=== PATIENT | female | born 1945 | race Caucasian/White ===

== ENCOUNTER → 2017-01-12 | Outpatient (CLI) | payer OTHER ==
[2017-01-12 09:36] LABS: INR 2.7 (0.9-1.1); PROTHROMBIN TIME (PATIENT) 30.2 SECONDS (9.0-12.0)
== END | disposition home or self-care (01) ==
LOC: C.LABVPSUA 09:17
PROVIDERS: ATTEND Family Medicine
DX: I63.531 Cerebral infarction due to unspecified occlusion or stenosis of right posterior cerebral artery (principal); Z79.01 Long term (current) use of anticoagulants; Z51.81 Encounter for therapeutic drug level monitoring; I48.91 Unspecified atrial fibrillation

== ENCOUNTER → 2017-01-26 | Outpatient (CLI) | payer OTHER ==
[2017-01-26 11:15] LABS: INR 2.9 (0.9-1.1)
== END | disposition home or self-care (01) ==
LOC: C.LABSPEC 10:36
PROVIDERS: ATTEND Family Medicine
DX: I48.91 Unspecified atrial fibrillation (principal); I63.531 Cerebral infarction due to unspecified occlusion or stenosis of right posterior cerebral artery; Z79.01 Long term (current) use of anticoagulants

== ENCOUNTER → 2017-06-15 | Day surgery (SDC) | payer OTHER, MEDICARE ==
[2017-05-24 11:54] VITALS: Ht 147.3 cm; Wt 47.3 kg
[~2017-06-15] VITALS: Ht 147.3 cm; Wt 47.3 kg
[~2017-06-15] MED LIST: 500ML BSS 0.3ML EPI 1:1000PF IRRIG ONE; ACETAMINOPHEN 325 MG TAB PO PRN; AMVISC PLUS 0.8ML SYRINGE INT OCU ONE; ATROPINE SULFATE 0.1 MG/ML 5ML SYR IV PRN; AcetaZOLAMIDE 250 MG TAB PO SCH; BETAXOLOL HCL 0.25% OP SUSP PER DROP CHARGE OPL SCH; BRIMONIDINE TART 0.2% OP SOLN PER DROP CHARGE ONE; BSS FLUSH ONE; CARV6.252 PO; ENDOCOAT 0.85ML SYRINGE INT OCU ONE; EpHEDrine SULFATE INJ 50 MG/ML AMP IV PRN; EpINEphrine INJ 1MG/ML AMP 1 MG/ML AMP ONE; LACTATED RINGER'S 1000ML 500 ML IV SCH; LIDOCAINE 4% OP SOLN DROP CHARGE ONE; LIDOCAINE 4% OP SOLN DROP CHARGE OPL SCH; LIDOCAINE HCL 1% MPF 2 ML VIAL ONE; LOSA50TA6 PO; MAGNTAB17 PO; MELATAB2 PO; MIDAZOLAM HCL 1 MG/ML 2ML VIAL ONE; MISC4CAP PO; MIX: 4ML BSS 1ML EPI 1:1000 PF INSTIL ONE; MOXIFLOXACIN OPH SOLN PER DROP CHARGE ONE; MULT-506 PO; OCUCOAT 1 ML SOLN IO ONE; ONDANSETRON INJ 2 MG/ML 2 ML VIAL IV PRN; PHENYLEPHRINE HCL 10% OP SOLN PER DROP CHARGE OPL SCH; POVIDONE-IODINE OP SOLN 30 ML BTL ONE; PROPARACAINE 0.5% OP SOLN PER DROP CHARGE OPL SCH; TOBRAMYCIN/DEXAMETHASONE OPH OINT PER APPLN CHARGE ONE; WARF1TAB PO
--- NOTE | 2017-06-15 07:27 | History & Physical Bridge - SC ---
H&P Re-Evaluation Bridge Note: I have examined the patient, reviewed the History & Physical and in the interval since the performance of the History & Physical I have noted the following changes of clinical significance: No changes noted
[2017-06-15] MEDS: TROPICAMIDE 1% OP SOLN PER DROP CHARGE OPL SCH ×2 (07:33→07:38)
[2017-06-15] MEDS: PHENYLEPHRINE HCL 2.5% OP SOLN PER DROP CHARGE OPL SCH ×2 (07:33→07:37)
[2017-06-15] MEDS: CYCLOPENTOLATE HCL 1% OP SOLN PER DROP CHARGE OPL SCH ×2 (07:34→07:39)
[2017-06-15] MEDS: MOXIFLOXACIN OPH SOLN PER DROP CHARGE OPL SCH ×2 (07:35→07:47)
--- NOTE | 2017-06-15 08:11 | [facility] Operative Report ---
Operative Report Date of Service Jun 15, 2017. Operative Report 1. PREOPERATIVE DIAGNOSIS: Senile nuclear cataract, left eye. 2. POSTOPERATIVE DIAGNOSIS: Senile nuclear cataract, left eye. 3. PROCEDURE: Phacoemulsification of left cataract with posterior chamber lens implant, type [employer], model MX60, power +22.0 diopters. ANESTHESIA: Local standby. SURGEON: Dr. Baig. COMPLICATIONS: None. OPERATING TIME: 20 minutes. 4. OPERATION AND FINDINGS: DESCRIPTION OF PROCEDURE: The left pupil was dilated. The anesthetic was administered using a topical technique. The left eye was prepped and draped. A speculum was placed. A clear corneal incision was formed. The chamber was filled with Amvisc Plus and Endocoat. Epinephrine solution was used. A paracentesis was placed. A capsulorrhexis was performed. The nucleus was hydrodissected. The lens was removed with phacoemulsification. Time was 2.37 seconds. The aspiration unit was used to remove the cortex. The capsule was filled with Amvisc Plus. The lens implant was folded and placed into the capsule. The incision was hydrated. The Amvisc was aspirated. The wound was secure. The chamber was deep. The pupil was round. Brimonidine, TobraDex ointment and Vigamox solution were placed. The speculum was removed. The patient was returned to the Recovery Room in stable condition. I attest to the content of the Intraoperative Record and any orders documented therein. Any exceptions are noted below. The scribe's documentation has been prepared in my presence, under my direction and personally reviewed by me in its entirety. I confirm that the note above accurately reflects all work, treatment, procedures, and medical decision making performed by me. I personally scribed for Roman Baig M.D. ([email or web address]) on 06/15/17 at 08:11. Electronically submitted by Susan Ortiz ([email or web address]).
--- NOTE | 2017-06-15 08:13 | Discharge Instructions-SurgCtr ---
Discharge Instructions Date of Service Jun 15, 2017. Visit Reason for Visit: Cataract Left Eye Discharge Discharge Diagnosis / Problem: lens implant left eye Discharge Goals Goal(s): Improve function Activity Recommendations Activity Limitations: resume your previous activity Lifting Limitations: no more than 10 pounds Exercise/Sports Limitations: gradually increase as tolerated May Resume Sexual Activity: when tolerated Shower/Bathe: tomorrow Driving or Machine Use: resume 1 day after discharge Anesthesia . Post Anesthesia Instructions: If you have had General Anesthesia or IV Sedation: * Do not drive today. * Resume driving when surgeon permits. * Do not make important decisions or sign legal documents today. * Call surgeon for: 1. Temperature elevations greater than 101 degrees F. 2. Uncontrollable pain. 3. Excessive bleeding. 4. Persistent nausea and vomiting. 5. Medication intolerance (nausea, vomiting or rash). * For nausea and vomiting use only clear liquids such as: tea, soda, bouillon until nausea subsides, then gradually increase diet as tolerated. * If you have any concerns or questions, call your surgeon's office. If physician is unavailable and it is an emergency, call 911 or go to the nearest emergency room. . Instructions / Follow-Up Instructions / Follow-Up ACTIVITY RECOMMENDATIONS: * Light activities. * Mild irritation and blurred vision are common for the first few days. * You may walk outside, read, watch television. * Redness around the white part of the eye is common. MEDICATIONS: Resume previous medications unless instructed otherwise by your surgeon. * Take white Diamox (Acetazolamide) tablet at 1 pm today. Start all eye drops at 1 pm today: * Eye drops (today and tomorrow): Prednisone - one drop in operative eye every 3 hours while awake Ofloxacin - one drop in operative eye every 3 hours while awake SPECIAL CARE INSTRUCTIONS: * Tape plastic shield over eye to sleep at night. Call your doctor at with any concerns or problems. FOLLOW UP VISIT: Follow-up with Dr Baig at [facility] as scheduled. Diet Recommendations Home Diet: no limitations Procedures Procedures Performed: Left Cataract Phacoemulsification With Intraocular Lens Implant Pending Studies Studies pending at discharge: no Medical Emergencies . Who to Call and When: Medical Emergencies: If at any time you feel your situation is an emergency, please call 911 immediately. . Non-Emergent Contact Non-Emergency issues call your: [employer] Call Non-Emergent contact if: your pain is not controlled [phone] . . "Provider Documentation" section prepared by Roman Baig. .
[2017-06-15 08:15] VITALS: TEMP 36.3
--- NOTE | 2017-06-15 08:34 | Anesthesia Progress Nt - [facility] ---
Anesthesia Post Op Note Date & Time Jun 15, 2017 at 08:34 Vital Signs Pain Intensity: 0 Vital Signs Past 12 Hours Date Time Temp Pulse Resp B/P (MAP) Pulse Ox O2 Delivery O2 Flow Rate FiO2 06/15/17 08:15 36.3 58 16 130/79 (96) 98 Room Air 06/15/17 07:21 36.3 67 16 147/90 (109) 96 Room Air Notes Mental Status: alert / awake / arousable, participated in evaluation Pt Amnestic to Procedure: Yes Nausea / Vomiting: adequately controlled Pain: adequately controlled Airway Patency, RR, SpO2: stable & adequate BP & HR: stable & adequate Hydration State: stable & adequate Anesthetic Complications: no major complications apparent
[2017-06-15 08:57] VITALS: BP 134/81; PULSE 65; O2SAT 98
== END | disposition home or self-care (01) ==
LOC: X.SURG 07:01
PROVIDERS: ATTEND Specialist
DX: H25.12 Age-related nuclear cataract, left eye (principal); I48.91 Unspecified atrial fibrillation; I10 Essential (primary) hypertension; Z88.0 Allergy status to penicillin; Z88.6 Allergy status to analgesic agent; Z93.3 Colostomy status; Z96.649 Presence of unspecified artificial hip joint; Z86.73 Personal history of transient ischemic attack (TIA), and cerebral infarction without residual deficits; Z79.899 Other long term (current) drug therapy; Z79.01 Long term (current) use of anticoagulants

== ENCOUNTER 2017-07-26 14:04 | Inpatient (IN) | payer OTHER, MEDICARE ==
[~2017-07-26] VITALS: Ht 147.3 cm; Wt 55.1 kg
[~2017-07-26 14:04] MED LIST changes: -500ML BSS 0.3ML EPI 1:1000PF IRRIG ONE; -ACETAMINOPHEN 325 MG TAB PO PRN; -AMVISC PLUS 0.8ML SYRINGE INT OCU ONE; -ATROPINE SULFATE 0.1 MG/ML 5ML SYR IV PRN; -AcetaZOLAMIDE 250 MG TAB PO SCH; -BETAXOLOL HCL 0.25% OP SUSP PER DROP CHARGE OPL SCH; -BRIMONIDINE TART 0.2% OP SOLN PER DROP CHARGE ONE; -BSS FLUSH ONE; -ENDOCOAT 0.85ML SYRINGE INT OCU ONE; -EpHEDrine SULFATE INJ 50 MG/ML AMP IV PRN; -EpINEphrine INJ 1MG/ML AMP 1 MG/ML AMP ONE; -LACTATED RINGER'S 1000ML 500 ML IV SCH; -LIDOCAINE 4% OP SOLN DROP CHARGE ONE; -LIDOCAINE 4% OP SOLN DROP CHARGE OPL SCH; -LIDOCAINE HCL 1% MPF 2 ML VIAL ONE; -MIDAZOLAM HCL 1 MG/ML 2ML VIAL ONE; -MIX: 4ML BSS 1ML EPI 1:1000 PF INSTIL ONE; -MOXIFLOXACIN OPH SOLN PER DROP CHARGE ONE; -OCUCOAT 1 ML SOLN IO ONE; -ONDANSETRON INJ 2 MG/ML 2 ML VIAL IV PRN; -PHENYLEPHRINE HCL 10% OP SOLN PER DROP CHARGE OPL SCH; -POVIDONE-IODINE OP SOLN 30 ML BTL ONE; -PROPARACAINE 0.5% OP SOLN PER DROP CHARGE OPL SCH; -TOBRAMYCIN/DEXAMETHASONE OPH OINT PER APPLN CHARGE ONE
[2017-07-26] MEDS ORDERED: SODIUM CHLORIDE 0.9% 1000ML 1,000 ML IV STA (14:48)
[2017-07-26] MEDS ORDERED: LEVAQUIN 750MG / 150ML D5W IV STA (15:06)
[2017-07-26 15:15] LABS: BASO % 0.1 %; BASO ABS # 0.01 K/uL (0-0.2); HEMATOCRIT 39.3 % (37-47); HEMOGLOBIN 13.2 g/dL (12.0-16.0); IG# 0.08 K/uL (0.00-0.02); LYMPH % 3.6 %; LYMPH ABS # 0.55 K/uL (1.2-3.4); MEAN CELL VOLUME 86.6 fL (80-100); MEAN CORPUSCULAR HEMOGLOBIN 29.1 pg (25-34); MEAN CORPUSCULAR HGB CONC 33.6 g/dl (32-36); MEAN PLATELET VOLUME 9.5 fL (7.4-10.4); MONO % 10.8 %; MONO ABS # 1.67 K/uL (0.11-0.59); NEUT ABS # 13.13 K/uL (1.4-6.5); PLATELET COUNT 262 K/uL (130-400); RED CELL DISTRIBUTION WIDTH CV 15.4 % (11.5-14.5); RED CELL DISTRIBUTION WIDTH SD 49.4 fL (36.4-46.3); WHITE BLOOD COUNT 15.44 K/uL (4.8-10.8)
--- NOTE | 2017-07-26 15:19 | DIAGNOSTIC IMAGING REPORT ---
CHEST ONE VIEW PORTABLE CLINICAL HISTORY: Sepsis dyspnea COMPARISON STUDY: No previous studies for comparison. FINDINGS: The bones soft tissues and hemidiaphragms are normal. The cardiomediastinal silhouette is normal. The lungs are clear. The pulmonary vasculature is normal. IMPRESSION: Negative chest. The above report was generated using voice recognition software. It may contain grammatical, syntax or spelling errors. Electronically signed by: Wilver Morgan M.D. 07/26/2017 3:18 PM Dictated Date/Time: 07/26/2017 3:17 PM
[2017-07-26 15:34] LABS: ALBUMIN 2.6 gm/dl (3.4-5.0); CALCIUM 9.1 mg/dl (8.5-10.1); CREATININE 1.13 mg/dl (0.60-1.20); POTASSIUM 4.1 mmol/L (3.5-5.1)
[2017-07-26 15:35] LABS: INR 2.4 (0.9-1.1)
[2017-07-26 15:37] LABS: TOTAL PROTEIN 7.3 gm/dl (6.4-8.2)
[2017-07-26] MEDS ORDERED: AZTREONAM 2000 MG in DEXTROSE 5% 100 ML IV ONE (16:00)
[2017-07-26 16:24] LABS: PTT PATIENT 47.2 SECONDS (21.0-31.0)
[2017-07-26] MEDS ORDERED: ZOLPIDEM TARTRATE 5 MG TAB PO PRN (16:30)
[2017-07-26] MEDS ORDERED: ALUMINUM/MAGNESIUM/SIMETH (MAALOX MAX) 30 ML UDC PO PRN (16:30)
[2017-07-26] MEDS: SODIUM CHLORIDE 0.9% 1000ML 1,000 ML IV SCH (16:30)
[2017-07-26] MEDS ORDERED: MAGNESIUM HYDROXIDE SUSP 30 ML UDC PO PRN (16:30)
[2017-07-26] MEDS ORDERED: POLYETHYLENE (MIRALAX) 17 GM PACK PO PRN (16:30)
[2017-07-26] MEDS ORDERED: ONDANSETRON INJ 2 MG/ML 2 ML VIAL IV PRN (16:30)
--- NOTE | 2017-07-26 16:55 | History and Physical ---
History & Physical Date of Service July 26, 2017. History & Physical Sepsis secondary to UTI, [id number]
--- NOTE | 2017-07-26 18:06 | HISTORY & PHYSICAL EXAMINATION ---
DATE OF ADMISSION: 07/26/2017 This is level 3 inpatient admission, 35 minutes. CHIEF COMPLAINT: Severe generalized weakness for 3 days associated with fever, required increased assistance in daily activity. HISTORY OF PRESENT ILLNESS: Patient is a 71-year-old female with a significant past medical history of colon resection, colostomy and reversal, left total hip arthroplasty, hypertension, history of CHF and AFib on Coumadin, coming to the hospital Emergency Department because of the above chief complaint. History was per patient, and son at the bedside and ED physicians. She has been having generalized weakness for 3 days. Associated with increased requirement for assistance. Poor oral intake and fluid intake. Feeling difficult to swallowing as well. From yesterday, there was some low-grade fever and some incontinence. Reported she may have some cough, but she denies to have any cough. Family reports urine has some strong smells and pinkish in the urine. Never has had urinary tract infection before. Denied any vomiting. No black stools. Denied any pain. In the Emergency Room, she was found to have mild fever, borderline low blood pressure, some tachycardia. Urinalysis shows urinary tract infection and elevated lactase. Therefore, she has possible sepsis. ED physician gave IV antibiotics and sent a culture and started IV fluid. When I interviewed with her, she was tired and mild lethargic; however, awake, alert and orientated, conversational, follows all commands. Confirmed me the above information. Currently, denied fever and chills; denied cough, sputum, shortness of breath; denied nausea, vomiting, abdominal pain, diarrhea, or constipation. Denied chest pain, palpitation, or lower extremity swelling. Denied skin rashes. Denied lower back pain. Denied facial droop, slurry speeches or local weakness. Review of systems otherwise unremarkable. PAST MEDICAL HISTORY: Like I mentioned in the above include AFib on Coumadin and history of CHF. Hypertension. PAST SURGICAL HISTORY: Like I mentioned in the above include colon resection and colostomy and reversal. Cholecystectomy and left total hip arthroplasty. SOCIAL HISTORY: Never smoked. Denied alcohol abuse disorder, denied illicit drug abuse, denied tobacco abuse disorder. FAMILY HISTORY: Noncontributory. CURRENT MEDICINES: Include Coreg 6.25 mg p.o. b.i.d., Cozaar 50 mg p.o. q.a.m., Slow-Mag 1 tab p.o. b.i.d., melatonin 1 tab p.o. at bedtime, multiple vitamin 1 tab p.o. q.a.m., probiotic 1 tab p.o. q.a.m., Coumadin 1 mg, use as directed. ALLERGIES: ALLERGIC TO AMPICILLIN, MORPHINE, PENICILLIN, SULINDAC, TOLMETIN. PHYSICAL EXAMINATION: VITAL SIGNS: Temperature 37.9, pulse 119. When arriving to the Emergency Room, pulse improved to 90, blood pressure was 96/61 improved to 124/51, pulse ox was 93% in room air. GENERAL: Patient is an female, lethargic, somehow cachectic, denied any complaint. HEAD: Normocephalic. EYES: Pupils equal, round, responds to light. EARS: Ear was normal. NOSE: Normal. NECK: Supple. Thyroid no enlargement. THROAT AND MOUTH: Dry lips. HEART: Regular rhythm. S1, S2. LUNGS: Decreased breathing sounds. There were no wheezing, rhonchi and crackles. ABDOMEN: Soft, nontender. Bilateral CVA was nontender. EXTREMITIES: Lower extremities, no edema. Homans sign was negative. Calf was nontender. SKIN: Has no rashes. NEUROLOGICAL EVALUATION: Cranial nerve II through XII was intact. There were no local deficits. Moves upper and lower extremities. LABORATORY STUDIES: WBC 15, hemoglobin 13, platelet 262. PT 24, INR 2.4. Sodium 136, potassium 4.1, chloride 101. BUN 38, creatinine 1.1. Lactic acid in point of care is 2.84. AST 58, ALT 35, alkaline phosphatase 124. UA shows UTI. Blood culture is pending. Urine culture is pending. IMAGING STUDIES: Chest x-ray has no acute disease. ASSESSMENT AND PLAN: A 71-year-old who has the problems below: 1. Urinary tract infection, sepsis, likely urosepsis. 2. History of atrial fibrillation on Coumadin and is therapeutic. 3. History of congestive heart failure currently compensated, and hypertension. 4. Possible malnutrition. PLAN: Patient obviously has urosepsis associated with fever, leukocytosis and dry lips, mild mental status changes. Patient has multiple antibiotic allergy, ED physician talked to pharmacist, has started Levaquin and Azactam. I agreed to start broad-spectrum antibiotic for now. Follow up sensitivities and nail down as soon as possible. We will check lactic acid. Continue IV fluid. Because the patient is only 49 kilos, we will continue 80 mL per hour. Tomorrow morning lab is ordered. GI and DVT prophylaxis is ordered. For patient's history of hypertension, AFib we will continue warfarin, check a PT/INR. We will continue probiotic because she is on antibiotics and we will hold blood pressure medicines such as losartan and Coreg. We will watch for fluid overload because History of congestive heart failure . Discussed with the patient, and son at bedside. I answered all their questions. They request full code. MTDD
[2017-07-26 18:35] VITALS: BP 98/64; PULSE 85; TEMP 37.1; O2SAT 92; BMI 22.7
[2017-07-26 19:39] LABS: CALCIUM 8.1 mg/dl (8.5-10.1); CREATININE 0.78 mg/dl (0.60-1.20); POTASSIUM 3.9 mmol/L (3.5-5.1)
[2017-07-26 19:54] VITALS: BP 102/59; PULSE 81; TEMP 36.6; O2SAT 94
[2017-07-26] MEDS ORDERED: AZTREONAM CONSULT ACTIVE PRN (20:06)
[2017-07-26] MEDS ORDERED: LEVOFLOXACIN CONSULT ACTIVE PRN (20:15)
--- NOTE | 2017-07-26 20:50 | EMERGENCY ROOM VISIT NOTE ---
History Report prepared by Melvin: Sarah Gentile Under the Supervision of: Dr. Edvin Fiore M.D. First contact with patient: 14:33 Chief Complaint: WEAKNESS Stated Complaint: WEAKNESS, LOW BLOOD PRESSURE History of Present Illness The patient is a 71 year old female who presents to the Emergency Room with complaints of worsening generalized weakness starting 3 days ago. The patient's reports that she has required increased assistance with her daily activities. She is not eating or drinking as much. She is having difficulty swallowing. She had a low grade fever yesterday. Her incontinence has worsened. Her cough has sounded more wet than usual. Her urine has had a strong smell and appeared pinkish. She has not had any recent falls. She has not had any vomiting , black or blood stools. She denies having any pain. She previously had a stroke which left her with left sided weakness and some cognitive difficulties. She has some confusion at baseline. She has had non Hodgkin's lymphoma and multiple myeloma. She has been in remission from both. She has a history of Sj gren's. She has had pneumonia in the past. She is on warfarin for atrial fibrillation. She has a history of CHF. Source of History: patient, spouse/significant other Onset: 3 days ago Position: other (generalized) Quality: other (weakness) Timing: worsening Associated Symptoms: + fevers, + cough, + urinary symptoms, No vomiting, No melena, No hematochezia Note: Pt had decreased appetite, difficulty swallowing. Review of Systems See HPI for pertinent positives & negatives. A total of 10 systems reviewed and were otherwise negative. Past Medical & Surgical Medical Problems: (1) CHF (congestive heart failure) (2) CVA (cerebral vascular accident) (3) Non-Hodgkin lymphoma (4) Sepsis secondary to UTI (5) Sjoegren syndrome (6) uti sepsis Old medical records were reviewed. Nurse's notes were reviewed and I agree with. Family History No pertinent family history stated. Social History Smoking Status: Never Smoker Alcohol Use: none Drug Use: none Marital Status: Housing Status: lives with significant other Occupation Status: retired Current/Historical Medications Scheduled Carvedilol (Coreg), 6.25 MG PO BID Losartan Potassium (Cozaar), 50 MG PO QAM Magnesium Chloride-Calcium Car (Slow-Mag), 1 TAB PO BID Melatonin (Melatonin Maximum Strengt), 1 TAB PO HS Multivitamin (Multivitamin), 1 TAB PO QAM Probiotic Product (Align), 1 CAP PO QAM Warfarin Sodium (Coumadin), 1 MG PO DIRECTED Allergies Coded Allergies: Ampicillin (Verified Allergy, Unknown, rash, 07/26/17) Morphine (Verified Allergy, Unknown, RASH, 07/26/17) Penicillins (Verified Allergy, Unknown, RASH, 07/26/17) Sulindac (Verified Allergy, Unknown, rash, 07/26/17) Tolmetin (Verified Allergy, Unknown, RASH, 07/26/17) Physical Exam Vital Signs Date Time Temp Pulse Resp B/P (MAP) Pulse Ox O2 Delivery O2 Flow Rate FiO2 07/26/17 16:34 89 19 07/26/17 16:04 89 17 07/26/17 16:01 118/70 07/26/17 15:57 90 20 124/51 94 Room Air 07/26/17 15:56 124/51 07/26/17 15:34 94 28 93 07/26/17 15:04 93 Room Air 07/26/17 15:04 109 18 07/26/17 14:38 99 07/26/17 14:15 37.9 119 18 96/61 93 Room Air Physical Exam General: Somewhat cachectic older female, denies any complaints. HEENT: Normal cephalic atraumatic. Pupils are equal round and reactive to light. Extraocular movements are intact. Oropharynx is pink with dry mucous membranes. No swelling of the mouth lips or tongue. Neck: Supple with a midline trachea. No meningeal signs or stiffness, no JVD or bruits. No Stridor. Chest: Clear to auscultation bilaterally. No wheezes or rhonchi. No increased work of breathing. Heart: regular rate and rhythm. Abdomen: Soft nontender, nondistended without rebound guarding or rigidity. Extremities: No cyanosis clubbing or edema. No calf tenderness or assymetry Spine/Back. Non tender to palpation. No CVA tenderness Skin: Good turgor without rashes. Neurologic exam: Cranial nerves two through 12 are intact. Motor and sensation are intact and symmetrical throughout. Medical Decision & Procedures ER Provider Diagnostic Interpretation: X-ray results as stated below per interpretation by me and the radiologist: CHEST ONE VIEW PORTABLE CLINICAL HISTORY: Sepsis dyspnea COMPARISON STUDY: No previous studies for comparison. FINDINGS: The bones soft tissues and hemidiaphragms are normal. The cardiomediastinal silhouette is normal. The lungs are clear. The pulmonary vasculature is normal. IMPRESSION: Negative chest. The above report was generated using voice recognition software. It may contain grammatical, syntax or spelling errors. Electronically signed by: Wilver Morgan M.D. 07/26/2017 3:18 PM Dictated Date/Time: 07/26/2017 3:17 PM Laboratory Results 07/26/17 14:50 Red Blood Count 4.54, Mean Corpuscular Volume 86.6, Mean Corpuscular Hemoglobin 29.1, Mean Corpuscular Hemoglobin Concent 33.6, Mean Platelet Volume 9.5, Neutrophils (%) (Auto) 85.0, Lymphocytes (%) (Auto) 3.6, Monocytes (%) (Auto) 10.8, Eosinophils (%) (Auto) 0.0, Basophils (%) (Auto) 0.1, Neutrophils # (Auto ) 13.13, Lymphocytes # (Auto) 0.55, Monocytes # (Auto) 1.67, Eosinophils # (Auto ) 0.00, Basophils # (Auto) 0.01 Test 07/26/17 14:45 07/26/17 14:50 07/26/17 15:35 Urine Color DK YELLOW Urine Appearance TURBID (CLEAR) Urine pH 8.5 (4.5-7.5) Urine Specific [place] 1.018 (1.000-1.030) Urine Protein 2+ (NEG) Urine Glucose (UA) NEG (NEG) Urine Ketones NEG (NEG) Urine Occult Blood 3+ (NEG) Urine Nitrite NEG (NEG) Urine Bilirubin NEG (NEG) Urine Urobilinogen NEG (NEG) Urine Leukocyte Esterase LARGE (NEG) Urine WBC (Auto) >30 /hpf (0-5) Urine RBC (Auto) 5-10 /hpf (0-4) Urine Hyaline Casts (Auto) 10-30 /lpf (0-5) Urine Epithelial Cells (Auto) 5-10 /lpf (0-5) Urine Bacteria (Auto) 4+ (NEG) Urine Yeast (Auto) PRESENT (NONE PRSENT) White Blood Count 15.44 K/uL (4.8-10.8) Red Blood Count 4.54 M/uL (4.2-5.4) Hemoglobin 13.2 g/dL (12.0-16.0) Hematocrit 39.3 % (37-47) Mean Corpuscular Volume 86.6 fL (80-100) Mean Corpuscular Hemoglobin 29.1 pg (25-34) Mean Corpuscular Hemoglobin Concent 33.6 g/dl (32-36) Platelet Count 262 K/uL (130-400) Mean Platelet Volume 9.5 fL (7.4-10.4) Neutrophils (%) (Auto) 85.0 % Lymphocytes (%) (Auto) 3.6 % Monocytes (%) (Auto) 10.8 % Eosinophils (%) (Auto) 0.0 % Basophils (%) (Auto) 0.1 % Neutrophils # (Auto) 13.13 K/uL (1.4-6.5) Lymphocytes # (Auto) 0.55 K/uL (1.2-3.4) Monocytes # (Auto) 1.67 K/uL (0.11-0.59) Eosinophils # (Auto) 0.00 K/uL (0-0.5) Basophils # (Auto) 0.01 K/uL (0-0.2) RDW Standard Deviation 49.4 fL (36.4-46.3) RDW Coefficient of Variation 15.4 % (11.5-14.5) Immature Granulocyte % (Auto) 0.5 % Immature Granulocyte # (Auto) 0.08 K/uL (0.00-0.02) Prothrombin Time 24.5 SECONDS (9.0-12.0) Prothromb Time International Ratio 2.4 (0.9-1.1) Activated Partial Thromboplast Time 47.2 SECONDS (21.0-31.0) Partial Thromboplastin Ratio 1.8 Total Bilirubin 1.0 mg/dl (0.2-1) Aspartate Amino Transf (AST/SGOT) 58 U/L (15-37) Alanine Aminotransferase (ALT/SGPT) 35 U/L (12-78) Alkaline Phosphatase 124 U/L (45-117) Total Protein 7.3 gm/dl (6.4-8.2) Albumin 2.6 gm/dl (3.4-5.0) Globulin 4.7 gm/dl (2.5-4.0) Albumin/Globulin Ratio 0.6 (0.9-2) Prealbumin 7.8 mg/dl (20-40) Thyroid Stimulating Hormone (TSH) 1.160 uIu/ml (0.300-4.500) Bedside Lactic Acid Venous 2.84 mmol/L (0.90-1.70) Laboratory studies as stated above per my review. Medications Administered Medications (Trade) Dose Ordered Sig/Sid Route Start Time Stop Time Status Last Admin Dose Admin Sodium Chloride 1,000 ml @ 999 mls/hr Q1H1M STAT IV 07/26/17 14:48 07/26/17 15:48 DC 07/26/17 14:48 999 MLS/HR Levofloxacin (Levaquin / D5W) 750 mg NOW STAT IV 07/26/17 15:06 07/26/17 15:07 DC 07/26/17 15:54 750 MG Aztreonam 2000 mg/ Dextrose 110 ml @ 110 mls/hr NOW ONCE IV 07/26/17 16:00 07/26/17 16:59 DC 07/26/17 17:29 110 MLS/HR ECG Per My Interpretation Indication: weakness Rate (beats per minute): 89 Rhythm: atrial fibrillation Findings: no acute ischemic change, other (poor R wave progression) Comparison ECG Date: no prior available ED Course 1437: Past medical records reviewed. The patient was evaluated in room B7, and a complete history and physical examination were performed. 1448: Sodium Chloride 1000 ml @ 999 mls/hr IV. 1505: I reevaluated the patient. Blood work and urine has been obtained. Chest X -ray is being taken. IV is being established. 1506: Levofloxacin 750 mg IV. 1546: I reevaluated the patient. IV has been established and fluids are running. I discussed the results and treatment plan with the patient's family. They verbalized agreement of the treatment plan. The patient will be evaluated for further management. 1555: I discussed the patient's case with Dr. Nielsen, [facility] hospitalist. The patient will be evaluated for further management. 1600: Aztreonam 2000 mg/Dextrose 110 ml @ 110 mls/hr IV. 1624: I reevaluated the patient. She is being evaluated by the [facility] team. Medical Decision Differentials include, but are not limited to; sepsis, UTI, pneumonia, cardiac disease, electrolyte or metabolic abnormality, central neurologic process. This patient comes in as described above. She has been weak and has had a fever at home. She sent over by her regular doctor and apparently she also been having some foul-smelling urine. She was noted to have a low-grade temperature as well as being tachycardic and mildly hypotensive in triage. She is only 49 kg however. I was very concerned about sepsis after talking to the patient's family, she has been extremely weak compared to baseline lately. IV access established and she was given 1 L IV normal saline bolus. Her lungs were clear on exam and also on the chest x-ray. EKG shows baseline A. fib but nothing to suggest acute ischemia. Her white count is elevated. Lactic acid is also mildly elevated in the mid 2 range. She has no significant electrolyte or metabolic abnormalities with exception of BUN being elevated. Clinically, I do think she is also dry and she has had a decreased p.o. intake. She was treated with broad-spectrum IV antibiotics. she was given Levaquin IV initially as I was concerned for sepsis.she was also given aztreonam IV as per sepsis protocol. I did discuss the antibiotic choices with her ED pharmacist, Ari. With the fluids her heart rate came down and her blood pressure went up. I do think she needs to be admitted for further treatment and evaluation of her sepsis. At this point the source appears to be her urine and her cath UA is very suggestive for infection. I did discuss the case with Dr. Nielsen who promptly saw in the ER will admit her for these measures. Medication Reconcilliation Current Medication List: was personally reviewed by me Blood Pressure Screening Referred to hospitalist. Consults Time Called: [phone] Consulting Physician: Dr. Nielsen, [facility] hospitalist Returned Call: [phone] Discussed the patient's case. The patient will be evaluated for further management. Impression Primary Impression: Sepsis Additional Impression: UTI (urinary tract infection) Critical Care Due to the patient's sepsis and abnormal vital signs and need for IV fluids and multiple IV medications and reassessment frequently as well as consultations, I have personally spent greater than 30 minutes of critical care time in the direct management of this patient. This includes bedside care, interpretation of diagnostic studies, and testing, discussion with consultants, patient, and family members, and other required patient management activities. This 30 minutes is in excess of all separately billable procedures. Scribe Attestation The scribe's documentation has been prepared under my direction and personally reviewed by me in its entirety. I confirm that the note above accurately reflects all work, treatment, procedures, and medical decision making performed by me. Departure Information Dispostion Being Evaluated By Hospitalist Referrals Giorgio Walton M.D. (PCP) Patient Instructions My [facility] Problem Qualifiers
[2017-07-26] MEDS ORDERED: HEPARIN SOD 5000 UNIT/0.5 ML CARP SQ SCH (21:00)
[2017-07-26] MEDS ORDERED: WARFARIN SOD 2 MG TAB PO STA (22:36)
[2017-07-27] VITALS (9 sets, daily range): BP systolic 83–113; BP diastolic 50–73; PULSE 72–86; TEMP 36.6–38.2; O2SAT 92–96; Ht 147.3 cm; Wt 55.1 kg
[2017-07-27] MEDS: AZTREONAM IV 1,000 MG in DEXTROSE 5% 100ML 100 ML IV SCH ×3 (02:05→17:39)
[2017-07-27] MEDS: ACETAMINOPHEN 325 MG TAB PO PRN ×2 (02:15→20:02)
[2017-07-27] MEDS ORDERED: ACETAMINOPHEN IV 650 MG in EMPTY BAG 0 ML IV PRN (02:45)
[2017-07-27 05:43] LABS: HEMATOCRIT 33.1 % (37-47); HEMOGLOBIN 11.1 g/dL (12.0-16.0); MEAN CELL VOLUME 85.8 fL (80-100); MEAN CORPUSCULAR HEMOGLOBIN 28.8 pg (25-34); MEAN CORPUSCULAR HGB CONC 33.5 g/dl (32-36); MEAN PLATELET VOLUME 9.3 fL (7.4-10.4); PLATELET COUNT 210 K/uL (130-400); RED CELL DISTRIBUTION WIDTH CV 15.3 % (11.5-14.5); RED CELL DISTRIBUTION WIDTH SD 47.9 fL (36.4-46.3); WHITE BLOOD COUNT 12.41 K/uL (4.8-10.8)
[2017-07-27 06:16] LABS: ALBUMIN 1.9 gm/dl (3.4-5.0); CALCIUM 7.7 mg/dl (8.5-10.1); CREATININE 0.75 mg/dl (0.60-1.20); POTASSIUM 3.7 mmol/L (3.5-5.1)
[2017-07-27 06:30] LABS: TOTAL PROTEIN 5.6 gm/dl (6.4-8.2)
[2017-07-27] MEDS: SODIUM CHLORIDE 0.9% 1000ML 1,000 ML IV SCH ×2 (07:22→17:30)
[2017-07-27] MEDS: LACTOBACILLUS ACIDOPHILUS (FLORANEX) TAB PO SCH (08:02)
--- NOTE | 2017-07-27 08:07 | Clinical Documentation Query ---
QUERY 1 OF [address] GARCIA, In your clinical opinion is this patient being managed for: ( x) possible mild Metabolic encephalopathy ( ) Not Agree ( ) Other explanation of clinical findings (Please Explain. If no explanation given, this would be considered a no response.) ( ) Unable to determine ( ) Need to Discuss (Please call CDS via extension or qliq. If no interaction occurs this is considered a no response.) The medical record reflects the following clinical findings, treatment, and risk factors. Clinical Indicators: 71 yo female presenting with sepsis from UTI. H/P describes pt as mild mental status changes. RN progress note indicates that at baseline, the pt is oriented and ambulatory with 1 assist and walker. Pt presented to nursing unit, alert and oriented x 1. Treatment:1L NSS bolus then continuous, IV levaquin, IV aztreonam, prn IV acetaminophen Risk Factors: age, sepsis, UTI QUERY 2 AND 3 In your clinical opinion is this patient being managed for: ( x ) possible Severe protein-calorie malnutrition ( ) Not Agree ( ) Other explanation of clinical findings (Please Explain. If no explanation given, this would be considered a no response.) ( ) Unable to determine ( ) Need to Discuss (Please call CDS via extension or qliq. If no interaction occurs this is considered a no response.) The medical record reflects the following clinical findings, treatment, and risk factors. Clinical Indicators:ER describes pt as cachectic in appearance and with decreased appetite and oral intake x 3 days. H/P indicates possible malnutrition. Review of historical weight shows a wt loss of 4.47 kg (9%) over a 6 week period. Treatment: IV fluids, IV levaquin, IV aztreonam, regular diet Risk Factors: stroke, non-hodgkin lymphoma, CHF QUERY 3 OF 3 In your clinical opinion is this patient being managed for: ( x ) likely Chronic diastolic CHF ( ) Not Agree ( ) Other explanation of clinical findings (Please Explain. If no explanation given, this would be considered a no response.) ( ) Unable to determine ( ) Need to Discuss (Please call CDS via extension or qliq. If no interaction occurs this is considered a no response.) The medical record reflects the following clinical findings, treatment, and risk factors. Clinical Indicators: Diagnosis of CHF listed in pt's PMH. Unable to locate ECHO in [facility] Treatment:chronic management with coreg and cozaar Risk Factors: HTN, A fib, CVA Please clarify and document your clinical opinion in the progress notes and discharge summary. Terms such as "probable", "suspected", "likely", "questionable", "possible", or "still to be ruled out" are acceptable. IF IN AGREEMENT, YOU MUST DOCUMENT ABOVE DIAGNOSTIC STATEMENT IN DAILY PROGRESS NOTES AND DISCHARGE SUMMARY. This document is not part of the patient's record. Thank You, Lucretia Holcomb RN [phone]
[2017-07-27] MEDS ORDERED: PNEUMOCOCCAL ADMINISTRATION CHARGE ONE (14:15)
[2017-07-27] MEDS ORDERED: PNEUMOCOCCAL POLYSACCHARIDES 25 MCG/0.5 ML VIAL/SYR IM. ONE (14:15)
--- NOTE | 2017-07-27 14:37 | Hospitalist Progress Note ---
Hospitalist Progress Note Date of Service July 27, 2017. (Ekaterina Quezada .MEETA) Subjective Pt evaluation today including: conversation w/ patient, conversation w/ family , physical exam, chart review, lab review, review of inpatient medication list Ms. Appiah denies complaints. I did answer questions along with Dr. Gutierrez in the room with . Patient denies pain or discomfort. ROS Constitutional: no chills, aches, sweats or fever Respiratory: no sob,cough, sputum, or wheezing Cardiac: no chest pain, palpitations, edema, orthopnea or lightheadedness GI: no abdominal pain, nausea, vomiting, diarrhea or constipation : no dysuria or hesitancy Extremities: no joint pain or weakness Skin: no rash All other systems reviewed and negative (Ekaterina Quezada CRNP) Medications Medications Administered Medications (Trade) Dose Ordered Sig/Sid Route Start Time Stop Time Status Last Admin Dose Admin Sodium Chloride 1,000 ml @ 999 mls/hr Q1H1M STAT IV 07/26/17 14:48 07/26/17 15:48 DC 07/26/17 14:48 999 MLS/HR Levofloxacin (Levaquin / D5W) 750 mg NOW STAT IV 07/26/17 15:06 07/26/17 15:07 DC 07/26/17 15:54 750 MG Aztreonam 2000 mg/ Dextrose 110 ml @ 110 mls/hr NOW ONCE IV 07/26/17 16:00 07/26/17 16:59 DC 07/26/17 17:29 110 MLS/HR Sodium Chloride 1,000 ml @ 80 mls/hr [id number] IV 07/26/17 16:30 08/25/17 16:29 07/27/17 07:22 80 MLS/HR Aztreonam 1000 mg/ Dextrose 110 ml @ 100 mls/hr Q8H IV 07/27/17 02:00 08/05/17 17:59 07/27/17 10:02 100 MLS/HR Lactobacillus Acidophilus (Floranex Tab) 1 tab QAM PO 07/27/17 09:00 08/26/17 08:59 07/27/17 08:02 1 TAB Warfarin Sodium (Coumadin Tab) 2 mg NOW STAT PO 07/26/17 22:36 07/26/17 22:37 DC 07/26/17 23:33 2 MG Acetaminophen 650 mg/Empty Bag 65 ml @ 260 mls/hr Q6H PRN IV 07/27/17 02:45 08/26/17 02:44 07/27/17 03:38 260 MLS/HR (Ekaterina Quezada CRNP) Objective Vital Signs Date Time Temp Pulse Resp B/P (MAP) Pulse Ox O2 Delivery O2 Flow Rate FiO2 07/27/17 12:00 36.6 78 20 106/70 (82) 95 Room Air 07/27/17 12:00 Room Air 07/27/17 08:20 93 Room Air 07/27/17 07:44 36.6 82 16 97/63 (74) 93 07/27/17 04:24 37.2 80 16 95/63 (74) 96 Room Air 07/27/17 04:00 Room Air 07/27/17 02:12 38.1 07/27/17 00:00 Room Air 07/27/17 00:00 37.4 84 16 113/73 (86) 92 Room Air 07/26/17 19:54 36.6 81 20 102/59 (73) 94 07/26/17 18:35 92 Room Air 07/26/17 18:35 37.1 85 18 98/64 (75) 92 Room Air 07/26/17 17:34 87 17 94 07/26/17 17:04 78 20 93 07/26/17 17:01 110/68 07/26/17 16:34 89 19 07/26/17 16:04 89 17 07/26/17 16:01 118/70 07/26/17 15:57 90 20 124/51 94 Room Air 07/26/17 15:56 124/51 07/26/17 15:34 94 28 93 07/26/17 15:04 93 Room Air 07/26/17 15:04 109 18 07/26/17 14:38 99 07/26/17 14:15 37.9 119 18 96/61 93 Room Air (Ekaterina Quezada, MEETA) Physical Exam Notes: General: no distress Eyes: normal inspection, PERLL Respiratory: chest non tender, clear to auscultation, normal breath sounds, no respiratory distress, no accessory muscle use Cardiac: regular rate and rhythm, no rub or gallop, no murmur, no edema, no jvd GI/: active bowel sounds, no abd pain or tenderness, soft, non distended Extremities: normal range of motion, normal strength, non tender Neuro/Psych: alert and oriented x 3, unable to state President correctly, flat mood and affect Skin: normal color, dry (Ekaterina Quezada, MEETA) Laboratory Results Last 24 Hours Test 07/26/17 14:45 07/26/17 14:50 07/26/17 15:35 07/26/17 19:08 Urine Color DK YELLOW Urine Appearance TURBID Urine pH 8.5 Urine Specific [place] 1.018 Urine Protein 2+ Urine Glucose (UA) NEG Urine Ketones NEG Urine Occult Blood 3+ Urine Nitrite NEG Urine Bilirubin NEG Urine Urobilinogen NEG Urine Leukocyte Esterase LARGE Urine WBC (Auto) >30 /hpf Urine RBC (Auto) 5-10 /hpf Urine Hyaline Casts (Auto) 10-30 /lpf Urine Epithelial Cells (Auto) 5-10 /lpf Urine Bacteria (Auto) 4+ Urine Yeast (Auto) PRESENT White Blood Count 15.44 K/uL Red Blood Count 4.54 M/uL Hemoglobin 13.2 g/dL Hematocrit 39.3 % Mean Corpuscular Volume 86.6 fL Mean Corpuscular Hemoglobin 29.1 pg Mean Corpuscular Hemoglobin Concent 33.6 g/dl Platelet Count 262 K/uL Mean Platelet Volume 9.5 fL Neutrophils (%) (Auto) 85.0 % Lymphocytes (%) (Auto) 3.6 % Monocytes (%) (Auto) 10.8 % Eosinophils (%) (Auto) 0.0 % Basophils (%) (Auto) 0.1 % Neutrophils # (Auto) 13.13 K/uL Lymphocytes # (Auto) 0.55 K/uL Monocytes # (Auto) 1.67 K/uL Eosinophils # (Auto) 0.00 K/uL Basophils # (Auto) 0.01 K/uL RDW Standard Deviation 49.4 fL RDW Coefficient of Variation 15.4 % Immature Granulocyte % (Auto) 0.5 % Immature Granulocyte # (Auto) 0.08 K/uL Prothrombin Time 24.5 SECONDS Prothromb Time International Ratio 2.4 Activated Partial Thromboplast Time 47.2 SECONDS Partial Thromboplastin Ratio 1.8 Sodium Level 136 mmol/L 137 mmol/L Potassium Level 4.1 mmol/L 3.9 mmol/L Chloride Level 101 mmol/L 107 mmol/L Carbon Dioxide Level 31 mmol/L 28 mmol/L Anion Gap 4.0 mmol/L 2.0 mmol/L Blood Urea Nitrogen 38 mg/dl 33 mg/dl Creatinine 1.13 mg/dl 0.78 mg/dl Est Creatinine Clear Calc Drug Dose 32.8 ml/min 47.5 ml/min Estimated GFR () 57.4 89.9 Estimated GFR (Non- 49.6 77.6 BUN/Creatinine Ratio 34.0 41.8 Random Glucose 95 mg/dl 108 mg/dl Calcium Level 9.1 mg/dl 8.1 mg/dl Total Bilirubin 1.0 mg/dl Aspartate Amino Transf (AST/SGOT) 58 U/L Alanine Aminotransferase (ALT/SGPT) 35 U/L Alkaline Phosphatase 124 U/L Total Protein 7.3 gm/dl Albumin 2.6 gm/dl Globulin 4.7 gm/dl Albumin/Globulin Ratio 0.6 Prealbumin 7.8 mg/dl Thyroid Stimulating Hormone (TSH) 1.160 uIu/ml Bedside Lactic Acid Venous 2.84 mmol/L Lactic Acid Level 1.2 mmol/L Test 07/27/17 05:23 07/27/17 05:34 White Blood Count 12.41 K/uL Red Blood Count 3.86 M/uL Hemoglobin 11.1 g/dL Hematocrit 33.1 % Mean Corpuscular Volume 85.8 fL Mean Corpuscular Hemoglobin 28.8 pg Mean Corpuscular Hemoglobin Concent 33.5 g/dl RDW Standard Deviation 47.9 fL RDW Coefficient of Variation 15.3 % Platelet Count 210 K/uL Mean Platelet Volume 9.3 fL Prothrombin Time 30.9 SECONDS Prothromb Time International Ratio 3.0 Sodium Level 141 mmol/L Potassium Level 3.7 mmol/L Chloride Level 109 mmol/L Carbon Dioxide Level 27 mmol/L Anion Gap 6.0 mmol/L Blood Urea Nitrogen 24 mg/dl Creatinine 0.75 mg/dl Est Creatinine Clear Calc Drug Dose 49.5 ml/min Estimated GFR () 94.3 Estimated GFR (Non- 81.3 BUN/Creatinine Ratio 32.2 Random Glucose 91 mg/dl Calcium Level 7.7 mg/dl Magnesium Level 1.8 mg/dl Total Bilirubin 1.1 mg/dl Aspartate Amino Transf (AST/SGOT) 37 U/L Alanine Aminotransferase (ALT/SGPT) 28 U/L Alkaline Phosphatase 112 U/L Total Protein 5.6 gm/dl Albumin 1.9 gm/dl Globulin 3.7 gm/dl Albumin/Globulin Ratio 0.5 Thyroid Stimulating Hormone (TSH) 0.909 uIu/ml Lactic Acid Level 1.0 mmol/L (Ekaterina Quezada CRNP) Assessment and Plan Ms. Appiah is a 71 year old woman here for sepsis secondary to UTI UTI/sepsis - continue telemetry monitoring for now - lactic acid peaked at 2.84, patient febrile overnight - continue IV levaquin and aztreonam - cultures pending - continue gentle IV fluids - cbc, prp am A.fib on Coumadin, htn - rate controlled - continue Coumadin, cozaar, coreg - PT/INR am Dysphagia - speech eval showed severe aspiration risk - pureed diet History of CVA, weakness - PT/OT evals DVT proph - coumadin Full code Continued [facility] stay due to: multiple IV medications needed Discharge planning: uncertain (Ekaterina Quezada CRNP) [employer] Physician Supervision Note: I interviewed and examined the patient. Discussed with Ekaterina Quezada [employer] and agree with findings and plan as documented in the note. 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 Her is not sure he feels he may prefer to have rehabilitation and home but now that her nutritional intake is in question this may change his mind Vital signs are stable temp 36 6 pulse 80 respiration rate 16 BP is slightly low at 97/63 although clinically she appears in no distress her cardiac exam is irregularly irregular she has a history of A. fib and is currently on Coumadin with therapeutic INR her lungs are clear she has a deficits with right-sided hemiplegia and facial droop We will continue antibiotic therapy awaiting sensitivity results for urinary tract infection present on admission and possible sepsis which is now resolved we are continuing to amend her Coumadin for her anticoagulation as an art her INR was slightly elevated at 3 this may be due to the accidentally giving her higher dose of Coumadin prior to coming in that she is on the usual alternating dose at home PT OT evaluations are pending Documented By: Mario Gutierrez (Mario Gutierrez M.D.)
[2017-07-27] MEDS ORDERED: WARFARIN SOD 1 MG TAB PO SCH (16:00)
[2017-07-27] MEDS ORDERED: LEVOFLOXACIN / D5W 750 MG in PREMIXED IN D5W 150 ML IV SCH (16:00)
[2017-07-27] MEDS ORDERED: SODIUM CHLORIDE 0.9% 1000ML 1,000 ML IV SCH (22:30)
[2017-07-28] VITALS (61 sets, daily range): BP systolic 70–148; BP diastolic 41–99; PULSE 72–117; TEMP 36.4–36.9; O2SAT 81–99
[2017-07-28] MEDS ORDERED: SODIUM CHLORIDE 0.9% 1000ML 1,000 ML IV SCH
[2017-07-28 00:41] LABS: BASO % 0.1 %; BASO ABS # 0.02 K/uL (0-0.2); HEMATOCRIT 33.2 % (37-47); IG# 0.31 K/uL (0.00-0.02); LYMPH % 5.1 %; MEAN CELL VOLUME 86.2 fL (80-100); MEAN CORPUSCULAR HEMOGLOBIN 28.6 pg (25-34); MEAN PLATELET VOLUME 8.9 fL (7.4-10.4); MONO % 8.6 %; MONO ABS # 1.53 K/uL (0.11-0.59); NEUT % 84.4 %; NEUT ABS # 14.93 K/uL (1.4-6.5); PLATELET COUNT 189 K/uL (130-400); RED CELL DISTRIBUTION WIDTH CV 15.6 % (11.5-14.5); RED CELL DISTRIBUTION WIDTH SD 49.4 fL (36.4-46.3); WHITE BLOOD COUNT 17.69 K/uL (4.8-10.8)
[2017-07-28 00:44] LABS: MEAN CORPUSCULAR HGB CONC 33.1 g/dl (32-36)
[2017-07-28] MEDS ORDERED: ALBUMIN HUMAN 25% 12.5 GM/50 ML VIAL IV STA (01:16)
[2017-07-28] MEDS ORDERED: VANCOMYCIN IV 1,000 MG in SODIUM CHLORIDE 0.9% 250ML 250 ML IV STA (01:47)
[2017-07-28] MEDS ORDERED: FLUCONAZOLE / NSS 200 MG in PREMIXED NSS 100 ML IV SCH (02:00)
[2017-07-28] MEDS ORDERED: VANCOMYCIN CONSULT ACTIVE PRN ×2 (02:00→07:15)
--- NOTE | 2017-07-28 02:02 | Progress Note ---
Progress Note Date of Service July 28, 2017. Progress Note Received report that patient's BP was trending down systolic in the 80's.She is afebrile currently. Gave 2 bolus 1 L NS. Subsequent BP showed minimal improvement. White Ct reordered showed increasing leukocytosis from previous. Albumin 25 mg IV ordered x2 one hr apart. Gave 1 gm Vancomycin x 1 for expanded coverage to cover resistant pathogens and added fluconazole given UA showing yeast. pt aox2. Chest cta tonya, abdomen soft nt, nd, ext: no lo edema
[2017-07-28] MEDS: AZTREONAM IV 1,000 MG in DEXTROSE 5% 100ML 100 ML IV SCH (03:33)
[2017-07-28] MEDS ORDERED: SODIUM CHLORIDE 0.9% 1000ML 1,000 ML IV STA (03:34)
[2017-07-28 04:31] LABS: HEMATOCRIT 30.1 % (37-47); MEAN CORPUSCULAR HEMOGLOBIN 28.6 pg (25-34); MEAN CORPUSCULAR HGB CONC 33.2 g/dl (32-36); MEAN PLATELET VOLUME 8.9 fL (7.4-10.4); PLATELET COUNT 182 K/uL (130-400); RED CELL DISTRIBUTION WIDTH CV 15.8 % (11.5-14.5); RED CELL DISTRIBUTION WIDTH SD 49.8 fL (36.4-46.3); WHITE BLOOD COUNT 17.53 K/uL (4.8-10.8)
[2017-07-28 04:51] LABS: INR 7.5 (0.9-1.1)
[2017-07-28 05:02] LABS: ALBUMIN 2.1 gm/dl (3.4-5.0); CREATININE 0.78 mg/dl (0.60-1.20); POTASSIUM 3.3 mmol/L (3.5-5.1)
[2017-07-28] MEDS: SODIUM CHLORIDE 0.9% 1000ML 1,000 ML IV SCH (05:12)
[2017-07-28] MEDS ORDERED: POTASSIUM CHLORIDE 20 MEQ TABCR PO STA (05:15)
[2017-07-28] MEDS ORDERED: MAGNESIUM SULFATE 1GM / D5W 100 ML IV STA (05:22)
[2017-07-28 05:56] LABS: ALBUMIN 2.1 gm/dl (3.4-5.0); PHOSPHORUS 1.6 mg/dl (2.5-4.9); TOTAL PROTEIN 5.4 gm/dl (6.4-8.2)
[2017-07-28] MEDS ORDERED: ICU PROTOCOL FOR HYPERGLYCEMIA PRN (06:30)
[2017-07-28] MEDS ORDERED: IMIPENEM/CILASTATIN IV 500 MG in DEXTROSE 5% 100ML 100 ML IV SCH (06:45)
[2017-07-28] MEDS ORDERED: IMIPENEM/CILASTATIN CONSULT ACTIVE PRN (07:00)
--- NOTE | 2017-07-28 07:12 | Critical Care Consultation ---
Critical Care Consultation Date of Consultation: July 28, 2017. Attending Physician: Stefano Nielsen MD, PhD Reason for Consultation: 71-year-old female initially admitted for sepsis from urinary source with labile blood pressures despite aggressive intravenous fluid administration. Patient requiring close hemodynamic monitoring in the setting of sepsis. History of Present Illness Patient is a 71-year-old female with a significant past medical history of A. fib, CVA with LEFT-sided deficits, Sjogren's syndrome, multiple myeloma, non- Hodgkin's lymphoma, and nonischemic cardiomyopathy who was initially admitted to the hospital on 07/26 for sepsis from likely urinary source. Throughout her stay, she has had blood pressures in the 90s-100s. She is received IV fluids as well as intravenous aztreonam and Levaquin. Despite current treatment, the patient was found to have decreasing blood pressures with systolics in the 70s. She received 2, 2000 mL IV boluses of normal saline followed by 25 g of 25% albumin without improvement of blood pressure. Because of this, the patient received broader coverage of antibiotics with vancomycin as well as fungal coverage with fluconazole from yeast in her urine. On evaluation, the patient is awake and alert. She does appear confused, however this is reportedly her baseline. She offers her no real complaints at this point. She denies any headaches, dizziness, chest pain, palpitations, shortness of breath, nausea, vomiting, or blood in her stool or urine. Past Medical/Surgical History Medical Problems: (1) CHF (congestive heart failure) (2) CVA (cerebral vascular accident) (3) Non-Hodgkin lymphoma (4) Sepsis secondary to UTI (5) Sjoegren syndrome (6) uti sepsis Family History Noncontributory Social History Smoking Status: Never Smoker Smokeless Tobacco Use: No Alcohol Use: none Drug Use: none Marital Status: Housing Status: lives with significant other Occupation Status: retired Allergies Coded Allergies: Ampicillin (Verified Allergy, Unknown, rash, 07/26/17) Morphine (Verified Allergy, Unknown, RASH, 07/26/17) Penicillins (Verified Allergy, Unknown, RASH, 07/26/17) Sulindac (Verified Allergy, Unknown, rash, 07/26/17) Tolmetin (Verified Allergy, Unknown, RASH, 07/26/17) Home Medications Scheduled Carvedilol (Coreg), 6.25 MG PO BID Losartan Potassium (Cozaar), 50 MG PO QAM Magnesium Chloride-Calcium Car (Slow-Mag), 1 TAB PO BID Melatonin (Melatonin Maximum Strengt), 1 TAB PO HS Multivitamin (Multivitamin), 1 TAB PO QAM Probiotic Product (Align), 1 CAP PO QAM Warfarin Sodium (Coumadin), 1 MG PO DIRECTED Current Inpatient Medications Current Inpatient Medications Medications (Trade) Dose Ordered Sig/Sid Route Start Time Stop Time Status Last Admin Dose Admin Sodium Chloride 1,000 ml @ 80 mls/hr [id number] IV 07/26/17 16:30 08/25/17 16:29 07/28/17 05:12 80 MLS/HR Acetaminophen (Tylenol Tab) 650 mg Q4H PRN PO 07/26/17 16:30 08/25/17 16:29 07/27/17 20:02 650 MG Al Hydrox/Mg Hydrox/Simethicone (Maalox Max Susp) 15 ml Q4H PRN PO 07/26/17 16:30 08/25/17 16:29 Magnesium Hydroxide (Milk Of Magnesia Susp) 30 ml Q12H PRN PO 07/26/17 16:30 08/25/17 16:29 Zolpidem Tartrate (Ambien Tab) 5 mg HSZ PRN PO 07/26/17 16:30 08/25/17 16:29 Ondansetron HCl (Zofran Inj) 4 mg Q6H PRN IV 07/26/17 16:30 08/25/17 16:29 Polyethylene (Miralax Powder Packet) 17 gm DAILY PRN PO 07/26/17 16:30 08/25/17 16:29 Aztreonam (Consult) 1 ea UD PRN N/A 07/26/17 20:06 08/25/17 20:05 Aztreonam 1000 mg/ Dextrose 110 ml @ 100 mls/hr Q8H IV 07/27/17 02:00 08/05/17 17:59 07/28/17 03:33 100 MLS/HR Lactobacillus Acidophilus (Floranex Tab) 1 tab QAM PO 07/27/17 09:00 08/26/17 08:59 07/27/17 08:02 1 TAB Levofloxacin (Consult) 1 ea UD PRN N/A 07/26/17 20:15 08/25/17 20:14 Warfarin Sodium (Coumadin Tab) 1 mg SuMoWeFr@1600 PO 07/27/17 16:00 08/26/17 15:59 07/27/17 15:57 1 MG Warfarin Sodium (Coumadin Tab) 2 mg TuThSa@1600 PO 07/28/17 16:00 08/27/17 15:59 Acetaminophen 650 mg/Empty Bag 65 ml @ 260 mls/hr Q6H PRN IV 07/27/17 02:45 08/26/17 02:44 07/27/17 03:38 260 MLS/HR Levofloxacin 750 mg/Prmx 150 ml @ 100 mls/hr Q24H IV 07/27/17 16:00 08/05/17 15:59 07/27/17 15:57 100 MLS/HR Fluconazole/ Sodium Chloride 200 mg/Prmx 100 ml @ 100 mls/hr Q24H IV 07/28/17 02:00 08/07/17 01:59 07/28/17 02:29 100 MLS/HR Miscellaneous Information (Consult) 1 ea UD PRN N/A 07/28/17 02:00 08/27/17 01:59 Albumin Human (Albumin 25%) 12.5 gm TODAY@0205 IV 07/29/17 02:05 07/29/17 02:06 Magnesium Sulfate 100 ml @ 100 mls/hr NOW STAT IV 07/28/17 05:22 07/28/17 06:21 UNV Review of Systems A complete 10-point Review of Systems was discussed with the patient, with pertinent positives and negatives listed in the History of Present Illness. All remaining Review of Systems questions can be considered negative unless otherwise specified. Physical Exam Date Time Temp Pulse Resp B/P (MAP) Pulse Ox O2 Delivery O2 Flow Rate FiO2 07/28/17 04:00 97 Room Air 07/28/17 04:00 36.7 79 21 92/55 (67) 97 Room Air 07/28/17 03:54 36.8 78 18 94 07/28/17 03:27 36.8 78 16 70/47 (55) 94 Room Air 07/28/17 02:30 36.4 86 18 98/65 (76) 94 Room Air 07/28/17 01:49 36.9 86 18 84/52 (63) 96 Room Air 07/28/17 01:08 86 90/61 (71) 96 Room Air 07/28/17 00:00 Room Air 07/27/17 23:48 36.9 82 16 88/58 (68) 94 Room Air 07/27/17 21:58 37.5 86 18 90/58 (69) 92 Room Air 07/27/17 20:00 Room Air 07/27/17 19:40 38.2 72 16 103/70 (81) 93 Room Air 07/27/17 16:00 Room Air 07/27/17 12:00 36.6 78 20 106/70 (82) 95 Room Air 07/27/17 12:00 Room Air 07/27/17 08:20 93 Room Air 07/27/17 07:44 36.6 82 16 97/63 (74) 93 VITAL SIGNS - Vital signs and nursing notes were reviewed. GENERAL - 71-year-old female appearing her stated age who is in no acute distress. Communicates well with provider and answers questions appropriately. SKIN - Without rashes. HEAD - NC/AT. EYES - PERRL with EOMI bilaterally. EARS - No deformities of external structures noted on gross examination bilaterally. NOSE - Midline and without cyanosis. No epistaxis or purulent drainage noted. MOUTH/OROPHARYNX - Without perioral cyanosis. Buccal mucosa pink and moist and without leukoplakia. NECK - Neck with FROM. Supple to palpation. LUNGS - Chest wall symmetric without accessory muscle use, intercostals retractions, or central cyanosis. Normal vesicular breath sounds CTA B/L. No wheezes, rales, or rhonchi appreciated. CARDIAC - RRR with S1/S2. No murmur, rubs, or gallops appreciated. ABDOMEN - Abdominal contour flat without pulsations or visible masses. BS normoactive all four quadrants. Mild tenderness to palpation in the RIGHT lower quadrant. No palpable masses, hepatosplenomegaly, or ascites noted. EXTREMITIES - No clubbing or peripheral cyanosis. No pretibial edema present. +3 /5 radial and dorsalis pedis pulses palpated throughout. +5/5 strength noted in UE/LE bilaterally. NEUROLOGIC - Cranial nerves II through XII grossly intact. Sensory intact to light touch throughout. PSYCH - A&O and cooperates fully with examiner. Pt is very pleasant and interacts well with examiner. Laboratory Results Last 24 Hours Test 07/27/17 05:34 07/28/17 00:32 07/28/17 04:18 07/28/17 05:24 Lactic Acid Level 1.0 mmol/L White Blood Count 17.69 K/uL 17.53 K/uL Red Blood Count 3.85 M/uL 3.50 M/uL Hemoglobin 11.0 g/dL 10.0 g/dL Hematocrit 33.2 % 30.1 % Mean Corpuscular Volume 86.2 fL 86.0 fL Mean Corpuscular Hemoglobin 28.6 pg 28.6 pg Mean Corpuscular Hemoglobin Concent 33.1 g/dl 33.2 g/dl Platelet Count 189 K/uL 182 K/uL Mean Platelet Volume 8.9 fL 8.9 fL Neutrophils (%) (Auto) 84.4 % Lymphocytes (%) (Auto) 5.1 % Monocytes (%) (Auto) 8.6 % Eosinophils (%) (Auto) 0.0 % Basophils (%) (Auto) 0.1 % Neutrophils # (Auto) 14.93 K/uL Lymphocytes # (Auto) 0.90 K/uL Monocytes # (Auto) 1.53 K/uL Eosinophils # (Auto) 0.00 K/uL Basophils # (Auto) 0.02 K/uL RDW Standard Deviation 49.4 fL 49.8 fL RDW Coefficient of Variation 15.6 % 15.8 % Immature Granulocyte % (Auto) 1.8 % Immature Granulocyte # (Auto) 0.31 K/uL Prothrombin Time 76.0 SECONDS Prothromb Time International Ratio 7.5 Sodium Level 138 mmol/L Potassium Level 3.3 mmol/L Chloride Level 112 mmol/L Carbon Dioxide Level 20 mmol/L Anion Gap 6.0 mmol/L Blood Urea Nitrogen 17 mg/dl Creatinine 0.78 mg/dl Est Creatinine Clear Calc Drug Dose 43.9 ml/min Estimated GFR () 89.9 Estimated GFR (Non- 77.6 BUN/Creatinine Ratio 22.2 Random Glucose 83 mg/dl Calcium Level 7.0 mg/dl Magnesium Level 1.5 mg/dl Total Bilirubin 1.4 mg/dl Aspartate Amino Transf (AST/SGOT) 26 U/L Alanine Aminotransferase (ALT/SGPT) 23 U/L Alkaline Phosphatase 96 U/L Total Protein 5.0 gm/dl Albumin 2.1 gm/dl Globulin 2.9 gm/dl Albumin/Globulin Ratio 0.7 Diagnostic Results Radiological imaging and reports were reviewed by myself. Radiologist's Interpretation as follows: CHEST ONE VIEW PORTABLE CLINICAL HISTORY: Sepsis dyspnea COMPARISON STUDY: No previous studies for comparison. FINDINGS: The bones soft tissues and hemidiaphragms are normal. The cardiomediastinal silhouette is normal. The lungs are clear. The pulmonary vasculature is normal. IMPRESSION: Negative chest. Radiological imaging and reports were reviewed by myself. Radiologist's Interpretation per [facility] as follows: CT ABDOMEN & PELVIS Without Contrast: Moderate right hydronephrosis with layering stones in the right renal pelvis as well as ill-defined punctate hyperdensities in the region of the proximal right ureter, cannot exclude ureteral stones. There is extensive right perinephritic stranding and fluid, concerning for inflammatory/infectious process. Lobulated fluid collection at the inferior aspect of the right kidney measuring approximately 5.2 x 4.9 cm, cannot exclude abscess. Wall thickening of the ascending and proximal transverse colon, may be reactive with concurrent colitis/diverticulitis not excluded. Rectal wall thickening may be related to under distention, inflammatory/infectious or neoplastic process. Nonspecific fat stranding and scattered free fluid. No free air. Gastric wall thickening or under distention. Trace pleural effusions with bibasilar scarring/atelectasis. Cardiomegaly. Bilateral adrenal thickening. Age-indeterminate compression deformities in the spine. Left hip prosthesis with associated artifact. Additional incidental findings. Assessment & Plan Reason Critically Ill: 71-year-old female initially admitted for sepsis from urinary source with labile blood pressures despite aggressive intravenous fluid administration. Patient requiring close hemodynamic monitoring in the setting of sepsis. Neuro - * CAM ICU: NEGATIVE * h/o RIGHT Hemispheric CVA w/ LEFT sided deficits. Cardiac - * Hypotension: * Will monitor closely. * Pressors as needed. * Received 2L IVF and 25g of 25% Albumin * Awake and alert. Mentating well. * A. fib w/ controlled rate: * Continue home Rx as BP tolerates. * EKG: A. fib 89bpm without ST/T-wave changes. * ECHO (03/07/2017): * The LV ejection fraction is low normal (EF 50-55%). * The left atrium is borderline dilated. * The right atrium is mildly dilated. * Mild to moderate aortic regurgitation. * Ther is mild to moderate mitral regurgitation. Respiratory - * No h/o Pulmonary Disease. * Monitor closely for any changes. * Continue w/ Pureed diet and aspiration precautions per Speech recommendation. GI - * h/o Intraabdominal infections resulting in need for partial colectomy w/ subsequent anastomosis. * Diet - NPO until further evaluated from hypotensive standpoint. * Continue w/ speech recommendations for aspiration precautions. RENAL/LYTES - * Hypokalemia - 3.3 * Replaced w/ 40 mEq * IVF: NSS@80mL/hr - * UTI: * Worsening s/s. * Will CT Abd/Pelvis for ??retained stone. * See CT results - ??renal abscess. * Urology consult. ENDO - * No h/o DM: * BSGs w/ ISS/gtt per protocol. * No h/o Thyroid Dz. HEME - * Stable H&H. * Supratherapeutic INR - 7.5 * No active bleeding at this point. * Likely related to concomitant antibiotic therapy. * Will provide 5mg IV Vitamin K. ID - * Sepsis - Urinary Source: * Initially treated w/ IV Aztreonam/Levaquin. * Urine with Gram NEGATIVE Bacilli. * Waiting on blood cultures. * Received IV Vanc - will continue. * CT Abd/Pelvis - renal abscess, pyelo, ?rectal edema/infection. * Changed from Aztreonam to Imipenem for broader coverage given above. * Check ProCal/Lactic - trend as needed. LINES/IV ACCESS - * PIVs x2 DVT PROPHYLAXIS - * Coumadin w/ Supratherapeutic INR. I have personally spent 35 minutes of critical care time in the direct management of this patient. This is a life/limb threatening event. This includes time spent evaluating patient, direct bedside care, chart review, placing orders, interpretation of diagnostic studies, discussion with consultants, patient, and family members, as well as other required patient management activities. This time is exclusive of all separately billable procedures, and teaching time and separate from and in addition to any other critical care service time. Thank you for this consultation allow us to be part of this patient's care. Please refer to my attending physician's documentation for any further recommendations. I have personally evaluated and examined this patient. I agree with assessment and plan of Tracie Esquivel PA-C.
--- NOTE | 2017-07-28 07:20 | DIAGNOSTIC IMAGING REPORT ---
ABD/PELVIS WITHOUT FOR STONE HISTORY: 71 years-old Female RLQ abd pain/UTI/Eval ?stone acute right lower quadrant abdominal pain COMPARISON: Chest radiograph 07/26/2017 TECHNIQUE: Multiple axial CT images of the abdomen and pelvis were obtained without IV contrast. A dose lowering technique was used consistent with the principals of JC. FINDINGS: Trace bilateral pleural effusions with subsegmental bibasilar opacities favoring atelectasis. The study is motion degraded. No pneumatosis or pneumoperitoneum identified. Imaged inferior cardiac chambers are at least moderately enlarged with coronary arterial calcifications. Evaluation of the solid abdominal organs is limited without the use of IV contrast. Prior cholecystectomy. Liver appears unremarkable. Scattered calcifications throughout the spleen are noted. At least mild generalized pancreatic atrophy. Bilateral adrenal gland thickening, left greater than right. Mild nonspecific left-sided perinephric stranding. Indeterminate 3 mm hyperattenuating focus of the superior pole left kidney may reflect a complex cyst or renal calcification. No left-sided renal calculi or obstructive uropathy. There is marked perinephric stranding about the right kidney with right renal enlargement. Moderate to severe right-sided hydronephrosis with moderate hydroureter is noted. Layering calculi are seen within the right renal pelvis with additional ill-defined calcifications measuring up to approximately 3 mm seen within the region of the right ureteropelvic junction. Nonobstructing right-sided nephrolithiasis also noted. Right ureter appears dilated to level of the ureteropelvic junction. Pelvic structures are subvisualized secondary to streak artifact from left hip arthroplasty. There is a multiloculated fluid collection without well-defined margins within the inferior right perinephric space measuring 2.9 x 5.2 x 3.7 cm in AP, transverse and craniocaudal dimensions respectively nicely seen on image 242 series 3. Uterus and adnexa appear unremarkable. Tortuosity and calcification of the aorta without aneurysm. No bulky adenopathy identified. Periaortic lymph nodes are seen measuring up to 8 mm in short axis, likely reactive. Air-fluid levels noted within the stomach. Moderate stool volume throughout the colon. Postoperative changes of the left hemicolon suggesting partial resection. Hyperattenuating foci within the appendiceal lumen suggests appendicolith. Post surgical changes are noted within small bowel of the lower midline abdomen. Wall thickening of the hepatic flexure and ascending colon is likely reactive. Mild abdominal pelvic ascites. Mild diffuse body wall edema. The bones appear mildly demineralized. Severe multilevel facet arthrosis of the lower lumbar spine. Dextroscoliosis of the lumbar spine. Compression deformity of the T11 vertebral body is technically age-indeterminate however appears chronic. IMPRESSION: 1. Limited study secondary to patient motion. 2. Moderate to severe right-sided hydronephrosis and moderate hydroureter with marked right perinephric inflammatory stranding. These findings are likely secondary to obstructing calculus or calculi within the right ureteropelvic junction which are not well seen. The right ureter however appears to be at least mildly dilated distally without a distal obstructing calculus or lesion seen. Urologic consultation is advised. 3. Ill-defined multiloculated fluid of the inferior right perinephric space measuring up to 5.2 cm suggests phlegmon or developing abscess without well-defined aragon identified. Attention at follow-up recommended. 4. Mild abdominal pelvic ascites with wall thickening of the hepatic flexure and ascending colon may be reactive. 5. Trace bilateral pleural effusions. 6. Additional findings as above. The above report was generated using voice recognition software. It may contain grammatical, syntax or spelling errors. Electronically signed by: Brandon Panda M.D. 07/28/2017 7:18 AM Dictated Date/Time: 07/28/2017 7:05 AM
[2017-07-28] MEDS ORDERED: PHYTONADIONE INJ 5 MG in SODIUM CHLORIDE 0.9% 50ML 50 ML IV ONE (07:45)
--- NOTE | 2017-07-28 08:14 | Urology Consultation ---
History General Date of Service: July 28, 2017. Chief Complaint: Suspected urosepsis. Primary Care Physician: Giorgio Walton M.D. Pt seen a urologist before?: No History of Present Illness 71-year-old female who was admitted after 2 days of worsening weakness, low- grade fever and malaise as an outpatient. Patient has had a history of a stroke and her is also present in the room who participates in her H&P. On admission to the hospital she is noted to have a preliminarily positive urine culture and a clinical picture of urosepsis is suspected. CT scan of the abdomen and pelvis noncontrast has been obtained which I have personally reviewed. This demonstrates right-sided hydronephrosis with a questionable perirenal fluid collection in an inferior location. Significant perinephric inflammation is present as well as some ill-defined stone material within the collecting system and ureter. Urologic consultation is sought out to assist with the patient's care. denies previous history of kidney stone. Imaging Imaging: CT Laboratory Last 24 Hours Test 07/28/17 00:32 07/28/17 04:18 07/28/17 05:24 White Blood Count 17.69 K/uL 17.53 K/uL Red Blood Count 3.85 M/uL 3.50 M/uL Hemoglobin 11.0 g/dL 10.0 g/dL Hematocrit 33.2 % 30.1 % Mean Corpuscular Volume 86.2 fL 86.0 fL Mean Corpuscular Hemoglobin 28.6 pg 28.6 pg Mean Corpuscular Hemoglobin Concent 33.1 g/dl 33.2 g/dl Platelet Count 189 K/uL 182 K/uL Mean Platelet Volume 8.9 fL 8.9 fL Neutrophils (%) (Auto) 84.4 % Lymphocytes (%) (Auto) 5.1 % Monocytes (%) (Auto) 8.6 % Eosinophils (%) (Auto) 0.0 % Basophils (%) (Auto) 0.1 % Neutrophils # (Auto) 14.93 K/uL Lymphocytes # (Auto) 0.90 K/uL Monocytes # (Auto) 1.53 K/uL Eosinophils # (Auto) 0.00 K/uL Basophils # (Auto) 0.02 K/uL RDW Standard Deviation 49.4 fL 49.8 fL RDW Coefficient of Variation 15.6 % 15.8 % Immature Granulocyte % (Auto) 1.8 % Immature Granulocyte # (Auto) 0.31 K/uL Prothrombin Time 76.0 SECONDS Prothromb Time International Ratio 7.5 Sodium Level 138 mmol/L Potassium Level 3.3 mmol/L Chloride Level 112 mmol/L Carbon Dioxide Level 20 mmol/L Anion Gap 6.0 mmol/L Blood Urea Nitrogen 17 mg/dl Creatinine 0.78 mg/dl Est Creatinine Clear Calc Drug Dose 43.9 ml/min Estimated GFR () 89.9 Estimated GFR (Non- 77.6 BUN/Creatinine Ratio 22.2 Random Glucose 83 mg/dl Calcium Level 7.0 mg/dl Magnesium Level 1.5 mg/dl Total Bilirubin 1.4 mg/dl 1.5 mg/dl Aspartate Amino Transf (AST/SGOT) 26 U/L 29 U/L Alanine Aminotransferase (ALT/SGPT) 23 U/L 25 U/L Alkaline Phosphatase 96 U/L 104 U/L Total Protein 5.0 gm/dl 5.4 gm/dl Albumin 2.1 gm/dl 2.1 gm/dl Globulin 2.9 gm/dl Albumin/Globulin Ratio 0.7 Lactic Acid Level 1.4 mmol/L Phosphorus Level 1.6 mg/dl Direct Bilirubin 1.0 mg/dl Procalcitonin 0.64 ng/ml Random Cortisol 19.83 mcg/dl Problem List Medical Problems: (1) Sepsis Status: Acute (2) UTI (urinary tract infection) Status: Acute Past History A Fib, CVA/TIA/stroke, hypertension, osteoporosis, other (Sjogren's syndrome. Multiple myeloma.) Past Surgical History: cholecystectomy, colostomy (And reversal, small bowel resection), THR, other (Cataract surgery) Family History Noncontributory Social History Hx Tobacco Use In Past Year?: No Smoking: no current use Alcohol: no current use Marital status: Occupation status: retired, disabled Allergies Coded Allergies: Ampicillin (Verified Allergy, Unknown, rash, 07/26/17) Morphine (Verified Allergy, Unknown, RASH, 07/26/17) Penicillins (Verified Allergy, Unknown, RASH, 07/26/17) Sulindac (Verified Allergy, Unknown, rash, 07/26/17) Tolmetin (Verified Allergy, Unknown, RASH, 07/26/17) Medications Home Medications: Home Meds and Scripts Medications Dose Route/Sig Max Daily Dose Days Date Category Dose Instructions Melatonin Maximum Strengt (Melatonin) 5 Mg Tab 1 Tab PO HS 30 05/24/17 Reported Coumadin (Warfarin Sodium) 1 Mg Tab 1 Mg PO DIRECTED 05/24/17 Reported COUMADIN CLINIC, TAKE 2MG PO SAT,TUE,THUR TAKE 1MG PO SUN,MON,WED,FRI Multivitamin (Multivitamins) Tab 1 Tab PO QAM 05/24/17 Reported Cozaar (Losartan Potassium) 50 Mg Tab 50 Mg PO QAM 05/24/17 Reported Slow-Mag (Magnesium Chloride-Calcium Car) 1 Tab Tab 1 Tab PO BID 05/24/17 Reported Coreg (Carvedilol) 6.25 Mg Tab 6.25 Mg PO BID 05/24/17 Reported Align (Probiotic Product) 4 Mg Cap 1 Cap PO QAM 05/24/17 Reported Inpatient Medications: Current Inpatient Medications Medications (Trade) Dose Ordered Sig/Sid Route Start Time Stop Time Status Last Admin Dose Admin Sodium Chloride 1,000 ml @ 80 mls/hr [id number] IV 07/26/17 16:30 08/25/17 16:29 07/28/17 05:12 80 MLS/HR Acetaminophen (Tylenol Tab) 650 mg Q4H PRN PO 07/26/17 16:30 08/25/17 16:29 07/27/17 20:02 650 MG Al Hydrox/Mg Hydrox/Simethicone (Maalox Max Susp) 15 ml Q4H PRN PO 07/26/17 16:30 08/25/17 16:29 Magnesium Hydroxide (Milk Of Magnesia Susp) 30 ml Q12H PRN PO 07/26/17 16:30 08/25/17 16:29 Zolpidem Tartrate (Ambien Tab) 5 mg HSZ PRN PO 07/26/17 16:30 08/25/17 16:29 Ondansetron HCl (Zofran Inj) 4 mg Q6H PRN IV 07/26/17 16:30 08/25/17 16:29 Polyethylene (Miralax Powder Packet) 17 gm DAILY PRN PO 07/26/17 16:30 08/25/17 16:29 Lactobacillus Acidophilus (Floranex Tab) 1 tab QAM PO 07/27/17 09:00 08/26/17 08:59 07/27/17 08:02 1 TAB Levofloxacin (Consult) 1 ea UD PRN N/A 07/26/17 20:15 08/25/17 20:14 Warfarin Sodium (Coumadin Tab) 1 mg SuMoWeFr@1600 PO 07/27/17 16:00 08/26/17 15:59 07/27/17 15:57 1 MG Warfarin Sodium (Coumadin Tab) 2 mg TuThSa@1600 PO 07/28/17 16:00 08/27/17 15:59 Acetaminophen 650 mg/Empty Bag 65 ml @ 260 mls/hr Q6H PRN IV 07/27/17 02:45 08/26/17 02:44 07/27/17 03:38 260 MLS/HR Levofloxacin 750 mg/Prmx 150 ml @ 100 mls/hr Q24H IV 07/27/17 16:00 08/05/17 15:59 07/27/17 15:57 100 MLS/HR Fluconazole/ Sodium Chloride 200 mg/Prmx 100 ml @ 100 mls/hr Q24H IV 07/28/17 02:00 08/07/17 01:59 07/28/17 02:29 100 MLS/HR Miscellaneous Information (Consult) 1 [facility] PRN N/A 07/28/17 02:00 08/27/17 01:59 Albumin Human (Albumin 25%) 12.5 gm TODAY@0205 IV 07/29/17 02:05 07/29/17 02:06 Miscellaneous Information (Icu Protocol For Hyperglycemia) 1 ea PRN PRN N/A 07/28/17 06:30 07/30/17 06:29 Imipenem/ Cilastatin Sodium 300 mg/Dextrose 106 ml @ 106 mls/hr Q6H IV 07/28/17 08:00 08/07/17 07:59 Imipenem/ Cilastatin Sodium (Consult) 1 ea UD PRN N/A 07/28/17 07:00 08/27/17 06:59 Phytonadione 5 mg/ Sodium Chloride 50.5 ml @ 101 mls/hr ONE ONCE IV 07/28/17 07:45 07/28/17 08:14 Review of Systems Review of Systems Constitutional: + fever, + chills Eyes: + blurred vision Neurological: No passing out, No seizures Endocrine: + tired/sluggish Gastrointestinal: No nausea, No vomiting Cardiovascular: + irregular heartbeat Respiratory: No shortness of breath, No coughing up blood Skin: No boils, No dry skin Musculoskeletal: + back pain Ears / Nose / Throat: No hearing loss Psychologic / Mental: No nervous Female : + see HPI, + infections Physical Exam Vital Signs: Vital Signs Past 12 Hours Date Time Temp Pulse Resp B/P (MAP) Pulse Ox O2 Delivery O2 Flow Rate FiO2 07/28/17 06:00 79 30 109/55 (73) 89 Room Air 07/28/17 04:00 97 Room Air 07/28/17 04:00 36.7 79 21 92/55 (67) 97 Room Air 07/28/17 03:54 36.8 78 18 94 07/28/17 03:27 36.8 78 16 70/47 (55) 94 Room Air 07/28/17 02:30 36.4 86 18 98/65 (76) 94 Room Air 07/28/17 01:49 36.9 86 18 84/52 (63) 96 Room Air 07/28/17 01:08 86 90/61 (71) 96 Room Air 07/28/17 00:00 Room Air 07/27/17 23:48 36.9 82 16 88/58 (68) 94 Room Air 07/27/17 21:58 37.5 86 18 90/58 (69) 92 Room Air Physical Exam: General Appearance: no apparent distress ENT: hearing grossly normal Neck: supple, no adenopathy Respiratory/Chest: no respiratory distress, no accessory muscle use Cardiovascular: no JVD Neurologic/Psychiatric: alert, + facial droop, + pertinent finding (Right weakness) Skin: normal color Assessment & Plan Assessment & Plan A/P 71-year-old female with suspected urosepsis, right-sided hydronephrosis. In the context of her CT scan the risk of a right-sided infected and obstructed kidney is present. Seen her difficulties with persistent hypotension and after discussion with the patient, and consulting service I suspect that semi- urgent right-sided ureteral stent placement would be indicated to assist with her recovery and remove her right kidney as a source of ongoing urosepsis. Risks and benefits reviewed with the patient and her vocalize good understanding of the treatment plan. Will obtain a consent and make the patient n.p.o. Add on for today. Patient's supratherapeutic INR is noted. Risk of hematuria and bleeding is discussed with the . Hopefully, with an uncomplicated stent placement that should be acceptable.
[2017-07-28] MEDS: LACTOBACILLUS ACIDOPHILUS (FLORANEX) TAB PO SCH (08:36)
[2017-07-28] MEDS: IMIPENEM/CILASTATIN IV 300 MG in DEXTROSE 5% 100ML 100 ML IV SCH ×3 (08:40→20:47)
[2017-07-28] MEDS ORDERED: POTASSIUM PHOSPHATE INJ 18 MMOL in SODIUM CHLORIDE 0.9% 500ML 500 ML IV ONE (09:45)
[2017-07-28] MEDS ORDERED: HYDROCORTISONE SOD SUCCINATE 100 MG/2 ML VIAL IV PRN (10:30)
--- NOTE | 2017-07-28 11:27 | ECHOCARDIOGRAM REPORT ---
*NOTICE TO RECEIVING LIBERTARIAN AGENCY This information is strictly Confidential and protected under [place] law. [place] law prohibits you from making any further disclosure of this information unless further disclosure is expressly permitted by the written consent of the person to whom it pertains or is authorized by law. A general authorization for the release of medical or other information is not sufficient for this purpose. Hospital accepts no responsibility if the information is made available to any other person, INCLUDING THE PATIENT. Interpretation Summary * Name: GWEN BROUSSARD Study Date: 07/28/2017 08:31 AM BP: 110/66 mmHg * Patient Location: .MSICU\S\E108\S\1 HR: 75 * : 1945 (M/d/yyyy) Gender: Female Height: 58 in * Age: 71 yrs Ethnicity: CA Weight: 94 lb * Ordering Physician: Kirby Jones * Referring Physician: Giorgio Walton * Performed By: Markus Mendez RCS * * Reason For Study: Eval for CHF * BSA: 1.3 m2 * -- Conclusions -- * 1. Normal left ventricular size and systolic function. EF 55-60%. No regional wall motion abnormalities. Mild concentric left ventricular hypertrophy. * 2. Normal right ventricular size with mildly reduced systolic function. * 3. Moderate biatrial dilation. * 4. Mild aortic regurgitation. * 5. Mild to moderate (jet not well visualized) mitral regurgitation. * 6. Mildly elevated right ventricular systolic pressure; 47mmHg. * 7. No prior study available for comparison. Procedure Details * A complete two-dimensional transthoracic echocardiogram was performed (2D, M-mode, Doppler and color flow Doppler). Left Ventricle * Normal left ventricular size and systolic function. EF 55-60%. No regional wall motion abnormalities. Mild concentric left ventricular hypertrophy. Right Ventricle * Normal right ventricular size with mildly reduced systolic function. * The right ventricular systolic function is reduced as assessed by tricuspid annular plane systolic excursion (TAPSE) (TAPSE <1.6 cm). Atria * The left atrium is moderately dilated. * The right atrium is moderately dilated. * There is no evidence of atrial septal defect, but resolution does not allow assessment for a patent foramen ovale. Mitral Valve * There is mild mitral annular calcification. * There is no mitral valve stenosis. * There is mild to moderate mitral regurgitation. Tricuspid Valve * The tricuspid valve is not well visualized, but is grossly normal. * There is no tricuspid stenosis. * There is mild tricuspid regurgitation. Aortic Valve * The aortic valve is trileaflet. * No hemodynamically significant valvular aortic stenosis. * Mild aortic regurgitation. Pulmonic Valve * The pulmonary valve is inadequately visualized, but the Doppler data is adequate for interpretation. * There is no pulmonic valvular stenosis. * Mild pulmonic valvular regurgitation. Great Vessels * The aortic root is normal size. Pericardium/Pleural * There is no pericardial effusion. Great Vessels * Dilated IVC with reduced inspiratory collapse. MMode 2D Measurements and Calculations IVSd 1.1 cm IVSs 1.4 cm LVIDd 3.8 cm LVIDs 2.5 cm LVPWd 1.2 cm LVPWs 1.4 cm IVS/LVPW 0.94 FS 33.8 % EDV(Teich) 60.7 ml ESV(Teich) 22.2 ml EF(Teich) 63.4 % EDV(cubed) 53.5 ml ESV(cubed) 15.5 ml EF(cubed) 71.0 % % IVS thick 26.6 % % LVPW thick 18.3 % LV mass(C)d 145.2 grams LV mass(C)dI 109.9 grams/m\S\2 LV mass(C)s 115.2 grams LV mass(C)sI 87.2 grams/m\S\2 SV(Teich) 38.5 ml SI(Teich) 29.1 ml/m\S\2 SV(cubed) 37.9 ml SI(cubed) 28.7 ml/m\S\2 Ao root diam 3.0 cm Ao root area 6.9 cm\S\2 ACS 1.8 cm LA dimension 4.8 cm asc Aorta Diam 3.0 cm LA/Ao 1.6 LVAd ap4 19.3 cm\S\2 LVLd ap4 6.3 cm EDV(MOD-sp4) 51.2 ml EDV(sp4-el) 50.0 ml LVAs ap4 12.0 cm\S\2 LVLs ap4 5.5 cm ESV(MOD-sp4) 23.3 ml ESV(sp4-el) 22.3 ml EF(MOD-sp4) 54.5 % EF(sp4-el) 55.5 % SV(MOD-sp4) 27.9 ml SI(MOD-sp4) 21.2 ml/m\S\2 SV(sp4-el) 27.7 ml SI(sp4-el) 21.0 ml/m\S\2 Doppler Measurements and Calculations MV E max good 137.5 cm/sec MV P1/2t max good 131.4 cm/sec MV P1/2t 74.1 msec MVA(P1/2t) 3.0 cm\S\2 MV dec slope 519.4 cm/sec\S\2 MV dec time 0.18 sec Ao V2 max 125.6 cm/sec Ao max PG 6.3 mmHg Ao max PG (full) 3.7 mmHg AI max good 385.6 cm/sec AI max PG 59.5 mmHg AI dec slope 207.2 cm/sec\S\2 AI P1/2t 545.1 msec LV V1 max PG 2.7 mmHg LV V1 max 81.4 cm/sec TV E max good 82.5 cm/sec PA V2 max 83.1 cm/sec PA max PG 2.8 mmHg PI max good 214.6 cm/sec PI max PG 18.4 mmHg PI dec slope 255.3 cm/sec\S\2 PI P1/2t 246.2 msec TR max good 281.5 cm/sec RVSP(TR) 46.7 mmHg RAP systole 15.0 mmHg
[2017-07-28] MEDS ORDERED: MIDAZOLAM HCL 1 MG/ML 2ML VIAL ONE (11:42)
[2017-07-28] MEDS ORDERED: LIDOCAINE HCL 2% 2 ML VIAL (20MG/ML) ONE (11:42)
[2017-07-28] MEDS ORDERED: FENTANYL CITRATE INJ 50 MCG/1 ML 2 ML VIAL ONE (11:42)
[2017-07-28] MEDS ORDERED: PROPOFOL IV EMULSION 10 MG/ML 20 ML VIAL ONE (11:42)
[2017-07-28] MEDS: NORMOSOL R 1,000 ML IV SCH (11:51)
--- NOTE | 2017-07-28 12:17 | Critical Care Progress Note ---
Critical Care Progress Note Date of Service July 28, 2017. Critical Care Progress Note 71-year-old female admitted on 26 Jul 2017 for fever and weakness. PMH: A. fib, CHF, HTN PSH: Left total hip arthroplasty, colon resection with colostomy and reversal. 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 PMH of right CVA with mild left-sided deficits. Will hold her Ambien. Pulm: No known acute issues. CVS: Presently resolved hypotension. Stopped albumin. On Normosol at 100 mL/ hr. This morning's cardiac echo noted EF 55-60% (please see full report). A. fib presently rate controlled. ID: Initial concern for urosepsis. This morning's CT a/p is furthermore concerning for perinephric abscess. See "renal" below. 01May UCx positive for MDR E. coli. UA noted yeast. Tailored antibiotics to imipenem/cilastatin. 01May BCx x 2 NGTD. 03May blood fungal culture ordered and stopped fluconazole for now. Endo: Will provide stress-dose hydrocortisone 50 mg 1 on-call OR. Renal/Lytes: Cr 0.8. CT a/p suggestive of obstructing renal calculi. Urology consulted, see related note. They plan for semiurgent right-sided urethral stent placement today. - Providing replacement for hypokalemia, hypomagnesemia, and hypophosphatemia. GI: NPO for anticipated stent procedure. Started on Pepcid. Otherwise continue with speech recommendations for aspiration precautions. Heme: Stable hemoglobin. Noted supratherapeutic INR 7.5. Treated with 5 mg of vitamin K. Tracking INR. Spoke with urology, they recommended routine postoperative anticoagulation. DVT prophy: Will restart anticoagulation postop. Lines: PIV 2. Code status: Full code. PT/OT: Ordered. Disposition: ICU care. Resident Physician Supervision Note: Dr. Lenz was resident physician during care of patient. I separately evaluated patient and did history and exam. I discussed the case with the resident and generally agree with the findings and plan. Patient was discussed on multidisciplinary rounds. Patient septic from urinary source however no septic shock given negative lactic acidosis. Tailored antibiotics to Primaxin, this is supported by sensitivities, this is a multidrug -resistant E. coli, will obtain infectious disease consult. I have personally spent 45 minutes of critical care time in the direct management of this patient. This is a life/limb threatening event. This includes time spent evaluating patient, direct bedside care, chart review, placing orders, interpretation of diagnostic studies, discussion with consultants, patient, and/or family members regarding treatment decisions, as well as other required patient management activities. This time is exclusive of all separately billable procedures, and teaching time and separate from and in addition to any other critical care service time. Documented By: Edvin Buchanan DO Resident Tracking Resident Involvement: Resident Care Provided Care Provided: Adult Hospital Medicine (ICU)
[2017-07-28] MEDS ORDERED: Cysto-Conray II 17.2% 250ML BOTTLE ONE (13:07)
[2017-07-28 13:43] LABS: INR 2.4 (0.9-1.1)
[2017-07-28] MEDS ORDERED: ESMOLOL HCL 10 MG/ML 10 ML VIAL ONE (13:46)
--- NOTE | 2017-07-28 13:54 | [facility] Operative Report ---
Operative Report Operative Date July 28, 2017. Pre-Operative Diagnosis Suspected Urosepsis, Right Hydronephrosis Post-Operative Diagnosis same Procedure(s) Performed Cystoscopy, Right Retrograde Pyelogram, Right Ureteral Stent Insertion Surgeon Dr. Yohannes Jones Filler Shredder Machine Surgeon(s) none Estimated Blood Loss 0mL Findings Dilated right collecting system, good stent position on completion of case. Specimens none, Per Surgeon Drains Right-sided 6 Vietnamese multilength ureteral stent, cao to gravity Anesthesia Type MAC Complication(s) none Disposition no Surgical ICU Indications 71-year-old female with a history of right-sided hydronephrosis UTI and suspected urosepsis was here for semiurgent stent placement. She has been covered with broad-spectrum antibiotics while in the ICU. Please see urology consultation from earlier today for further details. Description of Procedure Patient was properly identified and brought into the operative suite after identification for proper consent in the chart. Monitored anesthesia care with sedation was initiated and patient was prepped and draped in standard fashion for this procedure. Full timeout procedure was followed. 22 Vietnamese rigid cystoscope was passed in the bladder under direct visualization and bladder was noted to be inflamed with ureteral orifice being difficult to find. A small early mouth diverticulum on the right-hand side is appreciated. However, after some probing the right ureteral orifices able to be found and cannulated using a sensor tip wire. Open-ended catheter was used to perform gentle retrograde pyelography. This demonstrated a relatively narrow distal ureter but proximal ureteral dilation and a somewhat mottled appearance consistent with debris within the collecting system. Sensor tip wire was readvanced and followed by a 6 Vietnamese multilength right-sided ureteral stent. Redundant coil is present in the renal pelvis and a double loop within the bladder. Hydronephrotic drip of purulent urine was appreciated. Patient tolerated procedure well. Anesthesia was reversed and patient was transferred back to the surgical ICU in stable condition. Cao left in place at the end of the case. Follow-up instructions: Care to be resumed per the primary service. I attest to the content of the Intraoperative Record and any orders documented therein. Any exceptions are noted below.
--- NOTE | 2017-07-28 14:10 | DIAGNOSTIC IMAGING REPORT ---
RETROGRADE INCLUDES KUB CLINICAL HISTORY: RT CYSTO/STENT stent placement TECHNIQUE: Image intensifier COMPARISON STUDY: CT 07/28/2017 FINDINGS: Retrograde opacification of components of the right ureter followed by successful stent placement. Right renal pelvis is distended. IMPRESSION: Successful right ureteral stent placement The above report was generated using voice recognition software. It may contain grammatical, syntax or spelling errors. Electronically signed by: Wilver Morgan M.D. 07/28/2017 2:08 PM Dictated Date/Time: 07/28/2017 2:07 PM
[2017-07-28] MEDS ORDERED: ONDANSETRON INJ 2 MG/ML 2 ML VIAL IV PRN (14:15)
[2017-07-28] MEDS ORDERED: FENTANYL CITRATE INJ 50 MCG/1 ML 2 ML VIAL IV PRN (14:15)
[2017-07-28] MEDS ORDERED: PHENYLEPHRINE 100MCG/ML 5ML SYR IV PRN (14:15)
[2017-07-28] MEDS ORDERED: EpHEDrine SULFATE INJ 50 MG/ML AMP IV PRN (14:15)
[2017-07-28] MEDS ORDERED: ATROPINE SULFATE 0.1 MG/ML 5ML SYR IV PRN (14:15)
[2017-07-28] MEDS ORDERED: LABETALOL HCL IV 5 MG/ML 20ML IV PRN (14:15)
[2017-07-28] MEDS ORDERED: PHENYLEPHRINE 100MCG/ML 5ML SYR ONE (14:37)
--- NOTE | 2017-07-28 15:05 | Progress Note ---
Subjective Date of Service: July 28, 2017. Subjective this pt was urgently transfered to ICU due to sepsis from a urinary source identified to have a hydronephrosis and perinephric fluid collection concerning for phlegmon. She is awake and alert and in her usual state she was quizzed regarding wether she had any pre existing flank pain and she said that she did not, she otherwise has no new issues and is scheduled to go to the OR 07/28 Problem List Medical Problems: (1) Sepsis Status: Acute (2) UTI (urinary tract infection) Status: Acute Review of Systems Constitutional: No fever, No chills, No weakness, No fatigue Respiratory: No cough, No shortness of breath, No dyspnea on exertion Cardiac: No chest pain, No edema, No claudication Abdomen: No pain, No nausea, No vomiting Psychiatric: No depression symptoms, No anhedonism Objective Vital Signs Date Time Temp Pulse Resp B/P (MAP) Pulse Ox O2 Delivery O2 Flow Rate FiO2 07/28/17 14:19 75 17 96 07/28/17 14:19 36.7 78 17 07/28/17 14:16 104/57 (70) 07/28/17 14:14 75 16 07/28/17 14:14 73 16 98 07/28/17 14:11 102/61 (82) 07/28/17 14:09 77 13 98 07/28/17 14:09 85 13 07/28/17 14:04 36.9 77 14 97 07/28/17 14:04 77 14 07/28/17 12:32 106 25 99/78 (85) 93 07/28/17 12:01 36.7 102 24 134/75 (94) 95 Room Air 07/28/17 12:00 104 24 93 07/28/17 12:00 94 Room Air 07/28/17 11:31 90 24 122/69 (86) 07/28/17 11:01 79 25 110/68 (82) 91 Room Air 07/28/17 11:00 84 24 91 07/28/17 10:32 78 24 115/61 (79) 96 07/28/17 10:01 79 26 90/68 (75) 94 07/28/17 10:00 76 19 93 07/28/17 09:01 75 23 110/66 (81) 95 Room Air 07/28/17 09:00 80 21 95 07/28/17 08:31 81 21 121/62 (81) 95 07/28/17 08:30 96 Room Air 07/28/17 08:30 80 22 95 07/28/17 08:01 36.5 81 26 112/65 (81) 96 Room Air 07/28/17 08:00 79 29 92 07/28/17 07:31 80 25 95/76 (82) 97 07/28/17 07:30 76 15 97 07/28/17 07:01 78 22 114/57 (76) 81 07/28/17 07:00 78 22 99 07/28/17 06:00 79 30 109/55 (73) 89 Room Air 07/28/17 04:00 97 Room Air 07/28/17 04:00 36.7 79 21 92/55 (67) 97 Room Air 07/28/17 03:54 36.8 78 18 94 07/28/17 03:27 36.8 78 16 70/47 (55) 94 Room Air 07/28/17 02:30 36.4 86 18 98/65 (76) 94 Room Air 07/28/17 01:49 36.9 86 18 84/52 (63) 96 Room Air 07/28/17 01:08 86 90/61 (71) 96 Room Air 07/28/17 00:00 Room Air 07/27/17 23:48 36.9 82 16 88/58 (68) 94 Room Air 07/27/17 21:58 37.5 86 18 90/58 (69) 92 Room Air 07/27/17 20:00 Room Air 07/27/17 19:40 38.2 72 16 103/70 (81) 93 Room Air 07/27/17 16:00 Room Air Physical Exam General Appearance: WD/WN, + mild distress, + moderate distress Eyes: PERRL, EOMI Respiratory/Chest: chest non-tender, lungs clear, normal breath sounds Cardiovascular: regular rate, rhythm, no murmur Abdomen: normal bowel sounds, soft, + guarding, + tenderness (mild) Neurologic/Psychiatric: alert, oriented x 3 Skin: normal color, warm/dry Laboratory Results Last 24 Hours Test 07/28/17 00:32 07/28/17 04:18 07/28/17 05:24 07/28/17 06:39 White Blood Count 17.69 K/uL 17.53 K/uL Red Blood Count 3.85 M/uL 3.50 M/uL Hemoglobin 11.0 g/dL 10.0 g/dL Hematocrit 33.2 % 30.1 % Mean Corpuscular Volume 86.2 fL 86.0 fL Mean Corpuscular Hemoglobin 28.6 pg 28.6 pg Mean Corpuscular Hemoglobin Concent 33.1 g/dl 33.2 g/dl Platelet Count 189 K/uL 182 K/uL Mean Platelet Volume 8.9 fL 8.9 fL Neutrophils (%) (Auto) 84.4 % Lymphocytes (%) (Auto) 5.1 % Monocytes (%) (Auto) 8.6 % Eosinophils (%) (Auto) 0.0 % Basophils (%) (Auto) 0.1 % Neutrophils # (Auto) 14.93 K/uL Lymphocytes # (Auto) 0.90 K/uL Monocytes # (Auto) 1.53 K/uL Eosinophils # (Auto) 0.00 K/uL Basophils # (Auto) 0.02 K/uL RDW Standard Deviation 49.4 fL 49.8 fL RDW Coefficient of Variation 15.6 % 15.8 % Immature Granulocyte % (Auto) 1.8 % Immature Granulocyte # (Auto) 0.31 K/uL Prothrombin Time 76.0 SECONDS Prothromb Time International Ratio 7.5 Sodium Level 138 mmol/L Potassium Level 3.3 mmol/L Chloride Level 112 mmol/L Carbon Dioxide Level 20 mmol/L Anion Gap 6.0 mmol/L Blood Urea Nitrogen 17 mg/dl Creatinine 0.78 mg/dl Est Creatinine Clear Calc Drug Dose 43.9 ml/min Estimated GFR () 89.9 Estimated GFR (Non- 77.6 BUN/Creatinine Ratio 22.2 Random Glucose 83 mg/dl Calcium Level 7.0 mg/dl Magnesium Level 1.5 mg/dl Total Bilirubin 1.4 mg/dl 1.5 mg/dl Aspartate Amino Transf (AST/SGOT) 26 U/L 29 U/L Alanine Aminotransferase (ALT/SGPT) 23 U/L 25 U/L Alkaline Phosphatase 96 U/L 104 U/L Total Protein 5.0 gm/dl 5.4 gm/dl Albumin 2.1 gm/dl 2.1 gm/dl Globulin 2.9 gm/dl Albumin/Globulin Ratio 0.7 Lactic Acid Level 1.4 mmol/L Phosphorus Level 1.6 mg/dl Direct Bilirubin 1.0 mg/dl Procalcitonin 0.64 ng/ml Random Cortisol 19.83 mcg/dl Bedside Glucose 95 mg/dl Test 07/28/17 09:25 07/28/17 13:20 Prothrombin Time 24.6 SECONDS Prothromb Time International Ratio 2.4 Assessment and Plan Ms. Appiah is a 71 year old woman here for sepsis secondary to UTI, found to have hydronephrosis and suspected abscess UTI/sepsis, pt changed to imipenem, did have a dose of vancomycin overnight and taken to the OR for surgical drainage of abscess and attention to hydronephrosis - cultures pending, cultures suggest Gram neg E coli with some resistances A.fib on Coumadin, htn. was given vitamin K preoperatively, will hold AC and follow with rate controll - wilfred coreg Dysphagia - speech eval showed severe aspiration risk - pureed diet not clear if this will be a long standing issue History of CVA, weakness - PT/OT evals given surgery will likely need some inpatient rehab DVT proph -scd Full code Documented By: Mario Gutierrez Continued [facility] stay due to: multiple IV medications needed Discharge planning: uncertain
--- NOTE | 2017-07-28 15:31 | Anesthesiology Progress Note ---
Anesthesia Post Op Note Date & Time July 28, 2017 at 15:31 Vital Signs Pain Intensity: 0 Vital Signs Past 12 Hours Date Time Temp Pulse Resp B/P (MAP) Pulse Ox O2 Delivery O2 Flow Rate FiO2 07/28/17 15:16 36.8 80 20 135/72 (93) 97 Room Air 07/28/17 15:10 72 21 146/61 (89) 97 07/28/17 15:05 76 25 113/77 (89) 97 07/28/17 15:01 77 18 120/67 (84) 97 07/28/17 15:00 78 23 96 07/28/17 14:57 82 16 117/68 (84) 96 07/28/17 14:50 82 20 116/72 (87) 94 07/28/17 14:46 85 21 123/59 (80) 94 07/28/17 14:36 76 21 107/74 (85) 97 07/28/17 14:30 79 26 116/62 (80) 97 07/28/17 14:25 72 15 102/64 (77) 98 07/28/17 14:21 78 12 102/64 (77) 98 07/28/17 14:19 75 17 96 07/28/17 14:19 36.7 78 17 07/28/17 14:16 104/57 (70) 07/28/17 14:16 78 17 104/57 (73) 99 07/28/17 14:14 75 16 07/28/17 14:14 73 16 98 07/28/17 14:11 75 17 102/61 (75) 98 Oxymask 2.0 07/28/17 14:11 102/61 (82) 07/28/17 14:09 77 13 98 07/28/17 14:09 85 13 07/28/17 14:04 36.9 77 14 97 07/28/17 14:04 77 14 07/28/17 14:00 140/85 (103) 07/28/17 13:02 98 23 125/99 (108) 94 07/28/17 13:00 101 24 95 07/28/17 12:32 106 25 99/78 (85) 93 07/28/17 12:01 36.7 102 24 134/75 (94) 95 Room Air 07/28/17 12:00 104 24 93 07/28/17 12:00 94 Room Air 07/28/17 11:31 90 24 122/69 (86) 07/28/17 11:01 79 25 110/68 (82) 91 Room Air 07/28/17 11:00 84 24 91 07/28/17 10:32 78 24 115/61 (79) 96 07/28/17 10:01 79 26 90/68 (75) 94 07/28/17 10:00 76 19 93 07/28/17 09:01 75 23 110/66 (81) 95 Room Air 07/28/17 09:00 80 21 95 07/28/17 08:31 81 21 121/62 (81) 95 07/28/17 08:30 96 Room Air 07/28/17 08:30 80 22 95 07/28/17 08:01 36.5 81 26 112/65 (81) 96 Room Air 07/28/17 08:00 79 29 92 07/28/17 07:31 80 25 95/76 (82) 97 07/28/17 07:30 76 15 97 07/28/17 07:01 78 22 114/57 (76) 81 07/28/17 07:00 78 22 99 07/28/17 06:00 79 30 109/55 (73) 89 Room Air 07/28/17 04:00 97 Room Air 07/28/17 04:00 36.7 79 21 92/55 (67) 97 Room Air 07/28/17 03:54 36.8 78 18 94 Notes Mental Status: alert / awake / arousable, participated in evaluation Pt Amnestic to Procedure: Yes Nausea / Vomiting: adequately controlled Pain: adequately controlled Airway Patency, RR, SpO2: stable & adequate BP & HR: stable & adequate Hydration State: stable & adequate Anesthetic Complications: no major complications apparent
[2017-07-28] MEDS ORDERED: LEVOFLOXACIN / D5W 750 MG in PREMIXED IN D5W 150 ML IV SCH (16:00)
[2017-07-28] MEDS ORDERED: WARFARIN SOD 2 MG TAB PO SCH (16:00)
[2017-07-28] MEDS: FAMOTIDINE 20 MG TAB PO SCH (20:46)
[2017-07-29] VITALS (17 sets, daily range): BP systolic 109–146; BP diastolic 65–89; PULSE 78–98; TEMP 36.7–37; O2SAT 92–97
[2017-07-29] MEDS: NORMOSOL R 1,000 ML IV SCH ×4 (00:44→23:31)
[2017-07-29] MEDS: IMIPENEM/CILASTATIN IV 300 MG in DEXTROSE 5% 100ML 100 ML IV SCH ×3 (01:51→12:59)
[2017-07-29] MEDS ORDERED: ALBUMIN HUMAN 25% 12.5 GM/50 ML VIAL IV SCH (02:05)
[2017-07-29 04:19] LABS: HEMATOCRIT 31.2 % (37-47); HEMOGLOBIN 10.7 g/dL (12.0-16.0); MEAN CELL VOLUME 85.2 fL (80-100); MEAN CORPUSCULAR HEMOGLOBIN 29.2 pg (25-34); MEAN CORPUSCULAR HGB CONC 34.3 g/dl (32-36); MEAN PLATELET VOLUME 9.5 fL (7.4-10.4); NUCLEATED RED BLOOD CELL ABS 0.08 K/uL (0-0); PLATELET COUNT 229 K/uL (130-400); RED CELL DISTRIBUTION WIDTH SD 49.8 fL (36.4-46.3); WHITE BLOOD COUNT 13.38 K/uL (4.8-10.8)
[2017-07-29 04:28] LABS: INR 1.3 (0.9-1.1)
[2017-07-29 04:49] LABS: ALBUMIN 1.9 gm/dl (3.4-5.0); CALCIUM 7.6 mg/dl (8.5-10.1); CREATININE 0.54 mg/dl (0.60-1.20); POTASSIUM 4.1 mmol/L (3.5-5.1); TOTAL PROTEIN 5.2 gm/dl (6.4-8.2)
[2017-07-29] MEDS: FAMOTIDINE 20 MG TAB PO SCH ×2 (07:47→21:11)
--- NOTE | 2017-07-29 07:52 | Anesthesiology Progress Note ---
Anesthesia Post Op Note Date & Time July 29, 2017 at 07:52 Vital Signs Pain Intensity: 0.0 Vital Signs Past 12 Hours Date Time Temp Pulse Resp B/P (MAP) Pulse Ox O2 Delivery O2 Flow Rate FiO2 07/29/17 06:00 97 5 127/77 (94) 92 07/29/17 04:00 36.8 91 4 126/76 (93) 92 Room Air 07/29/17 04:00 92 Room Air 07/29/17 02:00 86 16 127/78 (94) 93 07/29/17 00:00 36.9 81 16 109/65 (80) 94 Room Air 07/28/17 23:59 94 Room Air 07/28/17 22:00 85 23 126/79 (95) 95 Room Air 07/28/17 20:00 36.5 95 18 140/71 (94) 93 Room Air 07/28/17 20:00 Room Air Notes Mental Status: alert / awake / arousable, participated in evaluation Pt Amnestic to Procedure: Yes Nausea / Vomiting: adequately controlled Pain: adequately controlled Airway Patency, RR, SpO2: stable & adequate BP & HR: stable & adequate Hydration State: stable & adequate Anesthetic Complications: no major complications apparent
--- NOTE | 2017-07-29 08:36 | Progress Note ---
Subjective Date of Service: July 29, 2017. Subjective Pt evaluation today including: conversation w/ patient, physical exam, chart review, lab review, conversation w/ store sales consultant, review of inpatient medication list Pain: Denies PO Intake: Guerrero PO Voiding: cao catheter in place 71 yo female POD#1 s/p R ureteral stent placement. Per ICU staff BP improving, pending transfer out of unit. Past notes and imaging reviewed. WBC slightly improved, Cr down from prior. Afebrile, culture results noted - E. Coli resistant to Bactrim, Pip/ Tazo. No new events, cao draining. Problem List Medical Problems: (1) Sepsis Status: Acute (2) UTI (urinary tract infection) Status: Acute Review of Systems Constitutional: No fever, No chills Eyes: No worsening of vision ENT: No hearing loss Respiratory: No sputum, No shortness of breath Cardiac: No chest pain Abdomen: No nausea, No vomiting Female : + see HPI Neurologic: + weakness Psychiatric: No depression symptoms Endo: No excessive urination Objective Vital Signs Date Time Temp Pulse Resp B/P (MAP) Pulse Ox O2 Delivery O2 Flow Rate FiO2 07/29/17 06:00 97 5 127/77 (94) 92 07/29/17 04:00 36.8 91 4 126/76 (93) 92 Room Air 07/29/17 04:00 92 Room Air 07/29/17 02:00 86 16 127/78 (94) 93 07/29/17 00:00 36.9 81 16 109/65 (80) 94 Room Air 07/28/17 23:59 94 Room Air 07/28/17 22:00 85 23 126/79 (95) 95 Room Air 07/28/17 20:00 36.5 95 18 140/71 (94) 93 Room Air 07/28/17 20:00 Room Air 07/28/17 18:32 93 25 148/84 (105) 92 07/28/17 18:30 117 23 90 07/28/17 18:15 106 20 95 07/28/17 18:01 104 18 131/41 (71) 93 07/28/17 18:00 103 25 93 Room Air 07/28/17 17:46 78 20 126/69 (88) 96 07/28/17 17:31 87 25 130/88 (102) 95 07/28/17 17:30 89 22 97 07/28/17 17:15 80 11 126/75 (92) 93 07/28/17 17:00 75 16 120/66 (84) 95 07/28/17 16:45 78 15 117/67 (84) 93 07/28/17 16:30 94 Room Air 07/28/17 16:30 83 15 125/70 (88) 93 07/28/17 16:16 80 18 141/81 (101) 95 07/28/17 16:01 80 24 133/84 (100) 96 Room Air 07/28/17 16:00 79 22 97 07/28/17 15:16 36.8 80 20 135/72 (93) 97 Room Air 07/28/17 15:10 72 21 146/61 (89) 97 07/28/17 15:05 76 25 113/77 (89) 97 07/28/17 15:01 77 18 120/67 (84) 97 07/28/17 15:00 78 23 96 07/28/17 14:57 82 16 117/68 (84) 96 07/28/17 14:50 82 20 116/72 (87) 94 07/28/17 14:46 85 21 123/59 (80) 94 07/28/17 14:36 76 21 107/74 (85) 97 07/28/17 14:30 79 26 116/62 (80) 97 07/28/17 14:25 72 15 102/64 (77) 98 07/28/17 14:21 78 12 102/64 (77) 98 07/28/17 14:19 75 17 96 07/28/17 14:19 36.7 78 17 07/28/17 14:16 104/57 (70) 07/28/17 14:16 78 17 104/57 (73) 99 07/28/17 14:14 75 16 07/28/17 14:14 73 16 98 07/28/17 14:11 75 17 102/61 (75) 98 Oxymask 2.0 07/28/17 14:11 102/61 (82) 07/28/17 14:09 77 13 98 07/28/17 14:09 85 13 07/28/17 14:04 36.9 77 14 97 07/28/17 14:04 77 14 07/28/17 14:00 140/85 (103) 5/3/18 13:02 98 23 125/99 (108) 94 07/28/17 13:00 101 24 95 07/28/17 12:32 106 25 99/78 (85) 93 07/28/17 12:01 36.7 102 24 134/75 (94) 95 Room Air 07/28/17 12:00 104 24 93 07/28/17 12:00 94 Room Air 07/28/17 11:31 90 24 122/69 (86) 07/28/17 11:01 79 25 110/68 (82) 91 Room Air 07/28/17 11:00 84 24 91 07/28/17 10:32 78 24 115/61 (79) 96 07/28/17 10:01 79 26 90/68 (75) 94 07/28/17 10:00 76 19 93 07/28/17 09:01 75 23 110/66 (81) 95 Room Air 07/28/17 09:00 80 21 95 07/28/17 08:31 81 21 121/62 (81) 95 07/28/17 08:30 96 Room Air 07/28/17 08:30 80 22 95 Physical Exam General Appearance: no apparent distress ENT: hearing grossly normal Neck: supple, no adenopathy Respiratory/Chest: no accessory muscle use Cardiovascular: no JVD Abdomen: non tender, soft Extremities: non-tender Neurologic/Psychiatric: alert, + facial droop Skin: normal color Laboratory Results Last 24 Hours Test 07/28/17 09:25 07/28/17 11:07 07/28/17 13:20 07/29/17 01:17 Bedside Glucose 79 mg/dl 83 mg/dl Prothrombin Time 24.6 SECONDS Prothromb Time International Ratio 2.4 Test 07/29/17 03:55 White Blood Count 13.38 K/uL Red Blood Count 3.66 M/uL Hemoglobin 10.7 g/dL Hematocrit 31.2 % Mean Corpuscular Volume 85.2 fL Mean Corpuscular Hemoglobin 29.2 pg Mean Corpuscular Hemoglobin Concent 34.3 g/dl RDW Standard Deviation 49.8 fL RDW Coefficient of Variation 16.0 % Platelet Count 229 K/uL Mean Platelet Volume 9.5 fL Nucleated RBC Absolute Count (auto) 0.08 K/uL Nucleated Red Blood Cells % 0.6 % Prothrombin Time 13.3 SECONDS Prothromb Time International Ratio 1.3 Sodium Level 139 mmol/L Potassium Level 4.1 mmol/L Chloride Level 114 mmol/L Carbon Dioxide Level 20 mmol/L Anion Gap 5.0 mmol/L Blood Urea Nitrogen 14 mg/dl Creatinine 0.54 mg/dl Est Creatinine Clear Calc Drug Dose 63.5 ml/min Estimated GFR () 111.6 Estimated GFR (Non- 96.3 BUN/Creatinine Ratio 26.0 Random Glucose 85 mg/dl Calcium Level 7.6 mg/dl Magnesium Level 2.0 mg/dl Total Bilirubin 1.1 mg/dl Aspartate Amino Transf (AST/SGOT) 30 U/L Alanine Aminotransferase (ALT/SGPT) 25 U/L Alkaline Phosphatase 102 U/L Total Protein 5.2 gm/dl Albumin 1.9 gm/dl Globulin 3.3 gm/dl Albumin/Globulin Ratio 0.6 Procalcitonin 0.58 ng/ml Assessment and Plan A/P 71 yo female with UTI, R hydro, R infrarenal, medial collection POD#1 s/p R ureteral stent placement. Findings reviewed with primary service. R infrarenal fluid collection shows fluid density, no air/ fluid levels or thickened wall - unclear if this represents a mature abscess or not. CT scan with contrast was planned yesterday - I suggested it be performed in 2-3 days to also evaluate hydro and any change in appearance over time - would obtain Sun / Mon if clinically improving ( currently seems this is the case) to further define the nature of patient's R infrarenal collection. Would provide at least 2 weeks of antibiotics for complex UTI. Will arrange for outpatient follow-up with our service in ~ 3 weeks to discuss further evaluation of the source of her hydro. Thank you for allowing us to participate in this patient's care. Continued [facility] stay due to: multiple IV medications needed Discharge planning: uncertain
[2017-07-29] MEDS: LACTOBACILLUS ACIDOPHILUS (FLORANEX) TAB PO SCH (09:00)
[2017-07-29] MEDS ORDERED: CARVEDILOL 6.25 MG TAB PO ONE (09:08)
[2017-07-29] MEDS ORDERED: WARFARIN SOD 5 MG TAB PO ONE (09:15)
[2017-07-29 09:59] LABS: HEMATOCRIT 33.4 % (37-47); HEMOGLOBIN 11.1 g/dL (12.0-16.0); MEAN CELL VOLUME 85.9 fL (80-100); MEAN CORPUSCULAR HEMOGLOBIN 28.5 pg (25-34); MEAN PLATELET VOLUME 9.2 fL (7.4-10.4); PLATELET COUNT 247 K/uL (130-400); RED CELL DISTRIBUTION WIDTH SD 50.4 fL (36.4-46.3); WHITE BLOOD COUNT 13.58 K/uL (4.8-10.8)
[2017-07-29 10:01] LABS: MEAN CORPUSCULAR HGB CONC 33.2 g/dl (32-36)
[2017-07-29 10:09] LABS: INR 1.3 (0.9-1.1); PTT PATIENT 35.9 SECONDS (21.0-31.0)
[2017-07-29] MEDS: HEPARIN 25,000 UNIT/500ML D5W 500 ML IV SCH (10:47)
--- NOTE | 2017-07-29 11:34 | Critical Care Progress Note ---
Critical Care Progress Note Date of Service July 29, 2017. ICU Day ICU Day Number: [address] Buchanan Subjective No overnight events Objective General: Alert. nontoxic. 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 CVS: Hypotension * Resolved Chronic atrial fibrillation * Rate controlled ID: Complicated urinary tract infection * Continue imipenem at this time Funguria * Doubt pathologic fungus, no dissemination * Follow-up 1 3 fungitel and fungal blood culture Endo: Blood sugars within acceptable limits Renal/Lytes: Discussed case with urology Status ureteral post stenting * Follow-up contrasted CT abdomen pelvis and 2-3 days per urology GI: Tolerating diet, following texture recommendations per speech Heme: Starting heparin infusion for subtherapeutic INR * 5 mg Coumadin today * Restarting normal warfarin dosing tomorrow DVT prophy: Heparin infusion Lines: PIV 2. Stable for downgrade to telemetry status Data Medications: Current Inpatient Medications Medications (Trade) Dose Ordered Sig/Sid Route Start Time Stop Time Status Last Admin Dose Admin Acetaminophen (Tylenol Tab) 650 mg Q4H PRN PO 07/26/17 16:30 08/25/17 16:29 07/27/17 20:02 650 MG Al Hydrox/Mg Hydrox/Simethicone (Maalox Max Susp) 15 ml Q4H PRN PO 07/26/17 16:30 08/25/17 16:29 Magnesium Hydroxide (Milk Of Magnesia Susp) 30 ml Q12H PRN PO 07/26/17 16:30 08/25/17 16:29 Ondansetron HCl (Zofran Inj) 4 mg Q6H PRN IV 07/26/17 16:30 08/25/17 16:29 Polyethylene (Miralax Powder Packet) 17 gm DAILY PRN PO 07/26/17 16:30 08/25/17 16:29 Lactobacillus Acidophilus (Floranex Tab) 1 tab QAM PO 07/27/17 09:00 08/26/17 08:59 07/27/17 08:02 1 TAB Warfarin Sodium (Coumadin Tab) 1 mg SuMoWeFr@1600 PO 07/27/17 16:00 08/26/17 15:59 Future hold 07/27/17 15:57 1 MG Warfarin Sodium (Coumadin Tab) 2 mg TuThSa@1600 PO 07/28/17 16:00 08/27/17 15:59 Future hold Miscellaneous Information (Icu Protocol For Hyperglycemia) 1 ea PRN PRN N/A 07/28/17 06:30 07/30/17 06:29 Imipenem/ Cilastatin Sodium 300 mg/Dextrose 106 ml @ 106 mls/hr Q6H IV 07/28/17 08:00 08/07/17 07:59 07/29/17 07:49 106 MLS/HR Imipenem/ Cilastatin Sodium (Consult) 1 ea UD PRN N/A 07/28/17 07:00 08/27/17 06:59 Parenteral Electrolyte Solution 1,000 ml @ 100 mls/hr Q10H IV 07/28/17 09:00 08/27/17 08:59 07/29/17 00:44 100 MLS/HR Famotidine (Pepcid Tab) 20 mg BID PO 07/28/17 21:00 08/27/17 20:59 07/29/17 07:47 20 MG Carvedilol (Coreg Tab) 6.25 mg BID PO 07/29/17 21:00 08/28/17 20:59 Heparin Sodium/ Dextrose 500 ml @ 17 mls/hr Q24H IV 07/29/17 10:00 08/28/17 09:59 07/29/17 10:47 17 MLS/HR Vital Signs: Date Time Temp Pulse Resp B/P (MAP) Pulse Ox O2 Delivery O2 Flow Rate FiO2 07/29/17 11:00 95 Room Air 07/29/17 09:00 87 14 143/83 (103) 94 07/29/17 08:00 91 18 146/89 (108) 94 Room Air 07/29/17 08:00 96 Room Air 07/29/17 07:00 92 16 133/77 (95) 93 07/29/17 06:00 97 5 127/77 (94) 92 07/29/17 04:00 36.8 91 4 126/76 (93) 92 Room Air 07/29/17 04:00 92 Room Air 07/29/17 02:00 86 16 127/78 (94) 93 07/29/17 00:00 36.9 81 16 109/65 (80) 94 Room Air 07/28/17 23:59 94 Room Air 07/28/17 22:00 85 23 126/79 (95) 95 Room Air 07/28/17 20:00 36.5 95 18 140/71 (94) 93 Room Air 07/28/17 20:00 Room Air 07/28/17 18:32 93 25 148/84 (105) 92 07/28/17 18:30 117 23 90 07/28/17 18:15 106 20 95 07/28/17 18:01 104 18 131/41 (71) 93 07/28/17 18:00 103 25 93 Room Air 07/28/17 17:46 78 20 126/69 (88) 96 07/28/17 17:31 87 25 130/88 (102) 95 07/28/17 17:30 89 22 97 07/28/17 17:15 80 11 126/75 (92) 93 07/28/17 17:00 75 16 120/66 (84) 95 07/28/17 16:45 78 15 117/67 (84) 93 07/28/17 16:30 94 Room Air 07/28/17 16:30 83 15 125/70 (88) 93 07/28/17 16:16 80 18 141/81 (101) 95 07/28/17 16:01 80 24 133/84 (100) 96 Room Air 07/28/17 16:00 79 22 97 07/28/17 15:16 36.8 80 20 135/72 (93) 97 Room Air 07/28/17 15:10 72 21 146/61 (89) 97 07/28/17 15:05 76 25 113/77 (89) 97 07/28/17 15:01 77 18 120/67 (84) 97 07/28/17 15:00 78 23 96 07/28/17 14:57 82 16 117/68 (84) 96 07/28/17 14:50 82 20 116/72 (87) 94 07/28/17 14:46 85 21 123/59 (80) 94 07/28/17 14:36 76 21 107/74 (85) 97 07/28/17 14:30 79 26 116/62 (80) 97 07/28/17 14:25 72 15 102/64 (77) 98 07/28/17 14:21 78 12 102/64 (77) 98 07/28/17 14:19 75 17 96 07/28/17 14:19 36.7 78 17 07/28/17 14:16 104/57 (70) 07/28/17 14:16 78 17 104/57 (73) 99 07/28/17 14:14 75 16 07/28/17 14:14 73 16 98 07/28/17 14:11 75 17 102/61 (75) 98 Oxymask 2.0 07/28/17 14:11 102/61 (82) 07/28/17 14:09 77 13 98 07/28/17 14:09 85 13 07/28/17 14:04 36.9 77 14 97 07/28/17 14:04 77 14 07/28/17 14:00 140/85 (103) 07/28/17 13:02 98 23 125/99 (108) 94 07/28/17 13:00 101 24 95 07/28/17 12:32 106 25 99/78 (85) 93 07/28/17 12:01 36.7 102 24 134/75 (94) 95 Room Air 07/28/17 12:00 104 24 93 07/28/17 12:00 94 Room Air 07/28/17 11:31 90 24 122/69 (86) Laboratory Results: Last 24 Hours Test 07/28/17 13:20 07/29/17 01:17 07/29/17 03:55 07/29/17 09:47 Prothrombin Time 24.6 SECONDS 13.3 SECONDS 13.2 SECONDS Prothromb Time International Ratio 2.4 1.3 1.3 Bedside Glucose 83 mg/dl White Blood Count 13.38 K/uL 13.58 K/uL Red Blood Count 3.66 M/uL 3.89 M/uL Hemoglobin 10.7 g/dL 11.1 g/dL Hematocrit 31.2 % 33.4 % Mean Corpuscular Volume 85.2 fL 85.9 fL Mean Corpuscular Hemoglobin 29.2 pg 28.5 pg Mean Corpuscular Hemoglobin Concent 34.3 g/dl 33.2 g/dl RDW Standard Deviation 49.8 fL 50.4 fL RDW Coefficient of Variation 16.0 % 16.0 % Platelet Count 229 K/uL 247 K/uL Mean Platelet Volume 9.5 fL 9.2 fL Nucleated RBC Absolute Count (auto) 0.08 K/uL 0.10 K/uL Nucleated Red Blood Cells % 0.6 % 0.7 % Sodium Level 139 mmol/L Potassium Level 4.1 mmol/L Chloride Level 114 mmol/L Carbon Dioxide Level 20 mmol/L Anion Gap 5.0 mmol/L Blood Urea Nitrogen 14 mg/dl Creatinine 0.54 mg/dl Est Creatinine Clear Calc Drug Dose 63.5 ml/min Estimated GFR () 111.6 Estimated GFR (Non- 96.3 BUN/Creatinine Ratio 26.0 Random Glucose 85 mg/dl Calcium Level 7.6 mg/dl Magnesium Level 2.0 mg/dl Total Bilirubin 1.1 mg/dl Aspartate Amino Transf (AST/SGOT) 30 U/L Alanine Aminotransferase (ALT/SGPT) 25 U/L Alkaline Phosphatase 102 U/L Total Protein 5.2 gm/dl Albumin 1.9 gm/dl Globulin 3.3 gm/dl Albumin/Globulin Ratio 0.6 Procalcitonin 0.58 ng/ml Activated Partial Thromboplast Time 35.9 SECONDS Partial Thromboplastin Ratio 1.4
--- NOTE | 2017-07-29 14:55 | Hospitalist Progress Note ---
Hospitalist Progress Note Date of Service July 29, 2017. (Ekaterina Quezada ., MEETA) Subjective Pt evaluation today including: conversation w/ patient, conversation w/ family , physical exam, chart review, lab review, review of studies, conversation w/ ent consultant, review of inpatient medication list Voiding: cao catheter in place Ms. Appiah denies pain or discomfort. is at bedside, spent time answering questions and updating him on patient's treatments and studies ROS Constitutional: no chills, aches, sweats or fever Respiratory: no sob,cough, sputum, or wheezing Cardiac: no chest pain, palpitations, edema, orthopnea or lightheadedness GI: no abdominal pain, nausea, vomiting, diarrhea or constipation : no dysuria or hesitancy Extremities: no joint pain or weakness Skin: no rash All other systems reviewed and negative (Ekaterina Quezada .MEETA) Medications Medications Administered Medications (Trade) Dose Ordered Sig/Sid Route Start Time Stop Time Status Last Admin Dose Admin Sodium Chloride 1,000 ml @ 999 mls/hr Q1H1M STAT IV 07/26/17 14:48 07/26/17 15:48 DC 07/26/17 14:48 999 MLS/HR Levofloxacin (Levaquin / D5W) 750 mg NOW STAT IV 07/26/17 15:06 07/26/17 15:07 DC 07/26/17 15:54 750 MG Aztreonam 2000 mg/ Dextrose 110 ml @ 110 mls/hr NOW ONCE IV 07/26/17 16:00 07/26/17 16:59 DC 07/26/17 17:29 110 MLS/HR Sodium Chloride 1,000 ml @ 80 mls/hr [id number] IV 07/26/17 16:30 07/28/17 08:57 DC 07/28/17 05:12 80 MLS/HR Acetaminophen (Tylenol Tab) 650 mg Q4H PRN PO 07/26/17 16:30 08/25/17 16:29 07/27/17 20:02 650 MG Aztreonam 1000 mg/ Dextrose 110 ml @ 100 mls/hr Q8H IV 07/27/17 02:00 07/28/17 06:40 DC 07/28/17 03:33 100 MLS/HR Lactobacillus Acidophilus (Floranex Tab) 1 tab QAM PO 07/27/17 09:00 08/26/17 08:59 07/27/17 08:02 1 TAB Warfarin Sodium (Coumadin Tab) 1 mg SuMoWeFr@1600 PO 07/27/17 16:00 08/26/17 15:59 Future hold 07/27/17 15:57 1 MG Warfarin Sodium (Coumadin Tab) 2 mg NOW STAT PO 07/26/17 22:36 07/26/17 22:37 DC 07/26/17 23:33 2 MG Acetaminophen 650 mg/Empty Bag 65 ml @ 260 mls/hr Q6H PRN IV 07/27/17 02:45 07/28/17 09:17 DC 07/27/17 03:38 260 MLS/HR Levofloxacin 750 mg/Prmx 150 ml @ 100 mls/hr Q24H IV 07/27/17 16:00 07/28/17 09:13 DC 07/27/17 15:57 100 MLS/HR Sodium Chloride 1,000 ml @ 999 mls/hr Q1H1M IV 07/27/17 22:30 07/27/17 23:30 DC 07/27/17 22:32 999 MLS/HR Sodium Chloride 1,000 ml @ 999 mls/hr Q1H1M IV 07/28/17 00:00 07/28/17 01:00 DC 07/28/17 00:13 999 MLS/HR Albumin Human (Albumin 25%) 25 gm ONE STAT IV 07/28/17 01:16 07/28/17 01:26 DC 07/28/17 01:42 12.5 GM Fluconazole/ Sodium Chloride 200 mg/Prmx 100 ml @ 100 mls/hr Q24H IV 07/28/17 02:00 07/28/17 09:15 DC 07/28/17 02:29 100 MLS/HR Vancomycin HCl 1000 mg/Sodium Chloride 270 ml @ 125 mls/hr NOW STAT IV 07/28/17 01:47 07/28/17 03:56 DC 07/28/17 02:29 125 MLS/HR Sodium Chloride 1,000 ml @ 999 mls/hr Q1H1M STAT IV 07/28/17 03:34 07/28/17 04:34 DC 07/28/17 03:47 999 MLS/HR Potassium Chloride (Klor-Con Tab) 40 meq NOW STAT PO 07/28/17 05:15 07/28/17 05:18 DC 07/28/17 06:09 40 MEQ Magnesium Sulfate 100 ml @ 100 mls/hr NOW STAT IV 07/28/17 05:22 07/28/17 06:21 DC 07/28/17 06:09 100 MLS/HR Imipenem/ Cilastatin Sodium 300 mg/Dextrose 106 ml @ 106 mls/hr Q6H IV 07/28/17 08:00 08/07/17 07:59 07/29/17 12:59 106 MLS/HR Phytonadione 5 mg/ Sodium Chloride 50.5 ml @ 101 mls/hr ONE ONCE IV 07/28/17 07:45 07/28/17 08:14 DC 07/28/17 08:41 101 MLS/HR Parenteral Electrolyte Solution 1,000 ml @ 100 mls/hr Q10H IV 07/28/17 09:00 08/27/17 08:59 07/29/17 12:11 100 MLS/HR Potassium Phosphate 18 mmol/ Sodium Chloride 506 ml @ 168.667 mls/hr ONE ONCE IV 07/28/17 09:45 07/28/17 12:44 DC 07/28/17 09:32 168.667 MLS/HR Famotidine (Pepcid Tab) 20 mg BID PO 07/28/17 21:00 08/27/17 20:59 07/29/17 07:47 20 MG Iothalamate Meglumine (Cysto-Conray II 17.2%) 250 ml STK-MED ONCE .ROUTE 07/28/17 13:07 07/28/17 13:08 DC 07/28/17 13:49 20 ML Carvedilol (Coreg Tab) 6.25 mg 0908 ONCE PO 07/29/17 09:08 07/29/17 09:49 DC 07/29/17 10:42 6.25 MG Warfarin Sodium (Coumadin Tab) 5 mg NOW ONCE PO 07/29/17 09:15 07/29/17 09:51 DC 07/29/17 10:41 5 MG Heparin Sodium/ Dextrose 1 ea NOW STAT N/A 07/29/17 09:08 07/29/17 09:52 DC 07/29/17 10:55 1 EA Heparin Sodium/ Dextrose 500 ml @ 17 mls/hr Q24H IV 07/29/17 10:00 08/28/17 09:59 07/29/17 10:47 17 MLS/HR (Ekaterina Quezada, MEETA) Objective Vital Signs Date Time Temp Pulse Resp B/P (MAP) Pulse Ox O2 Delivery O2 Flow Rate FiO2 07/29/17 11:00 36.8 90 10 146/79 (101) 95 Room Air 07/29/17 11:00 95 Room Air 07/29/17 10:00 83 14 139/78 (98) 94 07/29/17 09:00 87 14 143/83 (103) 94 07/29/17 08:00 91 18 146/89 (108) 94 Room Air 07/29/17 08:00 96 Room Air 07/29/17 07:00 92 16 133/77 (95) 93 07/29/17 06:00 97 5 127/77 (94) 92 07/29/17 04:00 36.8 91 4 126/76 (93) 92 Room Air 07/29/17 04:00 92 Room Air 07/29/17 02:00 86 16 127/78 (94) 93 07/29/17 00:00 36.9 81 16 109/65 (80) 94 Room Air 07/28/17 23:59 94 Room Air 07/28/17 22:00 85 23 126/79 (95) 95 Room Air 07/28/17 20:00 36.5 95 18 140/71 (94) 93 Room Air 07/28/17 20:00 Room Air 07/28/17 18:32 93 25 148/84 (105) 92 07/28/17 18:30 117 23 90 07/28/17 18:15 106 20 95 07/28/17 18:01 104 18 131/41 (71) 93 07/28/17 18:00 103 25 93 Room Air 07/28/17 17:46 78 20 126/69 (88) 96 07/28/17 17:31 87 25 130/88 (102) 95 07/28/17 17:30 89 22 97 07/28/17 17:15 80 11 126/75 (92) 93 07/28/17 17:00 75 16 120/66 (84) 95 07/28/17 16:45 78 15 117/67 (84) 93 07/28/17 16:30 94 Room Air 07/28/17 16:30 83 15 125/70 (88) 93 07/28/17 16:16 80 18 141/81 (101) 95 07/28/17 16:01 80 24 133/84 (100) 96 Room Air 07/28/17 16:00 79 22 97 07/28/17 15:16 36.8 80 20 135/72 (93) 97 Room Air 07/28/17 15:10 72 21 146/61 (89) 97 07/28/17 15:05 76 25 113/77 (89) 97 07/28/17 15:01 77 18 120/67 (84) 97 07/28/17 15:00 78 23 96 07/28/17 14:57 82 16 117/68 (84) 96 07/28/17 14:50 82 20 116/72 (87) 94 07/28/17 14:46 85 21 123/59 (80) 94 07/28/17 14:36 76 21 107/74 (85) 97 (Ekaterina Quezada, MEETA) Physical Exam Notes: Medications Administered Medications (Trade) Dose Ordered Sig/Sid Route Start Time Stop Time Status Last Admin Dose Admin Sodium Chloride 1,000 ml @ 999 mls/hr Q1H1M STAT IV 07/26/17 14:48 07/26/17 15:48 DC 07/26/17 14:48 999 MLS/HR Levofloxacin (Levaquin / D5W) 750 mg NOW STAT IV 07/26/17 15:06 07/26/17 15:07 DC 07/26/17 15:54 750 MG Aztreonam 2000 mg/ Dextrose 110 ml @ 110 mls/hr NOW ONCE IV 07/26/17 16:00 07/26/17 16:59 DC 07/26/17 17:29 110 MLS/HR Sodium Chloride 1,000 ml @ 80 mls/hr [id number] IV 07/26/17 16:30 07/28/17 08:57 DC 07/28/17 05:12 80 MLS/HR Acetaminophen (Tylenol Tab) 650 mg Q4H PRN PO 07/26/17 16:30 08/25/17 16:29 07/27/17 20:02 650 MG Aztreonam 1000 mg/ Dextrose 110 ml @ 100 mls/hr Q8H IV 07/27/17 02:00 07/28/17 06:40 DC 07/28/17 03:33 100 MLS/HR Lactobacillus Acidophilus (Floranex Tab) 1 tab QAM PO 07/27/17 09:00 08/26/17 08:59 07/27/17 08:02 1 TAB Warfarin Sodium (Coumadin Tab) 1 mg SuMoWeFr@1600 PO 07/27/17 16:00 08/26/17 15:59 Future hold 07/27/17 15:57 1 MG Warfarin Sodium (Coumadin Tab) 2 mg NOW STAT PO 07/26/17 22:36 07/26/17 22:37 DC 07/26/17 23:33 2 MG Acetaminophen 650 mg/Empty Bag 65 ml @ 260 mls/hr Q6H PRN IV 07/27/17 02:45 07/28/17 09:17 DC 07/27/17 03:38 260 MLS/HR Levofloxacin 750 mg/Prmx 150 ml @ 100 mls/hr Q24H IV 07/27/17 16:00 07/28/17 09:13 DC 07/27/17 15:57 100 MLS/HR Sodium Chloride 1,000 ml @ 999 mls/hr Q1H1M IV 07/27/17 22:30 07/27/17 23:30 DC 07/27/17 22:32 999 MLS/HR Sodium Chloride 1,000 ml @ 999 mls/hr Q1H1M IV 07/28/17 00:00 07/28/17 01:00 DC 07/28/17 00:13 999 MLS/HR Albumin Human (Albumin 25%) 25 gm ONE STAT IV 07/28/17 01:16 07/28/17 01:26 DC 07/28/17 01:42 12.5 GM Fluconazole/ Sodium Chloride 200 mg/Prmx 100 ml @ 100 mls/hr Q24H IV 07/28/17 02:00 07/28/17 09:15 DC 07/28/17 02:29 100 MLS/HR Vancomycin HCl 1000 mg/Sodium Chloride 270 ml @ 125 mls/hr NOW STAT IV 07/28/17 01:47 07/28/17 03:56 DC 07/28/17 02:29 125 MLS/HR Sodium Chloride 1,000 ml @ 999 mls/hr Q1H1M STAT IV 07/28/17 03:34 07/28/17 04:34 DC 07/28/17 03:47 999 MLS/HR Potassium Chloride (Klor-Con Tab) 40 meq NOW STAT PO 07/28/17 05:15 07/28/17 05:18 DC 07/28/17 06:09 40 MEQ Magnesium Sulfate 100 ml @ 100 mls/hr NOW STAT IV 07/28/17 05:22 07/28/17 06:21 DC 07/28/17 06:09 100 MLS/HR Imipenem/ Cilastatin Sodium 300 mg/Dextrose 106 ml @ 106 mls/hr Q6H IV 07/28/17 08:00 08/07/17 07:59 07/29/17 12:59 106 MLS/HR Phytonadione 5 mg/ Sodium Chloride 50.5 ml @ 101 mls/hr ONE ONCE IV 07/28/17 07:45 07/28/17 08:14 DC 07/28/17 08:41 101 MLS/HR Parenteral Electrolyte Solution 1,000 ml @ 100 mls/hr Q10H IV 07/28/17 09:00 08/27/17 08:59 07/29/17 12:11 100 MLS/HR Potassium Phosphate 18 mmol/ Sodium Chloride 506 ml @ 168.667 mls/hr ONE ONCE IV 07/28/17 09:45 07/28/17 12:44 DC 07/28/17 09:32 168.667 MLS/HR Famotidine (Pepcid Tab) 20 mg BID PO 07/28/17 21:00 08/27/17 20:59 07/29/17 07:47 20 MG Iothalamate Meglumine (Cysto-Conray II 17.2%) 250 ml STK-MED ONCE .ROUTE 07/28/17 13:07 07/28/17 13:08 DC 07/28/17 13:49 20 ML Carvedilol (Coreg Tab) 6.25 mg 0908 ONCE PO 07/29/17 09:08 07/29/17 09:49 DC 07/29/17 10:42 6.25 MG Warfarin Sodium (Coumadin Tab) 5 mg NOW ONCE PO 07/29/17 09:15 07/29/17 09:51 DC 07/29/17 10:41 5 MG Heparin Sodium/ Dextrose 1 ea NOW STAT N/A 07/29/17 09:08 07/29/17 09:52 DC 07/29/17 10:55 1 EA Heparin Sodium/ Dextrose 500 ml @ 17 mls/hr Q24H IV 07/29/17 10:00 08/28/17 09:59 07/29/17 10:47 17 MLS/HR (Ekaterina Quezada, MEETA) Laboratory Results Last 24 Hours Test 07/29/17 01:17 07/29/17 03:55 07/29/17 06:28 07/29/17 09:47 Bedside Glucose 83 mg/dl 79 mg/dl White Blood Count 13.38 K/uL 13.58 K/uL Red Blood Count 3.66 M/uL 3.89 M/uL Hemoglobin 10.7 g/dL 11.1 g/dL Hematocrit 31.2 % 33.4 % Mean Corpuscular Volume 85.2 fL 85.9 fL Mean Corpuscular Hemoglobin 29.2 pg 28.5 pg Mean Corpuscular Hemoglobin Concent 34.3 g/dl 33.2 g/dl RDW Standard Deviation 49.8 fL 50.4 fL RDW Coefficient of Variation 16.0 % 16.0 % Platelet Count 229 K/uL 247 K/uL Mean Platelet Volume 9.5 fL 9.2 fL Nucleated RBC Absolute Count (auto) 0.08 K/uL 0.10 K/uL Nucleated Red Blood Cells % 0.6 % 0.7 % Prothrombin Time 13.3 SECONDS 13.2 SECONDS Prothromb Time International Ratio 1.3 1.3 Sodium Level 139 mmol/L Potassium Level 4.1 mmol/L Chloride Level 114 mmol/L Carbon Dioxide Level 20 mmol/L Anion Gap 5.0 mmol/L Blood Urea Nitrogen 14 mg/dl Creatinine 0.54 mg/dl Est Creatinine Clear Calc Drug Dose 63.5 ml/min Estimated GFR () 111.6 Estimated GFR (Non- 96.3 BUN/Creatinine Ratio 26.0 Random Glucose 85 mg/dl Calcium Level 7.6 mg/dl Magnesium Level 2.0 mg/dl Total Bilirubin 1.1 mg/dl Aspartate Amino Transf (AST/SGOT) 30 U/L Alanine Aminotransferase (ALT/SGPT) 25 U/L Alkaline Phosphatase 102 U/L Total Protein 5.2 gm/dl Albumin 1.9 gm/dl Globulin 3.3 gm/dl Albumin/Globulin Ratio 0.6 Procalcitonin 0.58 ng/ml Activated Partial Thromboplast Time 35.9 SECONDS Partial Thromboplastin Ratio 1.4 (Ekaterina Quezada CRNP) Assessment and Plan Ms. Appiah is a 71 year old woman here for sepsis secondary to UTI/perinephric abscess UTI/ perinephric abscess/ sepsis - transferred to ICU 07/28 after decompensating and taken to OR with urology after right hydronephrosis and ureteral dilation found on CT scan. Cystoscopy and stent in OR, transferred to telemetry this afternoon - lactic acid peaked at 2.84 - initially given IV levaquin and aztreonam and then transitioned to imipenem after sensitivities resulted - BC ngtd, urine culture growing E.Coli - cbc, prp am - Urology recommending repeat CT on Tuesday or Tuesday and 2 weeks of abx A.fib on Coumadin, htn - rate controlled - continue Coumadin, Cozaar, Coreg - Patient was reversed for procedure, restarted on Coumadin. Heparin gtt initiated in ICU, will continue for now as patient is moderately high risk with a CHADS-VASc score of 6. Dysphagia - speech eval showed severe aspiration risk - slippery dental soft diet History of CVA, weakness - PT/OT evals DVT proph - coumadin Full code (Ekaterina Quezada CRNP) LEAD PERSON Physician Supervision Note: I discussed with Ekaterina Quezada LEAD PERSON and agree with findings and plan as documented in the note. Any exceptions or clarifications are listed here: None Patient was taken to the OR 07/28 for a stent of her ureteral obstruction urology is instructing to use antibiotics to discern if her pelvic fluid collection improves with treatment patient is maintained on imipenem pending culture results her vital signs are temp 36 8 pulse 96 respiration 16 BP 127/97 O2 sat 92 on room air continue antibiotic therapy with concerns for likely worsening of physical condition given her pre-existing deficits from stroke particularly concerning is her difficulty with swallowing likely will need rehabilitation in an inpatient setting prior to going home Documented By: Mario Gutierrez (Mario Gutierrez M.D.)
--- NOTE | 2017-07-29 14:56 | Medical Consult ---
Consultation Date of Consultation: July 29, 2017. Attending Physician: Stefano Nielsen MD, PhD Reason for Consultation: Complicated UTI, multidrug resistant E. coli History of Present Illness 71-year-old female with history of hypertension, atrial fibrillation on anticoagulation, prior CVA, who was well until approximately 3 days prior to admission when family members noted increasing weakness, decrease in p.o. intake , fever, chills, and darkening of urine with pinkish discoloration. Was brought to the hospital and found to have evidence of early sepsis and urinary tract infection, urine culture positive for a resistant E. coli. Patient subsequently found on CT scan, also read by me, which showed hydronephrosis, pyelonephritis, possible developing abscess. Patient now status post ureteral stent placement with finding of probable stone disease. Patient currently on imipenem, feeling somewhat better, hemodynamically stable, and currently afebrile. Blood cultures have been negative. No obvious problems with antibiotics. Past Medical/Surgical History Medical Problems: (1) Sepsis Status: Acute (2) UTI (urinary tract infection) Status: Acute Medical Problems: (1) CHF (congestive heart failure) (2) CVA (cerebral vascular accident) (3) Non-Hodgkin lymphoma (4) Sepsis secondary to UTI (5) Sjoegren syndrome (6) uti sepsis Family History Noncontributory Social History Smoking Status: Never Smoker Smokeless Tobacco Use: No Alcohol Use: none Drug Use: none Marital Status: Housing Status: lives with significant other Occupation Status: retired, disabled Allergies Coded Allergies: Ampicillin (Verified Allergy, Unknown, rash, 07/26/17) Morphine (Verified Allergy, Unknown, RASH, 07/26/17) Penicillins (Verified Allergy, Unknown, RASH, 07/26/17) Sulindac (Verified Allergy, Unknown, rash, 07/26/17) Tolmetin (Verified Allergy, Unknown, RASH, 07/26/17) Current Inpatient Medications Current Inpatient Medications Medications (Trade) Dose Ordered Sig/Sid Route Start Time Stop Time Status Last Admin Dose Admin Acetaminophen (Tylenol Tab) 650 mg Q4H PRN PO 07/26/17 16:30 08/25/17 16:29 07/27/17 20:02 650 MG Al Hydrox/Mg Hydrox/Simethicone (Maalox Max Susp) 15 ml Q4H PRN PO 07/26/17 16:30 08/25/17 16:29 Magnesium Hydroxide (Milk Of Magnesia Susp) 30 ml Q12H PRN PO 07/26/17 16:30 08/25/17 16:29 Ondansetron HCl (Zofran Inj) 4 mg Q6H PRN IV 07/26/17 16:30 08/25/17 16:29 Polyethylene (Miralax Powder Packet) 17 gm DAILY PRN PO 07/26/17 16:30 08/25/17 16:29 Lactobacillus Acidophilus (Floranex Tab) 1 tab QAM PO 07/27/17 09:00 08/26/17 08:59 07/27/17 08:02 1 TAB Warfarin Sodium (Coumadin Tab) 1 mg SuMoWeFr@1600 PO 07/27/17 16:00 08/26/17 15:59 Future hold 07/27/17 15:57 1 MG Warfarin Sodium (Coumadin Tab) 2 mg TuThSa@1600 PO 07/28/17 16:00 08/27/17 15:59 Future hold Miscellaneous Information (Icu Protocol For Hyperglycemia) 1 ea PRN PRN N/A 07/28/17 06:30 07/30/17 06:29 Imipenem/ Cilastatin Sodium 300 mg/Dextrose 106 ml @ 106 mls/hr Q6H IV 07/28/17 08:00 08/07/17 07:59 07/29/17 12:59 106 MLS/HR Imipenem/ Cilastatin Sodium (Consult) 1 ea UD PRN N/A 07/28/17 07:00 08/27/17 06:59 Parenteral Electrolyte Solution 1,000 ml @ 100 mls/hr Q10H IV 07/28/17 09:00 08/27/17 08:59 07/29/17 12:11 100 MLS/HR Famotidine (Pepcid Tab) 20 mg BID PO 07/28/17 21:00 08/27/17 20:59 07/29/17 07:47 20 MG Carvedilol (Coreg Tab) 6.25 mg BID PO 07/29/17 21:00 08/28/17 20:59 Heparin Sodium/ Dextrose 500 ml @ 17 mls/hr Q24H IV 07/29/17 10:00 08/28/17 09:59 07/29/17 10:47 17 MLS/HR Review of Systems Constitutional: + fever, + chills, + weakness Eyes: No problem reported ENT: No problem reported Respiratory: No problem reported Cardiovascular: No problem reported Abdomen: + pain Musculoskeletal: No problem reported Genitourinary - Female: + problem reported (See HPI) Neurologic: No problem reported Psychiatric: No problem reported Endocrine: No problem reported Hematologic / Lymphatic: No problem reported Integumentary: No problem reported Allergic / Immunologic: No problem reported Physical Exam Date Time Temp Pulse Resp B/P (MAP) Pulse Ox O2 Delivery O2 Flow Rate FiO2 07/29/17 11:00 36.8 90 10 146/79 (101) 95 Room Air 07/29/17 11:00 95 Room Air 07/29/17 10:00 83 14 139/78 (98) 94 07/29/17 09:00 87 14 143/83 (103) 94 07/29/17 08:00 91 18 146/89 (108) 94 Room Air 07/29/17 08:00 96 Room Air 07/29/17 07:00 92 16 133/77 (95) 93 07/29/17 06:00 97 5 127/77 (94) 92 07/29/17 04:00 36.8 91 4 126/76 (93) 92 Room Air 07/29/17 04:00 92 Room Air 07/29/17 02:00 86 16 127/78 (94) 93 07/29/17 00:00 36.9 81 16 109/65 (80) 94 Room Air 07/28/17 23:59 94 Room Air 07/28/17 22:00 85 23 126/79 (95) 95 Room Air 07/28/17 20:00 36.5 95 18 140/71 (94) 93 Room Air 07/28/17 20:00 Room Air 07/28/17 18:32 93 25 148/84 (105) 92 07/28/17 18:30 117 23 90 07/28/17 18:15 106 20 95 07/28/17 18:01 104 18 131/41 (71) 93 07/28/17 18:00 103 25 93 Room Air 07/28/17 17:46 78 20 126/69 (88) 96 07/28/17 17:31 87 25 130/88 (102) 95 07/28/17 17:30 89 22 97 07/28/17 17:15 80 11 126/75 (92) 93 07/28/17 17:00 75 16 120/66 (84) 95 07/28/17 16:45 78 15 117/67 (84) 93 07/28/17 16:30 94 Room Air 07/28/17 16:30 83 15 125/70 (88) 93 07/28/17 16:16 80 18 141/81 (101) 95 07/28/17 16:01 80 24 133/84 (100) 96 Room Air 07/28/17 16:00 79 22 97 07/28/17 15:16 36.8 80 20 135/72 (93) 97 Room Air 07/28/17 15:10 72 21 146/61 (89) 97 07/28/17 15:05 76 25 113/77 (89) 97 07/28/17 15:01 77 18 120/67 (84) 97 07/28/17 15:00 78 23 96 07/28/17 14:57 82 16 117/68 (84) 96 07/28/17 14:50 82 20 116/72 (87) 94 General Appearance: WD/WN, no apparent distress Head: normocephalic, atraumatic Eyes: normal inspection, sclerae normal, + pertinent finding (Left facial palsy ) ENT: normal ENT inspection, hearing grossly normal, pharynx normal Neck: supple, no adenopathy, thyroid normal, trachea midline Respiratory/Chest: chest non-tender, lungs clear, normal breath sounds, no respiratory distress Cardiovascular: regular rate, rhythm, no gallop, no murmur Abdomen/GI: normal bowel sounds, non tender, soft, no organomegaly Back: normal inspection, no CVA tenderness Extremities/Musculoskelatal: normal inspection, no calf tenderness, normal capillary refill, non-tender Neurologic/Psych: alert, oriented x 3 Skin: normal color, warm/dry, no rash Lymphatic: no adenopathy Laboratory Results ------- RUN DATE: 07/28/17 [facility] LAB PAGE 1 RUN TIME: 1213 Specimen Inquiry PATIENT: GWEN BROUSSARD LOC: TOMMY U # : [id number] AGE/SX: 71/F ROOM: [facility] REG : 07/26/[address]: Stefano Nielsen MD, PhD : 1945 BED: 1 DIS : STATUS: ADM IN TLOC: SPEC #: [id number] BETZY: 07/26/17 STATUS: COMP REQ #: [id number] RECD: 07/26/[address]: Edvin Fiore M.D. SOURCE: URINE CATH ENTR: 07/26/17 [facility] DR: Giorgio Walton M.D. SPDESC: ORDERED: CULTURE UR CATH COMMENTS: Has Specimen Been Obtained/Collected? Y Procedure Result Verified Site URINE CULTURE Final 07/28/17-1213 Organism 1 ESCHERICHIA COLI COLONY COUNT >100,000 CFU/ml SENS SENSITIVITY TO FOLLOW +MIX PLUS MODERATE COUNTS OTHER MIXED SULY 1. ESCHERICHIA COLI Target Route Dose RX AB Cost M.I.C. IQ ------ ----- ------ -- ------ -------- - ------ TRIMET/SULFA R >2/38 AMPICILLIN R >16 AMPICILLIN/SUL R >16/8 CEFAZOLIN I 16 CEFOXITIN S <=8 CEFOTAXIME S <=2 CEFTRIAXONE S <=1 CEFEPIME S <=4 CEFUROXIME S 8 IMIPENEM S <=1 GENTAMICIN S <=4 TOBRAMYCIN S <=4 AMIKACIN S <=16 CIPROFLOXACIN S <=1 LEVOFLOXACIN S <=2 ERTAPENEM S <=1 NITROFURANTOIN S <=32 PIP/TAZO R >64 S = SENSITIVE I = INTERMEDIATE R = RESISTANT END OF REPORT Last 24 Hours Test 07/29/17 01:17 07/29/17 03:55 07/29/17 06:28 07/29/17 09:47 Bedside Glucose 83 mg/dl 79 mg/dl White Blood Count 13.38 K/uL 13.58 K/uL Red Blood Count 3.66 M/uL 3.89 M/uL Hemoglobin 10.7 g/dL 11.1 g/dL Hematocrit 31.2 % 33.4 % Mean Corpuscular Volume 85.2 fL 85.9 fL Mean Corpuscular Hemoglobin 29.2 pg 28.5 pg Mean Corpuscular Hemoglobin Concent 34.3 g/dl 33.2 g/dl RDW Standard Deviation 49.8 fL 50.4 fL RDW Coefficient of Variation 16.0 % 16.0 % Platelet Count 229 K/uL 247 K/uL Mean Platelet Volume 9.5 fL 9.2 fL Nucleated RBC Absolute Count (auto) 0.08 K/uL 0.10 K/uL Nucleated Red Blood Cells % 0.6 % 0.7 % Prothrombin Time 13.3 SECONDS 13.2 SECONDS Prothromb Time International Ratio 1.3 1.3 Sodium Level 139 mmol/L Potassium Level 4.1 mmol/L Chloride Level 114 mmol/L Carbon Dioxide Level 20 mmol/L Anion Gap 5.0 mmol/L Blood Urea Nitrogen 14 mg/dl Creatinine 0.54 mg/dl Est Creatinine Clear Calc Drug Dose 63.5 ml/min Estimated GFR () 111.6 Estimated GFR (Non- 96.3 BUN/Creatinine Ratio 26.0 Random Glucose 85 mg/dl Calcium Level 7.6 mg/dl Magnesium Level 2.0 mg/dl Total Bilirubin 1.1 mg/dl Aspartate Amino Transf (AST/SGOT) 30 U/L Alanine Aminotransferase (ALT/SGPT) 25 U/L Alkaline Phosphatase 102 U/L Total Protein 5.2 gm/dl Albumin 1.9 gm/dl Globulin 3.3 gm/dl Albumin/Globulin Ratio 0.6 Procalcitonin 0.58 ng/ml Activated Partial Thromboplast Time 35.9 SECONDS Partial Thromboplastin Ratio 1.4 Patient Name: GWEN BROUSSARD Unit Number: [id number] Dictated: 07/28/17704 Transcribed: 07/28/17704 [facility] Printed Date/Time: [~ rep prt dt]/[~ rep prt tm] [~ rep ct labl] - [~ rep ct ivnm] [facility] Radiology [place] [address] Dictated: 07/28/17704 Transcribed: 07/28/17704 [facility] Printed Date/Time: [~ rep prt dt]/[~ rep prt tm] [~ rep ct labl] - [~ rep ct ivnm] ABD/PELVIS WITHOUT FOR STONE HISTORY: 71 years-old Female RLQ abd pain/UTI/Eval ?stone acute right lower quadrant abdominal pain COMPARISON: Chest radiograph 07/26/2017 TECHNIQUE: Multiple axial CT images of the abdomen and pelvis were obtained without IV contrast. A dose lowering technique was used consistent with the principals of ALARA. FINDINGS: Trace bilateral pleural effusions with subsegmental bibasilar opacities favoring atelectasis. The study is motion degraded. No pneumatosis or pneumoperitoneum identified. Imaged inferior cardiac chambers are at least moderately enlarged with coronary arterial calcifications. Evaluation of the solid abdominal organs is limited without the use of IV contrast. Prior cholecystectomy. Liver appears unremarkable. Scattered calcifications throughout the spleen are noted. At least mild generalized pancreatic atrophy. Bilateral adrenal gland thickening, left greater than right. Mild nonspecific left-sided perinephric stranding. Indeterminate 3 mm hyperattenuating focus of the superior pole left kidney may reflect a complex cyst or renal calcification. No left-sided renal calculi or obstructive uropathy. There is marked perinephric stranding about the right kidney with right renal enlargement. Moderate to severe right-sided hydronephrosis with moderate hydroureter is noted. Layering calculi are seen within the right renal pelvis with additional ill-defined calcifications measuring up to approximately 3 mm seen within the region of the right ureteropelvic junction. Nonobstructing right-sided nephrolithiasis also noted. Right ureter appears dilated to level of the ureteropelvic junction. Pelvic structures are subvisualized secondary to streak artifact from left hip arthroplasty. There is a multiloculated fluid collection without well-defined margins within the inferior right perinephric space measuring 2.9 x 5.2 x 3.7 cm in AP, transverse and craniocaudal dimensions respectively nicely seen on image 242 series 3. Uterus and adnexa appear unremarkable. Tortuosity and calcification of the aorta without aneurysm. No bulky adenopathy identified. Periaortic lymph nodes are seen measuring up to 8 mm in short axis, likely reactive. Air-fluid levels noted within the stomach. Moderate stool volume throughout the colon. Postoperative changes of the left hemicolon suggesting partial resection. Hyperattenuating foci within the appendiceal lumen suggests appendicolith. Post surgical changes are noted within small bowel of the lower midline abdomen. Wall thickening of the hepatic flexure and ascending colon is likely reactive. Mild abdominal pelvic ascites. Mild diffuse body wall edema. The bones appear mildly demineralized. Severe multilevel facet arthrosis of the lower lumbar spine. Dextroscoliosis of the lumbar spine. Compression deformity of the T11 vertebral body is technically age-indeterminate however appears chronic. IMPRESSION: 1. Limited study secondary to patient motion. 2. Moderate to severe right-sided hydronephrosis and moderate hydroureter with marked right perinephric inflammatory stranding. These findings are likely secondary to obstructing calculus or calculi within the right ureteropelvic junction which are not well seen. The right ureter however appears to be at least mildly dilated distally without a distal obstructing calculus or lesion seen. Urologic consultation is advised. 3. Ill-defined multiloculated fluid of the inferior right perinephric space measuring up to 5.2 cm suggests phlegmon or developing abscess without well-defined aragon identified. Attention at follow-up recommended. 4. Mild abdominal pelvic ascites with wall thickening of the hepatic flexure and ascending colon may be reactive. 5. Trace bilateral pleural effusions. 6. Additional findings as above. The above report was generated using voice recognition software. It may contain grammatical, syntax or spelling errors. Electronically signed by: Brandon Panda M.D. 07/28/2017 7:18 AM Dictated Date/Time: 07/28/2017 7:05 AM The status of this report is Signed. Draft = Not yet reviewed or approved by Radiologist. Signed = Reviewed and approved by Radiologist. <AttendingPhy>Stefano Nielsen MD, PhD</AttendingPhy> <FamilyPhy>Giorgio Walton M.D.</FamilyPhy> <PrimaryPhy>Giorgio Walton M.D.</PrimaryPhy> <UnitNumber> [id number]</UnitNumber> <VisitNumber>[id number]</VisitNumber> <PatientName> GWEN BROUSSARD</PatientName> <DateOfBirth>1945</DateOfBirth> <Location> C[facility]</Location> <ServiceDate>07/26/17</ServiceDate> <MNE>ESINDI</MNE> < OrderingPhy>Travis Esquivel PA-C</OrderingPhy> <OrderingPhyMNE>f rep ord mne</ OrderingPhyMNE> <DictatingPhyMNE>f rep dict mne</DictatingPhyMNE> <CCListMNE> f rep ct mne</CCListMNE> <AdmittingPhyMNE>f pt admit dr pate</AdmittingPhyMNE> < AttendingPhyMNE>f pt attend dr pate</AttendingPhyMNE> <ConsultingPhyMNE>f pt consult dr pate</ConsultingPhyMNE> <FamilyPhyMNE>f pt fam dr pate</FamilyPhyMNE> <OtherPhyMNE>f pt other dr pate</OtherPhyMNE> < PrimaryPhyMNE>f pt prim care dr pate</PrimaryPhyMNE> <ReferringPhyMNE>f pt referring dr pate</ReferringPhyMNE> Assessment & Plan 71-year-old female with E. coli sepsis from urinary tract infection with pyelonephritis, possible early abscess formation, and obstruction status post stent placement. Patient appears to be improving clinically with antibiotics and stenting. Would consider changing patient to IV ertapenem to narrow coverage somewhat, and potentially allow for possible outpatient treatment is necessary. Will need follow-up CT scan at some point. Discussed with critical care team. Will follow.
[2017-07-29 17:18] LABS: PTT PATIENT 44.1 SECONDS (21.0-31.0)
[2017-07-29] MEDS ORDERED: HEPARIN IV BOLUS 2,000 UNIT in SYRINGE 0 ML IV SCH (18:15)
[2017-07-29] MEDS: ERTAPENEM IV 1 GM in SODIUM CHLOR 0.9% AD-VAN 50ML IV SCH (20:05)
[2017-07-29] MEDS: CARVEDILOL 6.25 MG TAB PO SCH (21:11)
[2017-07-30 02:21] LABS: PTT PATIENT 58.8 SECONDS (21.0-31.0)
[2017-07-30] MEDS: HEPARIN 25,000 UNIT/500ML D5W 500 ML IV SCH (02:36)
[2017-07-30 04:44] VITALS: BP 101/65; PULSE 71; TEMP 36.3; O2SAT 94
[2017-07-30 07:14] VITALS: BP 112/75; PULSE 73; TEMP 36.2; O2SAT 94
[2017-07-30] MEDS: LACTOBACILLUS ACIDOPHILUS (FLORANEX) TAB PO SCH (07:29)
[2017-07-30] MEDS: CARVEDILOL 6.25 MG TAB PO SCH ×2 (07:29→21:06)
[2017-07-30] MEDS: FAMOTIDINE 20 MG TAB PO SCH ×2 (07:29→21:06)
[2017-07-30 08:53] LABS: HEMATOCRIT 32.4 % (37-47); HEMOGLOBIN 11.1 g/dL (12.0-16.0); MEAN CORPUSCULAR HEMOGLOBIN 29.1 pg (25-34); MEAN CORPUSCULAR HGB CONC 34.3 g/dl (32-36); MEAN PLATELET VOLUME 9.4 fL (7.4-10.4); PLATELET COUNT 286 K/uL (130-400); RED CELL DISTRIBUTION WIDTH CV 15.8 % (11.5-14.5); RED CELL DISTRIBUTION WIDTH SD 49.2 fL (36.4-46.3); WHITE BLOOD COUNT 12.99 K/uL (4.8-10.8)
[2017-07-30] MEDS: NORMOSOL R 1,000 ML IV SCH (09:06)
[2017-07-30 09:10] LABS: INR 3.7 (0.9-1.1)
[2017-07-30 09:20] LABS: CALCIUM 7.7 mg/dl (8.5-10.1); CREATININE 0.58 mg/dl (0.60-1.20); POTASSIUM 3.6 mmol/L (3.5-5.1); PTT PATIENT 84.6 SECONDS (21.0-31.0)
[2017-07-30 09:24] LABS: PHOSPHORUS 2.3 mg/dl (2.5-4.9)
[2017-07-30 09:33] LABS: BASO % 0.4 %; BASO ABS # 0.05 K/uL (0-0.2); EOS % 0.5 %; EOS ABS # 0.06 K/uL (0-0.5); IG# 0.91 K/uL (0.00-0.02); LYMPH % 8.8 %; LYMPH ABS # 1.14 K/uL (1.2-3.4); MONO % 6.6 %; MONO ABS # 0.86 K/uL (0.11-0.59); NEUT % 76.7 %; NEUT ABS # 9.97 K/uL (1.4-6.5)
--- NOTE | 2017-07-30 10:14 | Progress Note ---
Progress Note Date of Service July 30, 2017. Progress Note Postop day #2 from a right stent placement Patient's afebrile vital signs are stable She is tolerating the stent well she has no flank pain Urine output is good White count is slowly coming down Urine culture positive for E. coli Creatinine normal Assessment Urosepsis with obstructing calculi Would continue antibiotics per culture sensitivities Per Dr. Jones's note would get a CT scan on Tuesday to reevaluate the fluid collection below the right kidney No further urologic intervention needed at this time
[2017-07-30] MEDS ORDERED: NURSING VERBAL MED ORDER ONE (10:15)
--- NOTE | 2017-07-30 10:43 | Hospitalist Progress Note ---
Hospitalist Progress Note Date of Service July 30, 2017. (Ekaterina Quezada ., MEETA) Subjective Pt evaluation today including: conversation w/ patient, conversation w/ family , physical exam, chart review, lab review, review of inpatient medication list Ms. Appiah denies complaints. Her is concerned about edematous arms bilaterally but otherwise does not have questions. ROS Constitutional: no chills, aches, sweats or fever Respiratory: no sob,cough, sputum, or wheezing Cardiac: no chest pain, palpitations, edema, orthopnea or lightheadedness GI: no abdominal pain, nausea, vomiting, diarrhea or constipation : no dysuria or hesitancy Extremities: no joint pain or weakness Skin: no rash All other systems reviewed and negative (Ekaterina Quezada .MEETA) Medications Medications Administered Medications (Trade) Dose Ordered Sig/Sid Route Start Time Stop Time Status Last Admin Dose Admin Sodium Chloride 1,000 ml @ 999 mls/hr Q1H1M STAT IV 07/26/17 14:48 07/26/17 15:48 DC 07/26/17 14:48 999 MLS/HR Levofloxacin (Levaquin / D5W) 750 mg NOW STAT IV 07/26/17 15:06 07/26/17 15:07 DC 07/26/17 15:54 750 MG Aztreonam 2000 mg/ Dextrose 110 ml @ 110 mls/hr NOW ONCE IV 07/26/17 16:00 07/26/17 16:59 DC 07/26/17 17:29 110 MLS/HR Sodium Chloride 1,000 ml @ 80 mls/hr [id number] IV 07/26/17 16:30 07/28/17 08:57 DC 07/28/17 05:12 80 MLS/HR Acetaminophen (Tylenol Tab) 650 mg Q4H PRN PO 07/26/17 16:30 08/25/17 16:29 07/27/17 20:02 650 MG Aztreonam 1000 mg/ Dextrose 110 ml @ 100 mls/hr Q8H IV 07/27/17 02:00 07/28/17 06:40 DC 07/28/17 03:33 100 MLS/HR Lactobacillus Acidophilus (Floranex Tab) 1 tab QAM PO 07/27/17 09:00 08/26/17 08:59 07/30/17 07:29 1 TAB Warfarin Sodium (Coumadin Tab) 1 mg SuMoWeFr@1600 PO 07/27/17 16:00 08/26/17 15:59 Future hold 07/27/17 15:57 1 MG Warfarin Sodium (Coumadin Tab) 2 mg NOW STAT PO 07/26/17 22:36 07/26/17 22:37 DC 07/26/17 23:33 2 MG Acetaminophen 650 mg/Empty Bag 65 ml @ 260 mls/hr Q6H PRN IV 07/27/17 02:45 07/28/17 09:17 DC 07/27/17 03:38 260 MLS/HR Levofloxacin 750 mg/Prmx 150 ml @ 100 mls/hr Q24H IV 07/27/17 16:00 07/28/17 09:13 DC 07/27/17 15:57 100 MLS/HR Sodium Chloride 1,000 ml @ 999 mls/hr Q1H1M IV 07/27/17 22:30 07/27/17 23:30 DC 07/27/17 22:32 999 MLS/HR Sodium Chloride 1,000 ml @ 999 mls/hr Q1H1M IV 07/28/17 00:00 07/28/17 01:00 DC 07/28/17 00:13 999 MLS/HR Albumin Human (Albumin 25%) 25 gm ONE STAT IV 07/28/17 01:16 07/28/17 01:26 DC 07/28/17 01:42 12.5 GM Fluconazole/ Sodium Chloride 200 mg/Prmx 100 ml @ 100 mls/hr Q24H IV 07/28/17 02:00 07/28/17 09:15 DC 07/28/17 02:29 100 MLS/HR Vancomycin HCl 1000 mg/Sodium Chloride 270 ml @ 125 mls/hr NOW STAT IV 07/28/17 01:47 07/28/17 03:56 DC 07/28/17 02:29 125 MLS/HR Sodium Chloride 1,000 ml @ 999 mls/hr Q1H1M STAT IV 07/28/17 03:34 07/28/17 04:34 DC 07/28/17 03:47 999 MLS/HR Potassium Chloride (Klor-Con Tab) 40 meq NOW STAT PO 07/28/17 05:15 07/28/17 05:18 DC 07/28/17 06:09 40 MEQ Magnesium Sulfate 100 ml @ 100 mls/hr NOW STAT IV 07/28/17 05:22 07/28/17 06:21 DC 07/28/17 06:09 100 MLS/HR Imipenem/ Cilastatin Sodium 300 mg/Dextrose 106 ml @ 106 mls/hr Q6H IV 07/28/17 08:00 07/29/17 15:59 DC 07/29/17 12:59 106 MLS/HR Phytonadione 5 mg/ Sodium Chloride 50.5 ml @ 101 mls/hr ONE ONCE IV 07/28/17 07:45 07/28/17 08:14 DC 07/28/17 08:41 101 MLS/HR Parenteral Electrolyte Solution 1,000 ml @ 100 mls/hr Q10H IV 07/28/17 09:00 07/30/17 10:22 DC 07/30/17 09:06 100 MLS/HR Potassium Phosphate 18 mmol/ Sodium Chloride 506 ml @ 168.667 mls/hr ONE ONCE IV 07/28/17 09:45 07/28/17 12:44 DC 07/28/17 09:32 168.667 MLS/HR Famotidine (Pepcid Tab) 20 mg BID PO 07/28/17 21:00 08/27/17 20:59 07/30/17 07:29 20 MG Iothalamate Meglumine (Cysto-Conray II 17.2%) 250 ml STK-MED ONCE .ROUTE 07/28/17 13:07 07/28/17 13:08 DC 07/28/17 13:49 20 ML Carvedilol (Coreg Tab) 6.25 mg BID PO 07/29/17 21:00 08/28/17 20:59 07/30/17 07:29 6.25 MG Carvedilol (Coreg Tab) 6.25 mg 0908 ONCE PO 07/29/17 09:08 07/29/17 09:49 DC 07/29/17 10:42 6.25 MG Warfarin Sodium (Coumadin Tab) 5 mg NOW ONCE PO 07/29/17 09:15 07/29/17 09:51 DC 07/29/17 10:41 5 MG Heparin Sodium/ Dextrose 1 ea NOW STAT N/A 07/29/17 09:08 07/29/17 09:52 DC 07/29/17 10:55 1 EA Heparin Sodium/ Dextrose 500 ml @ 16 mls/hr Q24H IV 07/29/17 10:00 07/30/17 10:20 DC 07/30/17 02:36 16 MLS/HR Ertapenem 1 gm/ Sodium Chloride 50 ml @ 100 mls/hr Q24H IV 07/29/17 20:00 08/08/17 19:59 07/29/17 20:05 100 MLS/HR Heparin Sodium (Porcine) 2000 unit/Syringe 2 ml @ 10 mls/min TODAY@1815 IV 07/29/17 18:15 07/29/17 19:30 DC 07/29/17 18:25 10 MLS/MIN (Ekaterina Quezada CRNP) Objective Vital Signs Date Time Temp Pulse Resp B/P (MAP) Pulse Ox O2 Delivery O2 Flow Rate FiO2 07/30/17 07:14 36.2 73 20 112/75 (87) 94 Room Air 07/30/17 04:44 36.3 71 19 101/65 (77) 94 Room Air 07/30/17 04:00 Room Air 07/30/17 00:00 Room Air 07/29/17 23:51 36.7 90 18 117/75 (89) 94 Room Air 07/29/17 20:00 Room Air 07/29/17 19:00 37.0 92 16 119/79 (92) 93 Room Air 07/29/17 15:30 Room Air 07/29/17 15:30 36.9 98 22 131/89 (103) 95 Room Air 07/29/17 15:00 81 23 07/29/17 14:00 85 24 07/29/17 13:00 82 25 96 07/29/17 12:02 78 15 146/66 (92) 96 Room Air 07/29/17 12:00 83 10 97 07/29/17 11:00 36.8 90 10 146/79 (101) 95 Room Air 07/29/17 11:00 95 Room Air (Ekaterina Quezada CRNP) Physical Exam Notes: General: no distress Eyes: normal inspection, PERLL Respiratory: chest non tender, clear to auscultation, normal breath sounds, no respiratory distress, no accessory muscle use Cardiac: irregular rate and rhythm, no rub or gallop, no murmur, trace pitting generalized edema GI/: active bowel sounds, no abd pain or tenderness, soft, non distended Extremities: normal range of motion, normal strength, non tender Neuro/Psych: alert and oriented x 3, normal mood and affect Skin: normal color, dry (Ekaterina Quezada, MEETA) Laboratory Results Last 24 Hours Test 07/29/17 16:49 07/30/17 00:11 07/30/17 01:40 07/30/17 08:25 Activated Partial Thromboplast Time 44.1 SECONDS 141.0 SECONDS 58.8 SECONDS 84.6 SECONDS Partial Thromboplastin Ratio 1.7 5.4 2.3 3.3 White Blood Count 12.99 K/uL Red Blood Count 3.81 M/uL Hemoglobin 11.1 g/dL Hematocrit 32.4 % Mean Corpuscular Volume 85.0 fL Mean Corpuscular Hemoglobin 29.1 pg Mean Corpuscular Hemoglobin Concent 34.3 g/dl Platelet Count 286 K/uL Mean Platelet Volume 9.4 fL Neutrophils (%) (Auto) 76.7 % Lymphocytes (%) (Auto) 8.8 % Monocytes (%) (Auto) 6.6 % Eosinophils (%) (Auto) 0.5 % Basophils (%) (Auto) 0.4 % Neutrophils # (Auto) 9.97 K/uL Lymphocytes # (Auto) 1.14 K/uL Monocytes # (Auto) 0.86 K/uL Eosinophils # (Auto) 0.06 K/uL Basophils # (Auto) 0.05 K/uL RDW Standard Deviation 49.2 fL RDW Coefficient of Variation 15.8 % Immature Granulocyte % (Auto) 7.0 % Immature Granulocyte # (Auto) 0.91 K/uL Nucleated RBC Absolute Count (auto) 0.10 K/uL Nucleated Red Blood Cells % 0.8 % Prothrombin Time 38.1 SECONDS Prothromb Time International Ratio 3.7 Sodium Level 140 mmol/L Potassium Level 3.6 mmol/L Chloride Level 106 mmol/L Carbon Dioxide Level 26 mmol/L Anion Gap 8.0 mmol/L Blood Urea Nitrogen 12 mg/dl Creatinine 0.58 mg/dl Est Creatinine Clear Calc Drug Dose 63.9 ml/min Estimated GFR () 109.0 Estimated GFR (Non- 94.0 BUN/Creatinine Ratio 19.9 Random Glucose 115 mg/dl Calcium Level 7.7 mg/dl Phosphorus Level 2.3 mg/dl Magnesium Level 1.7 mg/dl (Ekaterina Quezada CRNP) Assessment and Plan Ms. Appiah is a 71 year old woman here for sepsis secondary to UTI/perinephric abscess UTI/ pyelonephritis/perinephric abscess/ sepsis - transferred to ICU 07/28 after decompensating and taken to OR with urology after right hydronephrosis and ureteral dilation found on CT scan. Cystoscopy and stent in OR, transferred to telemetry 07/29 - lactic acid peaked at 2.84 - initially given IV levaquin and aztreonam and then transitioned to imipenem and now ertapenem per ID rec - BC ngtd, urine culture growing E.Coli with some resistances - cbc, prp am - Urology recommending repeat CT on Tuesday or Tuesday and 2 weeks of abx A.fib on Coumadin, supratherapeutic INR, htn - rate controlled - will hold Coumadin for INR 3.7, - continue Cozaar, Coreg - Patient was reversed for procedure, restarted on Coumadin 07/29. Heparin gtt initiated in ICU, will discontinue as patient is supratherapeutic with INR Generalized edema - patient positive over 12L - discontinue IVF, will hold off on diuresis for borderline systolic blood pressures. Hypomagnesemia - Magnesium 1.7 - 1gm IV magnesium to replace Dysphagia - speech eval showed severe aspiration risk - slippery dental soft diet History of CVA, weakness - PT/OT evals DVT proph - coumadin Full code (Ekaterina Quezada CRNP) TEAM PRIMARY CARE PHYSICIAN Physician Supervision Note: I discussed with Ekaterina Quezada TEAM PRIMARY CARE PHYSICIAN and agree with findings and plan as documented in the note. Any exceptions or clarifications are listed here: None Patient is here with sepsis from urinary source with an obstructed ureter and possible perinephric fluid collection transition ertapenem therapy she is hypercoagulable from Coumadin and this is been held with and being adjusted. The patient will continue antibiotics and have repeat CT scan under the supervision of urology with attention paid to this perinephric fluid collection Documented By: Mario Gutierrez (Mario Gutierrez M.D.)
[2017-07-30] MEDS ORDERED: MAGNESIUM SULFATE 1GM / D5W 100 ML IV ONE (10:45)
[2017-07-30 11:23] VITALS: BP 132/80; PULSE 75; TEMP 37; O2SAT 93
[2017-07-30 15:34] VITALS: BP 122/81; PULSE 76; TEMP 36.5; O2SAT 93
--- NOTE | 2017-07-30 15:34 | Infectious Disease Progress Nt ---
Progress Note Date of Service July 30, 2017. Subjective Pt evaluation today including: conversation w/ patient, conversation w/ family , physical exam, chart review, lab review, review of studies, conversation w/ technology consultant, review of inpatient medication list Patient appears comfortable, offers no new complaints. Remains afebrile, hemodynamically stable overnight. Blood cultures remain negative. Tolerating imipenem without apparent difficulty All Other Systems: Reviewed and Negative Medications Current Inpatient Medications Medications (Trade) Dose Ordered Sig/Sid Route Start Time Stop Time Status Last Admin Dose Admin Acetaminophen (Tylenol Tab) 650 mg Q4H PRN PO 07/26/17 16:30 08/25/17 16:29 07/27/17 20:02 650 MG Al Hydrox/Mg Hydrox/Simethicone (Maalox Max Susp) 15 ml Q4H PRN PO 07/26/17 16:30 08/25/17 16:29 Magnesium Hydroxide (Milk Of Magnesia Susp) 30 ml Q12H PRN PO 07/26/17 16:30 08/25/17 16:29 Ondansetron HCl (Zofran Inj) 4 mg Q6H PRN IV 07/26/17 16:30 08/25/17 16:29 Polyethylene (Miralax Powder Packet) 17 gm DAILY PRN PO 07/26/17 16:30 08/25/17 16:29 Lactobacillus Acidophilus (Floranex Tab) 1 tab QAM PO 07/27/17 09:00 08/26/17 08:59 07/30/17 07:29 1 TAB Warfarin Sodium (Coumadin Tab) 1 mg SuMoWeFr@1600 PO 07/27/17 16:00 08/26/17 15:59 Future hold 07/27/17 15:57 1 MG Warfarin Sodium (Coumadin Tab) 2 mg TuThSa@1600 PO 07/28/17 16:00 08/27/17 15:59 Future hold Famotidine (Pepcid Tab) 20 mg BID PO 07/28/17 21:00 08/27/17 20:59 07/30/17 07:29 20 MG Carvedilol (Coreg Tab) 6.25 mg BID PO 07/29/17 21:00 08/28/17 20:59 07/30/17 07:29 6.25 MG Ertapenem 1 gm/ Sodium Chloride 50 ml @ 100 mls/hr Q24H IV 07/29/17 20:00 08/08/17 19:59 07/29/17 20:05 100 MLS/HR Objective Vital Signs Date Time Temp Pulse Resp B/P (MAP) Pulse Ox O2 Delivery O2 Flow Rate FiO2 07/30/17 12:00 Room Air 07/30/17 11:23 37.0 75 20 132/80 (97) 93 Room Air 07/30/17 08:00 Room Air 07/30/17 07:14 36.2 73 20 112/75 (87) 94 Room Air 07/30/17 04:44 36.3 71 19 101/65 (77) 94 Room Air 07/30/17 04:00 Room Air 07/30/17 00:00 Room Air 07/29/17 23:51 36.7 90 18 117/75 (89) 94 Room Air 07/29/17 20:00 Room Air 07/29/17 19:00 37.0 92 16 119/79 (92) 93 Room Air Physical Exam General Appearance: WD/WN, no apparent distress Eyes: normal inspection, EOMI, sclerae normal ENT: normal ENT inspection, pharynx normal Neck: supple, no adenopathy, thyroid normal, trachea midline Respiratory/Chest: chest non-tender, lungs clear, normal breath sounds, no respiratory distress Cardiovascular: regular rate, rhythm, no gallop, no murmur Abdomen: normal bowel sounds, soft, no organomegaly, + tenderness Extremities: non-tender, no calf tenderness Neurologic/Psychiatric: alert, oriented x 3 Skin: normal color, no rash Lymphatic: no adenopathy Laboratory Results Last 24 Hours Test 07/29/17 16:49 07/30/17 00:11 07/30/17 01:40 07/30/17 08:25 Activated Partial Thromboplast Time 44.1 SECONDS 141.0 SECONDS 58.8 SECONDS 84.6 SECONDS Partial Thromboplastin Ratio 1.7 5.4 2.3 3.3 White Blood Count 12.99 K/uL Red Blood Count 3.81 M/uL Hemoglobin 11.1 g/dL Hematocrit 32.4 % Mean Corpuscular Volume 85.0 fL Mean Corpuscular Hemoglobin 29.1 pg Mean Corpuscular Hemoglobin Concent 34.3 g/dl Platelet Count 286 K/uL Mean Platelet Volume 9.4 fL Neutrophils (%) (Auto) 76.7 % Lymphocytes (%) (Auto) 8.8 % Monocytes (%) (Auto) 6.6 % Eosinophils (%) (Auto) 0.5 % Basophils (%) (Auto) 0.4 % Neutrophils # (Auto) 9.97 K/uL Lymphocytes # (Auto) 1.14 K/uL Monocytes # (Auto) 0.86 K/uL Eosinophils # (Auto) 0.06 K/uL Basophils # (Auto) 0.05 K/uL RDW Standard Deviation 49.2 fL RDW Coefficient of Variation 15.8 % Immature Granulocyte % (Auto) 7.0 % Immature Granulocyte # (Auto) 0.91 K/uL Nucleated RBC Absolute Count (auto) 0.10 K/uL Nucleated Red Blood Cells % 0.8 % Prothrombin Time 38.1 SECONDS Prothromb Time International Ratio 3.7 Sodium Level 140 mmol/L Potassium Level 3.6 mmol/L Chloride Level 106 mmol/L Carbon Dioxide Level 26 mmol/L Anion Gap 8.0 mmol/L Blood Urea Nitrogen 12 mg/dl Creatinine 0.58 mg/dl Est Creatinine Clear Calc Drug Dose 63.9 ml/min Estimated GFR () 109.0 Estimated GFR (Non- 94.0 BUN/Creatinine Ratio 19.9 Random Glucose 115 mg/dl Calcium Level 7.7 mg/dl Phosphorus Level 2.3 mg/dl Magnesium Level 1.7 mg/dl Assessment and Plan 71-year-old female with E. coli sepsis from urinary tract infection with pyelonephritis, possible early abscess formation, and obstruction status post stent placement. Patient appears to be improving clinically with antibiotics and stenting. Patient will be continued on IV ertapenem, likely in the range of 2 weeks of therapy. Will follow.
[2017-07-30 19:41] VITALS: BP 121/81; PULSE 75; TEMP 36.6; O2SAT 90
[2017-07-30] MEDS: ERTAPENEM IV 1 GM in SODIUM CHLOR 0.9% AD-VAN 50ML IV SCH (19:44)
[2017-07-30 23:59] VITALS: BP 125/84; PULSE 75; TEMP 36.6; O2SAT 93
[2017-07-31] VITALS (7 sets, daily range): BP systolic 111–139; BP diastolic 71–84; PULSE 65–83; TEMP 36.5–37; O2SAT 90–96
[2017-07-31 06:33] LABS: HEMATOCRIT 32.1 % (37-47); HEMOGLOBIN 11.1 g/dL (12.0-16.0); MEAN CELL VOLUME 84.7 fL (80-100); MEAN CORPUSCULAR HEMOGLOBIN 29.3 pg (25-34); MEAN CORPUSCULAR HGB CONC 34.6 g/dl (32-36); MEAN PLATELET VOLUME 9.2 fL (7.4-10.4); NUCLEATED RED BLOOD CELL ABS 0.21 K/uL (0-0); PLATELET COUNT 285 K/uL (130-400); RED CELL DISTRIBUTION WIDTH CV 15.4 % (11.5-14.5); RED CELL DISTRIBUTION WIDTH SD 47.9 fL (36.4-46.3); WHITE BLOOD COUNT 10.59 K/uL (4.8-10.8)
[2017-07-31 06:58] LABS: INR 5.2 (0.9-1.1)
[2017-07-31] MEDS: FAMOTIDINE 20 MG TAB PO SCH ×2 (08:04→20:22)
[2017-07-31] MEDS: LACTOBACILLUS ACIDOPHILUS (FLORANEX) TAB PO SCH (08:04)
[2017-07-31] MEDS: CARVEDILOL 6.25 MG TAB PO SCH ×2 (08:04→20:23)
[2017-07-31] MEDS ORDERED: PHYTONADIONE INJ 2.5 MG in SODIUM CHLORIDE 0.9% 50ML 50 ML IV ONE (08:15)
[2017-07-31 08:54] LABS: CALCIUM 7.7 mg/dl (8.5-10.1); CREATININE 0.43 mg/dl (0.60-1.20); POTASSIUM 3.4 mmol/L (3.5-5.1)
[2017-07-31] MEDS ORDERED: MAGNESIUM OXIDE 400 MG TAB PO ONE (10:59)
[2017-07-31] MEDS ORDERED: POTASSIUM CHLORIDE 10 MEQ TABCR PO ONE (11:00)
--- NOTE | 2017-07-31 11:13 | Hospitalist Progress Note ---
Hospitalist Progress Note Date of Service July 31, 2017. (Ekaterina Quezada ., MEETA) Subjective Pt evaluation today including: conversation w/ patient, conversation w/ family , physical exam, chart review, lab review, review of inpatient medication list Voiding: cao catheter in place Ms. Appiah has no complaints. Her does feel that she is coughing a bit and seems a bit "winded" ROS Constitutional: no chills, aches, sweats or fever Respiratory: no sob,cough, sputum, or wheezing Cardiac: no chest pain, palpitations, edema, orthopnea or lightheadedness GI: no abdominal pain, nausea, vomiting, diarrhea or constipation : no dysuria or hesitancy Extremities: no joint pain or weakness Skin: no rash All other systems reviewed and negative (Ekaterina Quezada CRNP) Medications Medications Administered Medications (Trade) Dose Ordered Sig/Sid Route Start Time Stop Time Status Last Admin Dose Admin Sodium Chloride 1,000 ml @ 999 mls/hr Q1H1M STAT IV 07/26/17 14:48 07/26/17 15:48 DC 07/26/17 14:48 999 MLS/HR Levofloxacin (Levaquin / D5W) 750 mg NOW STAT IV 07/26/17 15:06 07/26/17 15:07 DC 07/26/17 15:54 750 MG Aztreonam 2000 mg/ Dextrose 110 ml @ 110 mls/hr NOW ONCE IV 07/26/17 16:00 07/26/17 16:59 DC 07/26/17 17:29 110 MLS/HR Sodium Chloride 1,000 ml @ 80 mls/hr [id number] IV 07/26/17 16:30 07/28/17 08:57 DC 07/28/17 05:12 80 MLS/HR Acetaminophen (Tylenol Tab) 650 mg Q4H PRN PO 07/26/17 16:30 08/25/17 16:29 07/27/17 20:02 650 MG Aztreonam 1000 mg/ Dextrose 110 ml @ 100 mls/hr Q8H IV 07/27/17 02:00 07/28/17 06:40 DC 07/28/17 03:33 100 MLS/HR Lactobacillus Acidophilus (Floranex Tab) 1 tab QAM PO 07/27/17 09:00 08/26/17 08:59 07/31/17 08:04 1 TAB Warfarin Sodium (Coumadin Tab) 1 mg SuMoWeFr@1600 PO 07/27/17 16:00 08/26/17 15:59 Future Hold 07/27/17 15:57 1 MG Warfarin Sodium (Coumadin Tab) 2 mg NOW STAT PO 07/26/17 22:36 07/26/17 22:37 DC 07/26/17 23:33 2 MG Acetaminophen 650 mg/Empty Bag 65 ml @ 260 mls/hr Q6H PRN IV 07/27/17 02:45 07/28/17 09:17 DC 07/27/17 03:38 260 MLS/HR Levofloxacin 750 mg/Prmx 150 ml @ 100 mls/hr Q24H IV 07/27/17 16:00 07/28/17 09:13 DC 07/27/17 15:57 100 MLS/HR Sodium Chloride 1,000 ml @ 999 mls/hr Q1H1M IV 07/27/17 22:30 07/27/17 23:30 DC 07/27/17 22:32 999 MLS/HR Sodium Chloride 1,000 ml @ 999 mls/hr Q1H1M IV 07/28/17 00:00 07/28/17 01:00 DC 07/28/17 00:13 999 MLS/HR Albumin Human (Albumin 25%) 25 gm ONE STAT IV 07/28/17 01:16 07/28/17 01:26 DC 07/28/17 01:42 12.5 GM Fluconazole/ Sodium Chloride 200 mg/Prmx 100 ml @ 100 mls/hr Q24H IV 07/28/17 02:00 07/28/17 09:15 DC 07/28/17 02:29 100 MLS/HR Vancomycin HCl 1000 mg/Sodium Chloride 270 ml @ 125 mls/hr NOW STAT IV 07/28/17 01:47 07/28/17 03:56 DC 07/28/17 02:29 125 MLS/HR Sodium Chloride 1,000 ml @ 999 mls/hr Q1H1M STAT IV 07/28/17 03:34 07/28/17 04:34 DC 07/28/17 03:47 999 MLS/HR Potassium Chloride (Klor-Con Tab) 40 meq NOW STAT PO 07/28/17 05:15 07/28/17 05:18 DC 07/28/17 06:09 40 MEQ Magnesium Sulfate 100 ml @ 100 mls/hr NOW STAT IV 07/28/17 05:22 07/28/17 06:21 DC 07/28/17 06:09 100 MLS/HR Imipenem/ Cilastatin Sodium 300 mg/Dextrose 106 ml @ 106 mls/hr Q6H IV 07/28/17 08:00 07/29/17 15:59 DC 07/29/17 12:59 106 MLS/HR Phytonadione 5 mg/ Sodium Chloride 50.5 ml @ 101 mls/hr ONE ONCE IV 07/28/17 07:45 07/28/17 08:14 DC 07/28/17 08:41 101 MLS/HR Parenteral Electrolyte Solution 1,000 ml @ 100 mls/hr Q10H IV 07/28/17 09:00 07/30/17 10:22 DC 07/30/17 09:06 100 MLS/HR Potassium Phosphate 18 mmol/ Sodium Chloride 506 ml @ 168.667 mls/hr ONE ONCE IV 07/28/17 09:45 07/28/17 12:44 DC 07/28/17 09:32 168.667 MLS/HR Famotidine (Pepcid Tab) 20 mg BID PO 07/28/17 21:00 08/27/17 20:59 07/31/17 08:04 20 MG Iothalamate Meglumine (Cysto-Conray II 17.2%) 250 ml STK-MED ONCE .ROUTE 07/28/17 13:07 07/28/17 13:08 DC 07/28/17 13:49 20 ML Carvedilol (Coreg Tab) 6.25 mg BID PO 07/29/17 21:00 08/28/17 20:59 07/31/17 08:04 6.25 MG Carvedilol (Coreg Tab) 6.25 mg 0908 ONCE PO 07/29/17 09:08 07/29/17 09:49 DC 07/29/17 10:42 6.25 MG Warfarin Sodium (Coumadin Tab) 5 mg NOW ONCE PO 07/29/17 09:15 07/29/17 09:51 DC 07/29/17 10:41 5 MG Heparin Sodium/ Dextrose 1 ea NOW STAT N/A 07/29/17 09:08 07/29/17 09:52 DC 07/29/17 10:55 1 EA Heparin Sodium/ Dextrose 500 ml @ 16 mls/hr Q24H IV 07/29/17 10:00 07/30/17 10:20 DC 07/30/17 02:36 16 MLS/HR Ertapenem 1 gm/ Sodium Chloride 50 ml @ 100 mls/hr Q24H IV 07/29/17 20:00 08/08/17 19:59 07/30/17 19:44 100 MLS/HR Heparin Sodium (Porcine) 2000 unit/Syringe 2 ml @ 10 mls/min TODAY@1815 IV 07/29/17 18:15 07/29/17 19:30 DC 07/29/17 18:25 10 MLS/MIN Magnesium Sulfate 100 ml @ 100 mls/hr 1045 ONCE IV 07/30/17 10:45 07/30/17 11:44 DC 07/30/17 11:20 100 MLS/HR Phytonadione 2.5 mg/Sodium Chloride 50.25 ml @ 100.5 mls/ hr 0815 ONCE IV 07/31/17 08:15 07/31/17 08:44 DC 07/31/17 09:06 100.5 MLS/HR (Ekaterina Quezada, MEETA) Objective Vital Signs Date Time Temp Pulse Resp B/P (MAP) Pulse Ox O2 Delivery O2 Flow Rate FiO2 07/31/17 09:25 37.0 83 18 124/83 (97) 95 Room Air 07/31/17 08:00 Room Air 07/31/17 08:00 Room Air 07/31/17 06:31 36.8 71 19 111/71 (84) 94 Room Air 07/31/17 04:47 36.5 78 18 120/76 (91) 91 Room Air 07/31/17 04:00 Room Air 07/31/17 00:00 Room Air 07/30/17 23:59 36.6 75 18 125/84 (98) 93 Room Air 07/30/17 20:00 Room Air 07/30/17 19:41 36.6 75 18 121/81 (94) 90 Room Air 07/30/17 16:00 Room Air 07/30/17 15:34 36.5 76 18 122/81 (95) 93 Room Air 07/30/17 12:00 Room Air 07/30/17 11:23 37.0 75 20 132/80 (97) 93 Room Air (Ekaterina Queazda CRNP) Physical Exam Notes: General: no distress Eyes: normal inspection, PERLL Respiratory: chest non tender, diminished to auscultation, normal breath sounds , no respiratory distress, no accessory muscle use Cardiac: regular rate and rhythm, no rub or gallop, no murmur, +1 pitting edema generalized GI/: active bowel sounds, no abd pain or tenderness, soft, non distended Extremities: normal range of motion, normal strength, non tender Neuro/Psych: alert and oriented x 3, flat affect Skin: normal color, dry (Ekaterina Quezada CRNP) Laboratory Results Last 24 Hours Test 07/31/17 06:10 07/31/17 06:11 Sodium Level 141 mmol/L Potassium Level 3.4 mmol/L Chloride Level 105 mmol/L Carbon Dioxide Level 30 mmol/L Anion Gap 6.0 mmol/L Blood Urea Nitrogen 8 mg/dl Creatinine 0.43 mg/dl Est Creatinine Clear Calc Drug Dose 94.8 ml/min Estimated GFR () 120.3 Estimated GFR (Non- 103.8 BUN/Creatinine Ratio 18.8 Random Glucose 85 mg/dl Calcium Level 7.7 mg/dl Magnesium Level 1.5 mg/dl White Blood Count 10.59 K/uL Red Blood Count 3.79 M/uL Hemoglobin 11.1 g/dL Hematocrit 32.1 % Mean Corpuscular Volume 84.7 fL Mean Corpuscular Hemoglobin 29.3 pg Mean Corpuscular Hemoglobin Concent 34.6 g/dl RDW Standard Deviation 47.9 fL RDW Coefficient of Variation 15.4 % Platelet Count 285 K/uL Mean Platelet Volume 9.2 fL Nucleated RBC Absolute Count (auto) 0.21 K/uL Nucleated Red Blood Cells % 1.9 % Prothrombin Time 52.8 SECONDS Prothromb Time International Ratio 5.2 (Ekaterina Quezada CRNP) Assessment and Plan Ms. Appiah is a 71 year old woman here for sepsis secondary to UTI/perinephric abscess UTI/ pyelonephritis/perinephric abscess/ sepsis - transferred to ICU 07/28 after decompensating and taken to OR with urology after right hydronephrosis and ureteral dilation found on CT scan. Cystoscopy and stent in OR, transferred to telemetry 07/29 - lactic acid peaked at 2.84 - initially given IV levaquin and aztreonam and then transitioned to imipenem and now ertapenem per ID rec - BC ngtd, urine culture growing E.Coli with some resistances - cbc, prp am - Repeat CT ab/pelvis on Tuesday per urology recommendation and 2 weeks of abx A.fib on Coumadin, supratherapeutic INR, htn - rate controlled - will hold Coumadin for INR 5.2 and give 2.5 mg IV Vitamin K, - repeat INR this afternoon 1.9 - give 1 mg Coumadin tonight, INR am - continue Cozaar, Coreg Generalized edema, history of systolic CHF - patient positive over 12L - discontinue IVF yesterday however patient with cough/sob today. CXR showing some mild chf - 20 mg IV lasix - Echo 07/28 showed mildly reduced systolic function Hypomagnesemia - Magnesium 1.5 - 2gm IV magnesium and start daily po mag to replace Dysphagia - speech eval showed severe aspiration risk - slippery dental soft diet History of CVA, weakness - PT/OT evals DVT proph - coumadin Full code dispo - patient is from [place], would like further PT/OT eval per to assess progress and if there is need for rehab, as recommended earlier by therapy. Prefers [facility] for rehab (Ekaterina Quezada ., MEETA) FILM LOADER Physician Supervision Note: I discussed with Ekaterina Quezada FILM LOADER and agree with findings and plan as documented in the note. Any exceptions or clarifications are listed here: None Patient is here with sepsis from urinary source with an obstructed ureter and possible perinephric fluid collection transition ertapenem therapy she is hypercoagulable from Coumadin and this is being adjusted. The patient will continue antibiotics now on ertapenem, and have repeat CT scan under the supervision of urology with attention paid to this perinephric fluid collection Documented By: Mario Gutierrez (Mario Gutierrez M.D.)
--- NOTE | 2017-07-31 11:37 | DIAGNOSTIC IMAGING REPORT ---
CHEST 2 VIEWS ROUTINE HISTORY: 71 years-old Female sob acute shortness of breath COMPARISON: Chest radiograph 07/26/2017 TECHNIQUE: PA and lateral views of the chest FINDINGS: Cardiac silhouette is mildly enlarged. There are hazy perihilar and bibasilar opacities with small loculated pleural effusions. Atherosclerosis of the aorta. No pneumothorax. Mild pulmonary vascular congestion with interstitial coarsening. Dextroscoliosis of the spine. Right-sided ureteral stent is partially imaged. Healed remote left-sided rib fractures. IMPRESSION: 1. Hazy perihilar and bibasilar opacities suggesting atelectasis or pneumonia with small mildly loculated bilateral pleural effusions. 2. Cardiomegaly with mild pulmonary edema The above report was generated using voice recognition software. It may contain grammatical, syntax or spelling errors. Electronically signed by: Brandon Panda M.D. 07/31/2017 11:36 AM Dictated Date/Time: 07/31/2017 11:33 AM
[2017-07-31] MEDS: MAGNESIUM SULFATE 1GM / D5W 100 ML IV SCH ×2 (12:04→13:45)
[2017-07-31] MEDS ORDERED: FUROSEMIDE INJ 20 MG in SYRINGE 0 ML IV ONE (12:30)
[2017-07-31 14:42] LABS: INR 1.9 (0.9-1.1)
[2017-07-31] MEDS ORDERED: WARFARIN SOD 1 MG TAB PO SCH (16:00)
[2017-07-31] MEDS: ERTAPENEM IV 1 GM in SODIUM CHLOR 0.9% AD-VAN 50ML IV SCH (20:25)
[2017-08-01] VITALS (7 sets, daily range): BP systolic 116–147; BP diastolic 75–82; PULSE 63–81; TEMP 36.3–36.8; O2SAT 92–95
[2017-08-01 06:51] LABS: HEMATOCRIT 34.4 % (37-47); HEMOGLOBIN 11.6 g/dL (12.0-16.0); MEAN CELL VOLUME 85.4 fL (80-100); MEAN CORPUSCULAR HEMOGLOBIN 28.8 pg (25-34); MEAN CORPUSCULAR HGB CONC 33.7 g/dl (32-36); MEAN PLATELET VOLUME 9.2 fL (7.4-10.4); NUCLEATED RED BLOOD CELL ABS 0.27 K/uL (0-0); PLATELET COUNT 333 K/uL (130-400); RED CELL DISTRIBUTION WIDTH CV 15.2 % (11.5-14.5); RED CELL DISTRIBUTION WIDTH SD 47.3 fL (36.4-46.3); WHITE BLOOD COUNT 11.54 K/uL (4.8-10.8)
[2017-08-01 07:04] LABS: INR 1.5 (0.9-1.1)
[2017-08-01 07:18] LABS: CALCIUM 7.9 mg/dl (8.5-10.1); CREATININE 0.43 mg/dl (0.60-1.20); POTASSIUM 3.5 mmol/L (3.5-5.1)
[2017-08-01] MEDS: CARVEDILOL 6.25 MG TAB PO SCH ×2 (08:04→20:33)
[2017-08-01] MEDS: LACTOBACILLUS ACIDOPHILUS (FLORANEX) TAB PO SCH (08:04)
[2017-08-01] MEDS: FAMOTIDINE 20 MG TAB PO SCH (08:04)
[2017-08-01] MEDS ORDERED: MAGNESIUM SULFATE 1GM / D5W 100 ML IV ONE (08:45)
[2017-08-01] MEDS ORDERED: MAGNESIUM OXIDE 400 MG TAB PO SCH (09:00)
[2017-08-01] MEDS ORDERED: FUROSEMIDE INJ 20 MG in SYRINGE 0 ML IV ONE (09:45)
--- NOTE | 2017-08-01 09:58 | Hospitalist Progress Note ---
Hospitalist Progress Note Date of Service August 01, 2017. (Ekaterina Quezada .MEETA) Subjective Pt evaluation today including: conversation w/ patient, physical exam, chart review, lab review, review of inpatient medication list Voiding: no voiding problems Ms. Appiah reports mild cough but otherwise has no complaints. Discussed rehab with at bedside. He and his children discussed and would like to look at [facility]. I did discuss results of CT with Ms. Appiah and her and explained recommendations from myself, urology and ID. I also discussed a finding of fibrotic changes in the liver and explained that this is not an acute issue but the patient will follow up with GI. I stayed and answered multiple questions and patient's reported that he understood my explanation and was satisfied with the answers to his questions. ROS Constitutional: no chills, aches, sweats or fever Respiratory: no cough, sputum, or wheezing Cardiac: no chest pain, palpitations, orthopnea or lightheadedness GI: no abdominal pain, nausea, vomiting, diarrhea or constipation : no dysuria or hesitancy Extremities: no joint pain or weakness Skin: no rash All other systems reviewed and negative (Ekaterina Quezada .MEETA) Medications Medications Administered Medications (Trade) Dose Ordered Sig/Sid Route Start Time Stop Time Status Last Admin Dose Admin Sodium Chloride 1,000 ml @ 999 mls/hr Q1H1M STAT IV 07/26/17 14:48 07/26/17 15:48 DC 07/26/17 14:48 999 MLS/HR Levofloxacin (Levaquin / D5W) 750 mg NOW STAT IV 07/26/17 15:06 07/26/17 15:07 DC 07/26/17 15:54 750 MG Aztreonam 2000 mg/ Dextrose 110 ml @ 110 mls/hr NOW ONCE IV 07/26/17 16:00 07/26/17 16:59 DC 07/26/17 17:29 110 MLS/HR Sodium Chloride 1,000 ml @ 80 mls/hr [id number] IV 07/26/17 16:30 07/28/17 08:57 DC 07/28/17 05:12 80 MLS/HR Acetaminophen (Tylenol Tab) 650 mg Q4H PRN PO 07/26/17 16:30 08/25/17 16:29 07/27/17 20:02 650 MG Aztreonam 1000 mg/ Dextrose 110 ml @ 100 mls/hr Q8H IV 07/27/17 02:00 07/28/17 06:40 DC 07/28/17 03:33 100 MLS/HR Lactobacillus Acidophilus (Floranex Tab) 1 tab QAM PO 07/27/17 09:00 08/26/17 08:59 08/01/17 08:04 1 TAB Warfarin Sodium (Coumadin Tab) 1 mg SuMoWeFr@1600 PO 07/27/17 16:00 07/31/17 15:41 DC 07/27/17 15:57 1 MG Warfarin Sodium (Coumadin Tab) 2 mg NOW STAT PO 07/26/17 22:36 07/26/17 22:37 DC 07/26/17 23:33 2 MG Acetaminophen 650 mg/Empty Bag 65 ml @ 260 mls/hr Q6H PRN IV 07/27/17 02:45 07/28/17 09:17 DC 07/27/17 03:38 260 MLS/HR Levofloxacin 750 mg/Prmx 150 ml @ 100 mls/hr Q24H IV 07/27/17 16:00 07/28/17 09:13 DC 07/27/17 15:57 100 MLS/HR Sodium Chloride 1,000 ml @ 999 mls/hr Q1H1M IV 07/27/17 22:30 07/27/17 23:30 DC 07/27/17 22:32 999 MLS/HR Sodium Chloride 1,000 ml @ 999 mls/hr Q1H1M IV 07/28/17 00:00 07/28/17 01:00 DC 07/28/17 00:13 999 MLS/HR Albumin Human (Albumin 25%) 25 gm ONE STAT IV 07/28/17 01:16 07/28/17 01:26 DC 07/28/17 01:42 12.5 GM Fluconazole/ Sodium Chloride 200 mg/Prmx 100 ml @ 100 mls/hr Q24H IV 07/28/17 02:00 07/28/17 09:15 DC 07/28/17 02:29 100 MLS/HR Vancomycin HCl 1000 mg/Sodium Chloride 270 ml @ 125 mls/hr NOW STAT IV 07/28/17 01:47 07/28/17 03:56 DC 07/28/17 02:29 125 MLS/HR Sodium Chloride 1,000 ml @ 999 mls/hr Q1H1M STAT IV 07/28/17 03:34 07/28/17 04:34 DC 07/28/17 03:47 999 MLS/HR Potassium Chloride (Klor-Con Tab) 40 meq NOW STAT PO 07/28/17 05:15 07/28/17 05:18 DC 07/28/17 06:09 40 MEQ Magnesium Sulfate 100 ml @ 100 mls/hr NOW STAT IV 07/28/17 05:22 07/28/17 06:21 DC 07/28/17 06:09 100 MLS/HR Imipenem/ Cilastatin Sodium 300 mg/Dextrose 106 ml @ 106 mls/hr Q6H IV 07/28/17 08:00 07/29/17 15:59 DC 07/29/17 12:59 106 MLS/HR Phytonadione 5 mg/ Sodium Chloride 50.5 ml @ 101 mls/hr ONE ONCE IV 07/28/17 07:45 07/28/17 08:14 DC 07/28/17 08:41 101 MLS/HR Parenteral Electrolyte Solution 1,000 ml @ 100 mls/hr Q10H IV 07/28/17 09:00 07/30/17 10:22 DC 07/30/17 09:06 100 MLS/HR Potassium Phosphate 18 mmol/ Sodium Chloride 506 ml @ 168.667 mls/hr ONE ONCE IV 07/28/17 09:45 07/28/17 12:44 DC 07/28/17 09:32 168.667 MLS/HR Famotidine (Pepcid Tab) 20 mg BID PO 07/28/17 21:00 08/27/17 20:59 08/01/17 08:04 20 MG Iothalamate Meglumine (Cysto-Conray II 17.2%) 250 ml STK-MED ONCE .ROUTE 07/28/17 13:07 07/28/17 13:08 DC 07/28/17 13:49 20 ML Carvedilol (Coreg Tab) 6.25 mg BID PO 07/29/17 21:00 08/28/17 20:59 08/01/17 08:04 6.25 MG Carvedilol (Coreg Tab) 6.25 mg 0908 ONCE PO 07/29/17 09:08 07/29/17 09:49 DC 07/29/17 10:42 6.25 MG Warfarin Sodium (Coumadin Tab) 5 mg NOW ONCE PO 07/29/17 09:15 07/29/17 09:51 DC 07/29/17 10:41 5 MG Heparin Sodium/ Dextrose 1 ea NOW STAT N/A 07/29/17 09:08 07/29/17 09:52 DC 07/29/17 10:55 1 EA Heparin Sodium/ Dextrose 500 ml @ 16 mls/hr Q24H IV 07/29/17 10:00 07/30/17 10:20 DC 07/30/17 02:36 16 MLS/HR Ertapenem 1 gm/ Sodium Chloride 50 ml @ 100 mls/hr Q24H IV 07/29/17 20:00 08/08/17 19:59 07/31/17 20:25 100 MLS/HR Heparin Sodium (Porcine) 2000 unit/Syringe 2 ml @ 10 mls/min TODAY@1815 IV 07/29/17 18:15 07/29/17 19:30 DC 07/29/17 18:25 10 MLS/MIN Magnesium Sulfate 100 ml @ 100 mls/hr 1045 ONCE IV 07/30/17 10:45 07/30/17 11:44 DC 07/30/17 11:20 100 MLS/HR Phytonadione 2.5 mg/Sodium Chloride 50.25 ml @ 100.5 mls/ hr 0815 ONCE IV 07/31/17 08:15 07/31/17 08:44 DC 07/31/17 09:06 100.5 MLS/HR Potassium Chloride (Klor-Con M10) 40 meq 1100 ONCE PO 07/31/17 11:00 07/31/17 11:12 DC 07/31/17 12:04 40 MEQ Magnesium Sulfate 100 ml @ 100 mls/hr Q1H IV 07/31/17 11:30 07/31/17 13:29 DC 07/31/17 13:45 100 MLS/HR Magnesium Oxide (Mag-Ox Tab) 400 mg QAM PO 08/01/17 09:00 08/31/17 08:59 08/01/17 08:04 400 MG Magnesium Oxide (Mag-Ox Tab) 400 mg 1059 ONCE PO 07/31/17 10:59 07/31/17 11:12 DC 07/31/17 12:04 400 MG Furosemide 20 mg/ Syringe 2 ml @ 4 mls/min ONE ONCE IV 07/31/17 12:30 07/31/17 12:32 DC 07/31/17 13:45 4 MLS/MIN Warfarin Sodium (Coumadin Tab) 1 mg DAILY@16 PO 07/31/17 16:00 08/30/17 15:59 07/31/17 16:36 1 MG (Ekaterina Quezada CRNP) Objective Vital Signs Date Time Temp Pulse Resp B/P (MAP) Pulse Ox O2 Delivery O2 Flow Rate FiO2 08/01/17 08:00 Room Air 08/01/17 08:00 Room Air 08/01/17 06:46 36.8 77 18 116/77 (90) 92 Room Air 08/01/17 04:00 Room Air 08/01/17 03:50 36.7 71 18 147/77 (100) 93 07/31/17 23:59 Room Air 07/31/17 23:55 36.7 65 16 121/80 (94) 95 07/31/17 20:00 Room Air 07/31/17 19:02 36.7 68 18 120/76 (91) 92 Room Air 07/31/17 16:00 Room Air 07/31/17 15:48 36.7 83 16 125/83 (97) 90 Room Air 07/31/17 12:07 36.6 66 20 139/84 (102) 96 Room Air 07/31/17 12:00 Room Air (Ekaterina Quezada CRNP) Physical Exam Notes: General: no distress Eyes: normal inspection, PERLL Respiratory: chest non tender, diminished to auscultation bilaterally, very fine crackles in bases, no respiratory distress, no accessory muscle use Cardiac: regular rate and rhythm, no rub or gallop, no murmur, +2 pitting edema, GI/: active bowel sounds, no abd pain or tenderness, soft, non distended Extremities: normal range of motion, normal strength, non tender Neuro/Psych: alert and oriented x 3, normal mood and affect Skin: normal color, dry (Ekaterina Quezada CRNP) Laboratory Results Last 24 Hours Test 07/31/17 14:09 5/7/18 06:29 Prothrombin Time 19.7 SECONDS 15.4 SECONDS Prothromb Time International Ratio 1.9 1.5 White Blood Count 11.54 K/uL Red Blood Count 4.03 M/uL Hemoglobin 11.6 g/dL Hematocrit 34.4 % Mean Corpuscular Volume 85.4 fL Mean Corpuscular Hemoglobin 28.8 pg Mean Corpuscular Hemoglobin Concent 33.7 g/dl RDW Standard Deviation 47.3 fL RDW Coefficient of Variation 15.2 % Platelet Count 333 K/uL Mean Platelet Volume 9.2 fL Nucleated RBC Absolute Count (auto) 0.27 K/uL Nucleated Red Blood Cells % 2.4 % Sodium Level 141 mmol/L Potassium Level 3.5 mmol/L Chloride Level 103 mmol/L Carbon Dioxide Level 33 mmol/L Anion Gap 6.0 mmol/L Blood Urea Nitrogen 5 mg/dl Creatinine 0.43 mg/dl Est Creatinine Clear Calc Drug Dose 90.5 ml/min Estimated GFR () 120.3 Estimated GFR (Non- 103.8 BUN/Creatinine Ratio 12.4 Random Glucose 80 mg/dl Calcium Level 7.9 mg/dl Magnesium Level 1.7 mg/dl (Ekaterina Quezada, MEETA) Assessment and Plan Ms. Appiah is a 71 year old woman here for sepsis secondary to UTI/perinephric abscess UTI/ pyelonephritis/perinephric abscess/ sepsis - transferred to ICU 07/28 after decompensating and taken to OR with urology after right hydronephrosis and ureteral dilation found on CT scan. Cystoscopy and stent in OR, transferred to telemetry 07/29 - lactic acid peaked at 2.84 - initially given IV levaquin and aztreonam and then transitioned to imipenem and now ertapenem per ID rec, today is day #7 abx - patient should have another 7 days per rec - BC ngtd, urine culture growing E.Coli with some resistances, fungal smear negative - cbc, prp am - Repeat CT ab/pelvis today - abscess/uroma is unchanged 5 cm. Discussed with both ID and urology - they agree that because patient is improving, continuing abx for at least two weeks and foregoing abscess drainage is preferable. ID recommends repeat CT before discontinuing abx. A.fib on Coumadin, supratherapeutic INR, htn - rate controlled - Yesterday gave 2.5 mg IV Vitamin K, - repeat INR yesterday showed INR 1.9 - gave 1 mg Coumadin, today INR 1.5 - will give 2 mg Coumadin now and recheck INR in am. I do not think patient should be bridged as she is no longer acutely septic so her risk is somewhat lower than earlier in her stay. Additionally, her CHADS-Vasc score is 6 which is just below recommendations on bridging but given how easily she becomes supratherapeutic I think her risk of bleed is high enough that holding off on bridging is prudent. - will dose further warfarin pending tomorrow INR - continue Cozaar, Coreg Generalized edema, history of systolic CHF - Patient continues to be rather edematous, and she does have some faint crackles in her bases with pulse ox low-normal. Yesterday, CXR showing some mild chf and given 20 mg IV lasix - will repeat a dose today - Echo 07/28 showed mildly reduced systolic function - Edema is likely partially nutritional as her last albumin was 1.9 - will order Boost Hypomagnesemia - Magnesium 1.7 - 1gm IV magnesium and increase daily po mag to bid - mag am Hypophosphatemia - Kphos po qid - phos level tomorrow am Dysphagia - speech eval showed severe aspiration risk - slippery dental soft diet History of CVA, weakness - PT/OT evals Fibrotic changes to liver on CT - Fu with GI outpatient DVT proph - coumadin Full code dispo - patient is from [place] - would like [facility] for rehab (Ekaterina Quezada, MEETA) Supervising Note Dr. Dueñas I performed a history and physical examination on the patient. I reviewed above note and agree with it. I discussed plan with APC and patient. During my face to face encounter with the patient, I answered all of the patient's questions. Patient requires to continue on IV antibiotics. Will await input from Uro to determine outpatient plan. It appears that conservative management with antibiotics will be tried first. (Caesar Dueñas M.D.)
[2017-08-01] MEDS ORDERED: OPTIRAY 320 IV PRN (10:15)
--- NOTE | 2017-08-01 10:29 | DIAGNOSTIC IMAGING REPORT ---
ABD/PELVIS IV CONTRAST ONLY CLINICAL HISTORY: 71 years-old Female presenting with perinephric abscess, hydronephrosis, sepsis, UTI. TECHNIQUE: Multidetector CT of the abdomen and pelvis was performed after the administration of intravenous contrast. IV contrast: 94 mL of Optiray 320. A dose lowering technique was used consistent with the principles of ALARA (as low as reasonably achievable). COMPARISON: 07/28/2017. CT DOSE (mGy.cm): The estimated cumulative dose is 666.15 mGycm. FINDINGS: Event Host topogram: Unremarkable. Lung bases: Dependent consolidation and volume loss likely passive atelectasis. Bilateral small moderate pleural effusions, which appear loculated. Multichamber enlargement of the heart. Coronary artery calcification. No pericardial effusion. Liver: Relative hypertrophy of the left hepatic lobe and atrophy of the right hepatic lobe with a macronodular contour of the liver, which could suggest underlying fibrotic change. No focal lesion. Heterogeneity of the left lobe. Patent hepatic vasculature allowing for nonvisualization of the hepatic veins likely due to the timing of contrast. Biliary: No intrahepatic or extrahepatic biliary ductal dilatation. Gallbladder surgically absent. Pancreas: Mild parenchymal atrophy. Spleen: Subcentimeter hypodensity in the spleen, possibly cysts/pseudocysts or lymphangioma. Adrenal glands: Normal. Kidneys and ureters: Interval placement of a right ureteral stent. The renal collecting system is contiguous with the multilocular fluid collection extending from the renal pelvis along the medial aspect of the right kidney and along the lower pole. This is suggestive of calyceal rupture and urinoma/abscess formation. This collection is not significantly changed from the prior exam allowing for differences in technique. The right ureter is now decompressed. No gross evidence of a right ureteral calculus or mass. Significant right urothelial thickening. A fat-containing lesion in the anterior aspect of the interpolar region of the right kidney measuring 11 mm suggests angiomyolipoma. Alternatively, this may represent a prominent junctional parenchymal defect. Similar findings noted on the left. No renal calculi evident. No left hydronephrosis. Left ureter normal. Bladder: Circumferential bladder wall thickening. Pelvic organs: Uterus and ovaries normal. The gonadal veins are dilated. Bowel: Mild wall thickening of the rectum may be present. A colocolonic anastomosis is evident in the superior pelvis with postsurgical changes of partial left hemicolectomy. Significant wall thickening of the hepatic flexure and ascending colon. The appendix is normal. A patent small bowel anastomosis is also noted in the right aspect of the superior pelvis. No bowel obstruction. Wall thickening of the stomach suggested in the fundus, body, and antrum. Mild small bowel wall thickening may be present in the right abdomen. Peritoneal cavity: Free fluid noted in the presacral region tracking from the retroperitoneum. Trace free intraperitoneal fluid in the pelvis. Small amount of fluid also noted along the stomach in the lesser sac. No free intraperitoneal gas. Peritoneal thickening evident in the right abdomen. Lymph nodes: No enlarged lymph nodes in the abdomen or pelvis. Vasculature: Atherosclerosis of the normal caliber abdominal aorta. IVC patent. Abdominal wall: Significant body wall edema. Postsurgical changes of the midline ventral abdominal wall. Musculoskeletal: Degenerative changes of the spine. Postsurgical changes of total left hip arthroplasty. IMPRESSION: 1. Interval placement of a right ureteral stent with decompression of the right ureter. The right renal collecting system is contiguous with the previously reported right perinephric fluid collection. 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 The urinary may be superinfected given the degree of inflammatory change. 2. Circumferential bladder wall thickening could indicate infectious cystitis. 3. Likely secondarily reactive large and small bowel wall thickening in the right abdomen. 4. Small amount of intraperitoneal and retroperitoneal fluid likely reactive. 5. Gastric wall thickening with focal fluid in the lesser sac suggest gastritis. No free intraperitoneal gas. 6. Postsurgical changes of partial left hemicolectomy and colocolonic anastomosis. Patent enteroenteric anastomosis. No bowel obstruction. 7. The morphology of the liver could suggest underlying fibrosis/cirrhosis. Electronically signed by: Giorgio Anderson M.D. 08/01/2017 10:28 AM Dictated Date/Time: 08/01/2017 10:14 AM
[2017-08-01] MEDS: BOOST VANILLA PUDDING CUP PO SCH ×2 (10:34→20:32)
[2017-08-01] MEDS: WARFARIN SOD 2 MG TAB PO SCH (10:38)
[2017-08-01] MEDS ORDERED: PANTOprazole INJ 40 MG in SYRINGE 0 ML IV ONE (12:00)
[2017-08-01] MEDS: POT PHOSPHATE MONOBASIC W/ SOD TAB PO SCH ×3 (13:00→20:33)
[2017-08-01] MEDS ORDERED: WARFARIN SOD 2 MG TAB PO SCH (16:00)
[2017-08-01] MEDS: ERTAPENEM IV 1 GM in SODIUM CHLOR 0.9% AD-VAN 50ML IV SCH (20:32)
[2017-08-01] MEDS: MAGNESIUM OXIDE 400 MG TAB PO SCH (20:34)
--- NOTE | 2017-08-01 22:10 | Infectious Disease Progress Nt ---
Progress Note Date of Service August 01, 2017. Subjective Pt evaluation today including: conversation w/ patient, conversation w/ family , physical exam, chart review, lab review, review of studies, conversation w/ provider contracting consultant, review of inpatient medication list Patient offering no new complaints today. Feeling better. No fever. All Other Systems: Reviewed and Negative Medications Current Inpatient Medications Medications (Trade) Dose Ordered Sig/Sid Route Start Time Stop Time Status Last Admin Dose Admin Acetaminophen (Tylenol Tab) 650 mg Q4H PRN PO 07/26/17 16:30 08/25/17 16:29 07/27/17 20:02 650 MG Al Hydrox/Mg Hydrox/Simethicone (Maalox Max Susp) 15 ml Q4H PRN PO 07/26/17 16:30 08/25/17 16:29 Magnesium Hydroxide (Milk Of Magnesia Susp) 30 ml Q12H PRN PO 07/26/17 16:30 08/25/17 16:29 Ondansetron HCl (Zofran Inj) 4 mg Q6H PRN IV 07/26/17 16:30 08/25/17 16:29 Polyethylene (Miralax Powder Packet) 17 gm DAILY PRN PO 07/26/17 16:30 08/25/17 16:29 Lactobacillus Acidophilus (Floranex Tab) 1 tab QAM PO 07/27/17 09:00 08/26/17 08:59 08/01/17 08:04 1 TAB Carvedilol (Coreg Tab) 6.25 mg BID PO 07/29/17 21:00 08/28/17 20:59 08/01/17 20:33 6.25 MG Ertapenem 1 gm/ Sodium Chloride 50 ml @ 100 mls/hr Q24H IV 07/29/17 20:00 08/08/17 19:59 08/01/17 20:32 100 MLS/HR Warfarin Sodium (Coumadin Tab) 2 mg DAILY@1600 PO 08/01/17 10:00 08/31/17 09:59 Future hold 08/01/17 10:38 2 MG Enteral Nutritional Formula (Boost Pudding) 1 cup TID PO 08/01/17 14:00 08/31/17 13:59 08/01/17 20:32 1 CUP Ioversol (Optiray 320) 100 ml UD PRN IV 08/01/17 10:15 08/05/17 10:14 Pantoprazole Sodium 40 mg/ Syringe 10 ml @ 5 mls/min DAILY@11 IV 08/02/17 11:00 09/01/17 10:59 Potassium/ Phosphorus/Sodium (Phospha 250 Neutral 155-852-130 Mg) 1 tab QID PO 08/01/17 13:00 08/31/17 12:59 08/01/17 20:33 1 TAB Magnesium Oxide (Mag-Ox Tab) 400 mg BID PO 08/01/17 21:00 08/31/17 08:59 08/01/17 20:34 400 MG Objective Vital Signs Date Time Temp Pulse Resp B/P (MAP) Pulse Ox O2 Delivery O2 Flow Rate FiO2 08/01/17 20:32 75 119/75 (90) 08/01/17 20:00 Room Air 08/01/17 19:29 36.4 64 20 127/79 (95) 95 Room Air 08/01/17 16:00 Room Air 08/01/17 15:41 36.7 81 18 127/76 (93) 94 Room Air 08/01/17 12:00 Room Air 08/01/17 12:00 36.4 74 16 121/76 (91) 92 Room Air 08/01/17 08:00 Room Air 08/01/17 08:00 Room Air 08/01/17 06:46 36.8 77 18 116/77 (90) 92 Room Air 08/01/17 04:00 Room Air 08/01/17 03:50 36.7 71 18 147/77 (100) 93 07/31/17 23:59 Room Air 07/31/17 23:55 36.7 65 16 121/80 (94) 95 Physical Exam General Appearance: WD/WN, no apparent distress Eyes: normal inspection, EOMI, sclerae normal ENT: normal ENT inspection, pharynx normal Neck: supple, no adenopathy, thyroid normal, trachea midline Respiratory/Chest: chest non-tender, lungs clear, normal breath sounds, no respiratory distress Cardiovascular: regular rate, rhythm, no gallop, no murmur Abdomen: normal bowel sounds, soft, no organomegaly, + tenderness Extremities: non-tender, normal capillary refill Neurologic/Psychiatric: alert, oriented x 3 Skin: normal color, warm/dry, no rash Lymphatic: no adenopathy Laboratory Results Last 24 Hours Test 5/7/18 06:29 White Blood Count 11.54 K/uL Red Blood Count 4.03 M/uL Hemoglobin 11.6 g/dL Hematocrit 34.4 % Mean Corpuscular Volume 85.4 fL Mean Corpuscular Hemoglobin 28.8 pg Mean Corpuscular Hemoglobin Concent 33.7 g/dl RDW Standard Deviation 47.3 fL RDW Coefficient of Variation 15.2 % Platelet Count 333 K/uL Mean Platelet Volume 9.2 fL Nucleated RBC Absolute Count (auto) 0.27 K/uL Nucleated Red Blood Cells % 2.4 % Prothrombin Time 15.4 SECONDS Prothromb Time International Ratio 1.5 Sodium Level 141 mmol/L Potassium Level 3.5 mmol/L Chloride Level 103 mmol/L Carbon Dioxide Level 33 mmol/L Anion Gap 6.0 mmol/L Blood Urea Nitrogen 5 mg/dl Creatinine 0.43 mg/dl Est Creatinine Clear Calc Drug Dose 90.5 ml/min Estimated GFR () 120.3 Estimated GFR (Non- 103.8 BUN/Creatinine Ratio 12.4 Random Glucose 80 mg/dl Calcium Level 7.9 mg/dl Magnesium Level 1.7 mg/dl Assessment and Plan 71-year-old female with E. coli sepsis from urinary tract infection with pyelonephritis, possible early abscess formation, and obstruction status post stent placement. Patient showing clinical improvement, though CT scan shows no obvious significant change. Would continue patient on IV ertapenem, likely at least 2 week course with follow-up CT scan prior to consideration of transition to oral therapy. Will follow.
[2017-08-02] VITALS (8 sets, daily range): BP systolic 113–134; BP diastolic 69–84; PULSE 51–76; TEMP 36.4–36.9; O2SAT 91–97
[2017-08-02 07:28] LABS: HEMATOCRIT 33.8 % (37-47); HEMOGLOBIN 11.2 g/dL (12.0-16.0); MEAN CELL VOLUME 85.8 fL (80-100); MEAN CORPUSCULAR HEMOGLOBIN 28.4 pg (25-34); MEAN CORPUSCULAR HGB CONC 33.1 g/dl (32-36); NUCLEATED RED BLOOD CELL ABS 0.11 K/uL (0-0); PLATELET COUNT 397 K/uL (130-400); RED CELL DISTRIBUTION WIDTH CV 15.4 % (11.5-14.5); RED CELL DISTRIBUTION WIDTH SD 47.4 fL (36.4-46.3)
[2017-08-02 07:36] LABS: INR 2.7 (0.9-1.1)
[2017-08-02] MEDS: MAGNESIUM OXIDE 400 MG TAB PO SCH ×2 (07:58→20:31)
[2017-08-02] MEDS: POT PHOSPHATE MONOBASIC W/ SOD TAB PO SCH ×4 (07:58→20:32)
[2017-08-02 07:59] LABS: CALCIUM 8.1 mg/dl (8.5-10.1); CREATININE 0.45 mg/dl (0.60-1.20); POTASSIUM 3.1 mmol/L (3.5-5.1)
[2017-08-02] MEDS: LACTOBACILLUS ACIDOPHILUS (FLORANEX) TAB PO SCH (07:59)
[2017-08-02] MEDS: CARVEDILOL 6.25 MG TAB PO SCH ×2 (07:59→20:31)
[2017-08-02] MEDS: BOOST VANILLA PUDDING CUP PO SCH ×3 (07:59→20:30)
[2017-08-02 08:00] LABS: PHOSPHORUS 3.2 mg/dl (2.5-4.9)
[2017-08-02] MEDS ORDERED: PANTOprazole INJ 40 MG in SYRINGE 0 ML IV SCH (11:00)
--- NOTE | 2017-08-02 14:13 | Progress Note ---
Subjective Date of Service: August 02, 2017. Subjective Pt evaluation today including: conversation w/ patient, conversation w/ family , physical exam, chart review, lab review Patient reports she continues to improve She is accompanied by her who largely communicates for her Overall they feel that she has improved from arrival No recent fevers Denies significant flank pain Repeat CT yesterday, however, showed no significant improvement in the fluid collection around the kidney in the right flank Stent does appear to be in good position with decompression of the renal pelvis/ kidney She remains on IV antibiotics Problem List Medical Problems: (1) Sepsis Status: Acute (2) UTI (urinary tract infection) Status: Acute Review of Systems Constitutional: No fever Abdomen: No pain, No nausea Musculoskeletal: No joint pain Female : No dysuria, No hematuria Objective Vital Signs Date Time Temp Pulse Resp B/P (MAP) Pulse Ox O2 Delivery O2 Flow Rate FiO2 08/02/17 12:00 Room Air 08/02/17 11:39 36.5 74 18 120/74 (89) 97 08/02/17 08:00 Room Air 08/02/17 08:00 36.9 72 16 134/83 (100) 95 Room Air 2.0 08/02/17 06:54 36.9 72 16 134/83 (100) 95 08/02/17 04:00 Room Air 08/02/17 03:51 36.5 63 18 131/84 (100) 95 Room Air 08/01/17 23:59 Room Air 08/01/17 23:33 36.3 63 18 129/82 (98) 95 08/01/17 20:32 75 119/75 (90) 08/01/17 20:00 Room Air 08/01/17 19:29 36.4 64 20 127/79 (95) 95 Room Air 08/01/17 16:00 Room Air 08/01/17 15:41 36.7 81 18 127/76 (93) 94 Room Air Physical Exam General Appearance: no apparent distress (Minimally interactive) ENT: hearing grossly normal Neck: no adenopathy Respiratory/Chest: no respiratory distress, no accessory muscle use Cardiovascular: no edema Abdomen: non tender, soft Extremities: no pedal edema, no calf tenderness Skin: warm/dry Laboratory Results Last 24 Hours Test 08/02/17 06:58 White Blood Count 12.40 K/uL Red Blood Count 3.94 M/uL Hemoglobin 11.2 g/dL Hematocrit 33.8 % Mean Corpuscular Volume 85.8 fL Mean Corpuscular Hemoglobin 28.4 pg Mean Corpuscular Hemoglobin Concent 33.1 g/dl RDW Standard Deviation 47.4 fL RDW Coefficient of Variation 15.4 % Platelet Count 397 K/uL Mean Platelet Volume 9.0 fL Nucleated RBC Absolute Count (auto) 0.11 K/uL Nucleated Red Blood Cells % 0.9 % Prothrombin Time 28.2 SECONDS Prothromb Time International Ratio 2.7 Sodium Level 139 mmol/L Potassium Level 3.1 mmol/L Chloride Level 99 mmol/L Carbon Dioxide Level 34 mmol/L Anion Gap 7.0 mmol/L Blood Urea Nitrogen 6 mg/dl Creatinine 0.45 mg/dl Est Creatinine Clear Calc Drug Dose 86.4 ml/min Estimated GFR () 118.5 Estimated GFR (Non- 102.2 BUN/Creatinine Ratio 13.3 Random Glucose 87 mg/dl Calcium Level 8.1 mg/dl Phosphorus Level 3.2 mg/dl Magnesium Level 1.9 mg/dl Assessment and Plan 5 days status post emergent right ureteral stent placement Stent appears to be in position of functioning appropriately, however she does have persistence of a fluid collection in the right flank/retroperitoneal Given her clinical improvement and afebrile status, I do not believe there is any urgent need to intervene for these fluid collections, but prefer more conservative approach with continued antibiotic use I believe will be appropriate to reimage her in approximately [address] with another [address] to evaluate these fluid collections and determine if there is any indication for intervention versus continued IV antibiotics Continued [facility] stay due to: multiple IV medications needed Discharge planning: uncertain
[2017-08-02] MEDS: WARFARIN SOD 2 MG TAB PO SCH (17:13)
--- NOTE | 2017-08-02 20:25 | Infectious Disease Progress Nt ---
Progress Note Date of Service August 02, 2017. Subjective Pt evaluation today including: conversation w/ patient, conversation w/ family , physical exam, chart review, lab review, review of studies, conversation w/ medical cost consultant, review of inpatient medication list Patient feeling about the same. Remains afebrile. Tolerating antibiotic without apparent difficulty. All Other Systems: Reviewed and Negative Medications Current Inpatient Medications Medications (Trade) Dose Ordered Sig/Sid Route Start Time Stop Time Status Last Admin Dose Admin Acetaminophen (Tylenol Tab) 650 mg Q4H PRN PO 07/26/17 16:30 08/25/17 16:29 07/27/17 20:02 650 MG Al Hydrox/Mg Hydrox/Simethicone (Maalox Max Susp) 15 ml Q4H PRN PO 07/26/17 16:30 08/25/17 16:29 Magnesium Hydroxide (Milk Of Magnesia Susp) 30 ml Q12H PRN PO 07/26/17 16:30 08/25/17 16:29 Ondansetron HCl (Zofran Inj) 4 mg Q6H PRN IV 07/26/17 16:30 08/25/17 16:29 Polyethylene (Miralax Powder Packet) 17 gm DAILY PRN PO 07/26/17 16:30 08/25/17 16:29 Lactobacillus Acidophilus (Floranex Tab) 1 tab QAM PO 07/27/17 09:00 08/26/17 08:59 08/02/17 07:59 1 TAB Carvedilol (Coreg Tab) 6.25 mg BID PO 07/29/17 21:00 08/28/17 20:59 08/02/17 07:59 6.25 MG Ertapenem 1 gm/ Sodium Chloride 50 ml @ 100 mls/hr Q24H IV 07/29/17 20:00 08/08/17 19:59 08/01/17 20:32 100 MLS/HR Warfarin Sodium (Coumadin Tab) 2 mg DAILY@1600 PO 08/01/17 10:00 08/31/17 09:59 Future hold 08/02/17 17:13 2 MG Enteral Nutritional Formula (Boost Pudding) 1 cup TID PO 08/01/17 14:00 08/31/17 13:59 08/02/17 14:25 1 CUP Ioversol (Optiray 320) 100 ml UD PRN IV 08/01/17 10:15 08/05/17 10:14 Potassium/ Phosphorus/Sodium (Phospha 250 Neutral 155-852-130 Mg) 1 tab QID PO 08/01/17 13:00 08/31/17 12:59 08/02/17 17:13 1 TAB Magnesium Oxide (Mag-Ox Tab) 400 mg BID PO 08/01/17 21:00 08/31/17 08:59 08/02/17 07:58 400 MG Pantoprazole Sodium (Protonix Tab) 40 mg QAM PO 08/03/17 09:00 08/04/17 09:01 Objective Vital Signs Date Time Temp Pulse Resp B/P (MAP) Pulse Ox O2 Delivery O2 Flow Rate FiO2 08/02/17 19:38 36.5 67 18 125/73 (90) 96 Room Air 08/02/17 16:00 Room Air 08/02/17 15:55 36.7 76 20 113/76 (88) 91 Room Air 08/02/17 12:00 Room Air 08/02/17 11:39 36.5 74 18 120/74 (89) 97 08/02/17 08:00 Room Air 08/02/17 08:00 36.9 72 16 134/83 (100) 95 Room Air 2.0 08/02/17 06:54 36.9 72 16 134/83 (100) 95 08/02/17 04:00 Room Air 08/02/17 03:51 36.5 63 18 131/84 (100) 95 Room Air 08/01/17 23:59 Room Air 08/01/17 23:33 36.3 63 18 129/82 (98) 95 08/01/17 20:32 75 119/75 (90) Physical Exam General Appearance: WD/WN, no apparent distress Eyes: normal inspection, EOMI, sclerae normal ENT: normal ENT inspection, pharynx normal Neck: supple, no adenopathy, thyroid normal, trachea midline Respiratory/Chest: chest non-tender, lungs clear, normal breath sounds, no respiratory distress Cardiovascular: regular rate, rhythm, no gallop, no murmur Abdomen: normal bowel sounds, soft, + tenderness Extremities: normal range of motion, no pedal edema, normal capillary refill Neurologic/Psychiatric: alert, oriented x 3 Skin: normal color, no rash Lymphatic: no adenopathy Laboratory Results Last 24 Hours Test 08/02/17 06:58 White Blood Count 12.40 K/uL Red Blood Count 3.94 M/uL Hemoglobin 11.2 g/dL Hematocrit 33.8 % Mean Corpuscular Volume 85.8 fL Mean Corpuscular Hemoglobin 28.4 pg Mean Corpuscular Hemoglobin Concent 33.1 g/dl RDW Standard Deviation 47.4 fL RDW Coefficient of Variation 15.4 % Platelet Count 397 K/uL Mean Platelet Volume 9.0 fL Nucleated RBC Absolute Count (auto) 0.11 K/uL Nucleated Red Blood Cells % 0.9 % Prothrombin Time 28.2 SECONDS Prothromb Time International Ratio 2.7 Sodium Level 139 mmol/L Potassium Level 3.1 mmol/L Chloride Level 99 mmol/L Carbon Dioxide Level 34 mmol/L Anion Gap 7.0 mmol/L Blood Urea Nitrogen 6 mg/dl Creatinine 0.45 mg/dl Est Creatinine Clear Calc Drug Dose 86.4 ml/min Estimated GFR () 118.5 Estimated GFR (Non- 102.2 BUN/Creatinine Ratio 13.3 Random Glucose 87 mg/dl Calcium Level 8.1 mg/dl Phosphorus Level 3.2 mg/dl Magnesium Level 1.9 mg/dl Assessment and Plan 71-year-old female with E. coli sepsis from urinary tract infection with pyelonephritis, possible early abscess formation, and obstruction status post stent placement. Patient showing clinical improvement, though CT scan shows no obvious significant change. Would continue patient on IV ertapenem, likely at least 2 week course with follow-up CT scan prior to consideration of transition to oral therapy. Will follow.
[2017-08-02] MEDS: ERTAPENEM IV 1 GM in SODIUM CHLOR 0.9% AD-VAN 50ML IV SCH (20:30)
--- NOTE | 2017-08-02 21:58 | Progress Note ---
Subjective Date of Service: August 02, 2017. Subjective Pt evaluation today including: conversation w/ patient 71 yo female reports no new complaints today. She denies any pain, fever. was at bedside. He states tat he questioned when she will be discharged. ROS Constitutional: no chills, aches, sweats or fever Respiratory: no cough, sputum, or wheezing Cardiac: no chest pain, palpitations, orthopnea or lightheadedness GI: no abdominal pain, nausea, vomiting, diarrhea or constipation : no dysuria or hesitancy Extremities: no joint pain or weakness Skin: no rash All other systems reviewed and negative Problem List Medical Problems: (1) Sepsis Status: Acute (2) UTI (urinary tract infection) Status: Acute Review of Systems All Other Systems: Reviewed and Negative Objective Vital Signs Date Time Temp Pulse Resp B/P (MAP) Pulse Ox O2 Delivery O2 Flow Rate FiO2 08/02/17 19:38 36.5 67 18 125/73 (90) 96 Room Air 08/02/17 16:00 Room Air 08/02/17 15:55 36.7 76 20 113/76 (88) 91 Room Air 08/02/17 12:00 Room Air 08/02/17 11:39 36.5 74 18 120/74 (89) 97 08/02/17 08:00 Room Air 08/02/17 08:00 36.9 72 16 134/83 (100) 95 Room Air 2.0 08/02/17 06:54 36.9 72 16 134/83 (100) 95 08/02/17 04:00 Room Air 08/02/17 03:51 36.5 63 18 131/84 (100) 95 Room Air 08/01/17 23:59 Room Air 08/01/17 23:33 36.3 63 18 129/82 (98) 95 Physical Exam Comments: General: no distress Eyes: normal inspection, PERLL Respiratory: chest non tender, diminished to auscultation bilaterally, no respiratory distress, no accessory muscle use Cardiac: regular rate and rhythm, no rub or gallop, no murmur, +2 pitting edema, GI/: active bowel sounds, no abd pain or tenderness, soft, non distended Extremities: normal range of motion, normal strength, non tender Neuro/Psych: alert and oriented x 3, normal mood and affect Skin: normal color, dry Laboratory Results Last 24 Hours Test 5/8/18 06:58 White Blood Count 12.40 K/uL Red Blood Count 3.94 M/uL Hemoglobin 11.2 g/dL Hematocrit 33.8 % Mean Corpuscular Volume 85.8 fL Mean Corpuscular Hemoglobin 28.4 pg Mean Corpuscular Hemoglobin Concent 33.1 g/dl RDW Standard Deviation 47.4 fL RDW Coefficient of Variation 15.4 % Platelet Count 397 K/uL Mean Platelet Volume 9.0 fL Nucleated RBC Absolute Count (auto) 0.11 K/uL Nucleated Red Blood Cells % 0.9 % Prothrombin Time 28.2 SECONDS Prothromb Time International Ratio 2.7 Sodium Level 139 mmol/L Potassium Level 3.1 mmol/L Chloride Level 99 mmol/L Carbon Dioxide Level 34 mmol/L Anion Gap 7.0 mmol/L Blood Urea Nitrogen 6 mg/dl Creatinine 0.45 mg/dl Est Creatinine Clear Calc Drug Dose 86.4 ml/min Estimated GFR () 118.5 Estimated GFR (Non- 102.2 BUN/Creatinine Ratio 13.3 Random Glucose 87 mg/dl Calcium Level 8.1 mg/dl Phosphorus Level 3.2 mg/dl Magnesium Level 1.9 mg/dl Assessment and Plan Ms. Appiah is a 71 year old woman here for sepsis secondary to UTI/perinephric abscess UTI/ pyelonephritis/perinephric abscess/ sepsis - transferred to ICU 07/28 after decompensating and taken to OR with urology after right hydronephrosis and ureteral dilation found on CT scan. Cystoscopy and stent in OR, transferred to telemetry 07/29 - lactic acid peaked at 2.84 - initially given IV levaquin and aztreonam and then transitioned to imipenem and now ertapenem per ID rec, today is day #7 abx - patient should have another 7 days per rec - BC ngtd, urine culture growing E.Coli with some resistances, fungal smear negative - cbc, prp am - Repeat CT ab/pelvis today - abscess/uroma is unchanged 5 cm. Discussed with both ID and urology - they agree that because patient is improving, continuing abx for at least two weeks and foregoing abscess drainage is preferable. ID recommends repeat CT before discontinuing ertapenem -she will be getting PICC line in AM. -consent obtained. A.fib on Coumadin, supratherapeutic INR, htn - rate controlled - Yesterday gave 2.5 mg IV Vitamin K, - repeat INR yesterday showed INR 1.9 - gave 1 mg Coumadin, today INR 1.5 - will give 2 mg Coumadin now and recheck INR in am. I do not think patient should be bridged as she is no longer acutely septic so her risk is somewhat lower than earlier in her stay. Additionally, her CHADS-Vasc score is 6 which is just below recommendations on bridging but given how easily she becomes supratherapeutic I think her risk of bleed is high enough that holding off on bridging is prudent. - will dose further warfarin pending tomorrow INR - continue Cozaar, Coreg Generalized edema, history of systolic CHF - Patient continues to be rather edematous, and she does have some faint crackles in her bases with pulse ox low-normal. Yesterday, CXR showing some mild chf and given 20 mg IV lasix - will repeat a dose today - Echo 07/28 showed mildly reduced systolic function - Edema is likely partially nutritional as her last albumin was 1.9 - will order Boost Hypomagnesemia - Magnesium 1.7 - 1gm IV magnesium and increase daily po mag to bid - Mag improved. Hypophosphatemia - Kphos po qid - will hold in AM Dysphagia - speech eval showed severe aspiration risk - slippery dental soft diet History of CVA, weakness - PT/OT evals Fibrotic changes to liver on CT - Fu with GI outpatient DVT proph - coumadin Full code dispo - patient is from [place] - would like [facility] for rehab Continued [facility] stay due to: multiple IV medications needed Discharge planning: uncertain
[2017-08-03 00:10] VITALS: O2SAT 94
[2017-08-03 03:35] VITALS: BP 122/72; PULSE 68; TEMP 37; O2SAT 93
[2017-08-03] MEDS: RASPBERRY SYRUP 5 ML UDP PO SCH ×2 (04:36→08:34)
[2017-08-03] MEDS: VANCOMYCIN HCL 125 MG/2.5ML SOLN PO SCH ×2 (04:37→08:34)
[2017-08-03 07:19] LABS: HEMATOCRIT 35.3 % (37-47); HEMOGLOBIN 11.7 g/dL (12.0-16.0); MEAN CELL VOLUME 86.7 fL (80-100); MEAN CORPUSCULAR HEMOGLOBIN 28.7 pg (25-34); MEAN CORPUSCULAR HGB CONC 33.1 g/dl (32-36); PLATELET COUNT 378 K/uL (130-400); RED CELL DISTRIBUTION WIDTH CV 15.5 % (11.5-14.5); RED CELL DISTRIBUTION WIDTH SD 48.2 fL (36.4-46.3); WHITE BLOOD COUNT 10.13 K/uL (4.8-10.8)
[2017-08-03 07:25] VITALS: BP 131/73; PULSE 69; TEMP 36.5; O2SAT 96
[2017-08-03 07:39] LABS: INR 3.7 (0.9-1.1)
[2017-08-03 07:49] LABS: CALCIUM 7.9 mg/dl (8.5-10.1); CREATININE 0.47 mg/dl (0.60-1.20); POTASSIUM 3.3 mmol/L (3.5-5.1)
[2017-08-03] MEDS: LACTOBACILLUS ACIDOPHILUS (FLORANEX) TAB PO SCH (08:34)
[2017-08-03] MEDS: MAGNESIUM OXIDE 400 MG TAB PO SCH (08:34)
[2017-08-03] MEDS: CARVEDILOL 6.25 MG TAB PO SCH (08:35)
[2017-08-03] MEDS: BOOST VANILLA PUDDING CUP PO SCH ×2 (08:35→14:00)
[2017-08-03] MEDS ORDERED: POTASSIUM CHLORIDE 20 MEQ TABCR PO ONE (09:00)
[2017-08-03] MEDS ORDERED: PANTOprazole SOD 40 MG TAB PO SCH (09:00)
[2017-08-03 11:22] VITALS: BP 136/74; PULSE 71; TEMP 36.5; O2SAT 93
[2017-08-03] MEDS ORDERED: VANC1SUS PO (13:31)
[2017-08-03] MEDS ORDERED: MGNO400 PO (13:31)
[2017-08-03] MEDS ORDERED: NUTRMIS PO (13:31)
[2017-08-03] MEDS ORDERED: RSPS5 PO ×2 (13:31→13:54)
[2017-08-03] MEDS ORDERED: INVAV1 IV (13:31)
--- NOTE | 2017-08-03 13:43 | Discharge Instructions ---
Discharge Instructions Date of Service August 03, 2017. Admission Reason for Admission: Sepsis Seconday To Uti, Uti Discharge Discharge Diagnosis / Problem: Sepsis secondary to UTI, perinephric abscess Discharge Goals Goal(s): Improve function, Improve disease control Activity Recommendations Activity Level: Assistance Required Therapies: Physical Therapy, Occupational Therapy, Speech Therapy . Additional Information Patient informed of condition: Yes Advance Directives: Yes DNR: No Level of Care: Acute Rehab Communicable Disease: Yes (C.Diff infection) Prognosis: Stable Instructions / Follow-Up Instructions / Follow-Up Ms. Appiah is to discharge to the [facility]. Please have patient seen by primary care within the next week. Patient should see primary care before finishing her 2 week oral vancomycin regimen for C.Diff to assure that extension of regimen is not necessary. Patient will also have to follow up with infectious disease - she will complete 2 weeks of IV ertapenem and will need a follow up abdominal/pelvis CT before discontinuing antibiotics to assess for resolution of perinephric abscess Please have patient follow up with urology in the next 1-2 weeks. Please have patient follow up with GI for possible fibrotic changes to the liver found on CT. Please hold Warfarin today. INR was 3.7. Patient will need daily INR checks while on antibiotics as her INR has been somewhat labile Current Hospital Diet Patient's current hospital diet: Regular Diet Discharge Diet Recommended Diet: Regular Diet (slippery soft consistency) Procedures Procedures Performed: Cystoscopy, Right Retrograde Pyelogram, Right Ureteral Stent Insertion Abd/pelvis CT x2 CXR Pending Studies Studies pending at discharge: no Physician Orders On Transfer POLST Discussion: without POLST completion Laboratory Results Last 24 Hours Test 08/03/17 07:04 White Blood Count 10.13 K/uL Red Blood Count 4.07 M/uL Hemoglobin 11.7 g/dL Hematocrit 35.3 % Mean Corpuscular Volume 86.7 fL Mean Corpuscular Hemoglobin 28.7 pg Mean Corpuscular Hemoglobin Concent 33.1 g/dl RDW Standard Deviation 48.2 fL RDW Coefficient of Variation 15.5 % Platelet Count 378 K/uL Mean Platelet Volume 9.0 fL Prothrombin Time 38.1 SECONDS Prothromb Time International Ratio 3.7 Sodium Level 140 mmol/L Potassium Level 3.3 mmol/L Chloride Level 101 mmol/L Carbon Dioxide Level 35 mmol/L Anion Gap 4.0 mmol/L Blood Urea Nitrogen 6 mg/dl Creatinine 0.47 mg/dl Est Creatinine Clear Calc Drug Dose 83.1 ml/min Estimated GFR () 116.8 Estimated GFR (Non- 100.8 BUN/Creatinine Ratio 13.1 Random Glucose 92 mg/dl Calcium Level 7.9 mg/dl Magnesium Level 1.9 mg/dl Medical Emergencies . Who to Call and When: Medical Emergencies: If at any time you feel your situation is an emergency, please call 911 immediately. . Non-Emergent Contact Non-Emergency issues call your: Primary Care Provider Call Non-Emergent contact if: you have a fever, your pain is not controlled, your pain is worsening, your pain is unusual for you, your pain is concerning you, you have any medication questions . . "Provider Documentation" section prepared by Ekaterina Quezada. . Core Measure Problem Core Measures: None
[2017-08-03] MEDS ORDERED: RASPBERRY SYRUP 5 ML UDP PO SCH (14:00)
[2017-08-03] MEDS ORDERED: VANCOMYCIN HCL 250 MG/5 ML SOLN PO SCH (14:00)
--- NOTE | 2017-08-03 14:05 | Discharge Summary ---
Discharge Summary Date of Service August 03, 2017. Discharge Summary Admission Date: July 26, 2017 at 16:36 Discharge Date: August 03, 2017 Discharge Disposition: Rehab Principal Diagnosis: UTI/ pyelonephritis/perinephric abscess/ sepsis Problems/Secondary Diagnoses: A.fib on Coumadin, supratherapeutic INR, htn, Generalized edema, history of systolic CHF, Hypomagnesemia, Hypophosphatemia, Dysphagia, History of CVA, weakness, Fibrotic changes to liver on CT Procedures: CHEST ONE VIEW PORTABLE CLINICAL HISTORY: Sepsis dyspnea COMPARISON STUDY: No previous studies for comparison. FINDINGS: The bones soft tissues and hemidiaphragms are normal. The cardiomediastinal silhouette is normal. The lungs are clear. The pulmonary vasculature is normal. IMPRESSION: Negative chest. Electronically signed by: Wilver Morgan M.D. 07/26/2017 3:18 PM ABD/PELVIS WITHOUT FOR STONE HISTORY: 71 years-old Female RLQ abd pain/UTI/Eval ?stone acute right lower quadrant abdominal pain COMPARISON: Chest radiograph 07/26/2017 TECHNIQUE: Multiple axial CT images of the abdomen and pelvis were obtained without IV contrast. A dose lowering technique was used consistent with the principals of JC. FINDINGS: Trace bilateral pleural effusions with subsegmental bibasilar opacities favoring atelectasis. The study is motion degraded. No pneumatosis or pneumoperitoneum identified. Imaged inferior cardiac chambers are at least moderately enlarged with coronary arterial calcifications. Evaluation of the solid abdominal organs is limited without the use of IV contrast. Prior cholecystectomy. Liver appears unremarkable. Scattered calcifications throughout the spleen are noted. At least mild generalized pancreatic atrophy. Bilateral adrenal gland thickening, left greater than right. Mild nonspecific left-sided perinephric stranding. Indeterminate 3 mm hyperattenuating focus of the superior pole left kidney may reflect a complex cyst or renal calcification. No left-sided renal calculi or obstructive uropathy. There is marked perinephric stranding about the right kidney with right renal enlargement. Moderate to severe right-sided hydronephrosis with moderate hydroureter is noted. Layering calculi are seen within the right renal pelvis with additional ill-defined calcifications measuring up to approximately 3 mm seen within the region of the right ureteropelvic junction. Nonobstructing right-sided nephrolithiasis also noted. Right ureter appears dilated to level of the ureteropelvic junction. Pelvic structures are subvisualized secondary to streak artifact from left hip arthroplasty. There is a multiloculated fluid collection without well-defined margins within the inferior right perinephric space measuring 2.9 x 5.2 x 3.7 cm in AP, transverse and craniocaudal dimensions respectively nicely seen on image 242 series 3. Uterus and adnexa appear unremarkable. Tortuosity and calcification of the aorta without aneurysm. No bulky adenopathy identified. Periaortic lymph nodes are seen measuring up to 8 mm in short axis, likely reactive. Air-fluid levels noted within the stomach. Moderate stool volume throughout the colon. Postoperative changes of the left hemicolon suggesting partial resection. Hyperattenuating foci within the appendiceal lumen suggests appendicolith. Post surgical changes are noted within small bowel of the lower midline abdomen. Wall thickening of the hepatic flexure and ascending colon is likely reactive. Mild abdominal pelvic ascites. Mild diffuse body wall edema. The bones appear mildly demineralized. Severe multilevel facet arthrosis of the lower lumbar spine. Dextroscoliosis of the lumbar spine. Compression deformity of the T11 vertebral body is technically age-indeterminate however appears chronic. IMPRESSION: 1. Limited study secondary to patient motion. 2. Moderate to severe right-sided hydronephrosis and moderate hydroureter with marked right perinephric inflammatory stranding. These findings are likely secondary to obstructing calculus or calculi within the right ureteropelvic junction which are not well seen. The right ureter however appears to be at least mildly dilated distally without a distal obstructing calculus or lesion seen. Urologic consultation is advised. 3. Ill-defined multiloculated fluid of the inferior right perinephric space measuring up to 5.2 cm suggests phlegmon or developing abscess without well-defined aragon identified. Attention at follow-up recommended. 4. Mild abdominal pelvic ascites with wall thickening of the hepatic flexure and ascending colon may be reactive. 5. Trace bilateral pleural effusions. 6. Additional findings as above. Electronically signed by: Brandon Panda M.D. 07/28/2017 7:18 AM [~ rep ct add3]] RETROGRADE INCLUDES KUB CLINICAL HISTORY: RT CYSTO/STENT stent placement TECHNIQUE: Image intensifier COMPARISON STUDY: CT 07/28/2017 FINDINGS: Retrograde opacification of components of the right ureter followed by successful stent placement. Right renal pelvis is distended. IMPRESSION: Successful right ureteral stent placement Electronically signed by: Wilver Morgan M.D. 07/28/2017 2:08 PM CHEST 2 VIEWS ROUTINE HISTORY: 71 years-old Female sob acute shortness of breath COMPARISON: Chest radiograph 07/26/2017 TECHNIQUE: PA and lateral views of the chest FINDINGS: Cardiac silhouette is mildly enlarged. There are hazy perihilar and bibasilar opacities with small loculated pleural effusions. Atherosclerosis of the aorta. No pneumothorax. Mild pulmonary vascular congestion with interstitial coarsening. Dextroscoliosis of the spine. Right-sided ureteral stent is partially imaged. Healed remote left-sided rib fractures. IMPRESSION: 1. Hazy perihilar and bibasilar opacities suggesting atelectasis or pneumonia with small mildly loculated bilateral pleural effusions. 2. Cardiomegaly with mild pulmonary edema Electronically signed by: Brandon Panda M.D. 07/31/2017 11:36 AM ABD/PELVIS IV CONTRAST ONLY CLINICAL HISTORY: 71 years-old Female presenting with perinephric abscess, hydronephrosis, sepsis, UTI. TECHNIQUE: Multidetector CT of the abdomen and pelvis was performed after the administration of intravenous contrast. IV contrast: 94 mL of Optiray 320. A dose lowering technique was used consistent with the principles of ALARA (as low as reasonably achievable). COMPARISON: 07/28/2017. CT DOSE (mGy.cm): The estimated cumulative dose is 666.15 mGycm. 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 Lung bases: Dependent consolidation and volume loss likely passive atelectasis. Bilateral small moderate pleural effusions, which appear loculated. Multichamber enlargement of the heart. Coronary artery calcification. No pericardial effusion. Liver: Relative hypertrophy of the left hepatic lobe and atrophy of the right hepatic lobe with a macronodular contour of the liver, which could suggest underlying fibrotic change. No focal lesion. Heterogeneity of the left lobe. Patent hepatic vasculature allowing for nonvisualization of the hepatic veins likely due to the timing of contrast. Biliary: No intrahepatic or extrahepatic biliary ductal dilatation. Gallbladder surgically absent. Pancreas: Mild parenchymal atrophy. Spleen: Subcentimeter hypodensity in the spleen, possibly cysts/pseudocysts or lymphangioma. Adrenal glands: Normal. Kidneys and ureters: Interval placement of a right ureteral stent. The renal collecting system is contiguous with the multilocular fluid collection extending from the renal pelvis along the medial aspect of the right kidney and along the lower pole. This is suggestive of calyceal rupture and urinoma/abscess formation. This collection is not significantly changed from the prior exam allowing for differences in technique. The right ureter is now decompressed. No gross evidence of a right ureteral calculus or mass. Significant right urothelial thickening. A fat-containing lesion in the anterior aspect of the interpolar region of the right kidney measuring 11 mm suggests angiomyolipoma. Alternatively, this may represent a prominent junctional parenchymal defect. Similar findings noted on the left. No renal calculi evident. No left hydronephrosis. Left ureter normal. Bladder: Circumferential bladder wall thickening. Pelvic organs: Uterus and ovaries normal. The gonadal veins are dilated. Bowel: Mild wall thickening of the rectum may be present. A colocolonic anastomosis is evident in the superior pelvis with postsurgical changes of partial left hemicolectomy. Significant wall thickening of the hepatic flexure and ascending colon. The appendix is normal. A patent small bowel anastomosis is also noted in the right aspect of the superior pelvis. No bowel obstruction. Wall thickening of the stomach suggested in the fundus, body, and antrum. Mild small bowel wall thickening may be present in the right abdomen. Peritoneal cavity: Free fluid noted in the presacral region tracking from the retroperitoneum. Trace free intraperitoneal fluid in the pelvis. Small amount of fluid also noted along the stomach in the lesser sac. No free intraperitoneal gas. Peritoneal thickening evident in the right abdomen. Lymph nodes: No enlarged lymph nodes in the abdomen or pelvis. Vasculature: Atherosclerosis of the normal caliber abdominal aorta. IVC patent. Abdominal wall: Significant body wall edema. Postsurgical changes of the midline ventral abdominal wall. Musculoskeletal: Degenerative changes of the spine. Postsurgical changes of total left hip arthroplasty. IMPRESSION: 1. Interval placement of a right ureteral stent with decompression of the right ureter. The right renal collecting system is contiguous with the previously reported right perinephric fluid collection. 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 The urinary may be superinfected given the degree of inflammatory change. 2. Circumferential bladder wall thickening could indicate infectious cystitis. 3. Likely secondarily reactive large and small bowel wall thickening in the right abdomen. 4. Small amount of intraperitoneal and retroperitoneal fluid likely reactive. 5. Gastric wall thickening with focal fluid in the lesser sac suggest gastritis. No free intraperitoneal gas. 6. Postsurgical changes of partial left hemicolectomy and colocolonic anastomosis. Patent enteroenteric anastomosis. No bowel obstruction. 7. The morphology of the liver could suggest underlying fibrosis/cirrhosis. Consultations: Dr. Cooley and Dr. Jones from urology Dr. Felder from ID Medication Reconciliation New Medications: Ertapenem (Invanz) 1 Gm Inj 1 GM IV DAILY for 9 Days, #9 DOSE Magnesium Oxide (Magnesium-Oxide) 400 Mg Tab 400 MG PO BID for 30 Days, #60 TAB Nutritional Supplements (Boost Pudding) 1 Mis Mis 1 CUP PO TID for 30 Days, #90 CUP Raspberry (Raspberry Syrup) 5 Ml/Cup Syrp 5 ML PO Q6H for 14 Days, #56 DOSE Vancomycin HCl (Vancomycin HCl + Syrspend) 50 Mg/Ml Dona 250 MG PO Q6H for 14 Days, #56 DOSE Continued Medications: Carvedilol (Coreg) 6.25 Mg Tab 6.25 MG PO BID, TAB Losartan Potassium (Cozaar) 50 Mg Tab 50 MG PO QAM, TAB Melatonin (Melatonin Maximum Strengt) 5 Mg Tab 1 TAB PO HS for 30 Days, #30 TAB 1 Refill Multivitamin (Multivitamin) Tab 1 TAB PO QAM, TAB Probiotic Product (Align) 4 Mg Cap 1 CAP PO QAM Warfarin Sodium (Coumadin) 1 Mg Tab 1 MG PO DIRECTED, TAB COUMADIN CLINIC, TAKE 2MG PO TUE,TUE, TAKE 1MG PO SUN,MON,WED,FRI Discontinued Medications: Magnesium Chloride-Calcium Car (Slow-Mag) 1 Tab Tab 1 TAB PO BID Discharge Exam ROS Constitutional: no chills, aches, sweats or fever Respiratory: no sob,cough, sputum, or wheezing Cardiac: no chest pain, palpitations, edema, orthopnea or lightheadedness GI: no abdominal pain, nausea, vomiting, diarrhea or constipation : no dysuria or hesitancy Extremities: no joint pain or weakness Skin: no rash All other systems reviewed and negative General: no distress Eyes: normal inspection, PERLL Respiratory: chest non tender, diminished breath sounds bilaterally, no respiratory distress, no accessory muscle use Cardiac: regular rate and rhythm, no rub or gallop, no murmur, no edema, no jvd GI/: active bowel sounds, no abd pain or tenderness, soft, non distended Extremities: normal range of motion, generalized weakness, non tender Neuro/Psych: alert and oriented x 3, normal mood and affect Skin: normal color, dry Hospital Course Ms Appiah is a 71-year-old female with a significant past medical history of colon resection, colostomy and reversal, left total hip arthroplasty, hypertension, history of CHF and AFib on Coumadin, coming to the hospital Emergency Department because of 3 days of fevers, weakness and increased incontinence UTI/ pyelonephritis/perinephric abscess/ sepsis - transferred to ICU 07/28 after decompensating and taken to OR with urology after right hydronephrosis and ureteral dilation found on CT scan. Cystoscopy and stent in OR, transferred to telemetry 07/29 - lactic acid peaked at 2.84 - initially given IV levaquin and aztreonam and then transitioned to imipenem and now ertapenem per ID rec, today is day #5 of ertapenem abx - she will need 9 more days for a total of 14 - BC ngtd, urine culture growing E.Coli with some resistances, fungal smear negative - Repeat CT ab/pelvis 08/01 - abscess/uroma is unchanged 5 cm. Discussed with both ID and urology - they agree that because patient is improving, continuing abx for at least two weeks and foregoing abscess drainage is preferable. ID recommends repeat CT before discontinuing abx. A.fib on Coumadin, supratherapeutic INR, htn - rate controlled - 07/27 and 07/31 gave Vitamin K supplementation required. INR as high as 7.2 - INR 3.7 today - hold warfarin this afternoon. Patient should continue to have daily INR checks while on abx as her INRs have been quite labile requiring Vitamin K supplementation - continue Cozaar, Coreg Generalized edema, history of systolic CHF - Patient continues to be rather edematous, though crackles in her base have disappeared with administration of IV lasix Tuesday and Tuesday - Echo 07/28 showed mildly reduced systolic function - Edema is likely partially nutritional as her last albumin was 1.9 - continue Boost Hypomagnesemia - Persistent hypomagnesemia - continue oral supplement Hypophosphatemia - replaced Dysphagia - speech eval showed severe aspiration risk - slippery dental soft diet History of CVA, weakness - PT/OT recommend rehab Fibrotic changes to liver on CT - Fu with GI outpatient Total Time Spent: Greater than 30 minutes This includes examination of the patient, discharge planning, medication reconciliation, and communication with other providers. Discharge Instructions Please refer to the electronic Patient Visit Report (Discharge Instructions) for additional information. Follow-Up PCP within a week GI ID before abx are finished for repeat CT and decide where continued IV necessary Urology Additional Copies To Giorgio Walton M.D.; [place] at [facility]
[2017-08-03 14:17] VITALS: BP 136/74; PULSE 71; TEMP 36.5; O2SAT 93
[2017-08-03] MEDS ORDERED: WARFARIN SOD 1 MG TAB PO SCH (16:00)
== END 2017-08-03 15:38 | DRG 871 ==
LOC: C.EDB 14:06 → C.MED 16:36 → ENRESERV 17:33 → C.MSICU 07-28 03:48 → C.2T 07-29 16:19
PROVIDERS: ADMIT Hospitalist; ATTEND Internal Medicine Sports Medicine
PROC: 0T768DZ Dilation of Right Ureter with Intraluminal Device, Via Natural or Artificial Opening Endoscopic (ICD-10-PCS; principal; 2017-07-28 15:00)
DX: A41.51 Sepsis due to Escherichia coli [E. coli] (principal); G93.41 Metabolic encephalopathy; E43 Unspecified severe protein-calorie malnutrition; I69.354 Hemiplegia and hemiparesis following cerebral infarction affecting left non-dominant side; N13.6 Pyonephrosis; I11.0 Hypertensive heart disease with heart failure; I50.32 Chronic diastolic (congestive) heart failure; E83.42 Hypomagnesemia; E83.39 Other disorders of phosphorus metabolism; R60.1 Generalized edema; I69.319 Unspecified symptoms and signs involving cognitive functions following cerebral infarction; I69.391 Dysphagia following cerebral infarction; I48.91 Unspecified atrial fibrillation; M35.00 Sjogren syndrome, unspecified; Z79.01 Long term (current) use of anticoagulants; Z79.899 Other long term (current) drug therapy; Z88.0 Allergy status to penicillin; Z88.1 Allergy status to other antibiotic agents; Z88.5 Allergy status to narcotic agent

== ENCOUNTER → 2017-08-04 | Outpatient (CLI) | payer OTHER, MEDICARE ==
[~2017-08-04] MED LIST changes: +INVAV1 IV; -MAGNTAB17 PO; +MGNO400 PO; +NUTRMIS PO; +RSPS5 PO; +VANC1SUS PO
[2017-08-04 10:04] LABS: INR 3.4 (0.9-1.1)
== END | disposition home or self-care (01) ==
LOC: C.LABVPSUA 09:42
PROVIDERS: ATTEND Internal Medicine Critical Care Medicine
DX: I48.91 Unspecified atrial fibrillation (principal)

== ENCOUNTER → 2017-08-05 | Outpatient (CLI) | payer OTHER, MEDICARE ==
[2017-08-05 09:05] LABS: INR 2.8 (0.9-1.1)
== END | disposition home or self-care (01) ==
LOC: C.LABVPSUA 08:27
PROVIDERS: ATTEND Internal Medicine Critical Care Medicine
DX: I48.91 Unspecified atrial fibrillation (principal)

== ENCOUNTER → 2017-08-09 | Outpatient (CLI) | payer OTHER, MEDICARE ==
[~2017-08-09] MED LIST changes: +OPTIRAY 320 IV PRN
--- NOTE | 2017-08-09 17:19 | DIAGNOSTIC IMAGING REPORT ---
ABD/PELVIS IV AND ORAL CONT CLINICAL HISTORY: 71 years-old Female presenting with SEPTIC UTI, LABS NEED DRAWN BEFORE INJECTION. TECHNIQUE: Multidetector CT of the abdomen and pelvis was performed after the administration of oral and intravenous contrast. IV contrast: 93 mL of Optiray 320. A dose lowering technique was used consistent with the principles of ALARA (as low as reasonably achievable). COMPARISON: 08/01/2017. CT DOSE (mGy.cm): The estimated cumulative dose is 391.86 mGycm. FINDINGS: Fruit Sorter topogram: Right ureteral stent grade cholecystectomy clips and additional surgical clips. Total left hip arthroplasty. Contrast in the stomach. Lung bases: Architectural distortion of the lung bases may be secondary to scarring. Multichamber enlargement of the heart. Coronary artery calcification. No pericardial or pleural effusion. Liver: Nodular contour of the liver with relative hypertrophy of the left hepatic lobe and atrophy of the right hepatic lobe. No focal lesion allowing for the single phase of contrast. Patent hepatic vasculature. Biliary: No intrahepatic or extrahepatic biliary ductal dilatation. Gallbladder surgically absent. Pancreas: Mild parenchymal atrophy. Spleen: Normal. Adrenal glands: Normal. Kidneys and ureters: Right ureteral stent in place. Persistent moderate right pelvocaliectasis. The right ureter is decompressed. Right urothelial thickening. The right renal collecting system appears to be contiguous with the multilobular collection extending from the inferior aspect of the right renal pelvis along the right perinephric space. The size of this collection is slightly decreased in size. Extensive perinephric fat infiltration on the right similar to prior. 11 mm macroscopic fat-containing lesion in the anterior right kidney consistent with angiomyolipoma. Few small renal cysts may also be present bilaterally. Bladder: Normal. Pelvic organs: Uterus and ovaries normal. Bowel: Moderate stool burden in the rectum. Postsurgical changes of partial left hemicolectomy and colocolonic anastomosis. Decreased wall thickening of the mid ascending colon in comparison to prior. Wall thickening of the descending duodenum likely secondary to the adjacent right renal inflammatory change. Patent anterior enteric anastomosis in the superior pelvis. Dense contrast noted in the stomach. No bowel obstruction. Peritoneal cavity: No free fluid or intraperitoneal gas. Lymph nodes: No enlarged lymph nodes in the abdomen or pelvis. Scattered subcentimeter retroperitoneal lymph nodes. Vasculature: Atherosclerosis of the normal caliber abdominal aorta. IVC patent. Abdominal wall: Postsurgical changes of the infraumbilical abdominal wall. Mild body wall edema. Musculoskeletal: Degenerative changes of the spine. Postsurgical changes of total left hip arthroplasty. Compression deformity of T11, unchanged. IMPRESSION: 1. Right ureteral stent with persistent moderate right pelvocaliectasis. 2. Slight interval decrease in the right perinephric fluid collection, which again appears contiguous with the right renal collecting system. This again is most worrisome for urinoma. Superimposed infection cannot be excluded. The collection is overall decrease in size from prior. 3. Resolution of bladder wall thickening, which may indicate resolved cystitis or be due to better distention on the current exam. 4. Patent colocolonic and enteroenteric anastomoses. No bowel obstruction. 5. Morphology of the liver could suggest cirrhosis/fibrosis. 6. Decreased reactive wall thickening in the ascending colon and small bowel. Electronically signed by: Giorgio Anderson M.D. 08/09/2017 5:18 PM Dictated Date/Time: 08/09/2017 5:05 PM
[2017-08-09 18:02] LABS: INR 2.1 (0.9-1.1)
== END | disposition home or self-care (01) ==
LOC: C.CTS 13:54
PROVIDERS: ATTEND Internal Medicine Critical Care Medicine
DX: I48.91 Unspecified atrial fibrillation (principal)

== ENCOUNTER → 2017-08-12 | Outpatient (CLI) | payer OTHER, MEDICARE ==
[~2017-08-12] MED LIST changes: -OPTIRAY 320 IV PRN
[2017-08-12 12:57] LABS: INR 3.2 (0.9-1.1)
[2017-08-12 15:17] LABS: HEP C IGG 13 YRS+OLDER_RFLX NEG (NEG)
== END | disposition home or self-care (01) ==
LOC: C.LAB1850 11:40
PROVIDERS: ATTEND Internal Medicine Infectious Disease
DX: K74.60 Unspecified cirrhosis of liver (principal)

== ENCOUNTER → 2017-08-12 | Outpatient (CLI) | payer OTHER, MEDICARE ==
[2017-08-12 09:11] LABS: INR 3.1 (0.9-1.1)
== END | disposition home or self-care (01) ==
LOC: C.LABVPSUA 08:26
PROVIDERS: ATTEND Internal Medicine Critical Care Medicine
DX: I48.91 Unspecified atrial fibrillation (principal)

== ENCOUNTER → 2017-08-15 | Outpatient (CLI) | payer OTHER, MEDICARE ==
--- NOTE | 2017-08-15 12:31 | DIAGNOSTIC IMAGING REPORT ---
KUB CLINICAL HISTORY: 71 years-old Female presenting with N13.30 Hydronephrosis, rightR. TECHNIQUE: Single supine view of the abdomen was obtained. COMPARISON: CT from 08/09/2017. FINDINGS: Cholecystectomy clips noted. Additional scattered surgical clips in the left abdomen. Anastomotic suture lines evident in the left mid abdomen. Nonobstructive bowel gas pattern. No gross pneumoperitoneum. The right ureteral stent remains in place. Punctate right renal calculus suggested. No radiographic evidence of ureteral calculi. Degenerative changes of the spine. Significant dextroscoliosis of the lumbar spine. Postsurgical changes of total left hip arthroplasty again noted. IMPRESSION: 1. Right ureteral stent remains in place. 2. Punctate right renal calculus. No ureteral calculi by radiograph. Electronically signed by: Giorgio Anderson M.D. 08/15/2017 12:30 PM Dictated Date/Time: 08/15/2017 12:27 PM
== END | disposition home or self-care (01) ==
LOC: C.RAD 11:22
PROVIDERS: ATTEND Urology
DX: N13.30 Unspecified hydronephrosis (principal)

== ENCOUNTER → 2017-08-17 | Outpatient (CLI) | payer OTHER, MEDICARE ==
[~2017-08-17] MED LIST changes: +OPTIRAY 320 IV PRN
--- NOTE | 2017-08-17 17:03 | DIAGNOSTIC IMAGING REPORT ---
CT SCAN OF THE ABDOMEN AND PELVIS WITH IV CONTRAST CLINICAL HISTORY: Right-sided renal abscess. COMPARISON STUDY: Abdominal CT dated 08/09/2017. TECHNIQUE: Following the IV administration of 93 cc of Optiray 320, CT scan of the abdomen and pelvis is performed from the lung bases to the proximal femora. Images are reviewed in the axial, sagittal, and coronal planes. IV contrast was administered without complication. A dose lowering technique was utilized adhering to the principles of ALARA. The Examination is degraded by streak artifact from the patient's arms which could not be elevated above the abdomen. The examination is also compromised by motion artifact. CT DOSE: 252.11 mGy.cm FINDINGS: Lung bases: The heart is enlarged and without pericardial effusion. There are coronary artery calcifications. There is a trace right pleural effusion. No airspace consolidation is identified. Scarring/atelectasis is noted in the lower lobes. Fluid fills the distal esophagus. The distal esophagus appears mildly thick-walled and hyperemic. Liver: The contrast-enhanced liver is normal in size, contour, and attenuation. There is no intrahepatic biliary ductal dilatation. The hepatic veins and portal veins are patent. Gallbladder: Surgically absent noting clips in the gallbladder fossa. Spleen: Normal in size and attenuation. Pancreas: Moderately atrophic and grossly unremarkable. Adrenal glands: Unremarkable. Kidneys: The contrast enhanced kidneys demonstrate cortical atrophy. A right ureteral stent is in appropriate position. No calculi are identified in the right ureter along the course of the stent. There is moderate right hydronephrosis, similar appearance to the 08/09/2017 examination. There is no hydronephrosis seen in the left. The kidneys enhance symmetrically. Foci of cortical scarring are noted in the left kidney. Scattered subcentimeter cortical hypodensities likely represent cysts but are too small for definitive characterization. A 1.2 cm angiomyolipoma is again seen in the upper pole of the right kidney. Abdominal vasculature: The abdominal aorta is normal in course and caliber noting mild atherosclerotic calcification. Bowel: There are postoperative changes from partial colonic and small bowel resections. No bowel obstruction is seen. Moderate colonic fecal retention is observed. Rectal wall thickening and hyperemia is noted with perirectal stranding. The appendix is normal as visualized. Peritoneum: There is no intraperitoneal free air or abdominal ascites. A multiloculated, thick-walled, and peripherally enhancing collection in the right mid abdomen is again seen on image #[id number] and measures 4.4 x 3.2 cm. This abuts the lower pole of the right kidney and appear to communicate with the right renal collecting system. Lymphadenopathy: None. Pelvic viscera: Evaluation of the pelvis is degraded by streak artifact from a left hip arthroplasty. The bladder and uterus are normal as visualized. No adnexal lesion is seen. Skeletal structures: The skeletal structures are osteopenic. There is advanced lumbosacral spondylosis and scoliosis. No lytic or blastic lesions are seen. A left hip arthroplasty is in place. Arthritic change is noted in the right hip and sacroiliac joints. There are healed left-sided rib fractures. There is a severe compression deformity of T11. Mild compression deformities are noted in T8, T9, and L4. IMPRESSION: 1. Streak and motion compromised examination 2. A right ureteral stent is in appropriate position. No calculi are identified along the course of the stent. 3. There is moderate right hydronephrosis, similar to the 08/09/2017 examination. Correlate clinically for evidence of stent dysfunction. 4. A 4.4 x 3.2 cm thick-walled, peripherally enhancing, and multiloculated fluid collection in the right mid abdomen which abuts the lower pole of the right kidney has minimally decreased in size from 08/09/2017 (previously measured 5.1 x 3.2 cm). 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 Superimposed infection/abscess is not excluded. 5. There are postoperative changes from small bowel and colonic resections. No bowel obstruction is seen. Moderate constipation is observed. 6. The rectal wall appears thickened and hyperemic and there is mild perirectal stranding. Correlate clinically for evidence of proctitis. 7. Fluid fills the distal esophagus which appears mildly thick-walled and hyperemic. Correlate clinically for evidence of esophagitis. If further assessment is desired then endoscopy would be appropriate. 8. Cardiomegaly and trace right pleural effusion. 9. Additional findings as detailed above. Electronically signed by: Butch Carr M.D. 08/17/2017 5:01 PM Dictated Date/Time: 08/17/2017 4:47 PM
== END | disposition home or self-care (01) ==
LOC: C.CTS 15:52
PROVIDERS: ATTEND Urology
DX: N15.1 Renal and perinephric abscess (principal); Z96.0 Presence of urogenital implants; N13.30 Unspecified hydronephrosis; K59.00 Constipation, unspecified; R68.89 Other general symptoms and signs; I51.7 Cardiomegaly

== ENCOUNTER → 2017-10-17 | Outpatient (CLI) | payer OTHER, MEDICARE ==
[~2017-10-17] MED LIST changes: +ACET-1311 PO; +CEFD300C2 PO; +FLUC100T4 PO; -INVAV1 IV; +NUTR-977 PO; -NUTRMIS PO; -OPTIRAY 320 IV PRN; -RSPS5 PO; +SYSTANE EYE OP; +TOBRSUS OP; -VANC1SUS PO
[2017-10-17 10:21] LABS: BASO % 0.7 %; BASO ABS # 0.04 K/uL (0-0.2); EOS % 2.2 %; EOS ABS # 0.13 K/uL (0-0.5); HEMOGLOBIN 13.6 g/dL (12.0-16.0); IG# 0.02 K/uL (0.00-0.02); LYMPH ABS # 1.79 K/uL (1.2-3.4); MEAN CELL VOLUME 89.4 fL (80-100); MEAN CORPUSCULAR HEMOGLOBIN 28.9 pg (25-34); MEAN CORPUSCULAR HGB CONC 32.4 g/dl (32-36); MEAN PLATELET VOLUME 9.5 fL (7.4-10.4); MONO % 10.7 %; MONO ABS # 0.64 K/uL (0.11-0.59); NEUT % 56.1 %; NEUT ABS # 3.34 K/uL (1.4-6.5); PLATELET COUNT 291 K/uL (130-400); RED CELL DISTRIBUTION WIDTH SD 52.6 fL (36.4-46.3); WHITE BLOOD COUNT 5.96 K/uL (4.8-10.8)
[2017-10-17 10:34] LABS: ALBUMIN 2.8 gm/dl (3.4-5.0); ALKALINE PHOSPHATASE 64 U/L (45-117); ALT/SGPT 38 U/L (12-78); AST/SGOT 34 U/L (15-37); BLOOD UREA NITROGEN 21 mg/dl (7-18); CALCIUM 8.5 mg/dl (8.5-10.1); CARBON DIOXIDE 32 mmol/L (21-32); CREATININE 0.63 mg/dl (0.60-1.20); GLUCOSE 75 mg/dl (70-99); POTASSIUM 4.7 mmol/L (3.5-5.1); SODIUM 142 mmol/L (136-145); TOTAL PROTEIN 6.4 gm/dl (6.4-8.2)
== END | disposition home or self-care (01) ==
LOC: C.LABVPSUW 09:49
PROVIDERS: ATTEND Internal Medicine Critical Care Medicine
DX: N13.30 Unspecified hydronephrosis (principal)

== ENCOUNTER → 2017-10-17 | Outpatient (CLI) | payer OTHER, MEDICARE ==
--- NOTE | 2017-10-17 12:57 | DIAGNOSTIC IMAGING REPORT ---
CHEST 2 VIEWS ROUTINE CLINICAL HISTORY: Preoperative evaluation. COMPARISON STUDY: Chest radiograph July 31, 2017. FINDINGS: Bilateral pleural effusions shown on exam of July 31, 2017 have resolved. There is no evidence for pulmonary edema or pneumonia. Note is made of moderate cardiomegaly. There is no evidence for pulmonary edema. Multiple old left rib fractures are noted. IMPRESSION: 1. No acute cardiopulmonary findings. 2. Moderate cardiomegaly. Electronically signed by: Han Ruffin M.D. 10/17/2017 12:56 PM Dictated Date/Time: 10/17/2017 12:54 PM
== END | disposition home or self-care (01) ==
LOC: C.CPL 10:07
PROVIDERS: ATTEND Urology
DX: Z01.812 Encounter for preprocedural laboratory examination (principal)

== ENCOUNTER → 2017-10-20 | Outpatient (CLI) | payer OTHER, MEDICARE | END | disposition home or self-care (01) | LOC: C.LABSPEC 11:31 | PROVIDERS: ATTEND Urology | DX: N13.30 Unspecified hydronephrosis (principal); N15.1 Renal and perinephric abscess ==

== ENCOUNTER → 2017-10-24 | Outpatient (CLI) | payer OTHER, MEDICARE ==
[2017-10-24 09:59] LABS: BASO % 0.3 %; BASO ABS # 0.02 K/uL (0-0.2); EOS % 1.9 %; EOS ABS # 0.12 K/uL (0-0.5); HEMATOCRIT 46.4 % (37-47); HEMOGLOBIN 14.8 g/dL (12.0-16.0); IG# 0.01 K/uL (0.00-0.02); LYMPH % 29.8 %; LYMPH ABS # 1.91 K/uL (1.2-3.4); MEAN CELL VOLUME 89.6 fL (80-100); MEAN CORPUSCULAR HEMOGLOBIN 28.6 pg (25-34); MEAN CORPUSCULAR HGB CONC 31.9 g/dl (32-36); MEAN PLATELET VOLUME 9.6 fL (7.4-10.4); MONO % 11.4 %; MONO ABS # 0.73 K/uL (0.11-0.59); NEUT % 56.4 %; NEUT ABS # 3.61 K/uL (1.4-6.5); PLATELET COUNT 335 K/uL (130-400); RED CELL DISTRIBUTION WIDTH CV 16.2 % (11.5-14.5); RED CELL DISTRIBUTION WIDTH SD 53.3 fL (36.4-46.3)
[2017-10-24 10:08] LABS: INR 1.6 (0.9-1.1)
[2017-10-24 10:14] LABS: ALBUMIN 3.4 gm/dl (3.4-5.0); ALKALINE PHOSPHATASE 65 U/L (45-117); ALT/SGPT 34 U/L (12-78); AST/SGOT 31 U/L (15-37); BLOOD UREA NITROGEN 16 mg/dl (7-18); CARBON DIOXIDE 32 mmol/L (21-32); CREATININE 0.64 mg/dl (0.60-1.20); GLUCOSE 80 mg/dl (70-99); SODIUM 140 mmol/L (136-145); TOTAL PROTEIN 7.3 gm/dl (6.4-8.2)
== END | disposition home or self-care (01) ==
LOC: C.LABVPSUA 09:04
PROVIDERS: ATTEND Internal Medicine Critical Care Medicine
DX: I48.91 Unspecified atrial fibrillation (principal); N13.30 Unspecified hydronephrosis

== ENCOUNTER → 2017-10-27 | Day surgery (SDC) | payer OTHER, MEDICARE ==
[2017-10-12 15:40] VITALS: BMI 21.0
--- NOTE | 2017-10-17 09:00 | PAT Medication Instructions ---
Service Date Oct 17, 2017. Current Home Medication List Carvedilol (Coreg), 6.25 MG PO BID Enteral Nutrition Formula (Ensure Plus Vanilla), 1 CAN PO BID Losartan Potassium (Cozaar), 50 MG PO QAM Magnesium Oxide (Magnesium-Oxide), 400 MG PO BID Melatonin (Melatonin Maximum Strengt), 1 TAB PO HS Multivitamin (Multivitamin), 1 TAB PO QAM Probiotic Product (Align), 1 CAP PO QAM Tobramycin/Dexamethasone 0.3% Oph (Tobradex 0.3% Oph), 1 DROP OP QPM Warfarin Sodium (Coumadin), 1 MG PO DIRECTED Medication Instructions For Your Scheduled Surgery - Check with surgeon and prescribing physician for instructions: Warfarin Sodium (Coumadin), 1 MG PO DIRECTED - Hold the following medications the morning of surgery: Enteral Nutrition Formula (Ensure Plus Vanilla), 1 CAN PO BID Losartan Potassium (Cozaar), 50 MG PO QAM Magnesium Oxide (Magnesium-Oxide), 400 MG PO BID Multivitamin (Multivitamin), 1 TAB PO QAM Probiotic Product (Align), 1 CAP PO QAM - Take the following medications the morning of surgery with a sip of water: Carvedilol (Coreg), 6.25 MG PO BID - Take the following medications as scheduled the night before surgery: Melatonin (Melatonin Maximum Strengt), 1 TAB PO HS Magnesium Oxide (Magnesium-Oxide), 400 MG PO BID Enteral Nutrition Formula (Ensure Plus Vanilla), 1 CAN PO BID Carvedilol (Coreg), 6.25 MG PO BID Tobramycin/Dexamethasone 0.3% Oph (Tobradex 0.3% Oph), 1 DROP OP QPM If you have any questions please call us at [phone] or [phone] or [phone]
[2017-10-17 10:37] VITALS: BMI 21.0
[~2017-10-27] VITALS: Ht 147.3 cm; Wt 47.5 kg
[~2017-10-27] MED LIST changes: +ATROPINE SULFATE 0.1 MG/ML 5ML SYR IV PRN; +CIPROFLOXACIN / D5W 400 MG IV SCH; +Cysto-Conray II 17.2% 250ML BOTTLE ONE; +EpHEDrine SULFATE INJ 50 MG/ML AMP IV PRN; +FENTANYL CITRATE INJ 50 MCG/1 ML 2 ML VIAL IV PRN; +FENTANYL CITRATE INJ 50 MCG/1 ML 2 ML VIAL ONE; +LACTATED RINGER'S 1000ML 1,000 ML IV SCH; +ONDANSETRON INJ 2 MG/ML 2 ML VIAL IV PRN; +ONDANSETRON INJ 2 MG/ML 2 ML VIAL ONE; +OXYCODONE/ACETAMINOPHEN 5-325 TAB PO PRN; +PHENAZOPYRIDINE HCL 100 MG TAB PO PRN; +PROPOFOL IV EMULSION 10 MG/ML 20 ML VIAL ONE
[2017-10-27 12:01] VITALS: BP 144/76; PULSE 74; TEMP 36.5; O2SAT 99; Ht 147.3 cm; Wt 47.5 kg
[2017-10-27 12:34] LABS: INR 0.9 (0.9-1.1); PTT PATIENT 23.3 SECONDS (21.0-31.0)
--- NOTE | 2017-10-27 14:18 | Discharge Instructions ---
Discharge Instructions Date of Service Oct 27, 2017. Admission Reason for Admission: Right Stones, Nephrolithiasis Discharge Discharge Diagnosis / Problem: History of R stones s/p right ureteroscopy with stent exchange. Discharge Goals Goal(s): Diagnostic testing, Therapeutic intervention Activity Recommendations Activity Limitations: as noted below Lifting Limitations: no more than 25 pounds, gradually increase as tolerated Exercise/Sports Limitations: rest today, gradually increase as tolerated May Resume Sexual Activity: when tolerated Shower/Bathe: no limitations Driving or Machine Use: resume 1 day after discharge . Current Hospital Diet Patient's current hospital diet: Discharge Diet Recommended Diet: Regular Diet (good fluid intake) Procedures Procedures Performed: Cystoscopy, right ureteroscopy, stent exchange and retrograde pyelography. Pending Studies Studies pending at discharge: yes List of pending studies: culture results Medical Emergencies . Who to Call and When: Medical Emergencies: If at any time you feel your situation is an emergency, please call 911 immediately. . Non-Emergent Contact Non-Emergency issues call your: Urologist Call Non-Emergent contact if: you have a fever, temperature is above 101, your pain is not controlled, your pain is worsening, your pain is unusual for you, your pain is concerning you, you have any medication questions . . "Provider Documentation" section prepared by Yohannes Jones. . [place] Drug Monitoring Program Search Results: patient reviewed within database, no issues identified
--- NOTE | 2017-10-27 15:18 | [facility] Operative Report ---
Operative Report Operative Date Oct 27, 2017. 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 Surgeon Dr. 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 Specimens Culture 1. Right ureteral stent Right renal pelvis urine Drains 6 [place] 24 cm right-sided double-J ureteral stent in good position on fluo Anesthesia Type General Complication(s) none Disposition no Recovery Room / PACU Indications 72-year-old female who is status post acute ureteral stent placement 3 months ago for sepsis and right hydronephrosis. She has been found to have a perirenal abscess which was felt to be possibly connected to her collecting system. Recent IVP demonstrates no extravasation of contrast. Abscess has shrunk with conservative management with IV antibiotics. She is here today for evaluation of her right renal moiety for removal of any obstructing lesions which may has precipitated her events. Please see H&P for further details. Intravenous ciprofloxacin provided for antibiotic coverage. SCDs used for DVT prophylaxis. Description of Procedure Patient was properly identified and brought into the operative suite after identification of appropriate consent in the chart. General anesthesia with laryngeal mask was initiated and patient was prepped and draped in standard for this procedure. Full timeout procedure was followed. 22 [place] rigid cystoscope was passed into the bladder under direct visualization. Cystoscopy demonstrated bladder inflammation centered around a right-sided partially encrusted ureteral stent. This was grasped and removed from the patient without difficulties. Seen the copious amounts of debris this was sent for culture. Right ureteral orifice was cannulated using an open-ended catheter and gentle retrograde pyelography was performed. This demonstrated an inflamed ureter without clear obstructing lesions. Hydronephrosis from the level of the ureteropelvic junction proximally with dilation of the calyces and renal pelvis was appreciated. Sensor tip wire was able to be advanced without difficulties or resistance. A second working sensor wire was used to place a 12/14 26 cm right-sided ureteral access sheath up to the level of the proximal ureter. Digital ureteroscope was able to be advanced the level of the right renal pelvis without difficulties or resistance. Complete pyeloscopy was performed demonstrating the dilated renal pelvis with copious amounts of inflammation and debris. Urine culture was taken through ureteroscope and sent for culture and sensitivity. Pyeloscopy demonstrated no areas of extravasation, perforation or other abnormalities within the collecting system. At the level of the ureteropelvic junction a stenotic area was appreciated with apparent obstruction. This was felt to be consistent with a UPJ obstruction on the right -hand side. Complete exit ureteroscopy including removal of the access sheath was performed demonstrating inflammation and small amount of debris within the ureter but no obstructing stones, strictures or lesions otherwise. Cystoscope was backloaded over the safety wire after removal of the ureteroscope and a 6 [place] 24 cm double-J ureteral stent was advanced with a full coil being present both within the bladder at the level of the right renal pelvis on fluoroscopic evaluation. Hydronephrotic drip was appreciated. Bladder was flushed and cystoscope was removed. Anesthesia was reversed and patient was transferred to recovery room in stable condition. Follow-up instructions: Patient to continue on antibiotics for 4 more days per the infectious disease service pending her culture results. We will plan on stent removal as planned. Care is discussed with the patient's today in the postoperative period. I attest to the content of the Intraoperative Record and any orders documented therein. Any exceptions are noted below.
--- NOTE | 2017-10-27 15:49 | DIAGNOSTIC IMAGING REPORT ---
R RETROGRADE INCLUDES KUB CLINICAL HISTORY: RT LASER/LITHOTRIPSY COMPARISON STUDY: IVP dated 10/04/2017 FINDINGS: 80 seconds of fluoroscopic time was utilized. 6 intraoperative fluoroscopic spot images are provided for interpretation. The right ureter was catheterized in a retrograde fashion and contrast was instilled. There is dilatation of the right renal pelvis. There is minor irregularity of the distal right ureter. A guidewire was introduced into the renal pelvis. Final images demonstrate the proximal pigtail of a right-sided nephroureteral stent. IMPRESSION: Intraoperative fluoroscopic spot radiographs obtained during a retrograde study and placement of a right-sided nephroureteral stent Electronically signed by: Domingo Eli M.D. 10/27/2017 3:48 PM Dictated Date/Time: 10/27/2017 3:46 PM
[2017-10-27 16:12] VITALS: BP 146/65; PULSE 65; TEMP 36.5; O2SAT 100
[2017-10-27 16:42] VITALS: BP 173/71; PULSE 68; TEMP 36.5; O2SAT 98
--- NOTE | 2017-10-27 16:51 | Anesthesiology Progress Note ---
Anesthesia Post Op Note Date & Time Oct 27, 2017 at 16:50 Vital Signs Pain Intensity: 0 Vital Signs Past 12 Hours Date Time Temp Pulse Resp B/P (MAP) Pulse Ox O2 Delivery O2 Flow Rate FiO2 10/27/17 16:00 36.4 60 14 147/74 95 Room Air 10/27/17 15:50 63 14 149/77 100 Room Air 10/27/17 15:40 63 14 151/73 100 Oxymask 10 10/27/17 15:30 64 14 138/76 100 Oxymask 10 10/27/17 15:23 36.5 54 14 130/81 100 Oxymask 10 10/27/17 12:01 36.5 74 18 144/76 (98) 99 Room Air Notes Mental Status: alert / awake / arousable, participated in evaluation, see Notes Pt Amnestic to Procedure: Yes Nausea / Vomiting: adequately controlled Pain: adequately controlled Airway Patency, RR, SpO2: stable & adequate BP & HR: stable & adequate Hydration State: stable & adequate Anesthetic Complications: no major complications apparent Patient is at baseline mental and neurologic status
== END | disposition home or self-care (01) ==
LOC: C.ACU 11:33
PROVIDERS: ATTEND Urology
DX: N13.30 Unspecified hydronephrosis (principal); N15.1 Renal and perinephric abscess; I42.8 Other cardiomyopathies; I48.2 Chronic atrial fibrillation; I10 Essential (primary) hypertension; M81.0 Age-related osteoporosis without current pathological fracture; Z88.1 Allergy status to other antibiotic agents; Z88.5 Allergy status to narcotic agent; Z88.0 Allergy status to penicillin; Z88.8 Allergy status to other drugs, medicaments and biological substances; Z79.01 Long term (current) use of anticoagulants; Z86.73 Personal history of transient ischemic attack (TIA), and cerebral infarction without residual deficits

== ENCOUNTER → 2017-10-27 | Outpatient (CLI) | payer OTHER, MEDICARE ==
[~2017-10-27] MED LIST changes: -ATROPINE SULFATE 0.1 MG/ML 5ML SYR IV PRN; -CIPROFLOXACIN / D5W 400 MG IV SCH; -Cysto-Conray II 17.2% 250ML BOTTLE ONE; -EpHEDrine SULFATE INJ 50 MG/ML AMP IV PRN; -FENTANYL CITRATE INJ 50 MCG/1 ML 2 ML VIAL IV PRN; -FENTANYL CITRATE INJ 50 MCG/1 ML 2 ML VIAL ONE; -LACTATED RINGER'S 1000ML 1,000 ML IV SCH; -ONDANSETRON INJ 2 MG/ML 2 ML VIAL IV PRN; -ONDANSETRON INJ 2 MG/ML 2 ML VIAL ONE; -OXYCODONE/ACETAMINOPHEN 5-325 TAB PO PRN; -PHENAZOPYRIDINE HCL 100 MG TAB PO PRN; -PROPOFOL IV EMULSION 10 MG/ML 20 ML VIAL ONE
[2017-10-27 10:10] LABS: INR 0.9 (0.9-1.1)
== END | disposition home or self-care (01) ==
LOC: C.LABVPSUA 09:39
PROVIDERS: ATTEND Internal Medicine Critical Care Medicine
DX: I48.91 Unspecified atrial fibrillation (principal)

== ENCOUNTER → 2017-10-31 | Outpatient (CLI) | payer OTHER, MEDICARE ==
[~2017-10-31] MED LIST changes: -TOBRSUS OP
[2017-10-31 11:48] LABS: BASO % 0.5 %; BASO ABS # 0.03 K/uL (0-0.2); EOS % 1.7 %; EOS ABS # 0.11 K/uL (0-0.5); HEMATOCRIT 46.3 % (37-47); HEMOGLOBIN 14.7 g/dL (12.0-16.0); IG# 0.01 K/uL (0.00-0.02); LYMPH % 27.8 %; LYMPH ABS # 1.81 K/uL (1.2-3.4); MEAN CELL VOLUME 89.2 fL (80-100); MEAN CORPUSCULAR HEMOGLOBIN 28.3 pg (25-34); MEAN CORPUSCULAR HGB CONC 31.7 g/dl (32-36); MEAN PLATELET VOLUME 9.5 fL (7.4-10.4); MONO % 11.8 %; MONO ABS # 0.77 K/uL (0.11-0.59); NEUT ABS # 3.78 K/uL (1.4-6.5); PLATELET COUNT 294 K/uL (130-400); RED CELL DISTRIBUTION WIDTH CV 15.6 % (11.5-14.5); RED CELL DISTRIBUTION WIDTH SD 51.3 fL (36.4-46.3); WHITE BLOOD COUNT 6.51 K/uL (4.8-10.8)
[2017-10-31 11:57] LABS: INR 1.5 (0.9-1.1)
[2017-10-31 12:02] LABS: ALBUMIN 3.2 gm/dl (3.4-5.0); ALKALINE PHOSPHATASE 72 U/L (45-117); ALT/SGPT 32 U/L (12-78); AST/SGOT 26 U/L (15-37); BLOOD UREA NITROGEN 19 mg/dl (7-18); CARBON DIOXIDE 31 mmol/L (21-32); CREATININE 0.59 mg/dl (0.60-1.20); GLUCOSE 71 mg/dl (70-99); POTASSIUM 4.6 mmol/L (3.5-5.1); SODIUM 141 mmol/L (136-145); TOTAL PROTEIN 7.5 gm/dl (6.4-8.2)
== END | disposition home or self-care (01) ==
LOC: C.LABVPSUA 10:33
PROVIDERS: ATTEND Internal Medicine Critical Care Medicine
DX: N13.30 Unspecified hydronephrosis (principal); N15.1 Renal and perinephric abscess

== ENCOUNTER → 2017-11-01 | Outpatient (CLI) | payer OTHER, MEDICARE ==
[~2017-11-01] MED LIST changes: +OPTIRAY 320 IV PRN
--- NOTE | 2017-11-01 14:50 | DIAGNOSTIC IMAGING REPORT ---
CT SCAN OF THE ABDOMEN AND PELVIS WITH IV CONTRAST CLINICAL HISTORY: Follow-up right renal abscess. COMPARISON STUDY: Prior abdominal CT scans, most recently dated 09/29/2017. TECHNIQUE: Following the IV administration of 90 cc of Optiray 320, CT scan of the abdomen and pelvis is performed from the lung bases to the proximal femora. Images are reviewed in the axial, sagittal, and coronal planes. IV contrast was administered without complication. A dose lowering technique was utilized adhering to the principles of ALARA. The Examination is degraded by streak artifact from the patient's arms which could not be elevated above the abdomen. The examination is also compromised by motion artifact. CT DOSE: 345.67 mGy.cm FINDINGS: Lung bases: The heart is enlarged and without pericardial effusion. There are coronary artery calcifications. The lung bases are clear noting mild bibasilar scarring/atelectasis. Liver: The contrast-enhanced liver is normal in size, contour, and attenuation. There is no intrahepatic biliary ductal dilatation. The hepatic veins and portal veins are patent. Gallbladder: Surgically absent noting clips in the gallbladder fossa. Spleen: Normal in size and attenuation. Pancreas: Moderately atrophic and grossly unremarkable. Adrenal glands: Unremarkable. Kidneys: The contrast enhanced kidneys demonstrate cortical atrophy. A right ureteral stent is in appropriate position. No calculi are identified along the course of the stent. Nonspecific urothelial thickening of the right ureter is likely related to the presence of an indwelling stent. There is no hydronephrosis. The kidneys enhance symmetrically. Foci of cortical scarring are noted in the left kidney. Scattered subcentimeter cortical hypodensities likely represent cysts but are too small for definitive characterization. A 1.2 cm angiomyolipoma is again seen in the upper pole of the right kidney. Abdominal vasculature: The abdominal aorta is normal in course and caliber noting mild atherosclerotic calcification. Bowel: There are postoperative changes from partial colonic and small bowel resections. No bowel obstruction is seen. There is wall thickening and hyperemia noted involving the remaining rectosigmoid colon. The appendix is normal as visualized. Peritoneum: There is no intraperitoneal free air or abdominal ascites. The previously identified collection in the right mid abdomen has a most completely resolved. There is residual stranding and soft tissue thickening at this site seen on image #[id number], which measures 1.3 x 1.2 cm. This does maintain appear to maintain a thin tract of communication to the right renal pelvis. Lymphadenopathy: None. Pelvic viscera: Evaluation of the pelvis is degraded by streak artifact from a left hip arthroplasty. Gas is noted in the bladder lumen. The bladder is otherwise normal as imaged. The uterus is grossly unremarkable. No adnexal lesion is seen. Skeletal structures: The skeletal structures are osteopenic. There is advanced lumbosacral spondylosis and scoliosis. No lytic or blastic lesions are seen. A left hip arthroplasty is in place. Arthritic change is noted in the right hip and sacroiliac joints. There are healed left-sided rib fractures. There is a severe compression deformity of T11. Mild compression deformities are noted in T9 and L4. IMPRESSION: 1. Streak and motion compromised examination 2. A right ureteral stent is in appropriate position. Right-sided hydronephrosis has resolved. 3. The previously characterized abscess in the right mid abdomen has almost completely resolved from 09/29/2017, with only mild soft tissue thickening/stranding now seen at this site. 4. A thin tract is again suggested extending from the site of the abscess to the right collecting system. 5. There are postoperative changes from small bowel and colonic resections. No bowel obstruction is seen. 6. Wall thickening and hyperemia is again suggested involving the remaining rectosigmoid colon. Correlate clinically for evidence of proctocolitis. 7. Additional findings as above. Electronically signed by: Butch Carr M.D. 11/01/2017 2:48 PM Dictated Date/Time: 11/01/2017 2:33 PM
== END | disposition home or self-care (01) ==
LOC: C.CTS 14:11
PROVIDERS: ATTEND Urology
DX: N15.1 Renal and perinephric abscess (principal)

== ENCOUNTER → 2017-11-03 | Outpatient (CLI) | payer OTHER, MEDICARE ==
[~2017-11-03] MED LIST changes: -OPTIRAY 320 IV PRN
[2017-11-03 09:59] LABS: INR 2.3 (0.9-1.1)
== END | disposition home or self-care (01) ==
LOC: C.LABVPSUA 09:06
PROVIDERS: ATTEND Internal Medicine Critical Care Medicine
DX: I48.91 Unspecified atrial fibrillation (principal)

== ENCOUNTER → 2017-11-08 | Outpatient (CLI) | payer OTHER, MEDICARE | END | disposition home or self-care (01) | LOC: C.LABSPEC 17:11 | PROVIDERS: ATTEND Urology | DX: N39.0 Urinary tract infection, site not specified (principal) ==

== ENCOUNTER → 2017-11-11 | Outpatient (CLI) | payer OTHER, MEDICARE ==
[2017-11-11 10:14] LABS: BASO % 0.6 %; BASO ABS # 0.04 K/uL (0-0.2); EOS % 1.2 %; EOS ABS # 0.08 K/uL (0-0.5); HEMATOCRIT 46.9 % (37-47); HEMOGLOBIN 15.3 g/dL (12.0-16.0); IG# 0.01 K/uL (0.00-0.02); LYMPH % 28.4 %; LYMPH ABS # 1.96 K/uL (1.2-3.4); MEAN CELL VOLUME 88.2 fL (80-100); MEAN CORPUSCULAR HEMOGLOBIN 28.8 pg (25-34); MEAN CORPUSCULAR HGB CONC 32.6 g/dl (32-36); MEAN PLATELET VOLUME 9.4 fL (7.4-10.4); MONO % 10.4 %; MONO ABS # 0.72 K/uL (0.11-0.59); NEUT % 59.3 %; NEUT ABS # 4.09 K/uL (1.4-6.5); PLATELET COUNT 313 K/uL (130-400); RED CELL DISTRIBUTION WIDTH CV 15.5 % (11.5-14.5); RED CELL DISTRIBUTION WIDTH SD 49.6 fL (36.4-46.3)
[2017-11-11 10:21] LABS: INR 2.9 (0.9-1.1)
[2017-11-11 10:26] LABS: ALBUMIN 3.3 gm/dl (3.4-5.0); ALKALINE PHOSPHATASE 74 U/L (45-117); ALT/SGPT 31 U/L (12-78); AST/SGOT 26 U/L (15-37); BLOOD UREA NITROGEN 20 mg/dl (7-18); CARBON DIOXIDE 29 mmol/L (21-32); CREATININE 0.87 mg/dl (0.60-1.20); GLUCOSE 91 mg/dl (70-99); POTASSIUM 4.7 mmol/L (3.5-5.1); SODIUM 138 mmol/L (136-145); TOTAL PROTEIN 7.5 gm/dl (6.4-8.2)
== END ==
LOC: C.LABVPSUA 09:53
PROVIDERS: ATTEND Internal Medicine Critical Care Medicine
DX: N15.1 Renal and perinephric abscess (principal); I48.91 Unspecified atrial fibrillation; N13.30 Unspecified hydronephrosis

== ENCOUNTER → 2017-11-15 | Outpatient (CLI) | payer OTHER, MEDICARE ==
[2017-11-15 09:42] LABS: INR 2.6 (0.9-1.1)
== END | disposition home or self-care (01) ==
LOC: C.LABVPSUA 09:06
PROVIDERS: ATTEND Internal Medicine Critical Care Medicine
DX: I48.91 Unspecified atrial fibrillation (principal)

== ENCOUNTER → 2017-11-18 | Outpatient (CLI) | payer OTHER, MEDICARE ==
[2017-11-18 09:16] LABS: BASO % 0.6 %; BASO ABS # 0.03 K/uL (0-0.2); EOS % 1.7 %; EOS ABS # 0.09 K/uL (0-0.5); HEMATOCRIT 45.5 % (37-47); HEMOGLOBIN 14.7 g/dL (12.0-16.0); IG# 0.02 K/uL (0.00-0.02); LYMPH % 30.2 %; LYMPH ABS # 1.57 K/uL (1.2-3.4); MEAN CORPUSCULAR HEMOGLOBIN 28.4 pg (25-34); MEAN CORPUSCULAR HGB CONC 32.3 g/dl (32-36); MEAN PLATELET VOLUME 9.2 fL (7.4-10.4); MONO % 12.1 %; MONO ABS # 0.63 K/uL (0.11-0.59); NEUT ABS # 2.86 K/uL (1.4-6.5); PLATELET COUNT 300 K/uL (130-400); RED CELL DISTRIBUTION WIDTH CV 15.1 % (11.5-14.5); RED CELL DISTRIBUTION WIDTH SD 47.8 fL (36.4-46.3)
[2017-11-18 09:24] LABS: INR 2.7 (0.9-1.1)
[2017-11-18 09:30] LABS: ALBUMIN 3.2 gm/dl (3.4-5.0); ALKALINE PHOSPHATASE 64 U/L (45-117); ALT/SGPT 27 U/L (12-78); AST/SGOT 24 U/L (15-37); BLOOD UREA NITROGEN 17 mg/dl (7-18); CALCIUM 8.8 mg/dl (8.5-10.1); CARBON DIOXIDE 32 mmol/L (21-32); GLUCOSE 85 mg/dl (70-99); POTASSIUM 4.3 mmol/L (3.5-5.1); SODIUM 141 mmol/L (136-145); TOTAL PROTEIN 6.9 gm/dl (6.4-8.2)
== END | disposition home or self-care (01) ==
LOC: C.LABVPSUA 09:00
PROVIDERS: ATTEND Internal Medicine Critical Care Medicine
DX: N13.30 Unspecified hydronephrosis (principal); N15.1 Renal and perinephric abscess

== ENCOUNTER 2020-04-30 20:30 | Inpatient (IN) ==
[2020-04-30] MEDS ORDERED: SODIUM CHLORIDE 0.9% 1000ML 1,000 ML IV ONE (21:01)
[2020-04-30] MEDS ORDERED: CEFEPIME 2,000 MG/20 ML VIAL IV STA (21:03)
[2020-04-30] MEDS ORDERED: ACETAMINOPHEN 1000 MG/100 ML IV IV STA (21:07)
--- NOTE | 2020-04-30 21:07 | Emergency Department Note ---
Impression & Plan Sepsis, Leukocytosis, International normalized ratio (INR) greater than 2, Pneumonia ED Provider Note NAME: GWEN BROUSSARD AGE: 74 SEX: F : 1945 ARRIVES VIA: Ambulance INFORMANT: Patient, EMS ED PROVIDER(S): Anup Ward DO CHIEF COMPLAINT: Shortness of breath HPI: Patient is a 74-year-old female who presents to the ER for shortness of breath and a fever. She was in the [facility]rium with her and ate some of his Guamanian fries. She is on a pured diet due to swallowing issues. By the time he noticed that she had already swallowed a Guamanian arrington. Shortly after this she had some choking. He performed the Heimlich on her. She never passed out. She was checked later and found to be a little hypoxic and febrile. She denies all other complaints. They note that she is slightly confused off of baseline. She is a full code per her at bedside. ROS: Limited secondary to confusion PAST MEDICAL HISTORY:See Below PAST SURGICAL HISTORY:See Below FAMILY HISTORY:See Below SOCIAL HISTORY:See Below HOME MEDICATIONS:See Below ALLERGIES:See Below VITALS:See Below PHYSICAL EXAMINATION: GENERAL: Sitting up in bed, alert, chronically ill-appearing, disheveled, mild distress on nasal cannula EYE EXAM: normal conjunctiva. PERRL and EOM's grossly intact. OROPHARYNX: no exudate, no erythema, lips, buccal mucosa, and tongue normal and mucous membranes are moist NECK: supple, no nuchal rigidity, no adenopathy, non-tender LUNGS: Diminished bilaterally. Normal chest wall mechanics HEART: Tachycardic, S1 normal and S2 normal ABDOMEN: abdomen soft, non-tender, normo-active bowel sounds, no masses, no rebound or guarding. SKIN: no rashes and no bruising UPPER EXTREMITIES: upper extremities are grossly normal. LOWER EXTREMITIES: No pitting edema. NEURO EXAM: Awake alert not oriented to place or year following commands. Left upper extremity held against body/rigid. Baseline per . MEDICAL DECISION MAKING: Patient is a 74-year-old female who presents the ER after eating a [place]ian arrington at the atrium. She is supposed be in. Foods. Following this she had some choking was found to be hypoxic. She was brought into the ER. IV was established blood work was obtained. She remained on 2 L nasal cannula. Labs with a white count 21,000. No significant anemia. BMP was fairly unremarkable. INR was the rapeutic at 2.6. PE was not pursued because of this. Bilirubin LFTs and troponin was unremarkable. Patient was covered with IV antibiotics including Cefepime and vancomycin. She was in A. fib with RVR. She was given IV fluid boluses and heart rate trended down. CT of the chest showed worsening infiltrates which are new from previous scan in early March. CT of the head with no acute pathology. Urine and Covid were pending upon admission. Triage Nursing notes reviewed. Limited review of prior medical records performed Vital Signs: reviewed and remarkable for a relative, tachycardic, hypoxic Differential diagnosis: Differential diagnosis includes etiologies such as sepsis, UTI, pneumonia, metabolic, electrolyte abnormalities, cardiac sources, intracerebral event, toxicologic, neurological, as well as others were entertained. ER treatment provided: See below Diagnostics interpreted by me: ECG: A. fib rate of 105 Left axis No PVCs T wave inversion in the high lateral leads Poor baseline in the septal leads QTC 436 Cardiac Monitoring: An order was placed for continuous cardiac monitoring. The monitor shows a rate of 132 with A. fib rhythm. Laboratory studies: As stated above and show below. Imaging studies: Portable AP upright 1 view the chest shows focal consolidation left lower lobe not significant change from previous CT CHEST Without Contrast: There is a lentiform area of consolidation in the periphery of the left lung base measuring approximately 3 x 8 cm, unchanged. This may represent pneumonia and/or atelectasis. Scattered interstitial infiltrates are present in the left upper lobe and right middle lobe, increased since previous consistent with pneumonia. No pneumothorax or pleural effusion is seen. The heart is moderately enlarged. Severe coronary calcification is present. No pericardial effusion is seen. The thoracic aorta is nondilated but no mediastinal or axillary lymphadenopathy or mass is seen. Moderate multilevel degenerative changes in the mid to lower thoracic spine with a chronic appearing 70% compression fracture at T12. There is an old healed sternal fracture. CT HEAD: Mild diffuse cerebral atrophy and moderate periventricular white matter low density consistent with chronic small vessel disease. 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 The There is no evidence of acute large vessel infarct or intracranial hemorrhage. The paranasal sinuses and mastoid air cells are normal. There is no skull fracture or scalp hematoma. Consultation(s): Discussed with hospitalist for further evaluation Procedures: none Critical Care: I have personally spent 33 minutes of critical care time in the direct management of this patient. This includes bedside care, interpretation of diagnostic studies, and testing, discussion with consultants, patient, and famil y members, and other required patient management activities. This 33 minutes is in excess of all separately billable procedures. Past Med/Surg History Medical History (Updated 04/30/20 @ 22:14 by Anup Ward DO) C. difficile colitis CHF (congestive heart failure) Sjoegren syndrome Surgical History H/O tubal ligation History of cataract surgery History of cholecystectomy History of colostomy History of colostomy reversal History of hip replacement History of resection of small bowel Status post cystoscopy with ureteral stent placement Family History Sister Breast cancer Denies family history of Ovarian cancer Colorectal cancer Uterine cancer Social History Smoking Status: Never smoker Hx Alcohol Use: No Hx Substance Use: No Preferred Language: Ata marital status: Current Living Situation: Spouse current occupational status: retired Feels Safe at Home: Yes Allergies Allergies Allergy/AdvReac Type Severity Reaction Status Date / Time ampicillin Allergy Unknown rash Verified 05/07/19 11:40 morphine Allergy Unknown RASH Verified 05/07/19 11:40 Penicillins Allergy Unknown RASH Verified 05/07/19 11:40 sulindac Allergy Unknown rash Verified 05/07/19 11:40 tetracycline Allergy Unknown RASH Verified 05/07/19 11:40 tolmetin Allergy Unknown RASH Verified 05/07/19 11:40 Home Meds Home Medications Medication Instructions Recorded Confirmed carvedilol 6.25 mg tablet 6.25 mg PO BID #180 tab 01/05/19 05/07/19 losartan 50 mg tablet 50 mg PO DAILY #90 tab 01/05/19 05/07/19 warfarin 1 mg tablet 2 mg PO DIRECTED tab 01/05/19 05/07/19 Bifidobacterium infantis [Align] 4 mg PO DAILY 02/08/19 03/13/19 acetaminophen 650 mg PO Q4H PRN 02/08/19 05/07/19 artificial tears(hypromellose) 1 drp OPHTHALMIC (EYE) DAILY 02/08/19 05/07/19 [Systane Gel] artificial tears(hypromellose) 1 drp OPHTHALMIC (EYE) TID 02/08/19 05/07/19 [Systane Gel] multivitamin [Daily-Rogelio] 1 tab PO DAILY 02/08/19 05/07/19 phenyleph-min oil-petrolatum 1 applic OK DAILY PRN 02/08/19 05/07/19 [Preparation H] sennosides-docusate sodium 1 tab-cap PO BID PRN 02/08/19 05/07/19 [Senna-S] warfarin [Coumadin] 1 mg PO DIRECTED 02/08/19 05/07/19 Results & Data (ED) Vital Signs Vital Signs - 24 hr 04/30/20 20:45 04/30/20 20:55 04/30/20 21:38 Temperature 38.4 C H Temperature Source Axillary Pulse Rate 115 H Pulse Rhythm Irregular Respiratory Rate 24 20 Respiratory Effort / Characteristics Spontaneous Non-Labored Spontaneous Respiratory Depth Normal Blood Pressure 115/78 Blood Pressure Mean 90 Blood Pressure Position Sitting Pulse Oximetry 87 L 98 Oxygen Delivery Method Room Air Nasal Cannula Room Air Oxygen Flow Rate 3 Sepsis Recent Fever Within 48 Hours Yes Sepsis New/Unexplained Change in Mental Status Yes Sepsis Action Taken by Nursing No Action Required Laboratory Data Result diagrams: 04/30/20 20:55 04/30/20 20:55 Lab Results 04/30/20 04/30/20 04/30/20 Range/Units 20:55 20:55 20:55 WBC 21.01 H (4.8-10.8) K/uL RBC 5.28 (4.2-5.4) M/uL Hgb 12.9 (12.0-16.0) g/dL Hct 41.4 (37-47) % MCV 78.4 L (80-100) fL MCH 24.4 L (25-34) pg MCHC 31.2 L (32-36) g/dL RDW Std Deviation 51.8 H (36.4-46.3) fL RDW Coeff of Gera 18.2 H (11.5-14.5) % Plt Count 227 (130-400) K/uL MPV 9.0 (7.4-10.4) fL Immature Gran % (Auto) 0.4 % Neut % (Auto) 88.3 % Lymph % (Auto) 7.0 % [place] % (Auto) 4.3 % Eos % (Auto) 0.0 % Baso % (Auto) 0.0 % Neut # (Auto) 18.54 H (1.4-6.5) K/uL Lymph # (Auto) 1.47 (1.2-3.4) K/uL [place] # (Auto) 0.91 H (0.11-0.59) K/uL Eos # (Auto) 0.00 (0-0.5) K/uL Baso # (Auto) 0.01 (0-0.2) K/uL Immature Gran # (Auto) 0.08 H (0.00-0.02) K/uL PT 24.8 H (9.0-12.0) Seconds INR 2.6 H (0.9-1.1) APTT 38.3 H (21.0-31.0) Seconds PTT Ratio 1.5 Sodium 137 (136-145) mmol/L Potassium 4.1 (3.5-5.1) mmol/L Chloride 103 (98-107) mmol/L Carbon Dioxide 29 (21-32) mmol/L Anion Gap 6.0 (3-11) BUN 22 H (7-18) mg/dl Creatinine 0.76 (0.6-1.2) mg/dl Est Cr Clr Drug Dosing Not Reportable Est GFR ( Amer) 90.8 Est GFR (Non-Af Amer) 78.4 BUN/Creatinine Ratio 28.9 H (10-20) Glucose 107 H (70-99) mg/dl Lactate (0.4-2.0) mmol/L Calcium 9.9 (8.5-10.1) mg/dl Magnesium 2.2 (1.8-2.4) mg/dl Total Bilirubin 0.7 (0.2-1) mg/dl AST 18 (15-37) U/L ALT 24 (12-78) U/L Alkaline Phosphatase 116 (45-117) U/L Troponin I < 0.015 (0-0.045) ng/ml Total Protein 8.3 H (6.4-8.2) gm/dl Albumin 3.2 L (3.4-5.0) gm/dl Globulin 5.1 H (2.5-4.0) gm/dl Albumin/Globulin Ratio 0.6 L (0.9-2) Procalcitonin (0-0.5) ng/ml COVID-19 Eval Order 04/30/20 04/30/20 04/30/20 Range/Units 20:55 20:55 20:55 WBC (4.8-10.8) K/uL RBC (4.2-5.4) M/uL Hgb (12.0-16.0) g/dL Hct (37-47) % MCV (80-100) fL MCH (25-34) pg MCHC (32-36) g/dL RDW Std Deviation (36.4-46.3) fL RDW Coeff of Gera (11.5-14.5) % Plt Count (130-400) K/uL MPV (7.4-10.4) fL Immature Gran % (Auto) % Neut % (Auto) % Lymph % (Auto) % [place] % (Auto) % Eos % (Auto) % Baso % (Auto) % Neut # (Auto) (1.4-6.5) K/uL Lymph # (Auto) (1.2-3.4) K/uL [place] # (Auto) (0.11-0.59) K/uL Eos # (Auto) (0-0.5) K/uL Baso # (Auto) (0-0.2) K/uL Immature Gran # (Auto) (0.00-0.02) K/uL PT (9.0-12.0) Seconds INR (0.9-1.1) APTT (21.0-31.0) Seconds PTT Ratio Sodium (136-145) mmol/L Potassium (3.5-5.1) mmol/L Chloride (98-107) mmol/L Carbon Dioxide (21-32) mmol/L Anion Gap (3-11) BUN (7-18) mg/dl Creatinine (0.6-1.2) mg/dl Est Cr Clr Drug Dosing Est GFR ( Amer) Est GFR (Non-Af Amer) BUN/Creatinine Ratio (10-20) Glucose (70-99) mg/dl Lactate 1.6 (0.4-2.0) mmol/L Calcium (8.5-10.1) mg/dl Magnesium (1.8-2.4) mg/dl Total Bilirubin (0.2-1) mg/dl AST (15-37) U/L ALT (12-78) U/L Alkaline Phosphatase (45-117) U/L Troponin I Cancelled (0-0.045) ng/ml Total Protein (6.4-8.2) gm/dl Albumin (3.4-5.0) gm/dl Globulin (2.5-4.0) gm/dl Albumin/Globulin Ratio (0.9-2) Procalcitonin 0.13 (0-0.5) ng/ml COVID-19 Eval Order 04/30/20 Range/Units 21:37 WBC (4.8-10.8) K/uL RBC (4.2-5.4) M/uL Hgb (12.0-16.0) g/dL Hct (37-47) % MCV (80-100) fL MCH (25-34) pg MCHC (32-36) g/dL RDW Std Deviation (36.4-46.3) fL RDW Coeff of Gera (11.5-14.5) % Plt Count (130-400) K/uL MPV (7.4-10.4) fL Immature Gran % (Auto) % Neut % (Auto) % Lymph % (Auto) % [place] % (Auto) % Eos % (Auto) % Baso % (Auto) % Neut # (Auto) (1.4-6.5) K/uL Lymph # (Auto) (1.2-3.4) K/uL [place] # (Auto) (0.11-0.59) K/uL Eos # (Auto) (0-0.5) K/uL Baso # (Auto) (0-0.2) K/uL Immature Gran # (Auto) (0.00-0.02) K/uL PT (9.0-12.0) Seconds INR (0.9-1.1) APTT (21.0-31.0) Seconds PTT Ratio Sodium (136-145) mmol/L Potassium (3.5-5.1) mmol/L Chloride (98-107) mmol/L Carbon Dioxide (21-32) mmol/L Anion Gap (3-11) BUN (7-18) mg/dl Creatinine (0.6-1.2) mg/dl Est Cr Clr Drug Dosing Est GFR ( Amer) Est GFR (Non-Af Amer) BUN/Creatinine Ratio (10-20) Glucose (70-99) mg/dl Lactate (0.4-2.0) mmol/L Calcium (8.5-10.1) mg/dl Magnesium (1.8-2.4) mg/dl Total Bilirubin (0.2-1) mg/dl AST (15-37) U/L ALT (12-78) U/L Alkaline Phosphatase (45-117) U/L Troponin I (0-0.045) ng/ml Total Protein (6.4-8.2) gm/dl Albumin (3.4-5.0) gm/dl Globulin (2.5-4.0) gm/dl Albumin/Globulin Ratio (0.9-2) Procalcitonin (0-0.5) ng/ml COVID-19 Eval Order [facility]FluRsv at [facility] Administered Medications Discontinued Medications Acetaminophen (Acetaminophen 1000 Mg/100 Ml Iv) 1,000 mg IV NOW STA Stop: 04/30/20 21:08 Last Admin: 04/30/20 21:18 Dose: 1,000 mg Documented by: [id number] Sodium Chloride (Nss 1000ml) 1,000 mls @ 999 mls/hr IV .Q1H1M ONE Stop: 04/30/20 22:01 Last Infusion: 04/30/20 22:18 Dose: 0 mls/hr Documented by: [id number] Admin: 04/30/20 21:18 Dose: 999 mls/hr Documented by: [id number] Cefepime HCl (Maxipime) 2,000 mg in 20 mls @ 5 mls/min IV NOW STA; Protocol Stop: 04/30/20 21:06 Last Admin: 04/30/20 21:18 Dose: 5 mls/min Documented by: [id number] Discharge Plan Visit Data Chief Complaint: Respiratory Problems Stated Complaint: POSSIBLE ASPIRATION, ED Provider: Anup Ward Discharge Problem: Sepsis, Leukocytosis, International normalized ratio (INR) greater than 2, Pneumonia Forms Stand Alone Forms: [facility] Prescriptions Prescriptions: No Action carvedilol 6.25 mg tablet 6.25 mg PO BID Qty: 180 RF: 0 losartan 50 mg tablet 50 mg PO DAILY Qty: 90 RF: 0 warfarin 1 mg tablet 2 mg PO DIRECTED RF: 0 warfarin [Coumadin] 1 mg Tablet 1 mg PO DIRECTED RF: 0 Align 4 mg Capsule 4 mg PO DAILY RF: 0 multivitamin [Daily-Rogelio] Tablet 1 tab PO DAILY RF: 0 Systane Gel 0.3 % Gel 1 drp OPHTHALMIC (EYE) DAILY RF: 0 sennosides-docusate sodium [Senna-S] 8.6-50 mg Tablet 1 tab-cap PO BID PRN (Reason: Constipation) RF: 0 Systane Gel 0.3 % Gel 1 drp OPHTHALMIC (EYE) TID RF: 0 acetaminophen 325 mg Tablet 650 mg PO Q4H PRN (Reason: pain/temp greater than 100) RF: 0 Preparation H 0.25-14-74.9 % Ointment 1 applic OK DAILY PRN (Reason: rectal irritation) RF: 0 Discharge Problem: Sepsis Qualifiers: Sepsis type: sepsis due to unspecified organism Sepsis acute organ dysfunction status: unspecified Qualified Code(s): A41.9 - Sepsis, unspecified organism Leukocytosis Qualifiers: Leukocytosis type: unspecified Qualified Code(s): D72.829 - Elevated white blood cell count, unspecified Pneumonia Qualifiers: Pneumonia type: due to unspecified organism Laterality: unspecified laterality Lung location: unspecified part of lung Qualified Code(s): J18.9 - Pneumonia, unspecified organism
[2020-04-30 21:08] LABS: Basophils # (auto) 0.01 K/uL (0-0.2); Hematocrit (blood only) 41.4 % (37-47); Hemoglobin 12.9 g/dL (12.0-16.0); Immature Granulocytes # (auto) 0.08 K/uL (0.00-0.02); Immature Granulocytes % (auto) 0.4 %; Lymphocytes # (auto) 1.47 K/uL (1.2-3.4); Mean Corpuscular Hemoglobin 24.4 pg (25-34); Mean Corpuscular Hgb Conc 31.2 g/dL (32-36); Mean Corpuscular Volume 78.4 fL (80-100); Monocytes # (auto) 0.91 K/uL (0.11-0.59); Monocytes % (auto) 4.3 %; Neutrophils # (auto) 18.54 K/uL (1.4-6.5); Neutrophils % (auto) 88.3 %; Platelet Count 227 K/uL (130-400); RDW Coefficient of Variation 18.2 % (11.5-14.5); RDW Standard Deviation 51.8 fL (36.4-46.3); Red Blood Count 5.28 M/uL (4.2-5.4); White Blood Count 21.01 K/uL (4.8-10.8)
[2020-04-30 21:26] LABS: Alanine Aminotransferase 24 U/L (12-78); Albumin Level 3.2 gm/dl (3.4-5.0); Aspartate Aminotransferase 18 U/L (15-37); BUN Creatinine Ratio 28.9 (10-20); Blood Urea Nitrogen 22 mg/dl (7-18); Calcium 9.9 mg/dl (8.5-10.1); Carbon Dioxide 29 mmol/L (21-32); Chloride 103 mmol/L (98-107); Est GFR (African American) 90.8; Est GFR (Non-African American) 78.4; Glucose 107 mg/dl (70-99); Magnesium 2.2 mg/dl (1.8-2.4); Potassium 4.1 mmol/L (3.5-5.1); Sodium 137 mmol/L (136-145)
[2020-04-30 21:28] LABS: INR 2.6 (0.9-1.1); Partial Thromboplastin Ratio 1.5; Partial Thromboplastin Time 38.3 Seconds (21.0-31.0); Prothrombin Time 24.8 Seconds (9.0-12.0)
[2020-04-30 21:29] LABS: Albumin Globulin Ratio 0.6 (0.9-2); Alkaline Phosphatase 116 U/L (45-117); Bilirubin,Total 0.7 mg/dl (0.2-1); Globulin 5.1 gm/dl (2.5-4.0); Total Protein 8.3 gm/dl (6.4-8.2)
[2020-04-30 21:56] LABS: Troponin I < 0.015 ng/ml (0-0.045)
[2020-04-30 22:25] LABS: Appearance Urine Cloudy (Clear); Bacteria Urine Automated 4+ (Negative); Bilirubin Urine Negative (Negative); Blood Urine 1+ (Negative); Color Urine Dark Yellow; Epithelial Cell Urine Auto 0-5 /lpf (0-5); Glucose Urine UA Negative (Negative); Ketones Urine 1+ (Negative); Leukocyte Esterase Urine 1+ (Negative); Nitrite Urine Positive (Negative); Protein Urine 1+ (Negative); RBC Urine Automated 0-4 /hpf (0-4); Specific Gravity Urine 1.022 (1.000-1.030); Urobilinogen Urine Negative (Negative); WBC Urine Automated >30 /hpf (0-5)
[2020-04-30] MEDS ORDERED: VANCOMYCIN HCL 750 MG in SODIUM CHLORIDE 0.9% 500 ML IV ONE (22:26)
[2020-04-30] MEDS ORDERED: VANCOMYCIN CONSULT ACTIVE PRN (22:26)
[2020-04-30 22:29] LABS: Influenza A virus by PCR Negative (Neg); Influenza B virus by PCR Negative (Neg); RSV by PCR Negative (Neg); SARS CoV2 RNA(COVID-19) InHosp NEGATIVE (Negative)
--- NOTE | 2020-04-30 23:39 | History & Physical Report ---
Date of Service April 30, 2020 Assessment & Plan (1) Aspiration pneumonia: 74 yo F PMHx nonischemic cardiomyopathy, AFib on chronic warfarin therapy, Sjogren's syndrome, nephrolithiasis admitted for acute hypoxic respiratory failure and sepsis likely secondary to aspiration pneumonia, also found to have likely UTI. Acute hypoxic respiratory failure and sepsis secondary to aspiration pneumonia: -On arrival with report of likely aspiration event with hypoxia requiring 2LNC, leukocytosis to 21, fever, and tachycardia. -CXR with findings suggestive of likely aspiration pneumonia. -COVID 19 testing negative. -BCx drawn, vanc/cefepime given in ED. Vancomycin discontinued after MRSA nares negative, Flagyl added for anaerobic coverage. -Start Mucomyst for thick secretions BID with nebulizers as needed and flutter valve with breathing treatments. -Received NSS 1L bolus in ED. Will continue hydration with NSS @ 100cc/hr x1 bag. -Speech evaluation in AM given suspected aspiration event. Per , the patient is supposed to be on pureed diet but ate on of his guatemalan fries before he could take it from her. NPO until this evaluation. -Tylenol prn pain/fever. -Titrate oxygen as able to goal of baseline room air. UTI: -Per , patient's urine is darker and more foul in smell recently. Patient is unable to communicate if she has had dysuria, urinary urgency. denies hematuria. -Patient does have previous history of obstructive infected nephrolithiasis requiring hospitalization and IV antibiotics. -UA this admission with bacteria, LE, nitrites, WBCs. UCx pending. Receiving vanc/cefepime currently. Can deescalate as cultures result. -Patient is already currently on cefepime. Patient has a history of UTI requiring hospitalization that grew Klebsiella/E. coli sensitive to cefepime. Afib: -History of, not in RVR. -INR is therapeutic at 2.6. -On chronic carvedilol 6.25mg BID, continue this as long as tolerated by BP and HR. -Continue home coumadin dosing (1mg 4x weekly, 1.5mg 3x weekly). CHF: -History of on chart with non-ischemic cardiomyopathy, lasts seen by Dr. Paredes in 2019. At that time he noted that she had relatively preserved EF. -Patient without findings suggestive of HF exacerbation. Code Status: FULL CODE, confirmed with patient's DARLIN: NPO for now with NSS @ 100cc/hr for 1 bag, reevaluate in AM, pending Speech therapy consult DVT ppx: home warfarin dosing, therapeutic INR on admitting labs Dispo: Med/Surg for IVF, IV Abx (2) Sepsis: (3) Atrial fibrillation: (4) CHF (congestive heart failure): (5) Acute respiratory failure with hypoxia: History of Present Illness Chief Complaint: Possible aspiration Primary Care Provider: [facility] 74 yo F PMHx nonischemic cardiomyopathy, AFib on chronic warfarin therapy, Sjogren's syndrome, nephrolithiasis presented to ER due to shortness of breath and fever. History is gathered chiefly by the patient's who is present in the room. Per the , the patient ate one of his guatemalan fries. Due to difficulties with swallowing, she is supposed to be on a pured diet. After eating the Spanish arrington she appeared to be choking and the performed the Heimlich maneuver on her. She did not pass out during this episode. Later in the day, on evaluation she was found to have a fever and mild hypoxia. Per the , she is also slightly more confused than her baseline. reports that lately he has also noticed foul smell to her urine as well as darker color. No gross hematuria. In the ER the patient was found to be febrile with leukocytosis, UA with findings suggestive of UTI, and chest x-ray with left lower lobe consolidation likely consistent with aspiration pneumonia/pneumonitis. Allergies Allergy/AdvReac Type Severity Reaction Status Date / Time ampicillin Allergy Unknown Rash Verified 04/30/20 22:29 morphine Allergy Unknown Rash Verified 04/30/20 22:29 Penicillins Allergy Unknown Rash Verified 04/30/20 22:29 sulindac Allergy Unknown Rash Verified 04/30/20 22:29 tetracycline Allergy Unknown RASH Verified 05/07/19 11:40 tolmetin Allergy Unknown Rash Verified 04/30/20 22:29 Home Medications Medication Instructions Recorded Confirmed Type carvedilol 6.25 mg tablet 6.25 mg PO BID #180 tab 01/05/19 04/30/20 History losartan 50 mg tablet 50 mg PO DAILY #90 tab 01/05/19 04/30/20 History warfarin 1 mg tablet 1.5 mg PO [id number] tab 01/05/19 04/30/20 History acetaminophen 650 mg PO Q4H PRN MDD 3 GMS 02/08/19 04/30/20 History APAP/24 HOURS artificial tears(hypromellose) 1 drp OPL TID 02/08/19 04/30/20 History [Systane Gel] artificial tears(hypromellose) 1 drp OPR DAILY 02/08/19 04/30/20 History [Systane Gel] multivitamin [Daily-Rogelio] 1 tab PO DAILY 02/08/19 04/30/20 History phenyleph-min oil-petrolatum [address] DAILY PRN 02/08/19 04/30/20 History [Preparation H] fluoride (sodium) [PreviDent 5000 See Rx Instructions .ROUTE .COMPLEX 04/30/20 04/30/20 History Dry Mouth] guaifenesin [Mucinex] 600 mg PO BID PRN 04/30/20 04/30/20 History menthol-zinc oxide [Calmoseptine] 1 applic TOPICAL BID 04/30/20 04/30/20 History warfarin 1 mg PO 4XWK 04/30/20 04/30/20 History zinc oxide [Desitin Rapid Relief] 1 applic TOPICAL BID 04/30/20 04/30/20 History Past Med/Surg History Medical History (Updated 05/01/20 @ 03:38 by Fay Chaudhary DO) C. difficile colitis CHF (congestive heart failure) Sjoegren syndrome Surgical History H/O tubal ligation History of cataract surgery History of cholecystectomy History of colostomy History of colostomy reversal History of hip replacement History of resection of small bowel Status post cystoscopy with ureteral stent placement Family History Sister Breast cancer Denies family history of Ovarian cancer Colorectal cancer Uterine cancer Social History Smoking Status: Never smoker Hx Alcohol Use: No Hx Substance Use: No Preferred Language: Estonian Communication Ability: Impaired Cloth Spreader Screen Printing Required: No Beliefs That Will Affect Care: None marital status: Current Living Situation: Spouse current occupational status: retired Feels Safe at Home: Yes Assistive Devices: None Review of Systems Constitutional: no fever Respiratory: + cough and + dyspnea Cardiovascular: no syncope Gastrointestinal: no abdominal pain, no vomiting and no diarrhea/loose stools Genitourinary: no hematuria Physical Exam Constitutional: well developed, + ill appearing and + thin able to converse minimally with some yes/no answers Eyes: PERRL, conjunctivae normal, anicteric sclerae ENMT: external ear and nose normal, oropharynx normal tacky mucous membranes Neck: normal visual inspection Respiratory: normal respiratory effort significantly decreased breath sounds LLL, no wheezes Cardiovascular: Rate/Rhythm: + irregularly irregular; not tachycardic Gastrointestinal (Abdomen): normal bowel sounds, soft, nontender, no hepatosplenomegaly Musculoskeletal: no ycanosis or clubbing Skin: no rashes, warm and dry Neurologic: AAOx3, normal speech. PERRLA, EOMI, no nystagmus. Normal visual acuity bilaterally. Bilateral UE, LE, and face without sensory or motor deficits. DTRs normal. II- XII intact bilaterally. No pronator drift. No tremor. No ataxia. Psychiatric: Orientation: alert and oriented to person Affect: euthymic affect Results & Data Results & Data ([facility]) Vital Signs (Past 12 Hours) Vital Signs Temp Pulse Resp BP Pulse Ox 04/30/20 22:25 80 16 102/57 L 100 04/30/20 22:00 92 H 21 97 04/30/20 21:50 108 H 24 98 04/30/20 21:38 20 98 04/30/20 20:45 38.4 C H 115 H 24 115/78 87 L Code Status & VTE Plan VTE Prophylaxis Plan VTE Prophylaxis will be ordered: Yes Supervising Physician Co-Signing Physician Notes Attending addendum: I have physically seen this patient, have supervised the medical residents activities, and agree with the H&P unless as otherwise noted. Assessment and Plan: Acute respiratory failure with hypoxia/sepsis/aspiration pneumonia/multifocal pneumonia- Vancomycin IV per pharmacokinetic monitoring Cefepime 1 g IV every 8 hours Duonebs every 4 hours while awake and every 2 hours when necessary. Guaifenesin extended release 60 mg p.o. twice daily NSS 100 mils per hour Speech therapy assessment UTI- Follow urine culture and sensitivity Cefepime as above Atrial fibrillation/CHF/nonischemic cardiomyopathy- Continue carvedilol with hold parameters. Continue warfarin current dosing, INR therapeutic at 2.6 Remainder of orders and notations as noted Resident Activity Tracking Resident Involvement: Resident Care Provided Care Provided: Adult Hospital Medicine (1) Sepsis Sepsis acute organ dysfunction status: unspecified Sepsis type: sepsis due to unspecified organism Qualified Code(s): A41.9 - Sepsis, unspecified organism
[2020-05-01] MEDS ORDERED: POLYETHYLENE (MIRALAX) 17 GM PACK PO PRN (02:07)
[2020-05-01] MEDS ORDERED: ACETAMINOPHEN 325 MG TAB PO PRN ×2 (02:07)
[2020-05-01] MEDS ORDERED: guaiFENesin 600 MG TABCR PO PRN (02:07)
[2020-05-01] MEDS ORDERED: ONDANSETRON INJ 2 MG/ML 2 ML VIAL IV PRN (02:07)
[2020-05-01] MEDS ORDERED: SODIUM CHLORIDE 0.9% 1000ML 1,000 ML IV SCH (03:45)
[2020-05-01] MEDS: CEFEPIME 2,000 MG in SYRINGE 0 ML IV SCH ×2 (05:48→14:29)
[2020-05-01] MEDS: metroNIDAZOLE 500 MG/100 ML BAG IV SCH ×3 (05:48→22:45)
[2020-05-01] MEDS ORDERED: ACETYLCYSTEINE 10% INHAL SOLN 4 ML **DISPENSED BY RESP. INH SCH (07:00)
--- NOTE | 2020-05-01 07:14 | CT Scan Report ---
CT SCAN OF THE BRAIN WITHOUT IV CONTRAST CLINICAL HISTORY: Headache. Change in mental status. COMPARISON STUDY: No priors. TECHNIQUE: Unenhanced axial CT scan of the brain is performed from the vertex to the skull base. A do se lowering technique was utilized adhering to the principles of ALARA. CT DOSE: 1459.56 mGycm FINDINGS: Brain parenchyma: There are age-related involutional changes noting moderate to advanced confluent s ubcortical and periventricular microangiopathic change. There is no hemorrhage, mass effect, or evide nce of acute territorial ischemia by CT criteria. Foci of right cerebellar and right occipital enceph alomalacia are consistent with remote infarcts. Guardado-white matter differentiation is preserved. No ex tra-axial fluid collection is seen. Ventricles, sulci, cisterns: Prominent secondary to involutional change. Intracranial vasculature: There is atherosclerotic calcification of the cavernous carotid and vertebr al arteries. Calvarium: Unremarkable. Sinuses and mastoids: The visualized paranasal sinuses are clear. There is trace right mastoid effusi on. The left mastoid air cells are well pneumatized. Orbits: The bony orbits are grossly intact. There are bilateral ocular lens implants. IMPRESSION: There is no hemorrhage, mass effect, or evidence of acute territorial ischemia by CT crit kurt. ACT 112: Negative or not required by law. Electronically signed by: Butch Carr M.D. 05/01/2020 7:13 AM
[2020-05-01] MEDS: ACETYLCYSTEINE 20% INHAL SOLN 4ML ***DISPENSED BY RESP. INH SCH ×2 (07:26→20:05)
[2020-05-01] MEDS: ALBUTEROL 0.083% NEBU SOLN 3 ML VIAL NEB PRN ×2 (07:26→20:05)
--- NOTE | 2020-05-01 07:45 | Hospitalist Progress Note ---
Date of Service May 01, 2020 Assessment & Plan (1) Aspiration pneumonia: 74 yo F PMHx CVA, Multiple Myeloma, Non-Hodgkin Lymphoma, nonischemic cardiomyopathy, AFib on chronic warfarin therapy, Sjogren's syndrome, nephrolithiasis admitted for acute hypoxic respiratory failure and sepsis likely secondary to aspiration pneumonia, also found to have likely UTI. Acute hypoxic respiratory failure and sepsis secondary to aspiration pneumonia: -On arrival with report of likely aspiration event with hypoxia requiring 2LNC, leukocytosis to 21, fever, and tachycardia. -CXR with findings suggestive of likely aspiration pneumonia. -CT Chest with infiltrates of the L upper and R middle lobe, along with a 3x8mm consolidation of the LLL that appears chronic -COVID 19 testing negative. -BCx drawn, vanc/cefepime given in ED. Vancomycin discontinued after MRSA nares negative, Flagyl added for anaerobic coverage. -Start Mucomyst for thick secretions BID with nebulizers as needed and flutter valve with breathing treatments. -Received NSS 1L bolus in ED. Will continue hydration with NSS @ 100cc/hr x1 bag. -Speech evaluation in AM, agree with patients history and need for Pureed diet which patient has required since her CVA -Tylenol prn pain/fever. -Will deescalate abx coverage to Ceftriaxone QD from Cefepime -Plan on continuing abx course x7 days, will transition to oral Cefdinir solution and Metronidazole on discharge UTI: -Per , patient's urine is darker and more foul in smell recently. Patient is unable to communicate if she has had dysuria, urinary urgency. denies hematuria. -Patient does have previous history of obstructive infected nephrolithiasis requiring hospitalization and IV antibiotics. -UA this admission with bacteria, LE, nitrites, WBCs. UCx pending. -Continue Ceftriaxone Afib: -INR is therapeutic at 2.6 on admission -Continue carvedilol 6.25mg BID -Continue home Coumadin dosing (1mg 4x weekly, 1.5mg 3x weekly). Non-ischemic cardiomyopathy/CHF -Continue carvedilol -Patient without findings suggestive of HF exacerbation. -I/O Code Status: FULL CODE, confirmed with patient's FENGI: Pureed diet DVT ppx: home warfarin dosing, therapeutic INR on admitting labs Dispo: Med/Surg, patient likely able to be discharged back to [facility] [place] tomorrow on oral abx if continuing to improve. (2) Sepsis: (3) Atrial fibrillation: (4) CHF (congestive heart failure): (5) Acute respiratory failure with hypoxia: Admission and Anticipated Discharge Date Admission Date: April 30, 2020 Supervising Physician Co-Signing Physician Notes I personally examined the patient and verified all willams points of history and exam, discussed case, and agree with decision making with Dr Stafford. Very limited HPI and review of systems of questionable veracity. She mostly gives 1 word answers. However she denies any pain, shortness of breath, abdominal pain. She notes that she is feeling overall okay. Vitals noted, in general she is awake and alert hard to gauge orientation, asif ears very fatigued but otherwise in no distress. HEENT normocephalic atraumatic mucous membranes are moist. Lungs are technically clear but an extremely limited exam due to effort and positioning. Later she does have a wet sounding cough. Abdomen is soft nondistended nontender no masses organomegaly no suprapubic tenderness. Left foot was venous stasis type changes that only go up about as proximal as her ankle. Soft and nontender. Aspiration pneumoniaseems to be improving quite quickly. Continue gram- negative and anaerobic coverage, hopefully home in the next day or 2 with ongoing improvement. Questionable urinary tract infectionhard to rule out given the limited history she gives, fortunately antibiotics for the pneumonia should cover for this as well. Otherwise as above. Subjective Patient evaluated at the bedside this morning. Minimal history and ROS obtainable from patient. She responds primarily with "yes, no, or I don't know." She was able to note that she currently was not in any pain, did not have any difficulty breathing, was not having pain with urination, and was not having abdominal pain. Called patient's who had noted she was very "tough" and that it may take a significant amount of probing until the patient would divulge information. He recounted the events regarding the patient eating a handful of fries and "choking" on them prior to him giving her the Heimlich maneuver. He also noted that the patient has had fairly significant UTI's in the past without noting that she was having pain and that he was concerned this may be a similar event. Review of Systems Review of Systems: Unobtainable due to cognitive status Patient with relatively progressive dementia, minimal ROS obtainable. Physical Exam Constitutional: + disheveled; no acute distress Eyes: PERRL and reactive pupils ENMT: Ears: + hearing impairment Respiratory: normal respiratory effort; no respiratory distress and no labored breathing Auscultation: + diminished lung sounds (No crackles/rales/wheezes audible, though with minimal respiratory effort ) Cardiovascular: Rate/Rhythm: + irregularly irregular Extremities: + edema (+3 pitting edema of the L foot to the ankle ); no calf tenderness Gastrointestinal (Abdomen): normal bowel sounds, soft, nontender, no hepatosplenomegaly Psychiatric: Orientation: oriented x 3 and + guarded Eye Contact: + poor eye contact Results & Data Results & Data ([facility]) Vital Signs (Past 12 Hours) Vital Signs Temp Pulse Pulse Pulse Resp BP BP 05/01/20 07:33 71 14 05/01/20 06:00 17 05/01/20 02:00 18 05/01/20 01:45 36.4 C L 61 20 97/53 L 05/01/20 01:01 68 13 105/54 L 05/01/20 01:00 66 16 05/01/20 00:31 65 15 05/01/20 00:01 68 12 05/01/20 00:00 70 12 104/56 L 04/30/20 23:58 37.7 C H 04/30/20 23:31 62 16 04/30/20 23:30 73 14 97/58 L 04/30/20 23:01 82 16 04/30/20 23:00 76 15 102/60 04/30/20 22:31 78 17 04/30/20 22:30 88 16 99/61 L 04/30/20 22:25 80 16 102/57 L 04/30/20 22:00 92 H 21 04/30/20 21:50 108 H 24 04/30/20 21:38 20 04/30/20 20:45 38.4 C H 115 H 24 115/78 Pulse Ox 05/01/20 07:33 94 05/01/20 06:00 94 05/01/20 02:00 94 05/01/20 01:45 93 05/01/20 01:01 96 05/01/20 01:00 98 05/01/20 00:31 05/01/20 00:01 05/01/20 00:00 04/30/20 23:58 04/30/20 23:31 99 04/30/20 23:30 100 04/30/20 23:01 04/30/20 23:00 04/30/20 22:31 100 04/30/20 22:30 100 04/30/20 22:25 100 04/30/20 22:00 97 04/30/20 21:50 98 04/30/20 21:38 98 04/30/20 20:45 87 L Resident Activity Tracking Resident Involvement: Resident Care Provided Care Provided: Adult Hospital Medicine (1) Sepsis Sepsis acute organ dysfunction status: unspecified Sepsis type: sepsis due to unspecified organism Qualified Code(s): A41.9 - Sepsis, unspecified organism
--- NOTE | 2020-05-01 08:01 | XRay Report ---
XR chest 1V portable CLINICAL HISTORY: SEPSIS COMPARISON STUDY: Chest CT April 02, 2020. FINDINGS: Left basilar consolidation persists. This is similar to prior chest CT. A trace left pleura l effusion is noted. There is no pneumothorax. No evidence for pulmonary edema. Cardiomegaly is uncha nged. There is mild left midlung opacity. Several old left rib fractures are incidentally noted IMPRESSION: 1. Persistent left basilar opacity, similar to prior CT. This favors pneumonia however radiographic f ollow up to ensure resolution is recommended. Mild left midlung opacity. 2. Cardiomegaly without evidence for pulmonary edema. ACT 112: Negative or not required by law. Electronically signed by: Han Ruffin M.D. 05/01/2020 8:00 AM
--- NOTE | 2020-05-01 08:12 | CT Scan Report ---
CT SCAN OF THE CHEST WITHOUT IV CONTRAST CLINICAL HISTORY: Aspiration. COMPARISON STUDY: Chest CT scans dated 04/02/2020 and 02/05/2018. Chest x-ray dated 04/30/2020. TECHNIQUE: CT scan of the thorax was performed from the thoracic inlet to the upper abdomen. Images are reviewed in the axial, sagittal, and coronal planes. IV contrast was not administered for this ex amination as per the referring clinician. A dose lowering technique was utilized adhering to the ryanne Kolb. The examination is degraded by motion artifact, as well as by streak artifact from the arms which could not be elevated above the chest. CT DOSE: 566.14 mGycm FINDINGS: Thyroid: Imaged portions of the thyroid gland are normal in size and attenuation. Thoracic aorta: There is mild atherosclerotic calcification of the thoracic aorta. There is ectasia o f the ascending thoracic aorta which measures up to 3.8 cm in diameter. The remainder of the thoracic aorta is normal in caliber, and the arch demonstrates standard 3-vessel anatomy. Heart: The heart is enlarged and without pericardial effusion. The coronary arteries are densely calc ified. The main pulmonary arteries are dilated suggesting pulmonary artery hypertension. Lungs and pleural spaces: Evaluation of the lung parenchyma is degraded by motion artifact. There is dense airspace consolidation throughout the left lower lobe with trace left pleural effusion. Patchy airspace consolidation is seen throughout the left upper lobe. Mild patchy opacities are also seen in the right middle lobe. Secretions/debris are noted in the trachea. A 3 mm pleural-based nodule in th e right lower lobe along the major fissure seen on image #106 is unchanged dating back to 2018 and of doubtful significance. Mediastinum: There is no mediastinal lymphadenopathy. Margareth: Not well assessed without IV contrast. Axillae: There is no axillary lymphadenopathy. Upper abdomen: Partially visualized upper abdominal viscera is within normal limits. Skeletal structures: The skeletal structures are osteopenic. Degenerative change is seen in the shoul ders and thoracic spine. There is a moderate chronic compression deformity of T11. There is a mild heard perior endplate compression deformity of T8. There are healed bilateral rib fractures as well as [employer] [facility] posttraumatic deformity of the sternum. No lytic or blastic bony lesions are seen. IMPRESSION: 1. Streak and motion degraded examination. 2. There is multifocal airspace consolidation as above, most confluent throughout the left lower lobe . This has increased as compared to 04/02/2020. Correlate clinically for evidence of pneumonia/aspirati on pneumonitis. Radiographic follow-up to resolution is recommended. 3. Debris/secretions are seen in the trachea. If there is clinical concern for aspiration a video swa llow study should be considered. 4. Trace left pleural effusion. 5. Cardiomegaly. 6. Additional findings as above. ACT 112: Negative or not required by law. Electronically signed by: Butch Carr M.D. 05/01/2020 8:11 AM
[2020-05-01] MEDS: carvediloL 6.25 MG TAB PO SCH ×2 (14:28→22:05)
[2020-05-01] MEDS: MULTIVITAMIN TAB PO SCH (14:28)
[2020-05-01] MEDS: LOSARTAN POTASSIUM 50 MG TAB PO SCH (14:28)
[2020-05-01] MEDS ORDERED: WARFARIN SOD 1 MG TAB PO SCH (16:00)
--- NOTE | 2020-05-01 18:34 | Billing Data ---
Date of Service May 01, 2020 Coding Level of Care Code 49816 Subseq Hosp Care Lvl 3
--- NOTE | 2020-05-01 19:54 | Billing Data ---
Date of Service May 01, 2020 Coding Level of Care Code 04721 Initial Inpt Care Lvl 3
[2020-05-01] MEDS ORDERED: cefTRIAXone SODIUM 2,000 MG in DEXTROSE 5% 50 ML IV SCH (20:00)
--- NOTE | 2020-05-01 21:38 | Electrocardiogram Report ---
Test Reason : Blood Pressure : / mmHG Vent. Rate : 105 BPM Atrial Rate : 150 BPM P-R Int : 000 ms QRS Dur : 086 ms QT Int : 330 ms P-R-T Axes : 000 -56 116 degrees QTc Int : 436 ms Poor data quality, interpretation may be adversely affected Atrial fibrillation with rapid ventricular response Left anterior fascicular block Septal infarct (cited on or before 30-APR-2020) Abnormal ECG When compared with ECG of 05-FEB-2018 14:05, T wave inversion now evident in Lateral leads Confirmed by Augustin Arciniega ([id number]) on 05/01/2020 9:37:49 PM Referred By: REFERRED SELF Confirmed By:Augustin Arciniega
[2020-05-02 05:51] LABS: Hematocrit (blood only) 35.9 % (37-47); Hemoglobin 11.2 g/dL (12.0-16.0); Mean Corpuscular Hemoglobin 24.7 pg (25-34); Mean Corpuscular Hgb Conc 31.2 g/dL (32-36); Mean Corpuscular Volume 79.1 fL (80-100); Mean Platelet Volume 9.2 fL (7.4-10.4); Platelet Count 187 K/uL (130-400); RDW Coefficient of Variation 18.7 % (11.5-14.5); RDW Standard Deviation 54.1 fL (36.4-46.3); Red Blood Count 4.54 M/uL (4.2-5.4); White Blood Count 9.28 K/uL (4.8-10.8)
[2020-05-02 06:03] LABS: INR 2.9 (0.9-1.1)
[2020-05-02 06:29] LABS: BUN Creatinine Ratio 35.5 (10-20); Calcium 8.2 mg/dl (8.5-10.1); Est GFR (African American) 106.1; Est GFR (Non-African American) 91.6; Potassium 3.5 mmol/L (3.5-5.1)
[2020-05-02] MEDS: ACETYLCYSTEINE 20% INHAL SOLN 4ML ***DISPENSED BY RESP. INH SCH (07:17)
[2020-05-02] MEDS: metroNIDAZOLE 500 MG TAB PO SCH ×2 (08:52→14:29)
[2020-05-02] MEDS: MULTIVITAMIN TAB PO SCH (08:52)
[2020-05-02] MEDS: LOSARTAN POTASSIUM 50 MG TAB PO SCH (08:53)
[2020-05-02] MEDS: carvediloL 6.25 MG TAB PO SCH (08:53)
[2020-05-02] MEDS ORDERED: CEFDINIR 250 MG/5 ML 60 ML PO SCH ×2 (09:00)
--- NOTE | 2020-05-02 12:14 | Discharge Summary ---
Date of Service May 02, 2020 Admission HPI Per Admitting Provider 74 yo F PMHx nonischemic cardiomyopathy, AFib on chronic warfarin therapy, Sjogren's syndrome, nephrolithiasis presented to ER due to shortness of breath and fever. History is gathered chiefly by the patient's who is present in the room. Per the , the patient ate one of his chadian fries. Due to difficulties with swallowing, she is supposed to be on a pured diet. After eating the [place] she appeared to be choking and the performed the Heimlich maneuver on her. She did not pass out during this episode. Later in the day, on evaluation she was found to have a fever and mild hypoxia. Per the , she is also slightly more confused than her baseline. reports that lately he has also noticed foul smell to her urine as well as darker color. No gross hematuria. In the ER the patient was found to be febrile with leukocytosis, UA with findings suggestive of UTI, and chest x-ray with left lower lobe consolidation likely consistent with aspiration pneumonia/pneumonitis. Admission Exam Per Admitting Provider Constitutional: well developed, + ill appearing and + thin able to converse minimally with some yes/no answers Eyes: PERRL, conjunctivae normal, anicteric sclerae ENMT: external ear and nose normal, oropharynx normal tacky mucous membranes Neck: normal visual inspection Respiratory: normal respiratory effort significantly decreased breath sounds LLL, no wheezes Cardiovascular: Rate/Rhythm: + irregularly irregular; not tachycardic Gastrointestinal (Abdomen): normal bowel sounds, soft, nontender, no hepatosplenomegaly Musculoskeletal: no ycanosis or clubbing Skin: no rashes, warm and dry Neurologic: AAOx3, normal speech. PERRLA, EOMI, no nystagmus. Normal visual acuity bilaterally. Bilateral UE, LE, and face without sensory or motor deficits. DTRs normal. II- XII intact bilaterally. No pronator drift. No tremor. No ataxia. Psychiatric: Orientation: alert and oriented to person Affect: euthymic affect Principal Diagnosis Aspiration pneumonia Discharge Exam Constitutional: Frail appearing able to converse minimally with some yes/no answers Eyes: PERRL, conjunctivae normal, anicteric sclerae ENMT: external ear and nose normal, oropharynx normal tacky mucous membranes Neck: normal visual inspection Respiratory: normal respiratory effort decreased breath sounds throughout, rhoncourous breathing throughout, no wheezes Cardiovascular: Rate/Rhythm: + irregularly irregular; not tachycardic Gastrointestinal (Abdomen): normal bowel sounds, soft, nontender, no hepatosplenomegaly Skin: no rashes, warm and dry Discharge Data Allergies Allergy/AdvReac Type Severity Reaction Status Date / Time ampicillin Allergy Unknown Rash Verified 04/30/20 22:29 morphine Allergy Unknown Rash Verified 04/30/20 22:29 Penicillins Allergy Unknown Rash Verified 04/30/20 22:29 sulindac Allergy Unknown Rash Verified 04/30/20 22:29 tetracycline Allergy Unknown RASH Verified 05/07/19 11:40 tolmetin Allergy Unknown Rash Verified 04/30/20 22:29 Consultations 04/30/20 22:03 ED Decision to Admit Stat 05/01/20 02:07 Consult Case Management - Discharge Planning Routine Ordered Studies 04/30/20 21:03 CT head/brain wo con Urgent 04/30/20 21:18 CT chest diagnostic wo con [facility] Hospital Course (1) Aspiration pneumonia: 74 yo F PMHx CVA, Multiple Myeloma, Non-Hodgkin Lymphoma, nonischemic cardiomyopathy, AFib on chronic warfarin therapy, Sjogren's syndrome, nephrolithiasis admitted for acute hypoxic respiratory failure and sepsis likely secondary to aspiration pneumonia, also found to have likely UTI. Acute hypoxic respiratory failure and sepsis secondary to aspiration pneumonia: -On arrival with report of likely aspiration event with hypoxia requiring 2LNC, leukocytosis to 21, fever, and tachycardia. -CXR with findings suggestive of likely aspiration pneumonia. -CT Chest with infiltrates of the L upper and R middle lobe, along with a 3x8mm consolidation of the LLL that appears chronic -COVID 19 testing negative. -BCx drawn, vanc/cefepime given in ED. Vancomycin discontinued after MRSA nares negative, Flagyl added for anaerobic coverage. -Start Mucomyst for thick secretions BID with nebulizers as needed and flutter valve with breathing treatments. -Received NSS 1L bolus in ED. Will continue hydration with NSS @ 100cc/hr x1 bag. -Speech evaluation in AM, agree with patients history and need for Pureed diet which patient has required since her CVA -Tylenol prn pain/fever. -Will deescalate abx coverage to Ceftriaxone QD from Cefepime -Plan on continuing abx course x7 days of oral Cefdinir solution and Metronidazole on discharge UTI: -Per , patient's urine is darker and more foul in smell recently. Patient is unable to communicate if she has had dysuria, urinary urgency. denies hematuria. -Patient does have previous history of obstructive infected nephrolithiasis requiring hospitalization and IV antibiotics. -UA this admission with bacteria, LE, nitrites, WBCs. UCx pending. - Continuing cefdinir Afib: -INR is therapeutic at 2.6 on admission -Continue carvedilol 6.25mg BID -Due to interaction of metronidazole and coumadin we will decrease her weekly coumadin by about 20% to 1 mg daily for the next week Would recommend rechecking INR early next week and adjusting coumadin dose as needed. Code Status: FULL CODE, confirmed with patient's FENGI: Pureed diet (2) Sepsis: (3) Atrial fibrillation: (4) CHF (congestive heart failure): (5) Acute respiratory failure with hypoxia: Total Time Total Time Spent Total Time Spent (In Minutes): Less than 30 Discharge Plan Discharge Items Patient Disposition: Transfer Custodial Fac Reason For Visit: ASPIRATION PHEUMONIA Discharge Diagnosis: Aspiration pneumonia Activity: Per Instructions section Non-emergency contact: Primary Care Provider Call non-emergency contact if: you have any medication questions, your symptoms worsen and you have a fever Follow-up/Referrals: Neha Garcia [Primary Care Provider] - Diet: Other - See Diet Comment Diet Comment: As before, pureed diet avoid aspiration risks, pills in apple sauce Addtl Attending Provider Instructions: It was our pleasure meeting and treating Mrs. Appiah for her aspiration pneumonia. We believe that this occurred because she attempted to swallow solid food as opposed to her pureed diet and because of her dysphagia she aspirated resulting in a significant aspiration pneumonia that improved with time and antibiotics. We will be sending her back with a course of cefdinir and metronidazole that she will continue for seven days. We will also be decreasing her warfarin to 1 mg daily due to the interaction between metronidazole and warf christopher. It can require a reduction by as much as 30% in warfarin dose so we recommend rechecking an INR early next week. Hopefully this will be able to be titrated back up to her home dose after completion of the antibiotic. Hospital course: Mrs. Appiah is a 74 yo F PMHx of CVA, Multiple Myeloma, Non-Hodgkin Lymphoma, nonischemic cardiomyopathy, AFib on chronic warfarin therapy, Sjogren's syndrom e, nephrolithiasis admitted for acute hypoxic respiratory failure and sepsis likely secondary to aspiration pneumonia, also found to have likely UTI. Acute hypoxic respiratory failure and sepsis secondary to aspiration pneumonia: -On arrival with report of likely aspiration event with hypoxia requiring 2LNC, leukocytosis to 21, fever, and tachycardia. -CXR with findings suggestive of likely aspiration pneumonia. -CT Chest with infiltrates of the L upper and R middle lobe, along with a 3x8mm consolidation of the LLL that appears chronic -COVID 19 testing negative. -BCx drawn, vanc/cefepime given in ED. Vancomycin discontinued after MRSA nares negative, Flagyl added for anaerobic coverage. -Start Mucomyst for thick secretions BID with nebulizers as needed and flutter valve with breathing treatments. -Received NSS 1L bolus in ED. Will continue hydration with NSS @ 100cc/hr x1 bag. -Speech evaluation in AM, agree with patients history and need for Pureed diet which patient has required since her CVA -Tylenol prn pain/fever. -deescalated abx coverage to Ceftriaxone QD from Cefepime -Plan on continuing abx course x7 days, discharging with oral Cefdinir solution and Metronidazole UTI: -Per , patient's urine is darker and more foul in smell recently. Patient is unable to communicate if she has had dysuria, urinary urgency. denies hematuria. -Patient does have previous history of obstructive infected nephrolithiasis requiring hospitalization and IV antibiotics. -UA this admission with bacteria, LE, nitrites, WBCs. UCx pending. -Continue abx, may be contributing to her altered mental status on initial presentation Afib: -INR is therapeutic at 2.6 on admission -Continue carvedilol 6.25mg BID -Due to the interaction of Warfarin with metronidazole we will decrease her weekly warfarin by approximately 20% by making her 1 mg daily for the next week. She will need repeat INR testing and will likely be able to get back to her previous dosing of 1 mg 4 days a week 1.5 mg 3 days a week. Non-ischemic cardiomyopathy/CHF -Continue carvedilol -Patient without findings suggestive of HF exacerbation. Code Status: FULL CODE, confirmed with patient's FENGI: Pureed diet DVT ppx: home warfarin dosing, therapeutic INR on admitting labs Pending Studies at Discharge: No Stand-Alone Forms: My [employer], Smoking Cessation Skilled Items Patient informed of condition?: Yes DNR: No Discharge Level of Care: Skilled Communicable Disease: No Discharge Prognosis: Improving Lines: None Urinary Catheter: No Medications and DC Order Prescriptions: New cefdinir 250 mg/5 mL Suspension For Reconstitution 300 mg PO Q12 7 Days Qty: 84 RF: 0 cefdinir 300 mg Capsule 300 mg PO Q12 7 Days Qty: 14 RF: 0 metronidazole 500 mg tablet 500 mg PO Q8H 7 Days Qty: 21 RF: 0 Continued carvedilol 6.25 mg tablet 6.25 mg PO BID Qty: 180 RF: 0 losartan 50 mg tablet 50 mg PO DAILY Qty: 90 RF: 0 multivitamin [Daily-Rogelio] Tablet 1 tab PO DAILY RF: 0 Systane Gel 0.3 % Gel 1 drp OPR DAILY RF: 0 Systane Gel 0.3 % Gel 1 drp OPL TID RF: 0 acetaminophen 325 mg Tablet 650 mg PO Q4H MDD 3 GMS APAP/24 HOURS PRN (Reason: Fever Or Pain) RF: 0 Preparation H 0.25-14-74.9 % Ointment 1 applic ME DAILY PRN (Reason: Rectal Irritation) RF: 0 guaifenesin [Mucinex] 600 mg Tablet Extended Release 12hr 600 mg PO BID PRN (Reason: Congestion) RF: 0 fluoride (sodium) [PreviDent 5000 Dry Mouth] 1.1 % gel See Rx Instructions .ROUTE .COMPLEX RF: 0 Calmoseptine 0.44-20.6 % Ointment 1 applic TOPICAL BID RF: 0 Desitin Rapid Relief 13 % Cream 1 applic TOPICAL BID RF: 0 Changed warfarin 1 mg Tablet 1 mg PO DAILY Qty: 0 RF: 0 Discontinued warfarin 1 mg tablet 1.5 mg PO 3XWK RF: 0 Discharge Orders: Discharge Order (Routine); Ordered 05/02/20 Ordered By: Db Simpson Admission Data Admit Date/Time: 04/30/20 23:29 Attending Provider: Anup Vale Admit Provider: Fay Chaudhary Primary Care Provider: Neha Garcia Other Providers: Erickson Keene Other Interventions: Discharge Summary Assessment (RN) Last Done: 05/02/20 14:49 Supervising Physician Co-Signing Physician Notes I personally examined the patient and verified all willams points of history and exam, discussed case, and agree with decision making with Dr Simpson. Still limited HPI and review of systems, but notes that she feels better and would like to go home. Seems to be breathing easier. Vitals noted, in general she is awake and alert hard to gauge orientation, appears very fatigued but otherwise in no distress. HEENT normocephalic atraumatic mucous membranes are moist. Lungs show a bit more rhonchi, but she shows no respiratory distress. No wheezing no accessory muscle use. Aspiration pneumoniaimproving. Stable for return to SNF on oral antibiotics. Questionable urinary tract infectionhard to rule out given the limited history she gives, fortunately antibiotics for the pneumonia should cover for this as well. Culture showed a nondescript finding of more than 3 types of organisms all high counts. Otherwise as above. Stable for return to SNF Resident Activity Tracking Resident Involvement: Resident Care Provided Care Provided: Adult Hospital Medicine
--- NOTE | 2020-05-02 15:56 | Billing Data ---
Date of Service May 02, 2020 Coding Level of Care Code D/C Day Management <30 mins
[2020-05-02] MEDS ORDERED: WARFARIN SOD 0.5 MG TAB PO SCH (16:00)
[2020-05-02] MEDS ORDERED: CEFDINIR 300 MG CAP PO SCH (21:00)
== END 2020-05-02 15:50 | DRG 871 ==
LOC: ED 20:30 → SUATTDRO 23:29 → 3N 23:29

== ENCOUNTER 2020-06-07 07:14 | Inpatient (IN) ==
[2020-06-07] MEDS ORDERED: SODIUM CHLORIDE 0.9% 1000ML 1,000 ML IV ONE ×2 (07:18→08:24)
[2020-06-07] MEDS ORDERED: cefTRIAXone SODIUM 1,000 MG/50 ML BAG IV STA (07:23)
--- NOTE | 2020-06-07 07:52 | Emergency Department Note ---
Impression & Plan Pneumonia, Hypoxia, Sepsis, Acute kidney injury, Elevated troponin I level ED Provider Note NAME: GWEN BROUSSARD AGE: 74 SEX: F : 1945 ARRIVES VIA: Ambulance INFORMANT: Patient, ED PROVIDER(S): Roman Le DO CHIEF COMPLAINT: Respiratory distress HPI: The patient is a 74-year-old female who presented to the emergency d [facility] for respiratory distress. The patient has a history of atrial fibrillation as well as chronic aspiration. Reportedly at her personal halfway she did have an episode of difficulty swallowing while she was eating her meal last evening. She had some degree of aspiration last evening but did appear well and was able to be put to bed. This morning when she awoke she was having very severe respiratory distress. Prehospital personnel were called and the patient was evaluated by the paramedics. The patient was found to be hypoxic in the 80s with significant respiratory distress. She was placed on nonrebreather mask and oxygen saturation improved significantly. The patient herself was found to be altered with her mental status but she was able to answer some questions. Currently she is denying having any chest pain. She does state that she is having very significant difficulty breathing and feels very short of breath. She has had a cough which was nonproductive. There is been no reported lower extremity swelling or recent falls. The patient did have a fever prior to arrival. The patient did not have any recent diarrhea. ROS: See above HPI for pertinent positives & negatives. A total of 10 systems reviewed and were otherwise negative. PAST MEDICAL HISTORY: See Below PAST SURGICAL HISTORY: See Below FAMILY HISTORY: See Below SOCIAL HISTORY: See Below HOME MEDICATIONS: See Below ALLERGIES: See Below VITALS: See Below PHYSICAL EXAMINATION: GENERAL: The patient is listless and slow to respond to questions. She does appear to be in significant distress. EYES: The conjunctivae are clear. The pupils are round and reactive. EARS, NOSE, MOUTH AND THROAT: The nose is without any evidence of any deformity. NECK: The neck is nontender and supple. RESPIRATORY: Shallow respirations were noted. There was significant tachypnea. There were retractions intercostally. Near absent breath sounds were noted in the right lung field. Left lung field reveals significant rales. CARDIOVASCULAR: Irregular rhythm was noted to auscultation. There was no definite murmur. GASTROINTESTINAL: The abdomen is soft. Abdomen is nontender. MUSCULOSKELETAL/EXTREMITIES: There is no evidence of gross deformity full range of motion is noted in the hips and shoulders. SKIN: Skin was cool and mottled. Trace pedal edema was noted bilaterally. NEUROLOGIC: Patient is awake to verbal commands. She appears to be oriented to person place but not time or situation. The patient is able to hold each arm off the bed for 5 seconds. MEDICAL DECISION MAKING: The patient is a 74-year-old female who has a history of CVA as well as aspiration who presented to the emergency department for an evaluation of diffic ulty breathing. The patient aspirated while having a meal yesterday but did appear normal. This morning her condition worsened and she was having significant difficulty breathing. The patient had a low-grade fever as well as hypoxia. She was also hypotensive. She was sent to the emergency department. She was placed on supplemental oxygen. She was resuscitated using IV fluids and IV antibiotics. She was reevaluated multiple times. I discussed her condition with her significant other. I also discussed her case with the on-call [facility] hospitalist. Blood pressure appeared to improve somewhat after IV fluids. A central line was placed for further resuscitation. Triage Nursing notes reviewed. Prior medical records reviewed Vital Signs: reviewed and remarkable for hypoxia, hypotension, low-grade fever. Differential diagnosis: Reactive airway disease, pneumonia, pneumothorax, COPD, CHF, infections, cardiac ischemia, pulmonary embolism, musculoskeletal, gastrointestinal, as well as other pathologies. ER treatment provided: See below Diagnostics interpreted by me: ECG: EKG was obtained in the emergency department. My interpretation is atrial fibrillation at 79 bpm. There were no PVCs. Lateral ST depressions were noted. Inferior Q waves were noted. This was compared to a tracing from April 302020. No significant changes were noted. Cardiac Monitoring: An order was placed for continuous cardiac monitoring. The monitor shows a rate of 82 bpm with atrial fibrillation rhythm. Laboratory studies: As stated above and show below. Imaging studies: See below Consultation(s): 819: I discussed this case with Dr. Dorantse [facility] He will evaluate the patient in the emergency department for further management and disposition. ED COURSE: 0800: I discussed the patient's condition with her significant other, Edvin. He is coming to the emergency department to be with her and at this time states that she would want to be placed on a ventilator if her condition worsen. Procedures: Femoral Central Venous Catheter Indication: Sepsis Catheter Type: Triple-lumen Location: Right femoral vein Verbal consent was obtained after the risks and benefits were explained, including but not limited to intra-abdominal injury, vessel injury, bleeding, scarring, infection, pain, and bone/joint/nerve damage. At this time, the risks of the procedure are less than the risks of NOT performing the procedure. A time out was taken and the correct patient and site identified. The patient was placed in the supine position and the skin was prepped in the standard fashion with chlorhexidine and full sterile drapes applied. The proper landmarks were identified with ultrasound, anesthetized with 1% lidocaine without epinephrine, and the needle was inserted through the skin in the standard fashion. The needle was carefully advanced into blood vessel lumen with ultrasound guidance. The guidewire was placed uneventfully. The vessel is dilated and the catheter was placed. It was sutured into position. There was good blood return from all ports. The patient tolerated the procedure well and there were no complications. Critical Care: I have personally spent greater than 55 minutes of critical care time in the direct management of this patient. This includes bedside care, interpretation of diagnostic studies, and testing, discussion with consultants, patient, and family members, and other required patient management activities. This 55 minutes is in excess of all separately billable procedures. Past Med/Surg History Medical History Aspiration pneumonia Atrial fibrillation C. difficile colitis Calculus of kidney CHF (congestive heart failure) History of lymphoma History of multiple myeloma History of stroke 2015 Sepsis Sjoegren syndrome Surgical History H/O tubal ligation History of cataract surgery History of cholecystectomy History of colostomy History of colostomy reversal History of hip replacement History of resection of small bowel Status post cystoscopy with ureteral stent placement Family History Sister Breast cancer Mother , in MVA No problems noted. 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 How many Children do You have: 3 Other Information That Helps Us Care for You: No Feels Safe at Home: Yes Safety Concerns: Feels Safe At This Time Assistive Devices: Wheelchair Allergies Allergies Allergy/AdvReac Type Severity Reaction Status Date / Time ampicillin Allergy Unknown Rash Verified 06/07/20 08:24 morphine Allergy Unknown Rash Verified 06/07/20 08:24 Penicillins Allergy Unknown Rash Verified 06/07/20 08:24 sulindac Allergy Unknown Rash Verified 06/07/20 08:24 tetracycline Allergy Unknown RASH Verified 06/07/20 08:24 tolmetin Allergy Unknown Rash Verified 06/07/20 08:24 Home Meds Home Medications Medication Instructions Recorded Confirmed carvedilol 6.25 mg tablet 6.25 mg PO BID #180 tab 01/05/19 06/07/20 losartan 50 mg tablet 50 mg PO DAILY@0800 #90 tab 01/05/19 06/07/20 Systane Gel 1 drp OPL TID 02/08/19 06/07/20 Systane Gel 1 drp OPR DAILY@0800 02/08/19 06/07/20 acetaminophen 650 mg PO Q4H PRN MDD 3 GMS 02/08/19 06/07/20 APAP/24 HOURS multivitamin [Daily-Rogelio] 1 tab PO DAILY@0800 02/08/19 06/07/20 potassium chloride 10 meq PO DAILY@0800 06/07/20 06/07/20 warfarin 1.5 mg PO 4XWK 06/07/20 06/07/20 warfarin [Coumadin] 2 mg PO 3XWK 06/07/20 06/07/20 Results & Data (ED) Vital Signs Vital Signs - 24 hr 06/07/20 07:22 06/07/20 07:33 06/07/20 08:00 Temperature 37.8 C H Temperature Source Rectal Pulse Rate 84 Pulse Rate [Left] 76 Pulse Rhythm Regular Pulse Rhythm [Left] Regular Pulse Strength Normal Pulse Strength [Left] Normal Respiratory Rate 18 18 Respiratory Effort / Characteristics Non-Labored Spontaneous Respiratory Depth Normal Respiratory Pattern Regular Blood Pressure 68/44 L Blood Pressure [Right Arm] 86/56 L Blood Pressure Mean 52 Blood Pressure Mean [Right Arm] 66 Blood Pressure Position Lying Blood Pressure Position [Right Arm] Lying Pulse Oximetry 98 95 Oxygen Delivery Method Non-rebreather Oxymask Oxymask Oxygen Flow Rate 15 6 10 Sepsis Recent Fever Within 48 Hours No Sepsis New/Unexplained Change in Mental Status Yes Sepsis Action Taken by Nursing Physician Notified 06/07/20 09:19 Temperature Temperature Source Pulse Rate Pulse Rate [Left] 70 Pulse Rhythm Pulse Rhythm [Left] Regular Pulse Strength Pulse Strength [Left] Normal Respiratory Rate 18 Respiratory Effort / Characteristics Non-Labored Spontaneous Respiratory Depth Normal Respiratory Pattern Regular Blood Pressure Blood Pressure [Right Arm] 103/53 L Blood Pressure Mean Blood Pressure Mean [Right Arm] 69 Blood Pressure Position Blood Pressure Position [Right Arm] Lying Pulse Oximetry 98 Oxygen Delivery Method Oxymask Oxygen Flow Rate 6 Sepsis Recent Fever Within 48 Hours Sepsis New/Unexplained Change in Mental Status Sepsis Action Taken by Skilled Nursing Medications Current Medication List: was personally reviewed by me Laboratory Data Attestation: I reviewed the patient's lab results. Result diagrams: 06/07/20 07:25 06/07/20 07:25 Lab Results 06/07/20 06/07/20 06/07/20 Range/Units 07:25 07:25 07:25 WBC 12.02 H (4.8-10.8) K/uL RBC 5.45 H (4.2-5.4) M/uL Hgb 14.2 (12.0-16.0) g/dL Hct 43.6 (37-47) % MCV 80.0 (80-100) fL MCH 26.1 (25-34) pg MCHC 32.6 (32-36) g/dL RDW Std Deviation 62.1 H (36.4-46.3) fL RDW Coeff of Gera 21.3 H (11.5-14.5) % Plt Count 229 (130-400) K/uL MPV 9.5 (7.4-10.4) fL Immature Gran % (Auto) 0.2 % Neut % (Auto) 76.6 % Lymph % (Auto) 14.1 % Carlisle % (Auto) 9.0 % Eos % (Auto) 0.0 % Baso % (Auto) 0.1 % Neut # (Auto) 9.21 H (1.4-6.5) K/uL Lymph # (Auto) 1.69 (1.2-3.4) K/uL Carlisle # (Auto) 1.08 H (0.11-0.59) K/uL Eos # (Auto) 0.00 (0-0.5) K/uL Baso # (Auto) 0.01 (0-0.2) K/uL Immature Gran # (Auto) 0.03 H (0.00-0.02) K/uL Anisocytosis Present Target Cells 1+ PT 15.0 H (9.0-12.0) Seconds INR 1.5 H (0.9-1.1) APTT 29.8 (21.0-31.0) Seconds PTT Ratio 1.1 VBG pH (7.36-7.41) VBG pCO2 (38-50) mmHg VBG pO2 mmHg VBG HCO3 mmol/L VBG O2 Saturation % VBG Base Excess mEq/L Barometric Pressure mm/Hg Sodium 142 (136-145) mmol/L Potassium 4.6 (3.5-5.1) mmol/L Chloride 107 (98-107) mmol/L Carbon Dioxide 27 (21-32) mmol/L Anion Gap 8.0 (3-11) BUN 28 H (7-18) mg/dl Creatinine 1.77 H (0.6-1.2) mg/dl Est Cr Clr Drug Dosing 19.5 ml/min Est GFR ( Amer) 32.7 Est GFR (Non-Af Amer) 28.2 BUN/Creatinine Ratio 15.9 (10-20) Glucose 88 (70-99) mg/dl Lactate (0.4-2.0) mmol/L Calcium 9.5 (8.5-10.1) mg/dl Magnesium 2.0 (1.8-2.4) mg/dl Total Bilirubin 0.8 (0.2-1) mg/dl AST 58 H (15-37) U/L ALT 35 (12-78) U/L Alkaline Phosphatase 119 H (45-117) U/L Troponin I 0.715 H* (0-0.045) ng/ml NT-Pro-B Natriuret Pep (0-900) pg/ml Total Protein 7.1 (6.4-8.2) gm/dl Albumin 2.9 L (3.4-5.0) gm/dl Globulin 4.2 H (2.5-4.0) gm/dl Albumin/Globulin Ratio 0.7 L (0.9-2) Procalcitonin (0-0.5) ng/ml COVID-19 Eval Order SARS-CoV-2 (PCR) (Negative) Influenza Type A (PCR) (Neg) Influenza Type B (PCR) (Neg) RSV (RT-PCR) (Neg) 06/07/20 06/07/20 06/07/20 Range/Units 07:25 07:25 07:36 WBC (4.8-10.8) K/uL RBC (4.2-5.4) M/uL Hgb (12.0-16.0) g/dL Hct (37-47) % MCV (80-100) fL MCH (25-34) pg MCHC (32-36) g/dL RDW Std Deviation (36.4-46.3) fL RDW Coeff of Gera (11.5-14.5) % Plt Count (130-400) K/uL MPV (7.4-10.4) fL Immature Gran % (Auto) % Neut % (Auto) % Lymph % (Auto) % Carlisle % (Auto) % Eos % (Auto) % Baso % (Auto) % Neut # (Auto) (1.4-6.5) K/uL Lymph # (Auto) (1.2-3.4) K/uL Carlisle # (Auto) (0.11-0.59) K/uL Eos # (Auto) (0-0.5) K/uL Baso # (Auto) (0-0.2) K/uL Immature Gran # (Auto) (0.00-0.02) K/uL Anisocytosis Target Cells PT (9.0-12.0) Seconds INR (0.9-1.1) APTT (21.0-31.0) Seconds PTT Ratio VBG pH (7.36-7.41) VBG pCO2 (38-50) mmHg VBG pO2 mmHg VBG HCO3 mmol/L VBG O2 Saturation % VBG Base Excess mEq/L Barometric Pressure mm/Hg Sodium (136-145) mmol/L Potassium (3.5-5.1) mmol/L Chloride (98-107) mmol/L Carbon Dioxide (21-32) mmol/L Anion Gap (3-11) BUN (7-18) mg/dl Creatinine (0.6-1.2) mg/dl Est Cr Clr Drug Dosing ml/min Est GFR ( Amer) Est GFR (Non-Af Amer) BUN/Creatinine Ratio (10-20) Glucose (70-99) mg/dl Lactate (0.4-2.0) mmol/L Calcium (8.5-10.1) mg/dl Magnesium (1.8-2.4) mg/dl Total Bilirubin (0.2-1) mg/dl AST (15-37) U/L ALT (12-78) U/L Alkaline Phosphatase (45-117) U/L Troponin I (0-0.045) ng/ml NT-Pro-B Natriuret Pep 25185 H (0-900) pg/ml Total Protein (6.4-8.2) gm/dl Albumin (3.4-5.0) gm/dl Globulin (2.5-4.0) gm/dl Albumin/Globulin Ratio (0.9-2) Procalcitonin 24.35 H (0-0.5) ng/ml COVID-[address] CovFluRsv at [facility] SARS-CoV-2 (PCR) (Negative) Influenza Type A (PCR) (Neg) Influenza Type B (PCR) (Neg) RSV (RT-PCR) (Neg) 06/07/20 06/07/20 06/07/20 Range/Units 07:36 07:40 07:40 WBC (4.8-10.8) K/uL RBC (4.2-5.4) M/uL Hgb (12.0-16.0) g/dL Hct (37-47) % MCV (80-100) fL MCH (25-34) pg MCHC (32-36) g/dL RDW Std Deviation (36.4-46.3) fL RDW Coeff of Gera (11.5-14.5) % Plt Count (130-400) K/uL MPV (7.4-10.4) fL Immature Gran % (Auto) % Neut % (Auto) % Lymph % (Auto) % Carlisle % (Auto) % Eos % (Auto) % Baso % (Auto) % Neut # (Auto) (1.4-6.5) K/uL Lymph # (Auto) (1.2-3.4) K/uL Carlisle # (Auto) (0.11-0.59) K/uL Eos # (Auto) (0-0.5) K/uL Baso # (Auto) (0-0.2) K/uL Immature Gran # (Auto) (0.00-0.02) K/uL Anisocytosis Target Cells PT (9.0-12.0) Seconds INR (0.9-1.1) APTT (21.0-31.0) Seconds PTT Ratio VBG pH 7.35 L (7.36-7.41) VBG pCO2 47 (38-50) mmHg VBG pO2 43 mmHg VBG HCO3 26 mmol/L VBG O2 Saturation 74.0 % VBG Base Excess -0.4 mEq/L Barometric Pressure 740.7 mm/Hg Sodium (136-145) mmol/L Potassium (3.5-5.1) mmol/L Chloride (98-107) mmol/L Carbon Dioxide (21-32) mmol/L Anion Gap (3-11) BUN (7-18) mg/dl Creatinine (0.6-1.2) mg/dl Est Cr Clr Drug Dosing ml/min Est GFR ( Amer) Est GFR (Non-Af Amer) BUN/Creatinine Ratio (10-20) Glucose (70-99) mg/dl Lactate 3.9 H* (0.4-2.0) mmol/L Calcium (8.5-10.1) mg/dl Magnesium (1.8-2.4) mg/dl Total Bilirubin (0.2-1) mg/dl AST (15-37) U/L ALT (12-78) U/L Alkaline Phosphatase (45-117) U/L Troponin I (0-0.045) ng/ml NT-Pro-B Natriuret Pep (0-900) pg/ml Total Protein (6.4-8.2) gm/dl Albumin (3.4-5.0) gm/dl Globulin (2.5-4.0) gm/dl Albumin/Globulin Ratio (0.9-2) Procalcitonin (0-0.5) ng/ml COVID-19 Eval Order SARS-CoV-2 (PCR) NEGATIVE (Negative) Influenza Type A (PCR) Negative (Neg) Influenza Type B (PCR) Negative (Neg) RSV (RT-PCR) Negative (Neg) Administered Medications Albuterol (Albut/Ipratrop 3mg/0.5mg Neb 3 Ml Vial) 3 ml NEB QIDR HANS Stop: 07/07/20 10:59 Last Admin: 06/07/20 11:19 Dose: 3 ml Documented by: [id number] Dextrose/Sodium Chloride (D5w And Nss) 1,000 mls @ 100 mls/hr IV .Q10H HANS Stop: 07/07/20 10:57 Last Admin: 06/07/20 11:09 Dose: 100 mls/hr Documented by: [id number] Heparin Sodium/Dextrose (Heparin Sodium/Dextrose) 25,000 units in 500 mls @ 14 mls/hr IV .Q24H [facility]; Protocol Stop: 07/07/20 10:57 Last Admin: 06/07/20 12:32 Dose: 700 units/hr, 14 mls/hr Documented by: [id number] Cosigned by: [id number] Discontinued Medications Heparin Sodium/Dextrose (Heparin Iv Standard *No* Bolus) 1 ea IV Q15M [facility]; Protocol Stop: 06/07/20 12:58 Last Admin: 06/07/20 12:40 Dose: Not Given Documented by: [id number] Admin: 06/07/20 12:40 Dose: Not Given Documented by: [id number] Admin: 06/07/20 12:39 Dose: Not Given Documented by: [id number] Admin: 06/07/20 12:38 Dose: Not Given Documented by: [id number] Admin: 06/07/20 12:38 Dose: Not Given Documented by: [id number] Admin: 06/07/20 12:38 Dose: Not Given Documented by: [id number] Sodium Chloride (Nss 1000ml) 1,000 mls @ 999 mls/hr IV .Q1H1M ONE Stop: 06/07/20 08:18 Last Infusion: 06/07/20 10:59 Dose: 0 mls/hr Documented by: [id number] Admin: 06/07/20 08:10 Dose: 999 mls/hr Documented by: [id number] Ceftriaxone Sodium (Rocephin) 1,000 mg in 50 mls @ 100 mls/hr IV NOW STA Stop: 06/07/20 07:52 Last Infusion: 06/07/20 08:57 Dose: 0 mls/hr Documented by: [id number] Admin: 06/07/20 08:10 Dose: 100 mls/hr Documented by: [id number] Sodium Chloride (Nss 1000ml) 1,000 mls @ 999 mls/hr IV .Q1H1M ONE Stop: 06/07/20 09:24 Last Infusion: 06/07/20 10:59 Dose: 0 mls/hr Documented by: [id number] Admin: 06/07/20 08:29 Dose: 500 mls/hr Documented by: [id number] Meropenem 500 mg/ Syringe 10 mls @ 2 mls/min IV NOW STA; Protocol Stop: 06/07/20 11:24 Last Admin: 06/07/20 12:29 Dose: 2 mls/min Documented by: [id number] Imaging Data Radiologist's Impression: Patient: GWEN BROUSSARD Admit Date: 06/07/20 MR#: [id number] Address1: [address] [place] [address] Acct ID:[id number] Address2: Date: 1945 [facility] Zip: [place] [address] Age: 74 Location: ED Sex: F Room/Bed: Att Phy: Diagnosis: RESP ISSUES [place] Phy: [facility] Service Date: 06/07/20 [facility] Phy: Interpreting Phy: Shane Panda Admit Phy: Ordering Phy: Roman Le DO cc: ~ XR chest 1V portable HISTORY: 74 years-old Female SEPSIS acute sepsis COMPARISON: Chest radiograph and chest CT 04/30/2020 TECHNIQUE: Portable AP view of the chest FINDINGS: Cardiac silhouette is enlarged. A tubular structure projects over the mid chest is favored to be artifactual. No pneumothorax. There is suggestion of trace pleural effusions. Pulmonary vascular congestion with bilateral patchy airspace opacities, right greater than left. Persistent opacity of the left lung base. Chronic bilateral rib fractures redemonstrated. Degenerative changes of the shoulders and spine. IMPRESSION: 1. Bilateral airspace opacities suggests multifocal pneumonia. 2. Cardiomegaly with pulmonary vascular congestion. ACT 112: Negative or not required by law. The above report was generated using voice recognition software. It may contain grammatical, syntax or spelling errors. Electronically signed by: Brandon Panda M.D. 06/07/2020 8:06 AM Dictated: 06/07/20 08 Transcribed: 06/07/20802 Discharge Plan Visit Data Chief Complaint: Respiratory Problems ED Provider: Roman Le Discharge Problem: Pneumonia, Hypoxia, Sepsis, Acute kidney injury, Elevated troponin I level Patient Disposition: Admitted As Inpatient Condition: Good Discharge Instructions Interventions: ED Discharge Assessment Last Done: 06/07/20 10:28 Discharge Problem: Pneumonia Qualifiers: Pneumonia type: due to unspecified organism Laterality: bilateral Lung location: unspecified part of lung Qualified Code(s): J18.9 - Pneumonia, unspecified organism Sepsis Qualifiers: Sepsis type: sepsis due to unspecified organism Sepsis acute organ dysfunction status: unspecified Qualified Code(s): A41.9 - Sepsis, unspecified organism
[2020-06-07 07:53] LABS: Basophils # (auto) 0.01 K/uL (0-0.2); Basophils % (auto) 0.1 %; Hematocrit (blood only) 43.6 % (37-47); Hemoglobin 14.2 g/dL (12.0-16.0); Immature Granulocytes # (auto) 0.03 K/uL (0.00-0.02); Immature Granulocytes % (auto) 0.2 %; Lymphocytes # (auto) 1.69 K/uL (1.2-3.4); Lymphocytes % (auto) 14.1 %; Mean Corpuscular Hemoglobin 26.1 pg (25-34); Mean Corpuscular Hgb Conc 32.6 g/dL (32-36); Mean Platelet Volume 9.5 fL (7.4-10.4); Monocytes # (auto) 1.08 K/uL (0.11-0.59); Neutrophils # (auto) 9.21 K/uL (1.4-6.5); Neutrophils % (auto) 76.6 %; Platelet Count 229 K/uL (130-400); RDW Coefficient of Variation 21.3 % (11.5-14.5); RDW Standard Deviation 62.1 fL (36.4-46.3); Red Blood Count 5.45 M/uL (4.2-5.4); White Blood Count 12.02 K/uL (4.8-10.8)
[2020-06-07 07:56] LABS: Base Excess VBG -0.4 mEq/L; pH VBG 7.35 (7.36-7.41)
--- NOTE | 2020-06-07 08:07 | XRay Report ---
XR chest 1V portable HISTORY: 74 years-old Female SEPSIS acute sepsis COMPARISON: Chest radiograph and chest CT 04/30/2020 TECHNIQUE: Portable AP view of the chest FINDINGS: Cardiac silhouette is enlarged. A tubular structure projects over the mid chest is favored to be jamin factual. No pneumothorax. There is suggestion of trace pleural effusions. Pulmonary vascular congesti on with bilateral patchy airspace opacities, right greater than left. Persistent opacity of the left lung base. Chronic bilateral rib fractures redemonstrated. Degenerative changes of the shoulders and spine. IMPRESSION: 1. Bilateral airspace opacities suggests multifocal pneumonia. 2. Cardiomegaly with pulmonary vascular congestion. ACT 112: Negative or not required by law. The above report was generated using voice recognition software. It may contain grammatical, syntax o r spelling errors. Electronically signed by: Brandon Panda M.D. 06/07/2020 8:06 AM
[2020-06-07 08:09] LABS: Albumin Level 2.9 gm/dl (3.4-5.0); BUN Creatinine Ratio 15.9 (10-20); Calcium 9.5 mg/dl (8.5-10.1); Creatinine Clr Calc Pharmacy 19.5 ml/min; Est GFR (African American) 32.7; Est GFR (Non-African American) 28.2; Potassium 4.6 mmol/L (3.5-5.1)
[2020-06-07 08:11] LABS: INR 1.5 (0.9-1.1); Partial Thromboplastin Ratio 1.1; Partial Thromboplastin Time 29.8 Seconds (21.0-31.0)
[2020-06-07 08:17] LABS: Albumin Globulin Ratio 0.7 (0.9-2); Bilirubin,Total 0.8 mg/dl (0.2-1); Globulin 4.2 gm/dl (2.5-4.0); Total Protein 7.1 gm/dl (6.4-8.2); Troponin I 0.715 ng/ml (0-0.045)
[2020-06-07 08:18] LABS: Anisocytosis Present; Target Cells 1+
[2020-06-07 08:24] LABS: Influenza A virus by PCR Negative (Neg); Influenza B virus by PCR Negative (Neg); RSV by PCR Negative (Neg); SARS CoV2 RNA(COVID-19) InHosp NEGATIVE (Negative)
--- NOTE | 2020-06-07 09:38 | History & Physical Report ---
Date of Service June 07, 2020 Assessment & Plan (1) Acute respiratory failure with hypoxia: 2nd to pneumonia, likely aspiration, as was told she aspirated during dinner last evening. She has been compliant with pureed solids and thickened liquids. Patient clinically is hypovolemic - dry MM, laying flat in bed without difficulty, etc. Indeed her BNP is very high but will proceed cautiously with fluids. NC O2 to maintain sats >92%. Treat pneumonia as below. (2) Aspiration pneumonia: Treated for such in early 04/2020. Has dysphagia - suspect due to prior stroke in 2015. also states her Sjogren's contributes to her dysphagia. Now with recurrent b/l aspiration pneumonia. Cover gram+'s, gram-'s, and anaerobes. PCN allergic - thus, will use meropenem. MRSA swab negative. Supportive care. Follow blood cultures. (3) Severe sepsis: Has evidence of significant end-organ dysfunction including MONO/ATN, lactic acidosis, elevated trop, altered MS, etc. Source - pneumonia, UTI. Hypotension present at admission in ER. s/p >30cc/kg of IVF in ER with improvement in BPs. BP prior to transfer to PCU was 100 systolic. Continue IVF, broad-spectrum IV antibiotics, and repeat lactate now. Then recheck BMP later this afternoon. (4) Hypotension: 2nd severe sepsis. Checked cortisol - very adequate. No evidence of cardiogenic shock. s/p 30cc/kg in ER. Then D5NS at 100cc/hr. [place]o to track UOP. May need pressor agent if BPs trend down again. (5) Dysphagia: Known, chronic issue. Had aspiration pneumonia during 04/2020 hospital stay. Speech saw her at that time - pureed diet advised. Will keep her NPO until speech therapy reconsults this admission. Aspiration precautions. Dysphagia likely 2nd to prior stroke, sjogren's, etc. (6) Acute kidney injury: Sepsis-associated ATN. IVF and supportive care. Repeat BMP this afternoon to ensure trend in right direction, then BMP in am. CT abd/pelvis earlier this year without renal stones or other pathology that would cause obstruction. (7) Elevated troponin I level: No prior h/o CAD. This is likely myocardial demand ischemia in setting of severe sepsis. Trend the troponins until peak. (8) Metabolic encephalopathy: 2nd to severe sepsis. Supportive care; Rx the sepsis. Avoid sedatives. (9) Atrial fibrillation: Permanent. Hold coreg due to hypotension. INR is <2. Patient to be strict NPO. Given her prior h/o stroke and high CHADS will treat with IV heparin until able to take her coumadin. (10) CHF (congestive heart failure): Diastolic by history. Last echo was several years ago. Repeat echo in am to reassess EF. (11) Sjoegren syndrome: Noted. (12) Severe protein-calorie malnutrition: Significant weight loss over the last few months per . At least 5-6kg weight loss since the new year. Does patient have underlying cognitive impairment or dementia process with failure to thrive?? (13) History of stroke: 2015. Presumed cardioembolic from a.fib. (14) DVT prophylaxis: Heparin IV. updated extensively during the admission process. We will need to refine her code status. Patient stated she would not want CPR/intubation during my visit. Despite her encephalopathy she seemed to understand the code status questions. Prior advanced directives with full code status per . Prior admission 1 month ago lists full code status. History of Present Illness Chief Complaint: fever, respiratory distress Primary Care Provider: [facility] 74yo female with history of stroke in 2015, multiple myeloma, h/o lymphoma, dysphagia with recurrent aspiration pneumonia, sjogren's syndrome, and permanent a.fib presents from the [facility] with reports of fever to ~100 degrees, suspected aspiration event while eating dinner last pm, and worsening respiratory distress overnight and into this morning. EMS was summoned to the [facility], and upon arrival her O2 sats were in the 80s. 100% non-rebreather was applied and she was transferred to [facility] ER. Once here she was found to be hypotensive and had ongoing respiratory distress. Fluid bolus was given with improved BPs. Oxymask was used in ainsley of nonrebreather. During my admission assessment the patient's was at bedside. Although she is Mongolian she does speak Mexican fluently and was able to answer basic questions. Denied pain in any location and said frequently "I'm doing ok." She was confused, stating it was February and could not name the year. O2 sats were high 90s on oxymask during my assessment. Patient stated she would NOT want intubation/mech ventilation or chest compressions in the event of a cardiopulmonary arrest. However, reports her advanced directives, penned in 2017, states full code. did state that he was wanting to talk with his children about her code status. Of note - ER attending placed right femoral CVC. Also, patient was hospitalized in 04/2020 for aspiration pneumonia. Allergies Allergy/AdvReac Type Severity Reaction Status Date / Time ampicillin Allergy Unknown Rash Verified 06/07/20 08:24 morphine Allergy Unknown Rash Verified 06/07/20 08:24 Penicillins Allergy Unknown Rash Verified 06/07/20 08:24 sulindac Allergy Unknown Rash Verified 06/07/20 08:24 tetracycline Allergy Unknown RASH Verified 06/07/20 08:24 tolmetin Allergy Unknown Rash Verified 06/07/20 08:24 Home Medications Medication Instructions Recorded Confirmed Type carvedilol 6.25 mg tablet 6.25 mg PO BID #180 tab 01/05/19 06/07/20 History losartan 50 mg tablet 50 mg PO DAILY@0800 #90 tab 01/05/19 06/07/20 History Systane Gel 1 drp OPL TID 02/08/19 06/07/20 History Systane Gel 1 drp OPR DAILY@0800 02/08/19 06/07/20 History acetaminophen 650 mg PO Q4H PRN MDD 3 GMS 02/08/19 06/07/20 History APAP/24 HOURS multivitamin [Daily-Rogelio] 1 tab PO DAILY@0800 02/08/19 06/07/20 History potassium chloride 10 meq PO DAILY@0800 06/07/20 06/07/20 History warfarin 1.5 mg PO 4XWK 06/07/20 06/07/20 History warfarin [Coumadin] 2 mg PO 3XWK 06/07/20 06/07/20 History Past Med/Surg History Medical History (Updated 06/07/20 @ 19:44 by Rey Dorantes) Aspiration pneumonia Atrial fibrillation C. difficile colitis Calculus of kidney CHF (congestive heart failure) History of lymphoma History of multiple myeloma History of stroke 2015 Sepsis Sjoegren syndrome Surgical History H/O tubal ligation History of cataract surgery History of cholecystectomy History of colostomy History of colostomy reversal History of hip replacement History of resection of small bowel Status post cystoscopy with ureteral stent placement Family History Sister Breast cancer Mother , in MVA No problems noted. 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 How many Children do You have: 3 Other Information That Helps Us Care for You: No Feels Safe at Home: Yes Safety Concerns: Feels Safe At This Time Assistive Devices: Wheelchair Review of Systems Constitutional: + fever, + anorexia and + weight loss (10-15 pounds over last 1-2 months ) Eyes: no worsening vision Ear, Nose, Mouth, Throat: + dysphagia; no sore throat Respiratory: + cough and + dyspnea Cardiovascular: no chest pain Gastrointestinal: no abdominal pain, no vomiting and no diarrhea/loose stools Genitourinary: no difficulty urinating Musculoskeletal: no joint pain Integumentary: no rash Neurologic: + localized weakness (L arm/leg - chronic ) Psychiatric: + confusion Endocrine: no diabetes Hematologic / Lymphatic: + easy bruising Physical Exam Constitutional: + acute distress (tachypnea ), + ill appearing, + cachectic, + altered mental status and + frail appearing; + not well developed and + not well nourished Eyes: pupils - 2mm on right; 3mm on left; reactive ENMT: Mouth: + dry oral mucous membranes Neck: trachea midline, no thyromegaly Respiratory: + respiratory distress, + cough and + tachypneic Auscultation: + diminished lung sounds (bases), + crackles (diffuse - anterior & posterior ) and + wheezes (occasional ) Cardiovascular: Rate/Rhythm: regular rate and + irregularly irregular Heart Sounds: normal S1 and normal S2; no murmur Vessels: posterior tibial pulses present and dorsalis pedis pulses present; no JVD Extremities: + edema (L foot - 1+; trace right foot) and + vascular access device (right femoral CVC c/d/i) Gastrointestinal (Abdomen): normal bowel sounds, soft, nontender, no hepatosplenomegaly Inspection/Auscultation: + abdominal surgical scar Musculoskeletal: intrinsic muscle wasting of hands; muscle wasting of facial muscles Skin: + pallor Neurologic: + focal motor deficit (4/5 strength left arm/left leg ) Psychiatric: Orientation: alert and oriented to person; + not oriented to place and + not oriented to time Results & Data Results & Data ([facility]) Vital Signs (Past 12 Hours) Vital Signs Temp Pulse Pulse Resp BP BP Pulse Ox 06/07/20 09:19 70 18 103/53 L 98 06/07/20 08:00 76 18 86/56 L 95 06/07/20 07:22 37.8 C H 84 18 68/44 L 98 Laboratory Results Laboratory Results - last 24 hr 06/07/20 06/07/20 06/07/20 07:25 07:25 07:25 WBC 12.02 H RBC 5.45 H Hgb 14.2 Hct 43.6 MCV 80.0 MCH 26.1 MCHC 32.6 RDW Std Deviation 62.1 H RDW Coeff of Gera 21.3 H Plt Count 229 MPV 9.5 Immature Gran % (Auto) 0.2 Neut % (Auto) 76.6 Lymph % (Auto) 14.1 [place] % (Auto) 9.0 Eos % (Auto) 0.0 Baso % (Auto) 0.1 Neut # (Auto) 9.21 H Lymph # (Auto) 1.69 [place] # (Auto) 1.08 H Eos # (Auto) 0.00 Baso # (Auto) 0.01 Immature Gran # (Auto) 0.03 H Anisocytosis Present Target Cells 1+ PT 15.0 H INR 1.5 H APTT 29.8 PTT Ratio 1.1 VBG pH VBG pCO2 VBG pO2 VBG HCO3 VBG O2 Saturation VBG Base Excess Barometric Pressure Sodium 142 Potassium 4.6 Chloride 107 Carbon Dioxide 27 Anion Gap 8.0 BUN 28 H Creatinine 1.77 H Est Cr Clr Drug Dosing 19.5 Est GFR ( Amer) 32.7 Est GFR (Non-Af Amer) 28.2 BUN/Creatinine Ratio 15.9 Glucose 88 Lactate Calcium 9.5 Magnesium 2.0 Total Bilirubin 0.8 AST 58 H ALT 35 Alkaline Phosphatase 119 H Troponin I 0.715 H* NT-Pro-B Natriuret Pep Total Protein 7.1 Albumin 2.9 L Globulin 4.2 H Albumin/Globulin Ratio 0.7 L Procalcitonin COVID-19 Eval Order SARS-CoV-2 (PCR) Influenza Type A (PCR) Influenza Type B (PCR) RSV (RT-PCR) 06/07/20 06/07/20 06/07/20 07:25 07:25 07:36 WBC RBC Hgb Hct MCV MCH MCHC RDW Std Deviation RDW Coeff of Gera Plt Count MPV Immature Gran % (Auto) Neut % (Auto) Lymph % (Auto) [place] % (Auto) Eos % (Auto) Baso % (Auto) Neut # (Auto) Lymph # (Auto) [place] # (Auto) Eos # (Auto) Baso # (Auto) Immature Gran # (Auto) Anisocytosis Target Cells PT INR APTT PTT Ratio VBG pH VBG pCO2 VBG pO2 VBG HCO3 VBG O2 Saturation VBG Base Excess Barometric Pressure Sodium Potassium Chloride Carbon Dioxide Anion Gap BUN Creatinine Est Cr Clr Drug Dosing Est GFR ( Amer) Est GFR (Non-Af Amer) BUN/Creatinine Ratio Glucose Lactate Calcium Magnesium Total Bilirubin AST ALT Alkaline Phosphatase Troponin I NT-Pro-B Natriuret Pep 70291 H Total Protein Albumin Globulin Albumin/Globulin Ratio Procalcitonin 24.35 H COVID-19 Eval Order CovFluRsv at [facility] SARS-CoV-2 (PCR) Influenza Type A (PCR) Influenza Type B (PCR) RSV (RT-PCR) 06/07/20 06/07/20 06/07/20 07:36 07:40 07:40 WBC RBC Hgb Hct MCV MCH MCHC RDW Std Deviation RDW Coeff of Gera Plt Count MPV Immature Gran % (Auto) Neut % (Auto) Lymph % (Auto) [place] % (Auto) Eos % (Auto) Baso % (Auto) Neut # (Auto) Lymph # (Auto) [place] # (Auto) Eos # (Auto) Baso # (Auto) Immature Gran # (Auto) Anisocytosis Target Cells PT INR APTT PTT Ratio VBG pH 7.35 L VBG pCO2 47 VBG pO2 43 VBG HCO3 26 VBG O2 Saturation 74.0 VBG Base Excess -0.4 Barometric Pressure 740.7 Sodium Potassium Chloride Carbon Dioxide Anion Gap BUN Creatinine Est Cr Clr Drug Dosing Est GFR ( Amer) Est GFR (Non-Af Amer) BUN/Creatinine Ratio Glucose Lactate 3.9 H* Calcium Magnesium Total Bilirubin AST ALT Alkaline Phosphatase Troponin I NT-Pro-B Natriuret Pep Total Protein Albumin Globulin Albumin/Globulin Ratio Procalcitonin COVID-19 Eval Order SARS-CoV-2 (PCR) NEGATIVE Influenza Type A (PCR) Negative Influenza Type B (PCR) Negative RSV (RT-PCR) Negative Diagnostic Findings cxr - diffuse b/l pneumonia EKG - a.fib, rate <100, no ST changes Code Status & VTE Plan Code Status full code per , but patient declined CPR/intubation during my admission assessment; however patient was confused VTE Prophylaxis Plan VTE Prophylaxis will be ordered: Yes Critical Care Time Critical Care Time: Yes Total Critical Care Time: 70 PG Care Time/CCT Total # of Minutes Spent Total Time Spent with Patient: Total time spent is greater than 50% in coordination of care (as documented) at patient's floor/unit and/or counseling patient: Critical Care Time: Yes Total Critical Care Time: 70 Coding Level of Care Code None Diagnoses Acute respiratory failure with hypoxia J96.01 Aspiration pneumonia J69.0 Aspiration pneumonia type: unspecified Laterality: bilateral Lung location: unspecified part of lung Severe sepsis A41.9; R65.20 Hypotension I95.9 Hypotension type: unspecified hypotension type Dysphagia R13.10 Dysphagia type: unspecified Acute kidney injury N17.9 Elevated troponin I level R77.8 Metabolic encephalopathy G93.41 Atrial fibrillation I48.21 Atrial fibrillation type: permanent CHF (congestive heart failure) I50.32 Heart failure type: diastolic Heart failure chronicity: chronic Sjoegren syndrome M35.00 Sjogren's organ involvement: unspecified organ involvement Severe protein-calorie malnutrition E43 History of stroke Z86.73 DVT prophylaxis Z29.9 Additional Codes Critical Care Time - Critical Care Time: Yes ([id number]) Time Spent (min) 70 (1) Sjoegren syndrome Sjogren's organ involvement: unspecified organ involvement Qualified Code(s): M35.00 - Sicca syndrome, unspecified (2) CHF (congestive heart failure) Heart failure type: diastolic Heart failure chronicity: chronic Qualified Code(s): I50.32 - Chronic diastolic (congestive) heart failure (3) Atrial fibrillation Atrial fibrillation type: permanent Qualified Code(s): I48.21 - Permanent atrial fibrillation (4) Dysphagia Dysphagia type: unspecified Qualified Code(s): R13.10 - Dysphagia, unspecified (5) Aspiration pneumonia Aspiration pneumonia type: unspecified Laterality: bilateral Lung location: unspecified part of lung Qualified Code(s): J69.0 - Pneumonitis due to inhalation of food and vomit (6) Hypotension Hypotension type: unspecified hypotension type Qualified Code(s): I95.9 - Hypotension, unspecified
[2020-06-07] MEDS ORDERED: ONDANSETRON INJ 2 MG/ML 2 ML VIAL IV PRN (10:58)
[2020-06-07] MEDS ORDERED: ACETAMINOPHEN 1000 MG/100 ML IV IV PRN (10:58)
[2020-06-07] MEDS ORDERED: NITROGLYCERIN SL 0.4 MG/TAB TAB SL PRN (10:58)
[2020-06-07] MEDS ORDERED: MEROPENEM CONSULT ACITVE PRN (10:58)
[2020-06-07] MEDS ORDERED: D5W AND NSS 1,000 ML IV SCH (10:58)
[2020-06-07] MEDS: ALBUT/IPRATROP 3MG/0.5MG NEB 3 ML VIAL NEB SCH ×3 (11:19→20:32)
[2020-06-07] MEDS ORDERED: MEROPENEM 500 MG in SYRINGE 0 ML IV STA (11:20)
[2020-06-07 11:44] LABS: Appearance Urine Turbid (Clear); Bacteria Urine Automated 3+ (Negative); Blood Urine 3+ (Negative); Color Urine Dark Yellow; Epithelial Cell Urine Auto >30 /lpf (0-5); Glucose Urine UA Negative (Negative); Ketones Urine Trace (Negative); Leukocyte Esterase Urine 1+ (Negative); Nitrite Urine Positive (Negative); Protein Urine 3+ (Negative); Specific Gravity Urine 1.022 (1.000-1.030); Urobilinogen Urine Negative (Negative); WBC Urine Automated >30 /hpf (0-5)
[2020-06-07 11:47] LABS: Bilirubin Urine 2+ (Negative)
[2020-06-07 11:57] LABS: RBC Urine Automated >30 /hpf (0-4)
--- NOTE | 2020-06-07 12:15 | Electrocardiogram Report ---
Test Reason : Blood Pressure : / mmHG Vent. Rate : 079 BPM Atrial Rate : 357 BPM P-R Int : 000 ms QRS Dur : 080 ms QT Int : 428 ms P-R-T Axes : 000 -66 -06 degrees QTc Int : 490 ms Atrial fibrillation Left axis deviation Septal infarct (cited on or before 30-APR-2020) Inferior infarct , age undetermined Abnormal ECG When compared with ECG of 30-APR-2020 20:38, Inferior infarct is now Present Confirmed by Roman Branham ([id number]) on 06/07/2020 12:14:56 PM Referred By: [facility] Confirmed By:oRman Branham
[2020-06-07] MEDS: HEPARIN SODIUM/DEXTROSE 25,000 UNITS/500 ML BAG IV SCH (12:32)
[2020-06-07] MEDS: Heparin IV Adult Wt-Based Standard *NO* Bolus Protocol IV SCH ×3 (12:38→12:40)
[2020-06-07] MEDS: ARTIFICIAL TEARS OPL SCH ×2 (14:31→22:00)
[2020-06-07] MEDS ORDERED: SODIUM CHLORIDE 0.9% 1000ML 500 ML IV ONE ×3 (18:43→23:11)
[2020-06-07 19:14] LABS: BUN Creatinine Ratio 23.3 (10-20); Calcium 7.4 mg/dl (8.5-10.1); Creatinine Clr Calc Pharmacy 24.3 ml/min; Est GFR (African American) 46.6; Est GFR (Non-African American) 40.2; Potassium 4.5 mmol/L (3.5-5.1)
[2020-06-07 19:18] LABS: Troponin I 0.744 ng/ml (0-0.045)
[2020-06-07 19:23] LABS: Partial Thromboplastin Ratio 3.6
[2020-06-07] MEDS ORDERED: STAT IV Infusion **Titration per Protocol STA (19:37)
[2020-06-07] MEDS ORDERED: DAPTOmycin 240 MG in SYRINGE 0 ML IV SCH (20:00)
[2020-06-07] MEDS ORDERED: NOREPINEPHRINE/D5W 8 MG/508 ML BAG IV SCH (20:00)
--- NOTE | 2020-06-07 20:05 | Communication Note ---
Date of Service: June 07, 2020 Through the afternoon, despite 100cc/hr of isotonic fluid, patient had oliguria with 50cc of UOP only. SBPs 90-100, MAP>65. Occasional SBP <90. Repeat labs this evening with Cr 1.3 (had been 1.7). Lactate 4.1 (prior was 3.3). In light of persistent hypotension despite adequate fluid resuscitation and worsening lactic acidosis I contacted Jose L Santamaria from the ICU. Discussed her care in detail with him. We both agreed that she likely will need pressor therapy. Levophed ordered. Called and spoke with pt's about 1930pm. Updated him re: hypotension, severe sepsis, UTI, kidney function, etc. Discussed tx to ICU for pressors. Questions answered. PCU nursing aware of impending transfer. Rey Dorantes MD
[2020-06-07 20:07] LABS: Albumin Level 2.4 gm/dl (3.4-5.0); Bilirubin Direct 0.2 mg/dl (0-0.2); Bilirubin,Total 0.4 mg/dl (0.2-1); Total Protein 6.2 gm/dl (6.4-8.2)
[2020-06-07] MEDS ORDERED: SODIUM CHLORIDE 0.9% 1000ML 1,000 ML IV SCH (20:45)
[2020-06-07] MEDS ORDERED: ALBUT/IPRATROP 3MG/0.5MG NEB 3 ML VIAL NEB PRN (20:46)
[2020-06-07] MEDS ORDERED: ICU PROTOCOL FOR HYPERGLYCEMIA PRN (20:55)
--- NOTE | 2020-06-07 21:05 | Critical Care Consultation ---
Date of Consultation June 07, 2020 Assessment & Plan (1) Hypotension: Reason Critically Ill: 74-year-old female currently undergoing treatment for sepsis presents to the ICU as transfer following worsening hypotension and elevated lactate, now requiring vasopressor support. Neuro - History of CVA: Patient was CVA in 2004, residual left-sided weakness and dysarthria -She has had issues with dysphagia and aspiration and is on pured diet -Per long-term notes she appears to be 1 assist at baseline -Speech consulted to reassess swallow study as patient admitted following aspiration event Cardiac - Shockmost likely septic as patient presents with severe sepsis following aspiration pneumonia versus UTI, see treatment sepsis below -CHF with preserved EF, repeat echo pending -Cortisol level appropriately elevated, no indication for hydrocortisone at this time -Currently on levo drip, titrate for maps greater than 65. Patient has a right femoral CVC that was inserted in the emergency department. -Careful with fluid resuscitation given CHF -Wean vasopressors as tolerated A. fibpermanent, currently in controlled rate -Patient on warfarin and with subtherapeutic INR on admission. Converted to heparin drip -Continuous monitor on telemetry CHFhistory of nonischemic cardiomyopathy -Last echo with preserved LV function, mild to moderate aortic and mitral regurg. -Repeating echo, will follow up report Elevated troponinmildly elevated troponin 0.7 on admission, repeat of 0.74 -EKG was read demonstrated septal infarct unchanged from prior study, no ST elevations. Lateral ST depressions -Suspect this is most likely demand ischemia and MONO may be contributing -Patient is on heparin drip this was started as transition per warfarin for A. fib -We will trend for now Respiratory - Hypoxiagiven history, assessment, and imaging suspect this is most likely due to aspiration pneumonitis/pneumonia. However cannot rule out element of CHF -Currently patient is maintaining oxygen saturation on 2 L oxygen mask, no respiratory distress. Exam as above -We will continue with IV fluid resuscitation with caution -See ID for pneumonia treatment -Would hold on diuresis given hypotension/sepsis for now -Continuous monitor on pulse ox, wean oxygen as tolerated GI - Transaminitislikely shock liver in the setting of hypotension, improving, N.p.o. pending speech eval RENAL/LYTES - AKIsuspect this is most likely ATN following hypotension as patient presented to the ER with systolics in the 60s -Creatinine appears to be improving as creatinine has trended from 1.77-1.32, however urine output remains low -FeNa 0.1%, consistent w/ prerenal injury -Continue with IV fluid resuscitation -Consider nephrology consult if unimproved -Continue map management greater than 65 -Avoid nephrotoxins and renally adjust medications -Trend with routine BMPs Lactic acidosisinitially improved but now up trended from 3.3-4.1 correlating with patient's worsening hypotension. Likely ischemic versus septic in etiology -No anion gap on BMP, continue with fluid resuscitation and map management and trend - Foleystrict I's and O's ENDO - No history of diabetes or thyroid disease ICU hyperglycemic protocol HEME - H&H and platelets stable, monitor routine CBCs ID - Sepsispatient presents with fever, leukocytosis, elevated pro-Unruly and lactate with multiple potential sources including UTI and pneumonia -UA +3 bacteria, urine culture pending -Chest x-ray consistent with multifocal pneumonia -Blood cultures pending -Nasal MRSA negative -COVID-19 negative -Continue broad-spectrum antibiotics. Patient was placed on meropenem due to penicillin allergy and daptomycin was favored due to poor renal function. Narrow with cultures LINES/IV ACCESS - Right femoral CVC DVT PROPHYLAXIS - SCDs, heparin drip I have personally spent 45 minutes of critical care time in the direct management of this patient. This is a life/limb threatening event. This includes time spent evaluating patient, direct bedside care, chart review, placing or ders, interpretation of diagnostic studies, discussion with consultants, patient, and family members, as well as other required patient management activities. This time is exclusive of all separately billable procedures, and teaching time and separate from and in addition to any other critical care service time. Thank you for allowing us to participate in the care of this patient. Please refer to my attending physician's documentation for any further recommendations. (2) Acute respiratory failure with hypoxia: (3) DVT prophylaxis: (4) History of stroke: (5) Dysphagia: (6) Severe protein-calorie malnutrition: (7) Aspiration pneumonia: (8) Severe sepsis: (9) History of lymphoma: (10) History of multiple myeloma: (11) Calculus of kidney: (12) Atrial fibrillation: (13) Elevated troponin I level: (14) Acute kidney injury: (15) Hypoxia: (16) Pneumonia: (17) Leukocytosis: Supervising Physician Co-Signing Physician Notes Seen and examined. Chart and imaging reviewed. Discussed with CC LILIAM and agree with AP as noted. Refer to my note from 06/08 for additional details. History of Present Illness Attending Physician: Rey Dorantes History of Present Illness Patient is a 74-year-old female with PMH including stroke (2014), non-Hodgkin's lymphoma (remission since 2004), CHF, HTN, dysphagia with recurrent aspiration pneumonia, A. fib, and sjorgen's syndrome who presented from long-term with fever and respiratory distress following a suspected aspiration during dinner last night. On arrival to the ED the patient was found to be hypoxic with oxygen saturations in the 80s and hypotensive. Blood pressure initially improved with volume resuscitation. She was noted to have MONO and mild transaminitis on BMP and slightly elevated troponin 0.7. EKG showed A. fib with septal infarct which which was noted on previous studies. UA consistent with UTI and chest x-ray demonstrated multifocal pneumonia-like pattern. Blood cultures and urine culture pending. Patient was started on broad-spectrum antibiotics and was admitted to telemetry this morning for treatment of sepsis. Was notified by the patient's primary team this afternoon that she was becoming more hypotensive despite fluid bolus. Repeat labs showed uptrending lactate and there was concern for worsening ischemia. Urine output has been very poor throughout the day however creatinine appears to be improving on repeat BMP. There was concern that due to patient's history of CHF and current hypoxia, her pulmonary status might continue to worsen with additional boluses given that she is already 3.5 L positive since this morning. Patient was started on Levophed and transferred to the ICU. On arrival to the ICU patient is alert and does not appear to be in any acute distress. She denies any pain, dizziness or syncope, headache, nausea or vomiting, shortness of breath, cough, sore throat, chest pain or palpitations, abdominal pain or diarrhea. She has a Saucedo with dark concentrated urine. She is currently on 2 L oxygen mask. Lungs are coarse/rhonchorous but no crackles auscultated. Will attempt more aggressive fluid resuscitation in hopes that this will help with blood pressure, urine output, and weaning levo if the patient is able to tolerate. Further management in ICU for the time being. Allergies Allergy/AdvReac Type Severity Reaction Status Date / Time ampicillin Allergy Unknown Rash Verified 06/07/20 08:24 morphine Allergy Unknown Rash Verified 06/07/20 08:24 Penicillins Allergy Unknown Rash Verified 06/07/20 08:24 sulindac Allergy Unknown Rash Verified 06/07/20 08:24 tetracycline Allergy Unknown RASH Verified 06/07/20 08:24 tolmetin Allergy Unknown Rash Verified 06/07/20 08:24 Home Medications Medication Instructions Recorded Confirmed Type carvedilol 6.25 mg tablet 6.25 mg PO BID #180 tab 01/05/19 06/07/20 History losartan 50 mg tablet 50 mg PO DAILY@0800 #90 tab 01/05/19 06/07/20 History Systane Gel 1 drp OPL TID 02/08/19 06/07/20 History Systane Gel 1 drp OPR DAILY@0800 02/08/19 06/07/20 History acetaminophen 650 mg PO Q4H PRN MDD 3 GMS 02/08/19 06/07/20 History APAP/24 HOURS multivitamin [Daily-Rogelio] 1 tab PO DAILY@0800 02/08/19 06/07/20 History potassium chloride 10 meq PO DAILY@0800 06/07/20 06/07/20 History warfarin 1.5 mg PO 4XWK 06/07/20 06/07/20 History warfarin [Coumadin] 2 mg PO 3XWK 06/07/20 06/07/20 History Patient History Medical History (Updated 06/07/20 @ 19:44 by Rey Dorantes) Aspiration pneumonia Atrial fibrillation C. difficile colitis Calculus of kidney CHF (congestive heart failure) History of lymphoma History of multiple myeloma History of stroke 2015 Sepsis Sjoegren syndrome Surgical History H/O tubal ligation History of cataract surgery History of cholecystectomy History of colostomy History of colostomy reversal History of hip replacement History of resection of small bowel Status post cystoscopy with ureteral stent placement Family History Sister Breast cancer Mother , in MVA No problems noted. 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 How many Children do You have: 3 Other Information That Helps Us Care for You: No Feels Safe at Home: Yes Safety Concerns: Feels Safe At This Time Assistive Devices: Oxygen - Continuous Review of Systems Review of Systems: All systems reviewed & are unremarkable except as noted in HPI & below Physical Exam Constitutional: + thin, cooperative and comfortable Eyes: PERRL, conjunctivae normal, anicteric sclerae ENMT: external ear and nose normal, oropharynx normal Neck: trachea midline, no thyromegaly Respiratory: Normal respiratory rate and nonlabored breathing with symmetrical chest wall movement. No coughing or wheezing. Rhonchi auscultated bilaterally in all lung luz. Cardiovascular: A. fib with controlled rate on monitor. No murmur. No JVD. No edema. Gastrointestinal (Abdomen): normal bowel sounds, soft, nontender, no hepatosplenomegaly Skin: no rashes, warm and dry Neurologic: PERRLA, EOMs intact, chronic left-sided weakness and dysarthria. Psychiatric: Oriented to self. Euthymic affect Genitourinary: Indwelling Saucedo catheter. Urine is dark and concentrated. Results & Data Results & Data ([facility]) Vital Signs (Past 12 Hours) Vital Signs Temp Pulse Pulse Pulse Resp BP BP 06/07/20 20:32 76 18 06/07/20 20:23 72 19 116/75 06/07/20 20:20 74 20 06/07/20 20:10 71 18 06/07/20 20:09 36.3 C L 72 20 80/56 L 06/07/20 20:06 135 H 24 06/07/20 19:12 72 88/63 L 06/07/20 16:27 61 17 06/07/20 15:52 36.8 C 59 L 17 92/65 L 06/07/20 14:31 61 19 06/07/20 12:10 06/07/20 11:20 69 18 06/07/20 11:15 36.4 C L 67 22 06/07/20 09:19 70 18 BP Pulse Ox Pulse Ox 06/07/20 20:32 92 06/07/20 20:23 90 06/07/20 20:20 87 L 06/07/20 20:10 91 06/07/20 20:09 93 06/07/20 20:06 92 06/07/20 19:12 06/07/20 16:27 94 06/07/20 15:52 94 06/07/20 14:31 94/61 L 97 06/07/20 12:10 93/63 L 06/07/20 11:20 93 06/07/20 11:15 82/54 L 92 93 06/07/20 09:19 103/53 L 98 Coding Level of Care Code Critical Care 1st 30-74 mins Diagnoses Hypotension I95.9 Hypotension type: unspecified hypotension type Acute respiratory failure with hypoxia J96.01 DVT prophylaxis Z29.9 History of stroke Z86.73 Dysphagia R13.10 Dysphagia type: unspecified Severe protein-calorie malnutrition E43 Aspiration pneumonia J69.0 Aspiration pneumonia type: unspecified Laterality: bilateral Lung location: unspecified part of lung Severe sepsis A41.9; R65.20 History of lymphoma Z85.79 History of multiple myeloma Z85.79 Calculus of kidney N20.0 Atrial fibrillation I48.21 Atrial fibrillation type: permanent Elevated troponin I level R77.8 Acute kidney injury N17.9 Hypoxia R09.02 Pneumonia J18.9 Laterality: bilateral Lung location: unspecified part of lung Pneumonia type: due to unspecified organism Leukocytosis D72.829 Leukocytosis type: unspecified (1) Atrial fibrillation Atrial fibrillation type: permanent Qualified Code(s): I48.21 - Permanent atrial fibrillation (2) Dysphagia Dysphagia type: unspecified Qualified Code(s): R13.10 - Dysphagia, unspecified (3) Leukocytosis Leukocytosis type: unspecified Qualified Code(s): D72.829 - Elevated white blood cell count, unspecified (4) Aspiration pneumonia Aspiration pneumonia type: unspecified Laterality: bilateral Lung location: unspecified part of lung Qualified Code(s): J69.0 - Pneumonitis due to inhalation of food and vomit (5) Hypotension Hypotension type: unspecified hypotension type Qualified Code(s): I95.9 - Hypotension, unspecified (6) Pneumonia Laterality: bilateral Lung location: unspecified part of lung Pneumonia type: due to unspecified organism Qualified Code(s): J18.9 - Pneumonia, unspecified organism
[2020-06-07] MEDS: MEROPENEM 500 MG in SYRINGE 0 ML IV SCH (22:38)
[2020-06-07 22:59] LABS: Creatinine Clr Calc Pharmacy 29.7 ml/min; Est GFR (African American) 59.4; Est GFR (Non-African American) 51.2
[2020-06-08 04:24] LABS: Basophils # (auto) 0.01 K/uL (0-0.2); Basophils % (auto) 0.1 %; Eosinophils # (auto) 0.02 K/uL (0-0.5); Eosinophils % (auto) 0.1 %; Hematocrit (blood only) 36.2 % (37-47); Hemoglobin 11.6 g/dL (12.0-16.0); Immature Granulocytes # (auto) 0.05 K/uL (0.00-0.02); Immature Granulocytes % (auto) 0.3 %; Lymphocytes # (auto) 1.64 K/uL (1.2-3.4); Lymphocytes % (auto) 10.3 %; Mean Corpuscular Hemoglobin 25.8 pg (25-34); Mean Corpuscular Volume 80.6 fL (80-100); Mean Platelet Volume 8.9 fL (7.4-10.4); Monocytes # (auto) 0.87 K/uL (0.11-0.59); Monocytes % (auto) 5.5 %; Neutrophils # (auto) 13.28 K/uL (1.4-6.5); Neutrophils % (auto) 83.7 %; Platelet Count 164 K/uL (130-400); RDW Coefficient of Variation 21.7 % (11.5-14.5); Red Blood Count 4.49 M/uL (4.2-5.4); White Blood Count 15.87 K/uL (4.8-10.8)
[2020-06-08 04:43] LABS: Partial Thromboplastin Ratio 2.9
[2020-06-08 04:46] LABS: BUN Creatinine Ratio 32.4 (10-20); Calcium 7.2 mg/dl (8.5-10.1); Est GFR (Non-African American) 64.7; Magnesium 1.7 mg/dl (1.8-2.4); Potassium 3.9 mmol/L (3.5-5.1)
[2020-06-08 04:54] LABS: Phosphorus 2.3 mg/dl (2.5-4.9); Troponin I 0.984 ng/ml (0-0.045)
[2020-06-08] MEDS ORDERED: POTASSIUM PHOS 3 MMOL/1 ML INFUSION IV STA (04:59)
[2020-06-08 05:10] LABS: Anisocytosis Present; Dohle Bodies Occasional
[2020-06-08 05:11] LABS: Partial Thromboplastin Time 75.3 Seconds (21.0-31.0)
[2020-06-08] MEDS: LACTATED RINGER'S 1,000 ML IV SCH ×2 (05:15→17:52)
[2020-06-08] MEDS: MAGNESIUM SULFATE / D5W 1 GM/100 ML BAG IV SCH ×3 (05:25→09:35)
[2020-06-08] MEDS ORDERED: POTASSIUM PHOSPHATE 9 MMOL in SODIUM CHLORIDE 0.9% 250 ML IV ONE (05:30)
[2020-06-08] MEDS ORDERED: CALCIUM GLUCONATE 10% 2,000 MG in SODIUM CHLORIDE 0.9% 50 ML IV ONE (08:03)
[2020-06-08] MEDS ORDERED: MAGNESIUM SULFATE / D5W 1 GM/100 ML BAG IV ONE (08:03)
--- NOTE | 2020-06-08 08:03 | Critical Care Progress Note ---
Date of Service June 08, 2020 Assessment & Plan (1) Acute respiratory failure with hypoxia: Reason Critically Ill: 74-year-old female currently undergoing treatment for sepsis presents to the ICU as transfer following worsening hypotension and elevated lactate, now requiring vasopressor support. 24-hour events: Transferred to ICU about 12 hours ago. Pressors have been discontinued as of 6:00 this morning and her pressure appears to be holding. L actate remains mildly elevated. Her oxygen requirement is stable. Recommendations Neuro -prior stroke with neurological sequelae. Known dysphagia and aspiration. Repeat swallow evaluation pending. No indication for repeat imaging Cardiac - Septic versus cardiogenic shock. The patient's BNP was markedly elevated and echocardiogram from 3 years ago demonstrated some valvular heart disease. She had significant four-chamber enlargement on the CT scan performed last month. Repeat echo is pending. Given her elevation in lactate, would hold on diuresis until the echocardiogram is available. Patient does have atrial fibrillation but is currently rate controlled. This may be contributing to her hypotension as well. Drip. Respiratory -multifocal airspace opacity consistent with aspiration versus atypical pulmonary edema. Procalcitonin was markedly elevated. See ID below. Continue oxygen titrated to keep saturations at or above 90%. GI -await formal swallow evaluation. Trend LFTs RENAL/LYTES -patient presented with mild renal insufficiency which is now corrected. She is hypernatremic now and requires free water replacement. She is getting calcium and magnesium which will give her some free water. Sodium continues to remain high, may need to transition fluids to half-normal saline. Replace magnesium calcium and phosphate. - Foleystrict I's and O's ENDO - No history of diabetes or thyroid disease ICU hyperglycemic protocol HEME - H&H and platelets stable, monitor routine CBCs ID - Severe sepsis with septic shock likely secondary to lung source. The patient has been initiated on meropenem and daptomycin. Daptomycin is inactivated by pulmonary surfactant so cannot use for lung coverage. Her nasal MRSA swab was negative so I do not think she needs empiric MRSA coverage at this point time. She is not really expectorating phlegm so it is can be difficult to get a sputum sample. Would not recommend bronchoscopy given her comorbidities. Will discontinue daptomycin and continue meropenem. If staph coverage was required, transition to ceftaroline may be appropriate. Trending procalcitonin may be beneficial. LINES/IV ACCESS - Right femoral CVC, would recommend this be removed as soon as possible with IV access can be obtained. Will ask PICC service to see if she is a candidate for PICC line. DVT PROPHYLAXIS - SCDs, heparin drip Patient's hypotension appears resolved. Her oxygen requirement is stable. She maintains, she can be transferred back to the floor under the care of the hospitalist and critical care services will sign off when she leaves the ICU. Feel free to contact us with additional questions (2) Severe sepsis: (3) Septic shock: (4) Pneumonia: (5) Acute kidney injury: (6) Aspiration pneumonia: Admission and Anticipated Discharge Date Admission Date: June 07, 2020 Subjective Pt offers no complaints this AM. States no pain and no difficulty breathing. She does have a coarse cough which is not really productive. Review of Systems Review of Systems: All systems reviewed & are unremarkable except as noted in HPI & below Physical Exam 2 Constitutional: + cachectic and + frail appearing; no acute distress Neck: trachea midline, no thyromegaly Respiratory: no respiratory distress and no labored breathing Auscultation: + rhonchi Cardiovascular: RRR, no murmur, no edema Gastrointestinal (Abdomen): normal bowel sounds, soft, nontender, no hepatosplenomegaly Musculoskeletal: Extremities: extremities normal to inspection Skin: no rashes, warm and dry Neurologic: Nonfocal exam Lymphatic: no cervical lymphadenopathy Results & Data Results & Data ([facility]) Vital Signs (Past 12 Hours) Vital Signs Temp Pulse Pulse Resp BP BP Pulse Ox 06/08/20 06:23 113 H 21 115/61 91 06/08/20 06:09 88 23 115/52 L 90 06/08/20 06:00 79 22 90 06/08/20 05:53 84 22 102/64 91 06/08/20 05:38 81 19 106/66 93 06/08/20 05:23 78 21 95/66 L 92 06/08/20 05:08 89 19 107/58 L 95 06/08/20 05:00 81 23 90 06/08/20 04:53 83 22 117/63 95 06/08/20 04:45 82 20 94 06/08/20 04:38 87 20 100/67 94 06/08/20 04:30 78 20 06/08/20 04:23 86 21 113/62 92 06/08/20 04:15 87 21 92 06/08/20 04:08 88 22 121/56 L 93 06/08/20 04:00 36.6 C 77 21 94 06/08/20 03:53 79 19 112/55 L 94 06/08/20 03:45 85 20 92 06/08/20 03:38 87 21 109/61 90 06/08/20 03:30 79 21 90 06/08/20 03:24 87 20 113/55 L 90 06/08/20 03:15 80 20 90 06/08/20 03:08 85 21 111/56 L 91 06/08/20 03:02 76 21 112/56 L 90 06/08/20 03:00 85 22 91 06/08/20 01:53 92 H 20 112/56 L 93 06/08/20 01:45 84 24 93 06/08/20 01:38 83 21 103/59 L 92 06/08/20 01:30 83 22 91 06/08/20 01:16 87 20 120/64 90 06/08/20 01:15 73 20 90 06/08/20 01:01 82 21 117/64 94 06/08/20 01:00 85 21 93 06/08/20 00:45 75 20 116/66 92 06/08/20 00:30 79 21 104/66 06/08/20 00:19 77 19 91 06/08/20 00:17 75 20 106/62 91 06/08/20 00:16 74 18 92 06/08/20 00:15 79 18 93 06/08/20 00:00 36.5 C 78 21 94 06/07/20 23:45 80 17 06/07/20 23:30 74 20 94 06/07/20 23:25 78 19 94 06/07/20 23:24 76 18 135/67 95 06/07/20 23:15 72 20 91 06/07/20 23:13 81 20 121/65 93 06/07/20 23:09 77 18 99/68 L 92 06/07/20 23:00 74 20 95 06/07/20 22:52 76 06/07/20 22:50 75 19 93 06/07/20 22:40 75 18 90 06/07/20 22:33 73 18 112/79 95 06/07/20 22:30 68 15 96 06/07/20 22:23 66 14 102/61 96 06/07/20 22:20 63 15 95 06/07/20 22:13 65 15 109/71 96 06/07/20 22:10 65 16 96 06/07/20 22:03 65 15 109/60 96 06/07/20 22:00 65 15 96 06/07/20 21:53 68 15 101/69 99 06/07/20 21:50 64 14 96 06/07/20 21:43 68 16 113/68 100 06/07/20 21:40 68 16 06/07/20 21:33 67 14 108/54 L 98 06/07/20 21:30 68 17 98 06/07/20 21:23 74 18 95/65 L 94 06/07/20 21:20 72 19 94 06/07/20 21:13 72 17 111/69 96 06/07/20 21:10 70 20 95 06/07/20 21:03 67 19 105/76 94 06/07/20 21:00 67 21 96 06/07/20 20:53 68 20 112/69 96 06/07/20 20:50 63 20 96 06/07/20 20:43 76 19 107/61 97 06/07/20 20:40 74 22 90 06/07/20 20:34 67 19 116/65 94 06/07/20 20:32 76 18 92 06/07/20 20:30 71 19 96 06/07/20 20:23 72 19 116/75 90 06/07/20 20:20 74 20 87 L 06/07/20 20:10 76 18 91 06/07/20 20:09 36.3 C L 72 20 80/56 L 93 06/07/20 20:06 135 H 24 92 06/07/20 19:12 72 88/63 L Laboratory Results 06/08/20 03:57 06/08/20 03:57 Culture showed no growth to date. Venous blood gas on presentation 7.35/47 Initial lactate 3.3 down to 2.5 and maintaining at 2.6 Procalcitonin 25 Random cortisol 58 Calcium 7.2 Magnesium 1.7 Phosphorus 2.3 Troponin downtrending Albumin 2.4 BNP over 29,000 Diagnostic Findings Imaging studies independently reviewed. Chest x-ray from this morning showed multifocal airspace opacity, stable compared to previous films. CT of the chest from April 30, 2019 was reviewed. It demonstrates cardiomegaly with consolidation at the left lung base. Patulous esophagus was noted at that time. Echo 2018 showed mild AI and mild to moderate MR. Coding Level of Care Code 63797 Subseq Hosp Care Lvl 3 Diagnoses Acute respiratory failure with hypoxia J96.01 Severe sepsis A41.9; R65.20 Septic shock A41.9; R65.21 Pneumonia J18.9 Laterality: bilateral Lung location: unspecified part of lung Pneumonia type: due to unspecified organism Acute kidney injury N17.9 Aspiration pneumonia J69.0 Aspiration pneumonia type: unspecified Laterality: bilateral Lung location: unspecified part of lung (1) Pneumonia Laterality: bilateral Lung location: unspecified part of lung Pneumonia type: due to unspecified organism Qualified Code(s): J18.9 - Pneumonia, unspecified organism (2) Aspiration pneumonia Aspiration pneumonia type: unspecified Laterality: bilateral Lung location: unspecified part of lung Qualified Code(s): J69.0 - Pneumonitis due to inhalation of food and vomit
[2020-06-08] MEDS: ARTIFICIAL TEARS OPL SCH ×3 (09:09→19:30)
[2020-06-08] MEDS: ARTIFICIAL TEARS OPR SCH (09:10)
[2020-06-08] MEDS: MEROPENEM 500 MG in SYRINGE 0 ML IV SCH ×2 (10:09→19:34)
--- NOTE | 2020-06-08 10:55 | Hospitalist Progress Note ---
Date of Service June 08, 2020 Assessment & Plan (1) Septicemia: blood cx's, 1/2 sets today, now positive for gram negative steff. source - urine vs lung. await speciation. continue meropenem in meantime. will need repeat blood cx's to ensure sterility. (2) Septic shock: 2nd to aspiration pneumonia and UTI. brief ICU stay for shock. needed levophed overnight - now weaned off. can transfer out of ICU today. continue IVF. continue holding coreg for now. follow BPs carefully. (3) Acute respiratory failure with hypoxia: 2nd to pneumonia, likely aspiration, as was told she aspirated during dinner the night before admission. She has been compliant with pureed solids and thickened liquids. No evidence of complicating CHF. Remains on NC O2; no respiratory distress today. Cont IV abx and supportive care. (4) Aspiration pneumonia: Treated for such in early 04/2020. Has dysphagia - suspect due to prior stroke in 2014. also states her Sjogren's contributes to her dysphagia. Now with recurrent b/l aspiration pneumonia. Cover gram+'s, gram-'s, and anaerobes. PCN allergic - using meropenem for now. MRSA swab negative. Supportive care. NC o2. (5) UTI (urinary tract infection): Urine cx growing GNR and strep species; latter may be enterococcus. 1/2 sets of blood cx's with GNR. Cont meropenem for now. Give another dose of IV daptomycin to cover enterococcus. Await final culture results. (6) Hypotension: 2nd sepsis. Checked cortisol - very adequate. No evidence of cardiogenic shock. s/p levophed overnight - now off, and BPs stable/normal. Cont to hold coreg as long as a.fib rates are satisfactory. (7) Dysphagia: Known, chronic issue. SEVERE. Had aspiration pneumonia during 04/2020 hospital stay. Speech saw her at that time - pureed diet advised. Speech saw patient today - advised ongoing NPO status, video swallow this week? Aspiration precautions. Dysphagia likely 2nd to prior stroke, sjogren's, etc. (8) Acute kidney injury: Sepsis-associated ATN. Improving nicely with Rx of sepsis, fluids, time. CT abd/pelvis earlier this year without renal stones or other pathology that would cause obstruction. Repeat bmp am. (9) Elevated troponin I level: No prior h/o CAD. This is likely myocardial demand ischemia in setting of severe sepsis. Trend the troponins until peak. (10) Metabolic encephalopathy: 2nd to sepsis. Supportive care; Rx the sepsis. Avoid sedatives. Mental status modestly better today but still quite confused. (11) Atrial fibrillation: Permanent. Holding coreg due to hypotension. INR is <2. Patient still strict NPO. Given her prior h/o stroke and high CHADS will treat with IV heparin until able to take her coumadin. (12) CHF (congestive heart failure): Diastolic by history. Last echo was several years ago. Repeat echo to reassess EF. (13) Sjoegren syndrome: Noted. (14) Severe protein-calorie malnutrition: Significant weight loss over the last few months per . At least 5-6kg weight loss since the new year. Does patient have underlying cognitive impairment or dementia process with failure to thrive?? (15) History of stroke: 2014. Presumed cardioembolic from a.fib. (16) DVT prophylaxis: Heparin IV. updated extensively this am by phone. He brought POLST form in today showing full code status, trial of artificial nutrition, etc. [id number] palliative care consult advised especially in light of severe dysphagia, aspiration, etc. Further, Patient stated she would not want CPR/intubation during my admission assessment. Despite her encephalopathy she seemed to understand the code status questions. Tx out of ICU to PCU today. Order PT/OT ness. Admission and Anticipated Discharge Date Admission Date: June 07, 2020 Subjective levophed was weaned off by 6am this am. speech saw her this morning - aspirating significantly - advised that she remain NPO. modestly more awake/alert this am but confused - stating it is 2014. she does know she is in the hospital. UOP has improved overnight with fluids, pressors, and improvement in BP. denies any complaints stating "I'm ok." coughing throughout the visit. Review of Systems Review of Systems: Unobtainable due to cognitive status Physical Exam Constitutional: + ill appearing, + altered mental status and + frail appearing; no acute distress ENMT: Mouth: + dry oral mucous membranes Respiratory: no respiratory distress Auscultation: + diminished lung sounds and + crackles (Extensive b/l ); no wheezes Cardiovascular: Rate/Rhythm: + tachycardic and + irregularly irregular Heart Sounds: normal S1 and normal S2; no murmur Vessels: posterior tibial pulses present and dorsalis pedis pulses present; no JVD Extremities: no edema Gastrointestinal (Abdomen): normal bowel sounds, soft, nontender, no hepatosplenomegaly Skin: no rashes, warm and dry Psychiatric: Orientation: alert, oriented to person and oriented to place; + not oriented to time Results & Data Results & Data ([facility]) Vital Signs (Past 12 Hours) Vital Signs Temp Pulse Pulse Resp BP BP Pulse Ox 06/08/20 10:00 81 22 96 06/08/20 09:54 82 21 133/79 96 06/08/20 09:39 83 24 132/79 97 06/08/20 09:30 80 20 94 06/08/20 09:23 79 19 136/75 97 06/08/20 09:08 79 21 121/67 99 06/08/20 09:00 76 20 98 06/08/20 08:53 82 20 110/67 97 06/08/20 08:38 84 18 117/65 97 06/08/20 08:30 80 21 96 06/08/20 08:25 84 22 100/75 97 06/08/20 08:09 86 22 98/69 L 89 L 06/08/20 08:00 37.3 C 95 H 84 22 114/67 90 06/08/20 07:53 95 H 21 126/65 93 06/08/20 07:38 94 H 23 106/72 93 06/08/20 07:30 88 19 93 06/08/20 07:23 86 19 114/67 84 L 06/08/20 07:09 88 21 121/61 93 06/08/20 07:00 97 H 23 94 06/08/20 06:53 86 22 108/81 91 06/08/20 06:51 107 H 23 117/79 92 06/08/20 06:39 104 H 24 110/62 93 06/08/20 06:30 87 25 H 92 06/08/20 06:23 113 H 21 115/61 91 06/08/20 06:09 88 23 115/52 L 90 06/08/20 06:00 79 22 90 06/08/20 05:53 84 22 102/64 91 06/08/20 05:38 81 19 106/66 93 06/08/20 05:23 78 21 95/66 L 92 06/08/20 05:08 89 19 107/58 L 95 06/08/20 05:00 81 23 90 06/08/20 04:53 83 22 117/63 95 06/08/20 04:45 82 20 94 06/08/20 04:38 87 20 100/67 94 06/08/20 04:30 78 20 06/08/20 04:23 86 21 113/62 92 06/08/20 04:15 87 21 92 06/08/20 04:08 88 22 121/56 L 93 06/08/20 04:00 36.6 C 77 21 94 06/08/20 03:53 79 19 112/55 L 94 06/08/20 03:45 85 20 92 06/08/20 03:38 87 21 109/61 90 06/08/20 03:30 79 21 90 06/08/20 03:24 87 20 113/55 L 90 06/08/20 03:15 80 20 90 06/08/20 03:08 85 21 111/56 L 91 06/08/20 03:02 76 21 112/56 L 90 06/08/20 03:00 85 22 91 06/08/20 01:53 92 H 20 112/56 L 93 06/08/20 01:45 84 24 93 06/08/20 01:38 83 21 103/59 L 92 06/08/20 01:30 83 22 91 06/08/20 01:16 87 20 120/64 90 06/08/20 01:15 73 20 90 06/08/20 01:01 82 21 117/64 94 06/08/20 01:00 85 21 93 06/08/20 00:45 75 20 116/66 92 06/08/20 00:30 79 21 104/66 06/08/20 00:19 77 19 91 06/08/20 00:17 75 20 106/62 91 06/08/20 00:16 74 18 92 06/08/20 00:15 79 18 93 06/08/20 00:00 36.5 C 78 21 94 06/07/20 23:45 80 17 06/07/20 23:30 74 20 94 06/07/20 23:25 78 19 94 06/07/20 23:24 76 18 135/67 95 06/07/20 23:15 72 20 91 06/07/20 23:13 81 20 121/65 93 06/07/20 23:09 77 18 99/68 L 92 06/07/20 23:00 74 20 95 06/07/20 22:52 76 06/07/20 22:50 75 19 93 06/07/20 22:40 75 18 90 06/07/20 22:33 73 18 112/79 95 06/07/20 22:30 68 15 96 06/07/20 22:23 66 14 102/61 96 06/07/20 22:20 63 15 95 06/07/20 22:13 65 15 109/71 96 06/07/20 22:10 65 16 96 06/07/20 22:03 65 15 109/60 96 06/07/20 22:00 65 15 96 Laboratory Results Laboratory Results - last 24 hr 06/07/20 06/07/20 06/07/20 10:01 10:01 11:12 WBC RBC Hgb Hct MCV MCH MCHC RDW Std Deviation RDW Coeff of Gera Plt Count MPV Immature Gran % (Auto) Neut % (Auto) Lymph % (Auto) [place] % (Auto) Eos % (Auto) Baso % (Auto) Neut # (Auto) Lymph # (Auto) [place] # (Auto) Eos # (Auto) Baso # (Auto) Immature Gran # (Auto) Dohle Bodies Anisocytosis APTT PTT Ratio Sodium Potassium Chloride Carbon Dioxide Anion Gap BUN Creatinine Est Cr Clr Drug Dosing Est GFR ( Amer) Est GFR (Non-Af Amer) BUN/Creatinine Ratio Glucose POC Glucose Lactate 3.3 H* Calcium Phosphorus Magnesium Total Bilirubin Direct Bilirubin AST ALT Alkaline Phosphatase Troponin I Total Protein Albumin Random Cortisol 58.36 Urine Color Dark Yellow Urine Appearance Turbid A Urine pH 5.0 Ur Specific [place] 1.022 Urine Protein 3+ H Urine Glucose (UA) Negative Urine Ketones Trace H Urine Blood 3+ H Urine Nitrite Positive A Urine Bilirubin 2+ H Urine Urobilinogen Negative Ur Leukocyte Esterase 1+ H Urine WBC (Auto) >30 H Urine RBC (Auto) >30 H U Hyaline Cast (Auto) 5-10 H U Epithel Cells (Auto) >30 H Urine Bacteria (Auto) 3+ H Urine Yeast Not Reportable Ur Random Creatinine Ur Random Sodium Nasal Screen MRSA (PCR) 06/07/20 06/07/20 06/07/20 18:46 18:46 18:46 WBC RBC Hgb Hct MCV MCH MCHC RDW Std Deviation RDW Coeff of Gera Plt Count MPV Immature Gran % (Auto) Neut % (Auto) Lymph % (Auto) [place] % (Auto) Eos % (Auto) Baso % (Auto) Neut # (Auto) Lymph # (Auto) [place] # (Auto) Eos # (Auto) Baso # (Auto) Immature Gran # (Auto) Dohle Bodies Anisocytosis APTT 95.0 H* PTT Ratio 3.6 Sodium 144 Potassium 4.5 Chloride 114 H Carbon Dioxide 24 Anion Gap 6.0 BUN 31 H Creatinine 1.32 H D Est Cr Clr Drug Dosing 24.3 Est GFR ( Amer) 46.6 Est GFR (Non-Af Amer) 40.2 BUN/Creatinine Ratio 23.3 H Glucose 154 H POC Glucose Lactate 4.1 H* Calcium 7.4 L D Phosphorus Magnesium Total Bilirubin Direct Bilirubin AST ALT Alkaline Phosphatase Troponin I 0.744 H* Total Protein Albumin Random Cortisol Urine Color Urine Appearance Urine pH Ur Specific [place] Urine Protein Urine Glucose (UA) Urine Ketones Urine Blood Urine Nitrite Urine Bilirubin Urine Urobilinogen Ur Leukocyte Esterase Urine WBC (Auto) Urine RBC (Auto) U Hyaline Cast (Auto) U Epithel Cells (Auto) Urine Bacteria (Auto) Urine Yeast Ur Random Creatinine Ur Random Sodium Nasal Screen MRSA (PCR) 06/07/20 06/07/20 06/07/20 18:46 22:33 22:34 WBC RBC Hgb Hct MCV MCH MCHC RDW Std Deviation RDW Coeff of Gera Plt Count MPV Immature Gran % (Auto) Neut % (Auto) Lymph % (Auto) [place] % (Auto) Eos % (Auto) Baso % (Auto) Neut # (Auto) Lymph # (Auto) [place] # (Auto) Eos # (Auto) Baso # (Auto) Immature Gran # (Auto) Dohle Bodies Anisocytosis APTT PTT Ratio Sodium 145 Potassium Chloride Carbon Dioxide Anion Gap BUN Creatinine 1.08 Est Cr Clr Drug Dosing 29.7 Est GFR ( Amer) 59.4 Est GFR (Non-Af Amer) 51.2 BUN/Creatinine Ratio Glucose POC Glucose Lactate Calcium Phosphorus Magnesium Total Bilirubin 0.4 Direct Bilirubin 0.2 AST 53 H ALT 36 Alkaline Phosphatase 89 Troponin I Total Protein 6.2 L Albumin 2.4 L Random Cortisol Urine Color Urine Appearance Urine pH Ur Specific [place] Urine Protein Urine Glucose (UA) Urine Ketones Urine Blood Urine Nitrite Urine Bilirubin Urine Urobilinogen Ur Leukocyte Esterase Urine WBC (Auto) Urine RBC (Auto) U Hyaline Cast (Auto) U Epithel Cells (Auto) Urine Bacteria (Auto) Urine Yeast Ur Random Creatinine 139.0 Ur Random Sodium 12 Nasal Screen MRSA (PCR) 06/07/20 06/07/20 06/07/20 23:55 23:55 Unknown WBC RBC Hgb Hct MCV MCH MCHC RDW Std Deviation RDW Coeff of Gera Plt Count MPV Immature Gran % (Auto) Neut % (Auto) Lymph % (Auto) [place] % (Auto) Eos % (Auto) Baso % (Auto) Neut # (Auto) Lymph # (Auto) [place] # (Auto) Eos # (Auto) Baso # (Auto) Immature Gran # (Auto) Dohle Bodies Anisocytosis APTT PTT Ratio Sodium Potassium Chloride Carbon Dioxide Anion Gap BUN Creatinine Est Cr Clr Drug Dosing Est GFR ( Amer) Est GFR (Non-Af Amer) BUN/Creatinine Ratio Glucose POC Glucose Lactate 2.5 H* Calcium Phosphorus Magnesium Total Bilirubin Direct Bilirubin AST ALT Alkaline Phosphatase Troponin I 1.020 H* Total Protein Albumin Random Cortisol Urine Color Urine Appearance Urine pH Ur Specific [place] Urine Protein Urine Glucose (UA) Urine Ketones Urine Blood Urine Nitrite Urine Bilirubin Urine Urobilinogen Ur Leukocyte Esterase Urine WBC (Auto) Urine RBC (Auto) U Hyaline Cast (Auto) U Epithel Cells (Auto) Urine Bacteria (Auto) Urine Yeast Ur Random Creatinine Ur Random Sodium Nasal Screen MRSA (PCR) Negative 06/08/20 06/08/20 06/08/20 00:07 03:57 03:57 WBC RBC Hgb Hct MCV MCH MCHC RDW Std Deviation RDW Coeff of Gera Plt Count MPV Immature Gran % (Auto) Neut % (Auto) Lymph % (Auto) [place] % (Auto) Eos % (Auto) Baso % (Auto) Neut # (Auto) Lymph # (Auto) [place] # (Auto) Eos # (Auto) Baso # (Auto) Immature Gran # (Auto) Dohle Bodies Anisocytosis APTT 75.3 H* PTT Ratio 2.9 Sodium 146 H Potassium 3.9 Chloride 118 H Carbon Dioxide 22 Anion Gap 6.0 BUN 29 H Creatinine 0.89 Est Cr Clr Drug Dosing 36.0 Est GFR ( Amer) 75.0 Est GFR (Non-Af Amer) 64.7 BUN/Creatinine Ratio 32.4 H Glucose 96 POC Glucose 99 Lactate Calcium 7.2 L Phosphorus 2.3 L Magnesium 1.7 L Total Bilirubin Direct Bilirubin AST ALT Alkaline Phosphatase Troponin I 0.984 H* Total Protein Albumin Random Cortisol Urine Color Urine Appearance Urine pH Ur Specific [place] Urine Protein Urine Glucose (UA) Urine Ketones Urine Blood Urine Nitrite Urine Bilirubin Urine Urobilinogen Ur Leukocyte Esterase Urine WBC (Auto) Urine RBC (Auto) U Hyaline Cast (Auto) U Epithel Cells (Auto) Urine Bacteria (Auto) Urine Yeast Ur Random Creatinine Ur Random Sodium Nasal Screen MRSA (PCR) 06/08/20 06/08/20 03:57 06:50 WBC 15.87 H RBC 4.49 Hgb 11.6 L Hct 36.2 L MCV 80.6 MCH 25.8 MCHC 32.0 RDW Std Deviation 64.0 H RDW Coeff of Gera 21.7 H Plt Count 164 MPV 8.9 Immature Gran % (Auto) 0.3 Neut % (Auto) 83.7 Lymph % (Auto) 10.3 [place] % (Auto) 5.5 Eos % (Auto) 0.1 Baso % (Auto) 0.1 Neut # (Auto) 13.28 H Lymph # (Auto) 1.64 [place] # (Auto) 0.87 H Eos # (Auto) 0.02 Baso # (Auto) 0.01 Immature Gran # (Auto) 0.05 H Dohle Bodies Occasional Anisocytosis Present APTT PTT Ratio Sodium Potassium Chloride Carbon Dioxide Anion Gap BUN Creatinine Est Cr Clr Drug Dosing Est GFR ( Amer) Est GFR (Non-Af Amer) BUN/Creatinine Ratio Glucose POC Glucose Lactate 2.6 H* Calcium Phosphorus Magnesium Total Bilirubin Direct Bilirubin AST ALT Alkaline Phosphatase Troponin I Total Protein Albumin Random Cortisol Urine Color Urine Appearance Urine pH Ur Specific [place] Urine Protein Urine Glucose (UA) Urine Ketones Urine Blood Urine Nitrite Urine Bilirubin Urine Urobilinogen Ur Leukocyte Esterase Urine WBC (Auto) Urine RBC (Auto) U Hyaline Cast (Auto) U Epithel Cells (Auto) Urine Bacteria (Auto) Urine Yeast Ur Random Creatinine Ur Random Sodium Nasal Screen MRSA (PCR) urine cx - >100,000 GNR >100,000 strep species blood cx's neg to date PG Care Time/CCT Total # of Minutes Spent Total Time Spent with Patient: Total time spent is greater than 50% in coordination of care (as documented) at patient's floor/unit and/or counseling patient: Coding Level of Care Code 83553 Subseq Hosp Care Lvl 3 Diagnoses Septicemia A41.9 Septic shock A41.9; R65.21 Acute respiratory failure with hypoxia J96.01 Aspiration pneumonia J69.0 Aspiration pneumonia type: unspecified Laterality: bilateral Lung location: unspecified part of lung UTI (urinary tract infection) N39.0 Hypotension I95.9 Hypotension type: unspecified hypotension type Dysphagia R13.10 Dysphagia type: unspecified Acute kidney injury N17.9 Elevated troponin I level R77.8 Metabolic encephalopathy G93.41 Atrial fibrillation I48.21 Atrial fibrillation type: permanent CHF (congestive heart failure) I50.32 Heart failure chronicity: chronic Heart failure type: diastolic Sjoegren syndrome M35.00 Sjogren's organ involvement: unspecified organ involvement Severe protein-calorie malnutrition E43 History of stroke Z86.73 DVT prophylaxis Z29.9 (1) Sjoegren syndrome Sjogren's organ involvement: unspecified organ involvement Qualified Code(s): M35.00 - Sicca syndrome, unspecified (2) CHF (congestive heart failure) Heart failure chronicity: chronic Heart failure type: diastolic Qualified Code(s): I50.32 - Chronic diastolic (congestive) heart failure (3) Atrial fibrillation Atrial fibrillation type: permanent Qualified Code(s): I48.21 - Permanent atrial fibrillation (4) Dysphagia Dysphagia type: unspecified Qualified Code(s): R13.10 - Dysphagia, unspecified (5) Aspiration pneumonia Aspiration pneumonia type: unspecified Laterality: bilateral Lung location: unspecified part of lung Qualified Code(s): J69.0 - Pneumonitis due to inhalation of food and vomit (6) Hypotension Hypotension type: unspecified hypotension type Qualified Code(s): I95.9 - Hypotension, unspecified
[2020-06-08 11:41] LABS: Partial Thromboplastin Ratio 2.9
[2020-06-08 11:44] LABS: Partial Thromboplastin Time 77.1 Seconds (21.0-31.0)
--- NOTE | 2020-06-08 11:46 | Ultrasound Report ---
ULTRASOUND KIDNEYS AND BLADDER CLINICAL HISTORY: Acute renal insufficiency. COMPARISON STUDY: Abdominal CT dated 02/25/2020. Renal ultrasound dated 07/10/2018. TECHNIQUE: Real-time, grayscale, and color flow sonography of the kidneys and bladder is performed. I mages are reviewed in the transverse and longitudinal planes. FINDINGS: Kidneys: The kidneys demonstrate mild cortical atrophy. Echotexture is normal. The right kidney measu res 9.4 x 4.0 x 3.8 cm and the left kidney measures 8.9 x 4.0 x 4.1 cm. There is mild right-sided hy dronephrosis. No hydronephrosis is seen on the left. No shadowing renal calculi are identified. There is no sonographic evidence of contour deforming renal mass lesion. Trace nonspecific perinephric flu id is seen on the right. Bladder: The bladder is decompressed around a Saucedo catheter and cannot be evaluated. Abdomen: There is a small volume of abdominal ascites. IMPRESSION: 1. The kidneys demonstrate mild cortical atrophy. 2. There is mild right-sided hydronephrosis, similar to prior studies. 3. No hydronephrosis is seen on the left. 4. The bladder is decompressed around a Saucedo catheter and cannot be evaluated. 5. Small volume of upper abdominal ascites. ACT 112: Negative or not required by law. Electronically signed by: Butch Carr M.D. 06/08/2020 11:44 AM
--- NOTE | 2020-06-08 12:31 | XCELERA ---
[id number] \\[id number]
--- NOTE | 2020-06-08 12:37 | XRay Report ---
SINGLE VIEW CHEST CLINICAL HISTORY: Follow-up pneumonia FINDINGS: An AP, portable, upright chest radiograph is compared to study dated 06/07/2020 and correlat ed with chest CT dated 04/30/2020. The examination is degraded by portable technique and patient rotati on. The heart is enlarged noting atherosclerotic calcification of the thoracic aorta. Patchy airspa ce consolidation is again seen throughout both lungs. This is similar in appearance to yesterday. Sma ll pleural effusions persist. No pneumothorax is seen. The skeletal structures are osteopenic. Degene rative change and scoliosis is noted in the spine. There are healed bilateral rib fractures. IMPRESSION: 1. Multifocal airspace consolidation is similar in appearance to yesterday. 2. Cardiomegaly and small pleural effusions. ACT 112: Negative or not required by law. Electronically signed by: Butch Carr M.D. 06/08/2020 12:36 PM
--- NOTE | 2020-06-08 12:44 | Electrocardiogram Report ---
Test Reason : Blood Pressure : / mmHG Vent. Rate : 079 BPM Atrial Rate : 060 BPM P-R Int : 000 ms QRS Dur : 076 ms QT Int : 434 ms P-R-T Axes : 000 -64 176 degrees QTc Int : 497 ms Poor data quality, interpretation may be adversely affected Atrial fibrillation Left axis deviation Septal infarct (cited on or before 30-APR-2020) Inferior infarct Abnormal ECG When compared with ECG of 07-JUN-2020 07:32, No significant change Confirmed by Roman Branham ([id number]) on 06/08/2020 12:44:06 PM Referred By: [facility] Confirmed By:Roman Branham
[2020-06-08] MEDS: HEPARIN SODIUM/DEXTROSE 25,000 UNITS/500 ML BAG IV SCH (13:41)
--- NOTE | 2020-06-08 15:06 | XRay Report ---
SINGLE VIEW CHEST CLINICAL HISTORY: PICC placement FINDINGS: An AP, portable, upright chest radiograph is compared to study performed earlier the same d ay 06/08/2020 and correlated with chest CT dated 04/30/2020. The examination is degraded by portable polo hnique and patient rotation. A left PICC line has been placed. The tip projects over the SVC. The hea rt is enlarged noting atherosclerotic calcification of the thoracic aorta. Patchy airspace consolidat ion is again seen throughout both lungs. This is similar in unchanged from earlier today. Small pleur al effusions persist. No pneumothorax is seen. The skeletal structures are osteopenic. Degenerative c hange and scoliosis is noted in the spine. There are healed bilateral rib fractures. IMPRESSION: 1. A left-sided PICC line has been placed. See above. 2. Multifocal airspace consolidation is similar in appearance to today's earlier examination. 3. Cardiomegaly and small pleural effusions. ACT 112: Negative or not required by law. Electronically signed by: Butch Carr M.D. 06/08/2020 3:04 PM
[2020-06-08] MEDS ORDERED: DAPTOmycin 250 MG in SYRINGE 0 ML IV ONE (16:30)
[2020-06-08] MEDS ORDERED: cefTRIAXone SODIUM 1,000 MG in DEXTROSE 5% 50 ML IV SCH (17:00)
[2020-06-08 19:38] LABS: Partial Thromboplastin Ratio 2.2
[2020-06-08 19:40] LABS: Partial Thromboplastin Time 57.2 Seconds (21.0-31.0)
[2020-06-09] MEDS: MEROPENEM 500 MG in SYRINGE 0 ML IV SCH ×3 (02:17→16:35)
[2020-06-09] MEDS: LACTATED RINGER'S 1,000 ML IV SCH (05:25)
[2020-06-09] MEDS: HEPARIN SODIUM/DEXTROSE 25,000 UNITS/500 ML BAG IV SCH (05:28)
[2020-06-09 07:33] LABS: Partial Thromboplastin Ratio 1.8
[2020-06-09 07:35] LABS: Partial Thromboplastin Time 48.4 Seconds (21.0-31.0)
[2020-06-09 07:58] LABS: BUN Creatinine Ratio 31.6 (10-20); Calcium 8.1 mg/dl (8.5-10.1); Creatinine Clr Calc Pharmacy 76.3 ml/min; Est GFR (African American) 114.4; Est GFR (Non-African American) 98.7; Magnesium 1.7 mg/dl (1.8-2.4); Potassium 3.1 mmol/L (3.5-5.1); Troponin I 0.464 ng/ml (0-0.045)
[2020-06-09] MEDS: D5W AND 1/2NSS 1,000 ML IV SCH ×2 (08:19→20:49)
[2020-06-09] MEDS: ARTIFICIAL TEARS OPL SCH ×3 (08:20→20:47)
[2020-06-09] MEDS: ARTIFICIAL TEARS OPR SCH (08:20)
[2020-06-09] MEDS: ENOXAPARIN INJ 60 MG/0.6 ML SYR SQ SCH ×2 (12:03→22:52)
--- NOTE | 2020-06-09 12:40 | Hospitalist Progress Note ---
Date of Service June 09, 2020 Assessment & Plan (1) Septicemia: Gram-negative rods isolated. Suspect E. coli from the UTI. She is penicillin allergic. Continue meropenem. Repeat blood cultures ordered today, June 09 (2) Septic shock: 2nd to aspiration pneumonia and UTI. brief ICU stay for shock. needed levophed transiently - now weaned off. continue IVF. continue holding coreg for now. (3) Acute respiratory failure with hypoxia: 2nd to pneumonia, likely aspiration, as was told she aspirated during dinner the night before admission. She has been compliant with pureed solids and thickened liquids. No evidence of complicating CHF. Remains on 4 L oxygen per [place] O2 Cont IV abx and supportive care. (4) Aspiration pneumonia: Similar episode in early 04/2020. Has dysphagia - suspect due to prior stroke in 2015. also states her Sjogren's contributes to her dysphagia. Now with recurrent b/l aspiration pneumonia. Cover gram+'s, gram-'s, and anaerobes. PCN allergic - using meropenem for now. MRSA swab negative. Supportive care. [place] o2. Video swallow tomorrow, June 10 (5) UTI (urinary tract infection): Urine cx growing E. coli and strep species 1/2 sets of blood cx's with GNR on admission. Repeat blood cultures today, June 09. Cont meropenem for now. (6) Hypotension: Due to sepsis. Checked cortisol -normal No evidence of cardiogenic shock. s/p levophed transiently - now off, and BPs stable/normal. Cont to hold coreg as long as a.fib rates are satisfactory. (7) Dysphagia: Known, chronic issue Had aspiration pneumonia during 04/2020 hospital stay. Speech saw her at that time - pureed diet advised. Speech saw patient this admission. Video swallow tomorrow, June 10. Continue n.p.o. status for now. Aspiration precautions. (8) Acute kidney injury: Sepsis-associated ATN. Improving . Monitor urine output and serial lab studies. CT abd/pelvis earlier this year without renal stones or other pathology that would cause obstruction (9) Elevated troponin I level: No prior h/o CAD. This is likely myocardial demand ischemia in setting of severe sepsis. Trend the troponins (10) Metabolic encephalopathy: 2nd to sepsis. Supportive care; Rx the sepsis. Avoid sedatives. Improving (11) Atrial fibrillation: Permanent. Holding coreg due to hypotension. INR is <2. Patient still strict NPO. Heparin drip switched to Lovenox 1 mg/kg subcutaneously every 12 hours. Coumadin is on hold due to n.p.o. status (12) CHF (congestive heart failure): Diastolic by history. Last echo was several years ago. Repeat echo to reassess EF. (13) Sjoegren syndrome: Noted. (14) Severe protein-calorie malnutrition: Significant weight loss over the last few months per . At least 5-6kg weight loss since the new year. (15) History of stroke: 2014. Presumed cardioembolic from a.fib. (16) DVT prophylaxis: Lovenox subcu. CODE STATUS: Full code per 's wishes Disposition: To be determined Admission and Anticipated Discharge Date Admission Date: June 07, 2020 Subjective No apparent distress. She is able to respond appropriately to questions. Speech therapy will not be able to do the video swallow evaluation until tomorrow. She remains n.p.o. on IV fluids. Heparin drip will be transitioned to Lovenox every 12 hours. She remains on meropenem. Review of Systems Review of Systems: Unobtainable due to cognitive status Physical Exam Physical Exam: General-alert and oriented x3, no fevers, no chills HEENT-head atraumatic and normocephalic, pupils equal and reactive to light, extraocular muscles intact Neck-no lymphadenopathy or thyromegaly, trachea midline Chest-bilateral rhonchi. No wheezing Cardiac-regular rate and rhythm, normal S1 and S2, no murmurs Abdomen-normal bowel sounds, nontender, no hepatosplenomegaly Extremities-no cyanosis, clubbing, or edema Neuro-cranial nerves II through XII intact, she holds both legs in contractured position. No focal deficits. Generalized weakness. Psych-flat affect Results & Data Results & Data ([facility]) Vital Signs (Past 12 Hours) Vital Signs Temp Pulse Resp BP BP Pulse Ox Pulse Ox 06/09/20 12:20 36.9 C 68 17 149/80 H 98 06/09/20 08:00 96 06/09/20 06:52 36.8 C 76 18 132/84 99 06/09/20 03:43 36.8 C 72 18 154/88 H 97 Laboratory Results 06/08/20 03:57 03/15/21 06:48 PG Care Time/CCT Total # of Minutes Spent Total Time Spent with Patient: Total time spent is greater than 50% in coordination of care (as documented) at patient's floor/unit and/or counseling patient: Coding Level of Care Code 80354 Subseq Hosp Care Lvl 3 Diagnoses Septicemia A41.9 Septic shock A41.9; R65.21 Acute respiratory failure with hypoxia J96.01 Aspiration pneumonia J69.0 Aspiration pneumonia type: unspecified Laterality: bilateral Lung location: unspecified part of lung UTI (urinary tract infection) N39.0 Hypotension I95.9 Hypotension type: unspecified hypotension type Dysphagia R13.10 Dysphagia type: unspecified Acute kidney injury N17.9 Elevated troponin I level R77.8 Metabolic encephalopathy G93.41 Atrial fibrillation I48.21 Atrial fibrillation type: permanent CHF (congestive heart failure) I50.32 Heart failure chronicity: chronic Heart failure type: diastolic Sjoegren syndrome M35.00 Sjogren's organ involvement: unspecified organ involvement Severe protein-calorie malnutrition E43 History of stroke Z86.73 DVT prophylaxis Z29.9 (1) Sjoegren syndrome Sjogren's organ involvement: unspecified organ involvement Qualified Code(s): M35.00 - Sicca syndrome, unspecified (2) CHF (congestive heart failure) Heart failure chronicity: chronic Heart failure type: diastolic Qualified Code(s): I50.32 - Chronic diastolic (congestive) heart failure (3) Atrial fibrillation Atrial fibrillation type: permanent Qualified Code(s): I48.21 - Permanent atrial fibrillation (4) Dysphagia Dysphagia type: unspecified Qualified Code(s): R13.10 - Dysphagia, unspecified (5) Aspiration pneumonia Aspiration pneumonia type: unspecified Laterality: bilateral Lung location: unspecified part of lung Qualified Code(s): J69.0 - Pneumonitis due to inhalation of food and vomit (6) Hypotension Hypotension type: unspecified hypotension type Qualified Code(s): I95.9 - Hypotension, unspecified
[2020-06-09] MEDS ORDERED: MEROPENEM 500 MG in SYRINGE 0 ML IV ONE (22:45)
[2020-06-10] MEDS: MEROPENEM 500 MG in SYRINGE 0 ML IV SCH ×4 (04:39→22:16)
[2020-06-10 07:08] LABS: Eosinophils # (auto) 0.04 K/uL (0-0.5); Eosinophils % (auto) 0.5 %; Hematocrit (blood only) 33.3 % (37-47); Hemoglobin 10.8 g/dL (12.0-16.0); Immature Granulocytes # (auto) 0.01 K/uL (0.00-0.02); Immature Granulocytes % (auto) 0.1 %; Lymphocytes # (auto) 0.95 K/uL (1.2-3.4); Lymphocytes % (auto) 11.9 %; Mean Corpuscular Hemoglobin 25.3 pg (25-34); Mean Corpuscular Hgb Conc 32.4 g/dL (32-36); Mean Platelet Volume 9.3 fL (7.4-10.4); Monocytes # (auto) 0.71 K/uL (0.11-0.59); Monocytes % (auto) 8.9 %; Neutrophils # (auto) 6.24 K/uL (1.4-6.5); Neutrophils % (auto) 78.6 %; Platelet Count 162 K/uL (130-400); RDW Standard Deviation 60.4 fL (36.4-46.3); Red Blood Count 4.27 M/uL (4.2-5.4); White Blood Count 7.95 K/uL (4.8-10.8)
[2020-06-10 07:21] LABS: INR 1.7 (0.9-1.1); Prothrombin Time 16.9 Seconds (9.0-12.0)
[2020-06-10 07:38] LABS: Anisocytosis Present; Hypochromasia Present; Microcytosis Present
[2020-06-10] MEDS: ARTIFICIAL TEARS OPR SCH (07:45)
[2020-06-10 08:03] LABS: BUN Creatinine Ratio 20.9 (10-20); Calcium 7.4 mg/dl (8.5-10.1); Est GFR (African American) 128.5; Est GFR (Non-African American) 110.9; Potassium 2.5 mmol/L (3.5-5.1)
[2020-06-10] MEDS: D5W AND 1/2NSS 1,000 ML IV SCH (09:24)
[2020-06-10] MEDS: ARTIFICIAL TEARS OPL SCH ×3 (09:25→20:14)
[2020-06-10] MEDS: POTASSIUM CHLORIDE / WTR 10 MEQ/100 ML PLCT IV SCH ×4 (10:15→14:41)
[2020-06-10] MEDS: D5W AND 1/2NSS + 20MEQ KCL 20 MEQ/1,000 ML BAG IV SCH ×2 (10:24→22:47)
[2020-06-10] MEDS: ENOXAPARIN INJ 60 MG/0.6 ML SYR SQ SCH ×2 (10:31→22:47)
--- NOTE | 2020-06-10 14:41 | Fluoroscopy Report ---
MODIFIED BARIUM SWALLOW CLINICAL HISTORY: assess for aspiration COMPARISON STUDY: None. FLUOROSCOPY TIME: 1.3 minutes. TECHNIQUE: A modified barium swallow was performed in conjunction with Speech Pathology. The patient ingested varying consistencies of barium containing material. Video fluoroscopy was performed. FINDINGS: This exam was compromised by difficulty positioning. Multiple episodes of silent aspiration were noted with thin liquids and nectar thick liquids. Laryngeal elevation was diminished. Epiglotti c inversion was diminished. There was premature spillage. With pudding consistency, significant resid uals within the vallecula were noted. IMPRESSION: 1. Significantly impaired swallowing mechanism with multiple episodes of silent aspiration with vario us consistencies, as detailed above. 2. Full recommendations by speech pathology to follow. ACT 112: Negative or not required by law. Electronically signed by: Han Ruffin M.D. 06/10/2020 2:39 PM
--- NOTE | 2020-06-10 14:44 | Hospitalist Progress Note ---
Date of Service June 10, 2020 Assessment & Plan (1) Septicemia: Gram-negative rods isolated. Suspect E. coli from the UTI. She is penicillin allergic. Continue meropenem. Repeat blood cultures June 09 are negative to date (2) Septic shock: 2nd to aspiration pneumonia and UTI. brief ICU stay for shock. needed levophed transiently - now weaned off. continue IVF. continue holding coreg for now. (3) Acute respiratory failure with hypoxia: 2nd to pneumonia, likely aspiration, as was told she aspirated during dinner the night before admission. She has been compliant with pureed solids and thickened liquids. No evidence of complicating CHF. Remains on oxygen per [place] O[place]. Oxygen requirements appear to be decreasing Cont IV abx and supportive care. (4) Aspiration pneumonia: Similar episode in early 04/2020. Has dysphagia - suspect due to prior stroke in 2014. also states her Sjogren's contributes to her dysphagia. Now with recurrent b/l aspiration pneumonia. Cover gram+'s, gram-'s, and anaerobes. PCN allergic - using meropenem for now. MRSA swab negative. Supportive care. [place] o2. Video swallow today , June 10 (5) UTI (urinary tract infection): Urine cx growing E. coli and vancomycin-resistant Enterococcus. Daptomycin added to meropenem. Repeat blood cultures June 09 negative to date. Cont meropenem . Daptomycin added today, June 10 . (6) Hypotension: Due to sepsis. Checked cortisol -normal No evidence of cardiogenic shock. s/p levophed transiently - now off, and BPs stable/normal. Cont to hold coreg as long as a.fib rates are satisfactory. (7) Dysphagia: Known, chronic issue Had aspiration pneumonia during 04/2020 hospital stay. Speech saw her at that time - pureed diet advised. Speech saw patient this admission. Video swallow today June 10. Continue n .p.o. status for now. May need PEG tube placement Aspiration precautions. (8) Acute kidney injury: Sepsis-associated ATN. Improving . Monitor urine output and serial lab studies. CT abd/pelvis earlier this year without renal stones or other pathology that would cause obstruction (9) Elevated troponin I level: No prior h/o CAD. This is likely myocardial demand ischemia in setting of severe sepsis. Trend the troponins (10) Metabolic encephalopathy: 2nd to sepsis. Supportive care; Rx the sepsis. Avoid sedatives. Improving (11) Atrial fibrillation: Permanent. Holding coreg due to hypotension. INR is <2. Patient still strict NPO. Heparin drip switched to Lovenox 1 mg/kg subcutaneously every 12 hours. Coumadin is on hold due to n.p.o. status (12) CHF (congestive heart failure): Diastolic by history. Last echo was several years ago. Repeat echo to reassess EF. (13) Sjoegren syndrome: Noted. (14) Severe protein-calorie malnutrition: Significant weight loss over the last few months per . At least 5-6kg weight loss since the new year. (15) History of stroke: 2015. Presumed cardioembolic from a.fib. (16) DVT prophylaxis: Lovenox subcu. CODE STATUS: Full code per 's wishes Disposition: To be determined Admission and Anticipated Discharge Date Admission Date: June 07, 2020 Subjective No significant changes. She will undergo video swallow today. If this is markedly abnormal with aspiration, will discuss with family whether or not to proceed with PEG tube placement. VRE isolated in the urine. Daptomycin restarted. Previously known E. coli in the urine and blood. She remains on meropenem. Potassium supplementation underway for hypokalemia. Review of Systems Review of Systems: Unobtainable due to cognitive status Physical Exam Physical Exam: General-alert. Nonverbal with me. HEENT-head atraumatic and normocephalic Neck-no lymphadenopathy or thyromegaly, trachea midline Chest-adventitious respiratory noises bilaterally. No wheezing Cardiac-regular rate and rhythm, normal S1 and S2 Abdomen-normal bowel sounds, no hepatosplenomegaly Extremities-no cyanosis, clubbing, or edema Neuro-baseline encephalopathy. No apparent focal motor deficits Psych-cannot assess Results & Data Results & Data ([facility]) Vital Signs (Past 12 Hours) Vital Signs Temp Pulse Pulse Resp BP BP Pulse Ox 06/10/20 12:03 36.6 C 75 17 134/80 91 06/10/20 11:46 06/10/20 10:59 36.3 C L 87 18 149/70 H 93 06/10/20 08:22 36.4 C L 66 17 149/70 H 98 06/10/20 08:00 71 06/10/20 04:10 36.4 C L 56 L 16 159/80 H 99 Pulse Ox Pulse Ox 03/16/21 12:03 06/10/20 11:46 88 L 06/10/20 10:59 06/10/20 08:22 06/10/20 08:00 95 06/10/20 04:10 Laboratory Results 06/10/20 06:54 06/10/20 06:54 PG Care Time/CCT Total # of Minutes Spent Total Time Spent with Patient: Total time spent is greater than 50% in coordination of care (as documented) at patient's floor/unit and/or counseling patient: Coding Level of Care Code 47063 Subseq Hosp Care Lvl 3 Diagnoses Septicemia A41.9 Septic shock A41.9; R65.21 Acute respiratory failure with hypoxia J96.01 Aspiration pneumonia J69.0 Aspiration pneumonia type: unspecified Laterality: bilateral Lung location: unspecified part of lung UTI (urinary tract infection) N39.0 Hypotension I95.9 Hypotension type: unspecified hypotension type Dysphagia R13.10 Dysphagia type: unspecified Acute kidney injury N17.9 Elevated troponin I level R77.8 Metabolic encephalopathy G93.41 Atrial fibrillation I48.21 Atrial fibrillation type: permanent CHF (congestive heart failure) I50.32 Heart failure type: diastolic Heart failure chronicity: chronic Sjoegren syndrome M35.00 Sjogren's organ involvement: unspecified organ involvement Severe protein-calorie malnutrition E43 History of stroke Z86.73 DVT prophylaxis Z29.9 (1) Aspiration pneumonia Aspiration pneumonia type: unspecified Laterality: bilateral Lung location: unspecified part of lung Qualified Code(s): J69.0 - Pneumonitis due to inhalation of food and vomit (2) Hypotension Hypotension type: unspecified hypotension type Qualified Code(s): I95.9 - Hypotension, unspecified (3) Dysphagia Dysphagia type: unspecified Qualified Code(s): R13.10 - Dysphagia, unspecified (4) Atrial fibrillation Atrial fibrillation type: permanent Qualified Code(s): I48.21 - Permanent atrial fibrillation (5) CHF (congestive heart failure) Heart failure type: diastolic Heart failure chronicity: chronic Qualified Code(s): I50.32 - Chronic diastolic (congestive) heart failure (6) Sjoegren syndrome Sjogren's organ involvement: unspecified organ involvement Qualified Code(s): M35.00 - Sicca syndrome, unspecified
[2020-06-10] MEDS: DAPTOmycin 200 MG in SYRINGE 0 ML IV SCH (15:40)
[2020-06-10] MEDS: METOPROLOL TARTRATE 1 MG/ML VIAL IV PRN (20:14)
[2020-06-11] MEDS: MEROPENEM 500 MG in SYRINGE 0 ML IV SCH ×5 (04:20→22:29)
[2020-06-11 05:58] LABS: Eosinophils # (auto) 0.06 K/uL (0-0.5); Eosinophils % (auto) 0.9 %; Hematocrit (blood only) 32.6 % (37-47); Hemoglobin 10.8 g/dL (12.0-16.0); Immature Granulocytes # (auto) 0.04 K/uL (0.00-0.02); Immature Granulocytes % (auto) 0.6 %; Lymphocytes % (auto) 18.2 %; Mean Corpuscular Hemoglobin 25.6 pg (25-34); Mean Corpuscular Hgb Conc 33.1 g/dL (32-36); Mean Corpuscular Volume 77.3 fL (80-100); Mean Platelet Volume 9.4 fL (7.4-10.4); Monocytes # (auto) 0.83 K/uL (0.11-0.59); Monocytes % (auto) 12.6 %; Neutrophils # (auto) 4.47 K/uL (1.4-6.5); Neutrophils % (auto) 67.7 %; Nucleated RBC # (auto) 0.06 K/uL (0-0); Nucleated RBC % (auto) 0.9 %; Platelet Count 172 K/uL (130-400); RDW Coefficient of Variation 20.5 % (11.5-14.5); RDW Standard Deviation 58.8 fL (36.4-46.3); Red Blood Count 4.22 M/uL (4.2-5.4)
[2020-06-11 06:06] LABS: INR 2.4 (0.9-1.1); Prothrombin Time 22.3 Seconds (9.0-12.0)
[2020-06-11 06:29] LABS: Anisocytosis Present; Hypochromasia Present
[2020-06-11 06:39] LABS: BUN Creatinine Ratio 19.9 (10-20); Creatinine Clr Calc Pharmacy 102.4 ml/min; Est GFR (African American) 124.9; Est GFR (Non-African American) 107.7; Potassium 3.4 mmol/L (3.5-5.1)
[2020-06-11] MEDS: ARTIFICIAL TEARS OPR SCH (07:48)
[2020-06-11] MEDS: ARTIFICIAL TEARS OPL SCH ×3 (07:48→20:43)
[2020-06-11] MEDS: POTASSIUM CHLORIDE / WTR 10 MEQ/100 ML PLCT IV SCH ×3 (10:13→11:46)
[2020-06-11] MEDS: D5W AND 1/2NSS + 20MEQ KCL 20 MEQ/1,000 ML BAG IV SCH ×2 (10:51→23:13)
--- NOTE | 2020-06-11 13:57 | Hospitalist Progress Note ---
Date of Service June 11, 2020 Assessment & Plan (1) Septicemia: E. coli isolated from the UTI. She is penicillin allergic. Continue meropenem. Repeat blood cultures June 09 are negative to date (2) Septic shock: 2nd to aspiration pneumonia and UTI. brief ICU stay for shock. needed levophed transiently - now weaned off. continue IVF. continue holding coreg for now. (3) Acute respiratory failure with hypoxia: 2nd to pneumonia, likely aspiration, as was told she aspirated during dinner the night before admission. She has been compliant with pureed solids and thickened liquids. No evidence of complicating CHF. Remains on oxygen per [place] O[place]. Oxygen requirements appear to be decreasing Cont IV abx and supportive care. (4) Aspiration pneumonia: Similar episode in early 04/2020. Has dysphagia - suspect due to prior stroke in 2014. also states her Sjogren's contributes to her dysphagia. Now with recurrent b/l aspiration pneumonia. Cover gram+'s, gram-'s, and anaerobes. PCN allergic - using meropenem for now. MRSA swab negative. Supportive care. [place] o2. Video swallow June 10 markedly abnormal with aspiration. has given consent for PEG tube placement. Gastroenterology consultation requested (5) UTI (urinary tract infection): Urine cx growing E. coli and vancomycin-resistant Enterococcus. Daptomycin has been added to meropenem. Repeat blood cultures June 09 negative to date. Cont meropenem . Daptomycin added June 10 . (6) Hypotension: Due to sepsis. Checked cortisol -normal No evidence of cardiogenic shock. s/p levophed transiently - now off, and BPs stable/normal. Cont to hold coreg as long as a.fib rates are satisfactory. (7) Dysphagia: Known, chronic issue Had aspiration pneumonia during 04/2020 hospital stay. Speech saw her at that time - pureed diet advised. Speech saw patient this admission. Video swallow June 10 is markedly abnormal. She is n.p.o. has given consent for PEG tube placement. Aspiration precautions. (8) Acute kidney injury: Sepsis-associated ATN. Improving . Monitor urine output and serial lab studies. CT abd/pelvis earlier this year without renal stones or other pathology that would cause obstruction (9) Elevated troponin I level: No prior h/o CAD. This is likely myocardial demand ischemia in setting of severe sepsis. Trend the troponins (10) Metabolic encephalopathy: 2nd to sepsis. Supportive care; Rx the sepsis. Avoid sedatives. Improving (11) Atrial fibrillation: Permanent. Holding coreg due to hypotension. INR is <2. Patient still strict NPO. Heparin drip switched to Lovenox 1 mg/kg subcutaneously every 12 hours. Lovenox placed on hold today, June 11, anticipating PEG tube placement tomorrow Coumadin is on hold due to n.p.o. status (12) CHF (congestive heart failure): Diastolic by history. Last echo was several years ago. Repeat echo to reassess EF. (13) Sjoegren syndrome: Noted. (14) Severe protein-calorie malnutrition: Significant weight loss over the last few months per . At least 5-6kg weight loss since the new year. (15) History of stroke: 2014. Presumed cardioembolic from a.fib. (16) DVT prophylaxis: Lovenox subcu. CODE STATUS: Full code per 's wishes Disposition: To be determined Admission and Anticipated Discharge Date Admission Date: June 07, 2020 Subjective The patient is awake and able to answer some questions but I am not sure she is really understanding what I am telling her. She does say yes when I tell her she needs a PEG tube. I spoke with her , Edvin, by phone today and he gives consent for PEG tube placement. The video swallow was markedly abnormal with aspiration and she cannot safely consume anything by mouth. She remains on meropenem and daptomycin at this time. Coumadin remains on hold. She was on Lovenox 1 mg/kg subcutaneously every 12 hours due to her underlying chronic atrial fibrillation and previous Coumadin dependency but Lovenox has been discontinued. Repeat blood cultures drawn June 09 remain negative Review of Systems Review of Systems: Unobtainable due to cognitive status Physical Exam Physical Exam: General-awake and responsive . Uncertain how oriented she is HEENT-head atraumatic and normocephalic, pupils equal and reactive to light, extraocular muscles intact Neck-no lymphadenopathy or thyromegaly, trachea midline Chest-scattered bilateral rhonchi. No wheezing. Cardiac-irregular rhythm. Controlled rate Abdomen-normal bowel sounds, no hepatosplenomegaly Extremities-no cyanosis, clubbing, or edema Neuro-very difficult to assess. Uncertain if she has focal deficits Results & Data Results & Data ([facility]) Vital Signs (Past 12 Hours) Vital Signs Temp Pulse Pulse Pulse Resp BP Pulse Ox 06/11/20 11:40 36.6 C 90 22 130/80 91 06/11/20 08:00 72 06/11/20 07:31 36.8 C 74 16 137/80 98 06/11/20 03:57 36.7 C 102 H 16 135/85 93 Laboratory Results 06/11/20 05:24 06/11/20 05:24 PG Care Time/CCT Total # of Minutes Spent Total Time Spent with Patient: Total time spent is greater than 50% in coordination of care (as documented) at patient's floor/unit and/or counseling patient: Coding Level of Care Code 11083 Subseq Hosp Care Lvl 3 Diagnoses Septicemia A41.9 Septic shock A41.9; R65.21 Acute respiratory failure with hypoxia J96.01 Aspiration pneumonia J69.0 Aspiration pneumonia type: unspecified Laterality: bilateral Lung location: unspecified part of lung UTI (urinary tract infection) N39.0 Hypotension I95.9 Hypotension type: unspecified hypotension type Dysphagia R13.10 Dysphagia type: unspecified Acute kidney injury N17.9 Elevated troponin I level R77.8 Metabolic encephalopathy G93.41 Atrial fibrillation I48.21 Atrial fibrillation type: permanent CHF (congestive heart failure) I50.32 Heart failure chronicity: chronic Heart failure type: diastolic Sjoegren syndrome M35.00 Sjogren's organ involvement: unspecified organ involvement Severe protein-calorie malnutrition E43 History of stroke Z86.73 DVT prophylaxis Z29.9 (1) Sjoegren syndrome Sjogren's organ involvement: unspecified organ involvement Qualified Code(s): M35.00 - Sicca syndrome, unspecified (2) CHF (congestive heart failure) Heart failure chronicity: chronic Heart failure type: diastolic Qualified Code(s): I50.32 - Chronic diastolic (congestive) heart failure (3) Atrial fibrillation Atrial fibrillation type: permanent Qualified Code(s): I48.21 - Permanent atrial fibrillation (4) Dysphagia Dysphagia type: unspecified Qualified Code(s): R13.10 - Dysphagia, unspecified (5) Aspiration pneumonia Aspiration pneumonia type: unspecified Laterality: bilateral Lung location: unspecified part of lung Qualified Code(s): J69.0 - Pneumonitis due to inhalation of food and vomit (6) Hypotension Hypotension type: unspecified hypotension type Qualified Code(s): I95.9 - Hypotension, unspecified
[2020-06-11] MEDS: THIAMINE HCL 100 MG in SYRINGE 9 ML IV SCH (15:17)
[2020-06-11] MEDS: DAPTOmycin 200 MG in SYRINGE 0 ML IV SCH (15:17)
[2020-06-11 15:30] LABS: Magnesium 1.5 mg/dl (1.8-2.4); Phosphorus 1.1 mg/dl (2.5-4.9)
[2020-06-11] MEDS ORDERED: POTASSIUM PHOS 3 MMOL/1 ML INFUSION IV STA (15:44)
[2020-06-11] MEDS ORDERED: POTASSIUM PHOSPHATE 30 MMOL in SODIUM CHLORIDE 0.9% 500 ML IV ONE (16:00)
[2020-06-11] MEDS: MAGNESIUM SULFATE / D5W 1 GM/100 ML BAG IV SCH ×4 (16:59→22:30)
[2020-06-11] MEDS: METOPROLOL TARTRATE 1 MG/ML VIAL IV PRN (17:00)
[2020-06-12] MEDS: MEROPENEM 500 MG in SYRINGE 0 ML IV SCH ×4 (04:51→21:38)
[2020-06-12 07:01] LABS: Basophils # (auto) 0.01 K/uL (0-0.2); Basophils % (auto) 0.2 %; Eosinophils # (auto) 0.12 K/uL (0-0.5); Eosinophils % (auto) 2.1 %; Hematocrit (blood only) 32.9 % (37-47); Hemoglobin 10.9 g/dL (12.0-16.0); Immature Granulocytes # (auto) 0.06 K/uL (0.00-0.02); Lymphocytes # (auto) 1.09 K/uL (1.2-3.4); Lymphocytes % (auto) 19.1 %; Mean Corpuscular Hemoglobin 25.3 pg (25-34); Mean Corpuscular Hgb Conc 33.1 g/dL (32-36); Mean Corpuscular Volume 76.3 fL (80-100); Mean Platelet Volume 9.6 fL (7.4-10.4); Monocytes # (auto) 0.88 K/uL (0.11-0.59); Monocytes % (auto) 15.4 %; Neutrophils # (auto) 3.56 K/uL (1.4-6.5); Neutrophils % (auto) 62.2 %; Nucleated RBC # (auto) 0.07 K/uL (0-0); Nucleated RBC % (auto) 1.3 %; Platelet Count 200 K/uL (130-400); RDW Coefficient of Variation 20.3 % (11.5-14.5); RDW Standard Deviation 57.5 fL (36.4-46.3); Red Blood Count 4.31 M/uL (4.2-5.4); White Blood Count 5.72 K/uL (4.8-10.8)
[2020-06-12 07:12] LABS: INR 2.2 (0.9-1.1); Prothrombin Time 21.2 Seconds (9.0-12.0)
[2020-06-12 07:32] LABS: BUN Creatinine Ratio 17.4 (10-20); Calcium 7.3 mg/dl (8.5-10.1); Creatinine Clr Calc Pharmacy 118.9 ml/min; Est GFR (African American) 131.2; Est GFR (Non-African American) 113.2; Magnesium 2.3 mg/dl (1.8-2.4); Potassium 3.9 mmol/L (3.5-5.1)
[2020-06-12 07:33] LABS: Phosphorus 2.1 mg/dl (2.5-4.9)
[2020-06-12] MEDS: ARTIFICIAL TEARS OPR SCH (07:34)
[2020-06-12 07:35] LABS: Anisocytosis Present
[2020-06-12] MEDS: ARTIFICIAL TEARS OPL SCH ×3 (07:35→21:38)
[2020-06-12] MEDS: THIAMINE HCL 100 MG in SYRINGE 9 ML IV SCH (09:45)
--- NOTE | 2020-06-12 10:09 | Gastrointestinal Consultation ---
Date of Consultation June 12, 2020 Assessment & Plan (1) Aspiration pneumonia: (2) Aspiration into airway: PEG tube placement is associated with both short-term (regarding current respiratory status) and long-term risks and does not reduce the risk of aspiration pneumonia as the patient can still aspirate on her own secretions. Therefore, no plan for PEG tube placement. Recommend palliative care consult and family discussion about goals of care. Thank you for allowing us to participate in the care of this patient. If you have any questions, do not hesitate to contact us. Supervising Physician Co-Signing Physician Notes I personally evaluated the patient and agree with the findings as documented by MEETA Stanton Exam: abd: soft, nt, nd History of Present Illness Reason for Consultation: PEG placement Requesting Physician: Dr. Wiggins Attending Physician: Caesar Dueñas History of Present Illness Patient is a 74 y.o. female admitted with aspiration pneumonia. She has u ndergone a video swallow with METAL CUT OFF SAW TENDER evaluation which demonstrated impaired swallowing and silent aspiration. GI has been consulted for PEG tube placement. Allergies Allergy/AdvReac Type Severity Reaction Status Date / Time ampicillin Allergy Unknown Rash Verified 06/07/20 08:24 morphine Allergy Unknown Rash Verified 06/07/20 08:24 Penicillins Allergy Unknown Rash Verified 06/07/20 08:24 sulindac Allergy Unknown Rash Verified 06/07/20 08:24 tetracycline Allergy Unknown RASH Verified 06/07/20 08:24 tolmetin Allergy Unknown Rash Verified 06/07/20 08:24 Home Medications Medication Instructions Recorded Confirmed Type carvedilol 6.25 mg tablet 6.25 mg PO BID #180 tab 01/05/19 06/07/20 History losartan 50 mg tablet 50 mg PO DAILY@0800 #90 tab 01/05/19 06/07/20 History Systane Gel 1 drp OPL TID 02/08/19 06/07/20 History Systane Gel 1 drp OPR DAILY@0800 02/08/19 06/07/20 History acetaminophen 650 mg PO Q4H PRN MDD 3 GMS 02/08/19 06/07/20 History APAP/24 HOURS multivitamin [Daily-Rogelio] 1 tab PO DAILY@0800 02/08/19 06/07/20 History potassium chloride 10 meq PO DAILY@0800 06/07/20 06/07/20 History warfarin 1.5 mg PO 4XWK 06/07/20 06/07/20 History warfarin [Coumadin] 2 mg PO 3XWK 06/07/20 06/07/20 History Patient History Medical History Aspiration pneumonia Atrial fibrillation C. difficile colitis Calculus of kidney CHF (congestive heart failure) History of lymphoma History of multiple myeloma History of stroke 2015 Sepsis Sjoegren syndrome Surgical History H/O tubal ligation History of cataract surgery History of cholecystectomy History of colostomy History of colostomy reversal History of hip replacement History of resection of small bowel Status post cystoscopy with ureteral stent placement Family History Sister Breast cancer Mother , in MVA No problems noted. 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 How many Children do You have: 3 Other Information That Helps Us Care for You: No Feels Safe at Home: Yes Safety Concerns: Feels Safe At This Time Assistive Devices: Oxygen - Continuous Review of Systems Review of Systems: Unobtainable due to cognitive status Physical Exam Constitutional: mild distress Respiratory: + labored breathing Auscultation: + crackles (bases) and + rales Cardiovascular: Rate/Rhythm: + irregularly irregular Results & Data ([facility]) Vital Signs (Past 12 Hours) Vital Signs Temp Pulse Pulse Resp BP Pulse Ox 06/12/20 08:00 75 06/12/20 07:27 36.6 C 88 17 154/87 H 100 06/12/20 03:44 36.8 C 86 20 141/83 H 99 06/11/20 23:59 89 06/11/20 23:08 36.8 C 96 H 22 136/77 94 Laboratory Results Abnormal lab results 06/11/20 06/11/20 06/12/20 Range/Units 14:10 23:47 06:29 Hgb 10.9 L (12.0-16.0) g/dL Hct 32.9 L (37-47) % MCV 76.3 L (80-100) fL RDW Std Deviation 57.5 H (36.4-46.3) fL RDW Coeff of Gera 20.3 H (11.5-14.5) % Lymph # (Auto) 1.09 L (1.2-3.4) K/uL [place] # (Auto) 0.88 H (0.11-0.59) K/uL Immature Gran # (Auto) 0.06 H (0.00-0.02) K/uL Absolute Nucleated RBC 0.07 H (0-0) K/uL PT (9.0-12.0) Seconds INR (0.9-1.1) Chloride (98-107) mmol/L BUN (7-18) mg/dl Creatinine (0.6-1.2) mg/dl Glucose (70-99) mg/dl POC Glucose 109 H (70-99) mg/dl Calcium (8.5-10.1) mg/dl Phosphorus 1.1 L* (2.5-4.9) mg/dl Magnesium 1.5 L (1.8-2.4) mg/dl 06/12/20 06/12/20 06/12/20 Range/Units 06:29 06:29 06:48 Hgb (12.0-16.0) g/dL Hct (37-47) % MCV (80-100) fL RDW Std Deviation (36.4-46.3) fL RDW Coeff of Gera (11.5-14.5) % Lymph # (Auto) (1.2-3.4) K/uL [place] # (Auto) (0.11-0.59) K/uL Immature Gran # (Auto) (0.00-0.02) K/uL Absolute Nucleated RBC (0-0) K/uL PT 21.2 H (9.0-12.0) Seconds INR 2.2 H (0.9-1.1) Chloride 108 H (98-107) mmol/L BUN 5 L (7-18) mg/dl Creatinine 0.31 L (0.6-1.2) mg/dl Glucose 108 H (70-99) mg/dl POC Glucose 110 H (70-99) mg/dl Calcium 7.3 L (8.5-10.1) mg/dl Phosphorus 2.1 L D (2.5-4.9) mg/dl Magnesium (1.8-2.4) mg/dl PG Care Time/CCT Total # of Minutes Spent Total Time Spent with Patient: Total time spent is greater than 50% in coordination of care (as documented) at patient's floor/unit and/or counseling patient: Coding Level of Care Code 21908 Initial Inpt Care Lvl 2 Diagnoses Aspiration pneumonia J69.0 Aspiration pneumonia type: unspecified Laterality: bilateral Lung location: unspecified part of lung Aspiration into airway T17.908A (1) Aspiration pneumonia Aspiration pneumonia type: unspecified Laterality: bilateral Lung location: unspecified part of lung Qualified Code(s): J69.0 - Pneumonitis due to inhalation of food and vomit
[2020-06-12] MEDS ORDERED: POTASSIUM PHOS 3 MMOL/1 ML INFUSION IV STA (10:23)
--- NOTE | 2020-06-12 10:42 | XRay Report ---
SINGLE VIEW CHEST CLINICAL HISTORY: Crackles on physical examination FINDINGS: An AP, portable, upright chest radiograph is compared to study dated 06/08/2020 and correlat ed with chest CT dated 04/30/2020. The examination is degraded by portable technique and patient rotati on. A left-sided PICC line is unchanged in position. The heart is enlarged noting atherosclerotic omid cification of the thoracic aorta. There are increasing bilateral airspace opacities throughout both l ungs. Small pleural effusions are noted. No pneumothorax is seen. The skeletal structures are osteope juani. Degenerative change and scoliosis is noted in the spine. There are healed bilateral rib fracture s. IMPRESSION: 1. There are increasing multifocal bilateral airspace opacities throughout both lungs. This could rep resent pulmonary edema and/or multifocal pneumonia. Clinical correlation will be required and radiogr aphic follow-up to resolution is recommended. 2. Cardiomegaly and small pleural effusions. ACT 112: Negative or not required by law. Electronically signed by: Butch Carr M.D. 06/12/2020 10:41 AM
[2020-06-12] MEDS ORDERED: POTASSIUM PHOSPHATE 21 MMOL in SODIUM CHLORIDE 0.9% 500 ML IV ONE (11:00)
--- NOTE | 2020-06-12 13:34 | Palliative Care Consultation ---
Date of Consultation June 12, 2020 Assessment & Plan (1) Dysphagia: Currently NPO per ST recommendation after aspiration on all consistencies during video swallow study. Dysphagia type: unspecified Qualified Code(s): R13.10 - Dysphagia, unspecified (2) Palliative care encounter: I met with Mr. Appiah and with his son, Ovidio, on conference call. We reviewed the results of Mrs. Appiah's swallowing evaluation and we discussed the risks and lack of efficacy in feeding tube for someone in her situation. We discussed options of comfort directed care versus continuing with feedings, knowing and accepting the risk of recurrent aspiration. They had multiple questions about prognosis, whether ST at [facility] after discharge would be beneficial and whether her medications were contributing to her mental status. We reviewed her current medications which would not likely be negatively impacting her mental status and the results from her recent echo. I reached out to ST who do not feel that further therapy is beneficial. They will consider options and we will meet tomorrow to discuss further. Palliative care will follow. (3) Acute respiratory failure with hypoxia: (4) Sjoegren syndrome: Sjogren's organ involvement: unspecified organ involvement Qualified Code(s): M35.00 - Sicca syndrome, unspecified (5) CHF (congestive heart failure): Heart failure type: diastolic Heart failure chronicity: chronic Qualified Code(s): I50.32 - Chronic diastolic (congestive) heart failure (6) Atrial fibrillation: Atrial fibrillation type: permanent Qualified Code(s): I48.21 - Permanent atrial fibrillation History of Present Illness Reason for Consultation: goals of care Requesting Physician: Dr. Dueñas Attending Physician: Caesar Dueñas History of Present Illness 74 yo lady with history of chronic a fib, heart failure and prior CVA. She also has a h/o multiple myeloma. She was admitted with hypotension and MONO related to bilateral aspiration pneumonia and sepsis. She had a swallowing study done on 06/10 which showed aspiration with all consistencies of food and liquid. She has been NPO since that time. She has been encephalopathic during this admission but is able to answer a few questions for me. She knows her 's name but does not know where she is or why she is here. Allergies Allergy/AdvReac Type Severity Reaction Status Date / Time ampicillin Allergy Unknown Rash Verified 06/07/20 08:24 morphine Allergy Unknown Rash Verified 06/07/20 08:24 Penicillins Allergy Unknown Rash Verified 06/07/20 08:24 sulindac Allergy Unknown Rash Verified 06/07/20 08:24 tetracycline Allergy Unknown RASH Verified 06/07/20 08:24 tolmetin Allergy Unknown Rash Verified 06/07/20 08:24 Home Medications Medication Instructions Recorded Confirmed Type carvedilol 6.25 mg tablet 6.25 mg PO BID #180 tab 01/05/19 06/07/20 History losartan 50 mg tablet 50 mg PO DAILY@0800 #90 tab 01/05/19 06/07/20 History Systane Gel 1 drp OPL TID 02/08/19 06/07/20 History Systane Gel 1 drp OPR DAILY@0800 02/08/19 06/07/20 History acetaminophen 650 mg PO Q4H PRN MDD 3 GMS 02/08/19 06/07/20 History APAP/24 HOURS multivitamin [Daily-Rogelio] 1 tab PO DAILY@0800 02/08/19 06/07/20 History potassium chloride 10 meq PO DAILY@0800 06/07/20 06/07/20 History warfarin 1.5 mg PO 4XWK 06/07/20 06/07/20 History warfarin [Coumadin] 2 mg PO 3XWK 06/07/20 06/07/20 History Patient History Medical History Aspiration pneumonia Atrial fibrillation C. difficile colitis Calculus of kidney CHF (congestive heart failure) History of lymphoma History of multiple myeloma History of stroke 2015 Sepsis Sjoegren syndrome Surgical History H/O tubal ligation History of cataract surgery History of cholecystectomy History of colostomy History of colostomy reversal History of hip replacement History of resection of small bowel Status post cystoscopy with ureteral stent placement Family History Sister Breast cancer Mother , in MVA No problems noted. 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 How many Children do You have: 3 Other Information That Helps Us Care for You: No Feels Safe at Home: Yes Safety Concerns: Feels Safe At This Time Assistive Devices: Oxygen - Continuous Review of Systems Review of Systems: Apison Symptom Assessment Scale Pain 0/3 Dyspnea 1/3 Nausea 0/3 Drowsiness 2/3 Anxiety 0/3 Pallliative Performance Score 30% Physical Exam Constitutional: + thin and + frail appearing Eyes: furrowed brow ENMT: Mouth: + dry oral mucous membranes Respiratory: + labored breathing and + cough (moist but not productive) Cardiovascular: Rate/Rhythm: + irregularly irregular Gastrointestinal (Abdomen): Inspection/Auscultation: abdomen not distended Percussion/Palpation: abdomen soft; abdomen nontender Musculoskeletal: Extremities: + muscle atrophy Neurologic: + confused Results & Data ([facility]) Vital Signs (Past 12 Hours) Vital Signs Temp Pulse Pulse Resp BP Pulse Ox 06/12/20 11:00 97.9 F 85 17 145/91 H 98 06/12/20 08:00 75 06/12/20 07:27 97.9 F 88 17 154/87 H 100 06/12/20 03:44 98.2 F 86 20 141/83 H 99 PG Care Time/CCT Total # of Minutes Spent Total Time Spent with Patient: Total time spent is greater than 50% in c oordination of care (as documented) at patient's floor/unit and/or counseling patient: total time spent 90 minutes with more than 50% of time spent on family education, prognosis, goals of care and coordination of care. Coding Level of Care Code 52080 Office/OBS Consult Lvl 5 Diagnoses Dysphagia R13.10 Dysphagia type: unspecified Palliative care encounter Z51.5 Acute respiratory failure with hypoxia J96.01 Sjoegren syndrome M35.00 Sjogren's organ involvement: unspecified organ involvement CHF (congestive heart failure) I50.32 Heart failure type: diastolic Heart failure chronicity: chronic Atrial fibrillation I48.21 Atrial fibrillation type: permanent Time Spent (min) 90
[2020-06-12] MEDS: DAPTOmycin 200 MG in SYRINGE 0 ML IV SCH (15:24)
--- NOTE | 2020-06-12 22:23 | Hospitalist Progress Note ---
Date of Service June 12, 2020 Assessment & Plan (1) Septicemia: E. coli isolated from the UTI. She is penicillin allergic. Continue meropenem. Repeat blood cultures June 09 are negative to date (2) Septic shock: 2nd to aspiration pneumonia and UTI. brief ICU stay for shock. needed levophed transiently - now weaned off. continue IVF. continue holding coreg for now. (3) Acute respiratory failure with hypoxia: 2nd to pneumonia, likely aspiration, as was told she aspirated during dinner the night before admission. She has been compliant with pureed solids and thickened liquids. No evidence of complicating CHF. Remains on oxygen per [place] O2. Oxygen requirements appear to be decreasing Cont IV abx and supportive care. (4) Aspiration pneumonia: Similar episode in early 04/2020. Has dysphagia - suspect due to prior stroke in 2014. also states her Sjogren's contributes to her dysphagia. Now with recurrent b/l aspiration pneumonia. Cover gram+'s, gram-'s, and anaerobes. PCN allergic - using meropenem for now. MRSA swab negative. Supportive care. NC o2. Video swallow June 10 markedly abnormal with aspiration. has given consent for PEG tube placement. Gastroenterology consultation requested However, given risk of aspiration, Gastro did not recommend PEG tube. consulted palliative care. (5) UTI (urinary tract infection): Urine cx growing E. coli and vancomycin-resistant Enterococcus. Daptomycin has been added to meropenem. Repeat blood cultures June 09 negative to date. Cont meropenem . Daptomycin added June 10 . (6) Hypotension: Due to sepsis. Checked cortisol -normal No evidence of cardiogenic shock. s/p levophed transiently - now off, and BPs stable/normal. Cont to hold coreg as long as a.fib rates are satisfactory. (7) Dysphagia: Known, chronic issue Had aspiration pneumonia during 04/2020 hospital stay. Speech saw her at that time - pureed diet advised. Speech saw patient this admission. Video swallow June 10 is markedly abnormal. She is n.p.o. has given consent for PEG tube placement. Aspiration precautions. (8) Acute kidney injury: Sepsis-associated ATN. Improving . Monitor urine output and serial lab studies. CT abd/pelvis earlier this year without renal stones or other pathology that would cause obstruction (9) Elevated troponin I level: No prior h/o CAD. This is likely myocardial demand ischemia in setting of severe sepsis. Trend the troponins (10) Metabolic encephalopathy: 2nd to sepsis. Supportive care; Rx the sepsis. Avoid sedatives. Improving (11) Atrial fibrillation: Permanent. Holding coreg due to hypotension. INR is <2. Patient still strict NPO. Heparin drip switched to Lovenox 1 mg/kg subcutaneously every 12 hours. Lovenox placed on hold today, June 11, anticipating PEG tube placement tomorrow Coumadin is on hold due to n.p.o. status (12) CHF (congestive heart failure): Diastolic by history. Last echo was several years ago. Repeat echo to reassess EF. (13) Sjoegren syndrome: Noted. (14) Severe protein-calorie malnutrition: Significant weight loss over the last few months per . At least 5-6kg weight loss since the new year. (15) History of stroke: 2014. Presumed cardioembolic from a.fib. (16) DVT prophylaxis: Lovenox subcu. CODE STATUS: Full code per 's wishes Disposition: To be determined Admission and Anticipated Discharge Date Admission Date: June 07, 2020 Subjective Patient is resting, does not verbalize any complaints. Appears weak. Review of Systems Review of Systems: Unobtainable due to cognitive status Physical Exam Physical Exam: General-DROWSY. Uncertain how oriented she is HEENT-head atraumatic and normocephalic, pupils equal and reactive to light, extraocular muscles intact Neck-no lymphadenopathy or thyromegaly, trachea midline Chest-scattered bilateral rhonchi. No wheezing. Cardiac-irregular rhythm. Controlled rate Abdomen-normal bowel sounds, no hepatosplenomegaly Extremities-no cyanosis, clubbing, or edema Neuro-very difficult to assess. Uncertain if she has focal deficits Results & Data Results & Data ([facility]) Vital Signs (Past 12 Hours) Vital Signs Temp Pulse Pulse Resp BP Pulse Ox 06/12/20 19:19 36.9 C 100 H 20 118/69 97 06/12/20 16:00 103 H 06/12/20 15:18 36.6 C 99 H 18 136/84 92 06/12/20 11:00 36.6 C 85 17 145/91 H 98 PG Care Time/CCT Total # of Minutes Spent Total Time Spent with Patient: Total time spent is greater than 50% in coordination of care (as documented) at patient's floor/unit and/or counseling patient: Coding Level of Care Code 17269 Subs Hosp Care Lvl 3 Diagnoses Septicemia A41.9 Septic shock A41.9; R65.21 Acute respiratory failure with hypoxia J96.01 Aspiration pneumonia J69.0 Aspiration pneumonia type: unspecified Laterality: bilateral Lung location: unspecified part of lung UTI (urinary tract infection) N39.0 Hypotension I95.9 Hypotension type: unspecified hypotension type Dysphagia R13.10 Dysphagia type: unspecified Acute kidney injury N17.9 Elevated troponin I level R77.8 Metabolic encephalopathy G93.41 Atrial fibrillation I48.21 Atrial fibrillation type: permanent CHF (congestive heart failure) I50.32 Heart failure chronicity: chronic Heart failure type: diastolic Sjoegren syndrome M35.00 Sjogren's organ involvement: unspecified organ involvement Severe protein-calorie malnutrition E43 History of stroke Z86.73 DVT prophylaxis Z29.9 Time Spent (min) 35 (1) Sjoegren syndrome Sjogren's organ involvement: unspecified organ involvement Qualified Code(s): M35.00 - Sicca syndrome, unspecified (2) CHF (congestive heart failure) Heart failure chronicity: chronic Heart failure type: diastolic Qualified Code(s): I50.32 - Chronic diastolic (congestive) heart failure (3) Atrial fibrillation Atrial fibrillation type: permanent Qualified Code(s): I48.21 - Permanent atrial fibrillation (4) Dysphagia Dysphagia type: unspecified Qualified Code(s): R13.10 - Dysphagia, unspecified (5) Aspiration pneumonia Aspiration pneumonia type: unspecified Laterality: bilateral Lung location: unspecified part of lung Qualified Code(s): J69.0 - Pneumonitis due to inhalation of food and vomit (6) Hypotension Hypotension type: unspecified hypotension type Qualified Code(s): I95.9 - Hypotension, unspecified
[2020-06-13] MEDS: MEROPENEM 500 MG in SYRINGE 0 ML IV SCH ×4 (03:49→22:06)
[2020-06-13] MEDS ORDERED: GLUCOSE 10 TABS/TUBE PO PRN (06:56)
[2020-06-13] MEDS ORDERED: GLUCOSE 40% GEL 15 GM TUBE PO PRN (06:56)
[2020-06-13] MEDS ORDERED: GLUCAGON FOR INJ 1 MG VIAL SQ PRN (06:56)
[2020-06-13] MEDS ORDERED: CARBOHYDRATES FOR HYPOGLYCEMIA PO PRN (06:56)
[2020-06-13] MEDS ORDERED: DEXTROSE 50% 50 ML SYRINGE IV ONE (06:57)
[2020-06-13] MEDS: ARTIFICIAL TEARS OPR SCH (08:20)
[2020-06-13] MEDS: ARTIFICIAL TEARS OPL SCH ×3 (08:20→20:25)
[2020-06-13] MEDS: THIAMINE HCL 100 MG in SYRINGE 9 ML IV SCH (08:23)
[2020-06-13 09:22] LABS: Hematocrit (blood only) 34.2 % (37-47); Hemoglobin 10.9 g/dL (12.0-16.0); Mean Corpuscular Hemoglobin 24.9 pg (25-34); Mean Corpuscular Hgb Conc 31.9 g/dL (32-36); Mean Corpuscular Volume 78.3 fL (80-100); Mean Platelet Volume 9.3 fL (7.4-10.4); Nucleated RBC # (auto) 0.07 K/uL (0-0); Nucleated RBC % (auto) 1.2 %; Platelet Count 201 K/uL (130-400); RDW Coefficient of Variation 20.3 % (11.5-14.5); RDW Standard Deviation 58.5 fL (36.4-46.3); Red Blood Count 4.37 M/uL (4.2-5.4); White Blood Count 5.45 K/uL (4.8-10.8)
[2020-06-13 09:54] LABS: BUN Creatinine Ratio 22.4 (10-20); Calcium 7.7 mg/dl (8.5-10.1); Creatinine Clr Calc Pharmacy 123.6 ml/min; Est GFR (African American) 132.6; Est GFR (Non-African American) 114.4; Potassium 3.6 mmol/L (3.5-5.1)
[2020-06-13] MEDS: DEXTROSE 50% 50 ML SYRINGE IV PRN ×3 (12:14→20:21)
[2020-06-13] MEDS: DAPTOmycin 200 MG in SYRINGE 0 ML IV SCH (15:05)
--- NOTE | 2020-06-13 22:50 | Hospitalist Progress Note ---
Date of Service June 13, 2020 Assessment & Plan (1) Septicemia: E. coli isolated from the UTI. She is penicillin allergic. Continue meropenem. Repeat blood cultures June 09 are negative to date She completes 7 days of antibiotics in the AM. (2) Septic shock: 2nd to aspiration pneumonia and UTI. brief ICU stay for shock. needed levophed transiently - now weaned off. continue IVF. continue holding coreg for now. (3) Acute respiratory failure with hypoxia: 2nd to pneumonia, likely aspiration, as was told she aspirated during dinner the night before admission. She has been compliant with pureed solids and thickened liquids. No evidence of complicating CHF. Remains on oxygen per NC O2. Oxygen requirements appear to be decreasing Cont IV abx and supportive care. (4) Aspiration pneumonia: Similar episode in early 04/2020. Has dysphagia - suspect due to prior stroke in 2014. also states her Sjogren's contributes to her dysphagia. Now with recurrent b/l aspiration pneumonia. Cover gram+'s, gram-'s, and anaerobes. PCN allergic - using meropenem for now. MRSA swab negative. Supportive care. NC o2. Video swallow June 10 markedly abnormal with aspiration. has given consent for PEG tube placement. Gastroenterology consultation requested However, given risk of aspiration, Gastro did not recommend PEG tube. consulted palliative care. [facility] Family is undecided if she fails on the comfort feeds if they would want her to return. She is currently a DNR. (5) UTI (urinary tract infection): Urine cx growing E. coli and vancomycin-resistant Enterococcus. Daptomycin has been added to meropenem. Repeat blood cultures June 09 negative to date. Cont meropenem . Daptomycin added June 10 . (6) Hypotension: Due to sepsis. Checked cortisol -normal No evidence of cardiogenic shock. s/p levophed transiently - now off, and BPs stable/normal. Cont to hold coreg as long as a.fib rates are satisfactory. (7) Dysphagia: Known, chronic issue Had aspiration pneumonia during 04/2020 hospital stay. Speech saw her at that time - pureed diet advised. Speech saw patient this admission. Video swallow June 10 is markedly abnormal. She is n.p.o. has given consent for PEG tube placement. Aspiration precautions. (8) Acute kidney injury: Sepsis-associated ATN. Improving . Monitor urine output and serial lab studies. CT abd/pelvis earlier this year without renal stones or other pathology that would cause obstruction (9) Elevated troponin I level: No prior h/o CAD. This is likely myocardial demand ischemia in setting of severe sepsis. Trend the troponins (10) Metabolic encephalopathy: 2nd to sepsis. Supportive care; Rx the sepsis. Avoid sedatives. Improving (11) Atrial fibrillation: Permanent. Holding coreg due to hypotension. INR is <2. Patient still strict NPO. Heparin drip switched to Lovenox 1 mg/kg subcutaneously every 12 hours. Lovenox placed on hold today, June 11, anticipating PEG tube placement tomorrow Coumadin is on hold due to n.p.o. status (12) CHF (congestive heart failure): Diastolic by history. Last echo was several years ago. Repeat echo to reassess EF. (13) Sjoegren syndrome: Noted. (14) Severe protein-calorie malnutrition: Significant weight loss over the last few months per . At least 5-6kg weight loss since the new year. (15) History of stroke: 2014. Presumed cardioembolic from a.fib. (16) DVT prophylaxis: Lovenox subcu. CODE STATUS: Full code per 's wishes Disposition: To be determined Admission and Anticipated Discharge Date Admission Date: June 07, 2020 Subjective Patient has no complaints. Review of Systems Review of Systems: All systems reviewed & are unremarkable except as noted in HPI & below Physical Exam Physical Exam: General- more awake. Uncertain how oriented she is HEENT-head atraumatic and normocephalic, pupils equal and reactive to light, ext raocular muscles intact Neck-no lymphadenopathy or thyromegaly, trachea midline Chest-scattered bilateral rhonchi. No wheezing. Cardiac-irregular rhythm. Controlled rate Abdomen-normal bowel sounds, no hepatosplenomegaly Extremities-no cyanosis, clubbing, or edema Neuro-very difficult to assess. Uncertain if she has focal deficits Results & Data Results & Data ([facility]) Vital Signs (Past 12 Hours) Vital Signs Temp Pulse Pulse Resp BP Pulse Ox 06/13/20 19:34 36.9 C 94 H 18 142/84 H 94 06/13/20 15:48 36.5 C 85 16 149/78 H 97 06/13/20 15:21 89 06/13/20 11:21 36.9 C 84 16 144/75 H 98 PG Care Time/CCT Total # of Minutes Spent Total Time Spent with Patient: Total time spent is greater than 50% in coordination of care (as documented) at patient's floor/unit and/or counseling patient: Coding Level of Care Code 89119 Subseq Hosp Care Lvl 3 Diagnoses Septicemia A41.9 Septic shock A41.9; R65.21 Acute respiratory failure with hypoxia J96.01 Aspiration pneumonia J69.0 Aspiration pneumonia type: unspecified Laterality: bilateral Lung location: unspecified part of lung UTI (urinary tract infection) N39.0 Hypotension I95.9 Hypotension type: unspecified hypotension type Dysphagia R13.10 Dysphagia type: unspecified Acute kidney injury N17.9 Elevated troponin I level R77.8 Metabolic encephalopathy G93.41 Atrial fibrillation I48.21 Atrial fibrillation type: permanent CHF (congestive heart failure) I50.32 Heart failure chronicity: chronic Heart failure type: diastolic Sjoegren syndrome M35.00 Sjogren's organ involvement: unspecified organ involvement Severe protein-calorie malnutrition E43 History of stroke Z86.73 DVT prophylaxis Z29.9 Time Spent (min) 35 (1) Sjoegren syndrome Sjogren's organ involvement: unspecified organ involvement Qualified Code(s): M35.00 - Sicca syndrome, unspecified (2) CHF (congestive heart failure) Heart failure chronicity: chronic Heart failure type: diastolic Qualified Code(s): I50.32 - Chronic diastolic (congestive) heart failure (3) Atrial fibrillation Atrial fibrillation type: permanent Qualified Code(s): I48.21 - Permanent atrial fibrillation (4) Dysphagia Dysphagia type: unspecified Qualified Code(s): R13.10 - Dysphagia, unspecified (5) Aspiration pneumonia Aspiration pneumonia type: unspecified Laterality: bilateral Lung location: unspecified part of lung Qualified Code(s): J69.0 - Pneumonitis due to inhalation of food and vomit (6) Hypotension Hypotension type: unspecified hypotension type Qualified Code(s): I95.9 - Hypotension, unspecified
[2020-06-14] MEDS: MEROPENEM 500 MG in SYRINGE 0 ML IV SCH ×2 (03:51→09:15)
[2020-06-14] MEDS: THIAMINE HCL 100 MG in SYRINGE 9 ML IV SCH (08:30)
[2020-06-14] MEDS: ARTIFICIAL TEARS OPR SCH (08:30)
[2020-06-14] MEDS: ARTIFICIAL TEARS OPL SCH (08:30)
--- NOTE | 2020-06-22 13:32 | Discharge Summary ---
Date of Service June 15, 2020 Admission HPI Per Admitting Provider 74yo female with history of stroke in 2015, multiple myeloma, h/o lymphoma, dysphagia with recurrent aspiration pneumonia, sjogren's syndrome, and permanent a.sai presents from the [facility] with reports of fever to ~100 degrees, suspected aspiration event while eating dinner last pm, and worsening respiratory distress overnight and into this morning. EMS was summoned to the [facility], and upon arrival her O2 sats were in the 80s. 100% non-rebreather was applied and she was transferred to [facility] ER. Once here she was found to be hypotensive and had ongoing respiratory distress. Fluid bolus was given with improved BPs. Oxymask was used in ainsley of nonrebreather. During my admission assessment the patient's was at bedside. Although she is [place] she does speak Slovenian fluently and was able to answer basic questions. Denied pain in any location and said frequently "I'm doing ok." She was confused, stating it was February and could not name the year. O2 sats were high 90s on oxymask during my assessment. Patient stated she would NOT want intubation/mech ventilation or chest compressions in the event of a cardiopulmonary arrest. However, reports her advanced directives, penned in 2017, states full code. did state that he was wanting to talk with his children about her code status. Of note - ER attending placed right femoral CVC. Also, patient was hospitalized in 04/2020 for aspiration pneumonia. Principal Diagnosis Septicemia Discharge Exam General-awake. Uncertain how oriented she is HEENT-head atraumatic and normocephalic, pupils equal and reactive to light, extraocular muscles intact Neck-no lymphadenopathy or thyromegaly, trachea midline Chest-scattered bilateral rhonchi. No wheezing. Cardiac-irregular rhythm. Controlled rate Abdomen-normal bowel sounds, no hepatosplenomegaly Extremities-no cyanosis, clubbing, or edema Neuro-very difficult to assess. Discharge Data Allergies Allergy/AdvReac Type Severity Reaction Status Date / Time ampicillin Allergy Unknown Rash Verified 06/07/20 08:24 morphine Allergy Unknown Rash Verified 06/07/20 08:24 Penicillins Allergy Unknown Rash Verified 06/07/20 08:24 sulindac Allergy Unknown Rash Verified 06/07/20 08:24 tetracycline Allergy Unknown RASH Verified 06/07/20 08:24 tolmetin Allergy Unknown Rash Verified 06/07/20 08:24 Consultations 06/07/20 08:24 ED Decision to Admit Stat 06/07/20 20:55 Consult Case Management - Discharge Planning Routine 06/08/20 00:09 Consult Director Of Brand Marketing Routine 06/11/20 13:28 Consult Gastroenterology Routine 06/12/20 10:26 Consult Palliative Care Routine Ordered Studies 06/08/20 renal/blad retro comp Routine 06/10/20 11:00 FL video swallow Routine Hospital Course (1) Septicemia: E. coli isolated from the UTI. She is penicillin allergic. Continue meropenem. Repeat blood cultures June 09 are negative to date Completed 7 days of antibiotics. Patient improved. (2) Septic shock: 2nd to aspiration pneumonia and UTI. brief ICU stay for shock. needed levophed transiently - now weaned off. continue IVF. continue holding coreg for now. (3) Acute respiratory failure with hypoxia: 2nd to pneumonia, likely aspiration, as was told she aspirated during dinner the night before admission. She has been compliant with pureed solids and thickened liquids. No evidence of complicating CHF. Now on room air. Oxygen requirements appear to be decreasing supportive care. (4) Aspiration pneumonia: Similar episode in early 04/2020. Has dysphagia - suspect due to prior stroke in 2014. also states her Sjogren's contributes to her dysphagia. Now with recurrent b/l aspiration pneumonia. Cover gram+'s, gram-'s, and anaerobes. PCN allergic - using meropenem for now. MRSA swab negative. Supportive care. NC o2. Video swallow June 10 markedly abnormal with aspiration. has given consent for PEG tube placement. Gastroenterology consultation requested However, given risk of aspiration, Gastro did not recommend PEG tube. consulted palliative care. [facility] Family is undecided if she fails on the comfort feeds if they would want her to return. She is currently a DNR. Updated Dr. Walton (5) UTI (urinary tract infection): Urine cx growing E. coli and vancomycin-resistant Enterococcus. Daptomycin has been added to meropenem. Repeat blood cultures June 09 negative to date. Cont meropenem . Daptomycin added June 10 . (6) Hypotension: Due to sepsis. Checked cortisol -normal No evidence of cardiogenic shock. s/p levophed transiently - now off, and BPs stable/normal. Cont to hold coreg as long as a.fib rates are satisfactory. (7) Dysphagia: Known, chronic issue Had aspiration pneumonia during 04/2020 hospital stay. Speech saw her at that time - pureed diet advised. Speech saw patient this admission. Video swallow June 10 is markedly abnormal. She is n.p.o. has given consent for PEG tube placement. Aspiration precautions. (8) Acute kidney injury: Sepsis-associated ATN. Improving . Monitor urine output and serial lab studies. CT abd/pelvis earlier this year without renal stones or other pathology that would cause obstruction (9) Elevated troponin I level: No prior h/o CAD. This is likely myocardial demand ischemia in setting of severe sepsis. (10) Metabolic encephalopathy: 2nd to sepsis. Supportive care; Rx the sepsis. Avoid sedatives. Improving (11) Atrial fibrillation: Permanent. Holding coreg due to hypotension. INR is <2. Patient still strict NPO. Heparin drip switched to Lovenox 1 mg/kg subcutaneously every 12 hours. Lovenox placed on hold today, June 11, anticipating PEG tube placement tomorrow Coumadin is on hold due to n.p.o. status (12) CHF (congestive heart failure): Diastolic by history. Last echo was several years ago. Repeat echo to reassess EF. (13) Sjoegren syndrome: Noted. (14) Severe protein-calorie malnutrition: Significant weight loss over the last few months per . At least 5-6kg weight loss since the new year. (15) History of stroke: 2014. Presumed cardioembolic from a.fib. (16) DVT prophylaxis: Lovenox subcu. CODE STATUS: Full code per 's wishes Total Time Total Time Spent Total Time Spent (In Minutes): 32 Total Time Includes: Examination of the Patient, Discharge Planning and Medication Reconciliation Discharge Plan Discharge Items Patient Disposition: Personal Detention Reason For Visit: SEVERE SEPSIS,B/I PNEUMONIA Discharge Diagnosis: Severe Sepsis, B/L pneumonia Condition on Discharge: Good Activity: Resume your previous activity Non-emergency contact: Primary Care Provider Call non-emergency contact if: you have any medication questions Follow-up/Referrals: Neha Garcia [Primary Care Provider] - Diet: Other - See Diet Comment Diet Comment: as per speech therapy. Addtl Attending Provider Instructions: Patient was very sick when she came in. Treated with over 7 days of antibiotics and improved. Removed cao at discharge. May need to reinsert if patient develops worsening skin or decub ulcers. Family wants patient to try comfort feeds. Patient will have speech therapy assess her while she is back at the [facility]. Pending Studies at Discharge: No Stand-Alone Forms: My [facility] Skilled Items Patient informed of condition?: No DNR: No Discharge Level of Care: Skilled Communicable Disease: No Discharge Prognosis: Stable Lines: None Urinary Catheter: No Medications and DC Order Prescriptions: Continued multivitamin [Daily-Rogelio] Tablet 1 tab PO DAILY@0800 RF: 0 Systane Gel 0.3 % Gel 1 drp OPR DAILY@0800 RF: 0 Systane Gel 0.3 % Gel 1 drp OPL TID RF: 0 acetaminophen 325 mg Tablet 650 mg PO Q4H MDD 3 GMS APAP/24 HOURS PRN (Reason: Fever Or Pain) RF: 0 warfarin 2 mg Tablet 2 mg PO 3XWK RF: 0 warfarin 1 mg tablet 1.5 mg PO 4XWK RF: 0 Discontinued carvedilol 6.25 mg tablet 6.25 mg PO BID Qty: 180 RF: 0 losartan 50 mg tablet 50 mg PO DAILY@0800 Qty: 90 RF: 0 potassium chloride 10 mEq capsule, extended release 10 meq PO DAILY@0800 RF: 0 Discharge Orders: Discharge Order (Routine); Ordered 06/14/20 Ordered By: Caesar Dueñas Admission Data Admit Date/Time: 06/07/20 09:37 Attending Provider: Caesar Dueñas Admit Provider: Rey Dorantes Primary Care Provider: [facility] Other Providers: Alex Miguel ; Adrian Dove ; Preethi Louise Other Interventions: Discharge Summary Assessment (RN) Last Done: 06/14/20 10:15 Coding Level of Care Code D/C Day Management >30 mins Diagnoses Septicemia A41.9 Septic shock A41.9; R65.21 Acute respiratory failure with hypoxia J96.01 Aspiration pneumonia J69.0 Aspiration pneumonia type: unspecified Laterality: bilateral Lung location: unspecified part of lung UTI (urinary tract infection) N39.0 Hypotension I95.9 Hypotension type: unspecified hypotension type Dysphagia R13.10 Dysphagia type: unspecified Acute kidney injury N17.9 Elevated troponin I level R77.8 Metabolic encephalopathy G93.41 Atrial fibrillation I48.21 Atrial fibrillation type: permanent CHF (congestive heart failure) I50.32 Heart failure type: diastolic Heart failure chronicity: chronic Sjoegren syndrome M35.00 Sjogren's organ involvement: unspecified organ involvement Severe protein-calorie malnutrition E43 History of stroke Z86.73 DVT prophylaxis Z29.9 Time Spent (min) 32
== END 2020-06-14 10:45 | disposition home or self-care (01) | DRG 871 ==
LOC: ED 07:14 → 2S 09:37 → SUATTDRO 09:37 → 2S 10:28 → 1E 19:39 → 2S 06-08 14:51